=== PATIENT | female | born 1965 | race Two or more races ===

== ENCOUNTER 2020-05-12 13:53 | Outpatient (REF) | payer OTHER, SELFPAY ==
[2020-05-13 10:16] LABS: CT PCR NOT DETECTED (Not Detect.); NG PCR NOT DETECTED (Not Detect.)
[2020-05-13 13:13] LABS: BV Int Neg Control Negative (Negative); BV Int Pos Control Positive (Positive)
== END 2020-05-12 13:54 | disposition home or self-care (01) ==
LOC: HO.LAB 13:53
PROVIDERS: Visit Provider Obstetrics & Gynecology
DX: N88.8 Other specified noninflammatory disorders of cervix uteri (principal); B96.89 Other specified bacterial agents as the cause of diseases classified elsewhere; N76.0 Acute vaginitis; N92.0 Excessive and frequent menstruation with regular cycle; Z32.02 Encounter for pregnancy test, result negative; Z79.899 Other long term (current) drug therapy; Z79.52 Long term (current) use of systemic steroids
CPT/HCPCS: 81025; 87480; 87491; 87510; 87591; 87660; 88305; 99212

== ENCOUNTER → 2020-05-23 15:52 | Outpatient (BNVA) | payer OTHER, SELFPAY | PROVIDERS: Referring Provider Internal Medicine; Visit Provider Surgery | DX: K64.4 Residual hemorrhoidal skin tags (principal); K64.8 Other hemorrhoids | CPT/HCPCS: 46600; 99202 ==

== ENCOUNTER → 2020-07-18 14:21 | Outpatient (BNVA) | payer OTHER, SELFPAY | PROVIDERS: PCP Internal Medicine; Visit Provider Obstetrics & Gynecology | DX: Z76.89 Persons encountering health services in other specified circumstances (principal) ==

== ENCOUNTER 2020-07-22 10:35 | Outpatient (REF) | payer OTHER, SELFPAY ==
[2020-07-23 12:25] LABS: BV Int Neg Control Negative (Negative); BV Int Pos Control Positive (Positive)
[2020-07-23 15:37] LABS: C. trachomatis RNA TMA NOT DETECTED (NOT DETECTED); N. gonorrhoeae RNA TMA NOT DETECTED (NOT DETECTED)
== END 2020-07-22 10:36 | disposition home or self-care (01) ==
LOC: HO.LAB 10:35
PROVIDERS: PCP Internal Medicine; Visit Provider Obstetrics & Gynecology
DX: N89.8 Other specified noninflammatory disorders of vagina (principal); B96.89 Other specified bacterial agents as the cause of diseases classified elsewhere
CPT/HCPCS: 36415; 87480; 87491; 87510; 87591; 87660; 99212

== ENCOUNTER 2020-08-05 08:57 | Outpatient (REF) | payer OTHER, SELFPAY ==
[2020-08-05 09:47] LABS: MANUAL DIFF FLAG NO
[2020-08-05 09:57] LABS: Basophils Percent Auto 0.3 % (0-2); Eosinophils Absolute Auto 0.2 X10*3/uL (0.0-0.4); Hemoglobin 13.5 g/dl (12.0-16.0); Imm Gran Abs Auto 0.01 X10*3/uL (0.00-0.03); Imm Gran Pct Auto 0.2 % (0.0-0.4); Immature Retic Fraction 5.8 % (3.0-15.9); Lymphocytes Absolute Auto 1.5 X10*3/uL (1.2-4.9); Lymphocytes Percent Auto 24.7 % (20-40); Mean Corpuscular HGB Conc 32.9 g/dl (31.0-35.0); Mean Corpuscular Hemoglobin 29.5 pg (27.0-33.0); Mean Corpuscular Volume 89.5 fL (80-98); Mean Platelet Volume 9.8 fL (9.4-12.3); Monocytes Absolute Auto 0.5 X10*3/uL (0.1-1.2); Monocytes Percent Auto 7.5 % (2-11); Neutrophils Percent Auto 64.3 % (45-73); Platelet Count 351 X10*3/uL (160-400); Red Blood Count 4.58 X10*6/uL (4.20-5.50); Red Cell Distribution Width 12.6 % (11.0-16.0); Retic HGB Equivalent 33.8 pg (30.0-35.0); Reticulocyte Percent 1.5 % (0.5-1.8); Reticulocytes Absolute 0.066 X10*6/uL (0.026-0.095); White Blood Count 6.2 X10*3/uL (4.8-10.8)
[2020-08-05 10:20] LABS: Alanine Aminotransferase 43 U/L (0-31); Albumin Level 4.3 g/dL (3.5-5.0); Alkaline Phosphatase 74 U/L (39-117); Anion Gap 12 (12-20); Aspartate Amino Transferase 32 U/L (5-31); Bilirubin Total 0.5 mg/dL (0.0-1.0); Blood Urea Nitrogen 10 mg/dL (9-16); Calcium 8.7 mg/dL (8.4-10.2); Carbon Dioxide 27 mmol/L (22-29); Chloride 104 mmol/L (96-108); Estimated Glomerular Filt Rate > 60; Glucose Random 151 mg/dL (60-115); Iron 56 mcg/dL (30-160); Percent Iron Saturation 18 % (15-50); Potassium 4.2 mmol/l (3.3-5.1); Sodium 139 mmol/L (135-145); Total Iron Binding Capacity 318 mcg/dL (228-428); Unsaturated Iron Binding 262 ug/dL
[2020-08-05 10:43] LABS: Ferritin 59 ng/mL (10-250); TSH reflex Free T4 1.24 mIU/mL (0.32-4.0)
[2020-08-08 15:21] LABS: Folate 13.8 ng/mL (> or = 4.0); Vitamin B12 537 pg/mL (200-900)
== END 2020-08-05 08:58 | disposition home or self-care (01) ==
LOC: HO.LAB 08:57
PROVIDERS: PCP Internal Medicine; Visit Provider Internal Medicine
DX: E66.3 Overweight (principal); D64.9 Anemia, unspecified; K64.9 Unspecified hemorrhoids; R51.9 Headache, unspecified
CPT/HCPCS: 36415; 80053; 82607; 82728; 82746; 83540; 84443; 85025; 85045

== ENCOUNTER → 2020-08-17 13:54 | Outpatient (BNV) | payer OTHER, SELFPAY | PROVIDERS: PCP Internal Medicine; Visit Provider Internal Medicine | DX: Z86.2 Personal history of diseases of the blood and blood-forming organs and certain disorders involving the immune mechanism (principal) | CPT/HCPCS: 99212; 99213 ==

== ENCOUNTER 2020-08-23 11:58 | Outpatient (REF) | payer OTHER, SELFPAY ==
--- NOTE | ~2020-08-23 | XR_ITS ---
EXAMINATION: XR SHOULDER, RIGHT CLINICAL INFORMATION: Shoulder pain COMPARISON: Radiographs right shoulder 04/09/2016 TECHNIQUE: 5 views of the right shoulder. FINDINGS: There is no fracture or dislocation or destructive process. The glenohumeral and acromioclavicular joints are unremarkable. There are no visible rotator cuff calcifications. Bony mineralization appears normal. XR/XR shoulder RT min 2V IMPRESSION: Normal right shoulder.
[2020-08-23 13:37] LABS: Estimated Average Glucose 154 mg/dL
[2020-08-23 13:51] LABS: Alanine Aminotransferase 39 U/L (0-31); Albumin Level 4.3 g/dL (3.5-5.0); Alkaline Phosphatase 70 U/L (39-117); Anion Gap 14 (12-20); Aspartate Amino Transferase 29 U/L (5-31); Bilirubin Direct 0.2 mg/dL (0.0-0.5); Bilirubin Total 0.6 mg/dL (0.0-1.0); Blood Urea Nitrogen 9 mg/dL (9-16); Calcium 8.6 mg/dL (8.4-10.2); Carbon Dioxide 25 mmol/L (22-29); Chloride 104 mmol/L (96-108); Cholesterol 195 mg/dL; Estimated Glomerular Filt Rate > 60; Glucose Random 117 mg/dL (60-115); HDL Cholesterol 29 mg/dL; LDL Cholesterol Calculated 139 mg/dl; Potassium 4.4 mmol/L (3.3-5.1); Sodium 139 mmol/L (135-145); Total Protein 6.8 g/dL (6.5-8.0); Triglycerides 136 mg/dL
[2020-08-24 08:49] LABS: HBc Num1 0.07 S/CO (0.00-0.79); Hepatitis B Core Antibody Nonreactive (Nonreactive); ~HepC Num1 0.07 S/CO (0.00-0.79); ~Hepatitis B Surface Antibody NONREACTIVE (Nonreactive); ~Hepatitis C Antibody Nonreactive (Nonreactive)
[2020-08-24 09:51] LABS: HBsAGNum1 0.18 S/CO (0.00-0.99); Hepatitis B Surface Antigen Negative (Negative)
== END 2020-08-23 11:59 | disposition home or self-care (01) ==
LOC: HO.LAB 11:58
PROVIDERS: PCP Internal Medicine; Visit Provider Internal Medicine
DX: R73.02 Impaired glucose tolerance (oral) (principal); R79.89 Other specified abnormal findings of blood chemistry; E78.00 Pure hypercholesterolemia, unspecified; M25.511 Pain in right shoulder
CPT/HCPCS: 36415; 73030; 80053; 80061; 80076; 82248; 83036; 86704; 86706; 86803; 87340

== ENCOUNTER 2020-09-01 08:18 | Outpatient (REF) | payer OTHER, SELFPAY ==
--- NOTE | ~2020-09-01 | US_ITS ---
EXAMINATION: US ABDOMEN COMPLETE CLINICAL INFORMATION: Abnormal blood chemistry. COMPARISON: None TECHNIQUE: Real-time imaging of the abdominal viscera. FINDINGS: PANCREAS: Obscured by bowel gas. Partially visualized neck appears unremarkable. ABDOMINAL AORTA: The proximal, mid, and distal segments are normal in caliber. INFERIOR VENA CAVA: Visualized portions are normal. LIVER:The liver is normal in size. The liver contour is normal. Diffuse increased echogenicity. No focal hepatic lesion. There is no intrahepatic biliary duct dilatation seen. 1 x 0.5 x 0.7 cm calcification in the right lower lobe. GALLBLADDER: Normal. The gallbladder is physiologically distended without evidence of stones, sludge, polyps, wall thickening, or pericholecystic fluid. COMMON BILE DUCT: Normal in caliber measuring 0.4 cm in diameter. RIGHT KIDNEY: Normal. No hydronephrosis. No renal calculi or focal parenchymal lesions. The kidney measures 12.6 cm in maximum dimension. LEFT KIDNEY: Normal. Fullness of the renal pelvis in the lower pole. No hydronephrosis. No renal calculi or focal parenchymal lesions. The kidney measures 13.3 cm in maximum dimension. SPLEEN: Normal. The spleen measures 10.5 cm in maximum dimension. FREE FLUID: None. US/US abdomen complete IMPRESSION: 1. There is generalized increase in hepatic echotexture, consistent with fatty infiltration or hepatocellular disease. Please correlate clinically. No focal hepatic mass or intrahepatic biliary duct dilatation is seen. 2. Pancreas obscured by bowel gas. 3. Mild fullness of the left renal lower pole pelvis.
== END 2020-09-01 08:19 | disposition home or self-care (01) ==
LOC: HO.US 08:18
PROVIDERS: Visit Provider Internal Medicine
DX: R79.89 Other specified abnormal findings of blood chemistry (principal)
CPT/HCPCS: 76700

== ENCOUNTER → 2020-09-30 09:48 | Outpatient (BNVA) | payer OTHER, SELFPAY | PROVIDERS: PCP Internal Medicine; Visit Provider Physician Assistant | DX: M75.41 Impingement syndrome of right shoulder (principal) | CPT/HCPCS: 20610; 99202; J1020 ==

== ENCOUNTER → 2020-11-21 13:22 | Outpatient (BNVA) | payer OTHER, SELFPAY | PROVIDERS: PCP Internal Medicine; Visit Provider Dietitian, Registered | DX: E11.65 Type 2 diabetes mellitus with hyperglycemia (principal) | CPT/HCPCS: 97802 ==

== ENCOUNTER 2020-11-22 09:20 | Outpatient (REF) | payer OTHER, SELFPAY ==
[2020-11-22 10:51] LABS: Alanine Aminotransferase 20 U/L (0-31); Albumin Level 4.3 g/dL (3.5-5.0); Alkaline Phosphatase 69 U/L (39-117); Anion Gap 12 (12-20); Aspartate Amino Transferase 20 U/L (5-31); Bilirubin Total 0.8 mg/dL (0.0-1.0); Blood Urea Nitrogen 11 mg/dL (9-16); Calcium 8.8 mg/dL (8.4-10.2); Carbon Dioxide 25 mmol/L (22-29); Chloride 108 mmol/L (96-108); Cholesterol 148 mg/dL; Estimated Glomerular Filt Rate > 60; Glucose Random 103 mg/dL (60-115); HDL Cholesterol 33 mg/dL; LDL Cholesterol Calculated 103 mg/dl; Sodium 141 mmol/L (135-145); Total Protein 6.9 g/dL (6.5-8.0); Triglycerides 60 mg/dL
[2020-11-22 11:03] LABS: Creatinine Urine 294.75 mg/dL; Microalbum/Creatinine Ratio Ur 9.4 ug/mg cr
[2020-11-22 11:06] LABS: Estimated Average Glucose 108 mg/dL; Hemoglobin A1c % 5.4 %
== END 2020-11-22 09:21 | disposition home or self-care (01) ==
LOC: HO.LAB 09:20
PROVIDERS: PCP Internal Medicine; Visit Provider Internal Medicine
DX: E11.65 Type 2 diabetes mellitus with hyperglycemia (principal); E78.00 Pure hypercholesterolemia, unspecified; D50.9 Iron deficiency anemia, unspecified
CPT/HCPCS: 36415; 80053; 80061; 82043; 83036

== ENCOUNTER 2020-11-23 13:35 | Outpatient (REF) | payer OTHER, SELFPAY ==
--- NOTE | 2020-11-24 09:30 | MHC.AU.ATI ---
Adult Audiological Evaluation Date of Visit: 11/23/20 Reason for Appointment: Patient contracted COVID-19 in October 2019. During this time, she developed constant, high-pitched tinnitus. The tinnitus has persisted since last October. During the day, the tinnitus does not usually bother her, and can easily be masked by everyday background noise. At nighttime, or when the room is quiet, the tinnitus can sometimes be bothersome. She has been sleeping with the radio on to help cover the tinnitus. Patient also reports she experienced headaches long after the resolution of other COVID-19 symptoms, but the headaches have since resolved. Hearing Handicap Inventory: HHIE SCORE: 4 Based on HHIE score, patient has: No perceived hearing handicap Ear History: Ear Deformity: None Reported Recent Ear Drainage: None Reported Recent Ear Pain: None Reported Family History of Hearing Loss?: Yes Recent Ear Infections: None Reported Ear Infections in Childhood: None Reported History of Ear Wax Buildup: None Reported Previous Ear Surgery: None Reported Bothersome Tinnitus/Ringing/Noises in Ears: Both Ears Ear used on the phone: Right Ear Blocked/Full Sensation in Ear(s): None Reported History of occupational noise exposure?: Yes: [employer] for 17 years History: No Medical History: Medical History: Type 2 Diabetes Otoscopy: Right Ear: Unremarkable Left Ear: Unremarkable Tympanometry: Tympanometry performed due to: To assess integrity of the middle ear system Right Ear: Normal Middle Ear System (Type A) Left Ear: Normal Middle Ear System (Type A) Acoustic Reflexes: Screening Ipsilateral Reflex Probe Right Ear: Screening Ipsilateral Reflex Present at 1000 Hz Probe Left Ear: Screening Ipsilateral Reflex Present at 1000 Hz Otoacoustic Emissions Frequency Range Used: 1.6-8 kHz Right Ear Results: Present Emissions Analysis: Present emissions suggest normal cochlear function Rules out peripheral hearing loss greater than a mild degree Left Ear Results: Present Emissions Analysis: Present emissions suggest normal cochlear function Rules out peripheral hearing loss greater than a mild degree Hearing Evaluation: Transducer(s) Used: Insert Earphones Method: Conventional Audiometry Stimuli Used: Pure Tones Right Ear: Description of Hearing: Normal hearing Left Ear: Description of Hearing: Normal hearing Speech Recognition Threshold (SRT): Method Used: Recorded Lists Stimuli Used: Spondee Words Right Ear: 20 dBHL Left Ear: 10 dBHL Word Discrimination: Method: Recorded Lists Word Lists Used:: NU-6 Right Ear: 100% at 50 dBHL Left Ear: 100% at 50 dBHL Tinnitus Assessment: Tinnitus Match- Pitch/Frequency: 8000 Hz Tinnitus Match- Loudness: 20-25 dBHL Interpretation of Results: At this time, results suggest normal hearing, normal cochlear function, and normal middle ear function. Recommendations: Audiological re-evaluation if changes are noted in tinnitus or hearing. Tinnitus management strategies discussed, including use of masking noise (fans, radio, TV, etc). Diagnosis: Primary Diagnosis: H93.13 Tinnitus, Bilateral Services Performed: Comprehensive Audiological Evaluation (CPT 28042), Limited Otoacoustic Emissions (CPT 46408), Tympanometry (CPT 33590) Signature: Provider: Erin Louise, CCC-A
== END 2020-11-23 13:36 | disposition home or self-care (01) ==
LOC: HO.SH 13:35
PROVIDERS: Visit Provider Internal Medicine
DX: H93.13 Tinnitus, bilateral (principal)
CPT/HCPCS: 92557; 92567; 92587

== ENCOUNTER 2020-12-02 11:00 | Outpatient (RCR) | payer OTHER, SELFPAY ==
--- NOTE | 2020-10-18 12:01 | MHC.PT.EP ---
[facility] [place] Office [place] Office [place] Office [address] Aureliano Everett [address] [phone] F: [phone] F: [phone] F: [phone] F: [phone] Physical Therapy Plan of Care Date of Evaluation: 10/18/20 Date of Surgery: N/A Diagnosis: Impingement Syndrome of R Shoulder Assessment: Cecilia is a 54-year-old female presenting to physical therapy with a diagnosis of R shoulder impingement. She demonstrates impaired UE strength, impaired RUE ROM, impaired scapular muscle strength, and impaired posture. 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 Cecilia is motivated to participate in physical therapy in order to reduce her pain and return to her PLOF. Pt was recommended 2/week but due to copay she will be coming 1/week. Frequency and Duration: The patient will be seen 2 Visits per Week for 5 Weeks Short Term Goals: -Pt will report <2/10 pain at rest to allow her to sleep comfortably through the night within 3 weeks. -Pt will independently check and correct seated posture every 30 minutes while watching television within 3 weeks. Longterm Goals: -Pt will be independent with HEP for symptom management and maintenance following discharge within 5 weeks. -Pt will demonstrate 4+/5 global R shoulder strength to allow her to safely lift items overhead when cleaning around the house within 5 weeks. Treatment Plan: Modalities to reduce pain, spasms and effusion. Manual therapy to restore motion and function. Therapeutic exercise to improve strength and flexibility. Neuromuscular re-education for posture and balance. Therapeutic activities to return to functional activities of daily living. Electronically signed by: Kathy Zambrano PT, DPT Please sign and return to therapist. Thank you for your referral.
--- NOTE | 2020-12-23 11:39 | MHC.PT.DC ---
[facility] [place] Office [place] Office [place] Office [address] Aureliano Everett [address] [phone] F: [phone] F: [phone] F: [phone] F: [phone] Physical Therapy Discharge Report Diagnosis: Impingement Syndrome of R Shoulder Date of Surgery: N/A Date of Evaluation: 10/18/20 Date of Discharge: 12/23/20 Treatments to Date: 7 Cancellations to Date: 2 No Shows to Date: 1 Discharge Status: Improved Function Independent with HEP Discharge Summary: Zuleika completed 7 PT visits. She made significant progress in these visits. She only reported of having very minimal pain with end range ER. Pt was advised to continued PT for 4 more visits. She however did not attend any of her appointments. She has therefore been discharged from therapy. Electronically signed by: Kathy Zambrano, PT, DPT Please sign and return to therapist. Thank you for your referral.
== END 2020-12-23 11:40 | disposition other institution (70) ==
LOC: HO.PT 11:00
PROVIDERS: PCP Internal Medicine; Visit Provider Physician Assistant
DX: M75.41 Impingement syndrome of right shoulder (principal)
CPT/HCPCS: 97110; 97112; 97140; 97161

== ENCOUNTER → 2021-01-02 12:57 | Outpatient (BNVA) | payer OTHER, SELFPAY | PROVIDERS: PCP Internal Medicine; Visit Provider Dietitian, Registered | DX: E11.65 Type 2 diabetes mellitus with hyperglycemia (principal) | CPT/HCPCS: 97803 ==

== ENCOUNTER 2021-01-23 12:33 | Outpatient (REF) | payer OTHER, SELFPAY ==
--- NOTE | ~2021-01-23 | MM_ITS ---
EXAMINATION: MM SCREENING DIGITAL BREAST TOMOSYNTHESIS, BILATERAL CLINICAL INFORMATION: Screening. Asymptomatic. Benign left ultrasound guided biopsy 12/31/2018 (fibroadenoma). The lifetime risk of breast cancer based on the Tyrer-Cuzick Model is 11%. COMPARISON: Mammography: 12/18/2019, 25/12/2018, 11/12/2017, 11/07/2017 TECHNIQUE: Digital breast tomosynthesis is performed in both the craniocaudal and mediolateral oblique views along with computer-aided detection (CAD). Synthesized 2D images are generated from the tomosynthesis. FINDINGS: The breasts are heterogeneously dense, which may obscure small masses (ACR BI-RADS breast composition Category c). Breast tissue composition borders on average fibroglandular. Parenchymal pattern is similar to prior studies. There is a known fibroadenoma anterior upper outer left breast with overlying biopsy clip marker. Neither breast shows significant mass or architectural abnormality. There are scattered bilateral calcifications again seen, more numerous on right. No interval suspicious calcifications. The axilla and skin contours are unremarkable. No significant changes. MM/MM tomosynthesis screening BI IMPRESSION: No mammographic evidence of malignancy. ASSESSMENT: BI-RADS 2: Benign RECOMMENDATION: Routine annual mammography screening. This patient's information was entered into a reminder system with a target due date for their next mammogram.
== END 2021-01-23 12:34 | disposition home or self-care (01) ==
LOC: HO.MAMMO 12:33
PROVIDERS: Visit Provider Internal Medicine
DX: Z12.31 Encounter for screening mammogram for malignant neoplasm of breast (principal)
CPT/HCPCS: 77063; 77067

== ENCOUNTER 2021-02-23 12:57 | Outpatient (REF) | payer OTHER, SELFPAY ==
[2021-02-23 16:47] LABS: CT PCR NOT DETECTED (Not Detect.); NG PCR NOT DETECTED (Not Detect.)
[2021-02-24 09:27] LABS: BV Int Neg Control Negative (Negative); BV Int Pos Control Positive (Positive)
[2021-02-25 18:06] LABS: HPV mRNA E6/E7 rflx Not Detected (Not Detected)
== END 2021-02-23 12:58 | disposition home or self-care (01) ==
LOC: HO.LAB 12:57
PROVIDERS: PCP Internal Medicine; Visit Provider Advanced Practice Midwife
DX: Z01.411 Encounter for gynecological examination (general) (routine) with abnormal findings (principal); Z11.51 Encounter for screening for human papillomavirus (HPV); D25.9 Leiomyoma of uterus, unspecified; N93.9 Abnormal uterine and vaginal bleeding, unspecified; Z20.2 Contact with and (suspected) exposure to infections with a predominantly sexual mode of transmission
CPT/HCPCS: 87480; 87491; 87510; 87591; 87624; 87660; 88142

== ENCOUNTER 2021-03-15 13:57 | Outpatient (REF) | payer OTHER, SELFPAY ==
--- NOTE | ~2021-03-15 | US_ITS ---
EXAMINATION: US PELVIS CLINICAL INFORMATION: Abnormal bleeding. COMPARISON: Previous pelvic ultrasound most recent February 2020 TECHNIQUE: Ultrasound of the pelvis is performed using both transabdominal and transvaginal transducers along with Doppler. Transvaginal imaging is performed due to inadequate visualization transabdominally. FINDINGS: The uterus is anteverted and measures 13 x 8 x 7 cm. There is a right-sided uterine fibroid. This measures 6.4 x 6.9 x 5.2 cm and is increased from 4.2 x 3 x 5 cm on prior exam. The endometrium is difficult to visualize but appears thickened measuring 2.4 cm. There are nabothian cysts in the cervix. The ovaries are seen transabdominally only. The ovaries are normal-appearing. The right ovary measures 3.1 x 2.5 x 2.1 cm and the left ovary measures 1.6 x 1.2 x 1.3 cm. There is a small amount of fluid in the pelvis. US/US pelvic and transvaginal IMPRESSION: Interval increase in size in right uterine fibroid. Thickened endometrium measuring 2.4 cm. Multiple nabothian cysts. Normal-appearing ovaries.
== END 2021-03-15 13:58 | disposition home or self-care (01) ==
LOC: HO.US 13:57
PROVIDERS: Visit Provider Advanced Practice Midwife
DX: N93.9 Abnormal uterine and vaginal bleeding, unspecified (principal); D25.9 Leiomyoma of uterus, unspecified
CPT/HCPCS: 76830; 76856

== ENCOUNTER 2021-03-20 13:06 | Outpatient (REF) | payer OTHER, SELFPAY | END 2021-03-20 13:07 | disposition home or self-care (01) | LOC: HO.LAB 13:06 | PROVIDERS: PCP Internal Medicine; Visit Provider Obstetrics & Gynecology | DX: N92.0 Excessive and frequent menstruation with regular cycle (principal); D21.9 Benign neoplasm of connective and other soft tissue, unspecified | CPT/HCPCS: 58100; 81025; 88305; 99212 ==

== ENCOUNTER 2021-03-24 12:16 | Outpatient (REF) | payer OTHER, SELFPAY ==
[2021-03-24 13:39] LABS: Hematocrit 31.6 % (37-47); Hemoglobin 10.2 g/dl (12.0-16.0); Mean Corpuscular HGB Conc 32.3 g/dl (31.0-35.0); Mean Corpuscular Hemoglobin 28.7 pg (27.0-33.0); Mean Corpuscular Volume 88.8 fL (80-98); Mean Platelet Volume 10.2 fL (9.4-12.3); Platelet Count 312 X10*3/uL (160-400); Red Blood Count 3.56 X10*6/uL (4.20-5.50); Red Cell Distribution Width 18.3 % (11.0-16.0); White Blood Count 7.7 X10*3/uL (4.8-10.8)
[2021-03-24 13:59] LABS: Alanine Aminotransferase 21 U/L (0-31); Alkaline Phosphatase 56 U/L (39-117); Anion Gap 12 (12-20); Aspartate Amino Transferase 19 U/L (5-31); Bilirubin Total 0.5 mg/dL (0.0-1.0); Blood Urea Nitrogen 12 mg/dL (9-16); Calcium 8.7 mg/dL (8.4-10.2); Carbon Dioxide 26 mmol/L (22-29); Chloride 107 mmol/L (96-108); Cholesterol 169 mg/dL; Estimated Glomerular Filt Rate > 60; Glucose Random 102 mg/dL (60-115); HDL Cholesterol 39 mg/dL; LDL Cholesterol Calculated 119 mg/dl; Potassium 4.7 mmol/L (3.3-5.1); Sodium 140 mmol/L (135-145); Total Protein 6.2 g/dL (6.5-8.0); Triglycerides 59 mg/dL
[2021-03-24 14:12] LABS: TSH reflex Free T4 0.69 uIU/mL (0.32-4.0)
== END 2021-03-24 12:17 | disposition home or self-care (01) ==
LOC: HO.LAB 12:16
PROVIDERS: Absent Provider Obstetrics & Gynecology; PCP Internal Medicine; Visit Provider Internal Medicine
DX: E78.00 Pure hypercholesterolemia, unspecified (principal); N93.9 Abnormal uterine and vaginal bleeding, unspecified
CPT/HCPCS: 36415; 80053; 80061; 84443; 85027

== ENCOUNTER → 2021-03-27 14:47 | Outpatient (BNVA) | payer OTHER, SELFPAY | PROVIDERS: PCP Internal Medicine; Referring Provider Internal Medicine; Visit Provider Surgery | DX: K64.2 Third degree hemorrhoids (principal); E78.00 Pure hypercholesterolemia, unspecified; E55.9 Vitamin D deficiency, unspecified; Z87.891 Personal history of nicotine dependence | CPT/HCPCS: 46600; 99212 ==

== ENCOUNTER → 2021-04-05 11:39 | Outpatient (BNVA) | payer OTHER, SELFPAY | PROVIDERS: PCP Internal Medicine; Visit Provider Obstetrics & Gynecology ==

== ENCOUNTER → 2021-04-11 12:16 | Outpatient (BNVA) | payer OTHER, SELFPAY | PROVIDERS: PCP Internal Medicine; Visit Provider Obstetrics & Gynecology ==

== ENCOUNTER → 2021-04-25 13:25 | Outpatient (BNVA) | payer OTHER, SELFPAY | PROVIDERS: PCP Internal Medicine; Visit Provider Dietitian, Registered | DX: E11.65 Type 2 diabetes mellitus with hyperglycemia (principal) | CPT/HCPCS: 97803 ==

== ENCOUNTER 2021-05-09 14:17 | Outpatient (REF) | payer OTHER, SELFPAY ==
--- NOTE | ~2021-05-09 | MR_ITS ---
EXAMINATION: MR PELVIS WITHOUT AND WITH CONTRAST CLINICAL INFORMATION: Excessive and frequent menstruation with regular cycles. COMPARISON: Previous pelvic ultrasounds, most recent 03/15/2021. TECHNIQUE: Axial images through the pelvis with and without contrast. The patient received 6 mL intravenous Gadavist contrast. FINDINGS: The uterus is enlarged and measures 12.3 x 7.3 x 8 cm in dimension. The endometrium does not appear thickened, measuring 3 mm. The junctional zone does not appear thickened, measuring 3 mm. There is a large lesion in the right side of the body of the uterus. This is submucosal in location and displaces the endometrium anteriorly and to the left. This is similar in signal to the uterus on T1-weighted sequences, low signal on T2-weighted sequences and demonstrates heterogeneous enhancement. This probably represents a fibroid. This measures 4.4 x 4.3 x 5.1 cm in dimension. There is a second similar-appearing and signal 7 mm lesion in the left body of the uterus also probably representing a small fibroid. There are nabothian cysts in the cervix. The right ovary is slightly enlarged and measures 6 x 4.6 x 4 cm. There is a 4 x 3 x 4 cm right ovarian cyst. This is slightly high signal on T1-weighted sequences, high signal on T2-weighted sequences and does not demonstrate evidence of enhancement. This probably represents a, complex proteinaceous or hemorrhagic cyst. There is a second smaller simple right ovarian cyst measuring 1.2 x 1.4 x 1.3 cm. The left ovary is normal appearing and measures 2.3 x 1.5 x 1.5 cm. There is a 1 cm simple left ovarian cyst. There are prominent pelvic vessels questionable for pelvic congestion. Bladder is unremarkable. No ascites or adenopathy is seen. Visualized bowel is unremarkable. There is a small umbilical hernia containing fat. There are postsurgical changes to the low abdominal wall. There is degenerative disc disease of the lower lumbar spine. MR/MR pelvis wo/w con IMPRESSION: Right submucosal uterine body fibroid measuring 4.4 x 4.3 x 5.1 cm that displaces the endometrium anteriorly and to the left. The endometrium does not appear thickened. Enlarged right ovary and 2 right ovarian cysts.
[2021-05-09 14:48] LABS: Blood Urea Nitrogen 13 mg/dL (9-16); Estimated Glomerular Filt Rate > 60
== END 2021-05-09 14:18 | disposition home or self-care (01) ==
LOC: HO.MRI 14:17
PROVIDERS: PCP Internal Medicine; Visit Provider Obstetrics & Gynecology
DX: N92.0 Excessive and frequent menstruation with regular cycle (principal)
CPT/HCPCS: 36415; 72197; 82565; 84520; A9585

== ENCOUNTER → 2021-05-23 15:11 | Outpatient (BNVA) | payer OTHER, SELFPAY | PROVIDERS: PCP Internal Medicine; Visit Provider Obstetrics & Gynecology ==

== ENCOUNTER → 2021-05-25 13:17 | Outpatient (BNVA) | payer OTHER, SELFPAY | PROVIDERS: Visit Provider Obstetrics & Gynecology ==

== ENCOUNTER 2021-05-26 10:22 | Outpatient (REF) | payer OTHER, SELFPAY ==
[2021-05-29 19:47] LABS: CA-125 12 U/mL (<35)
== END 2021-05-26 10:23 | disposition home or self-care (01) ==
LOC: HO.LAB 10:22
PROVIDERS: PCP Internal Medicine; Visit Provider Obstetrics & Gynecology
DX: N83.299 Other ovarian cyst, unspecified side (principal)
CPT/HCPCS: 36415; 86304

== ENCOUNTER 2021-07-24 11:03 | Outpatient (REF) | payer OTHER, SELFPAY ==
--- NOTE | ~2021-07-24 | US_ITS ---
EXAMINATION: US PELVIC AND TRANSVAGINALs CLINICAL INFORMATION: Ovarian cyst. COMPARISON: MRI pelvis 05/27/2021 and ultrasound pelvis 03/15/2021 TECHNIQUE: Ultrasound of the pelvis is performed using both transabdominal and transvaginal transducers along with Doppler. Transvaginal imaging is performed due to inadequate visualization transabdominally. FINDINGS: Uterus: The uterus is anteverted, anteflexed and measures 13.0 cm in length, 6.5 cm in AP, and 7.9 cm in transverse dimension. The double wall endometrial thickness is not well visualized. The uterus is smooth in contour and has normal myometrial echogenicity. There is a solitary hypoechoic lesion in the right mid uterus measuring 5.0 x 4.1 x 4.1 cm consistent with fibroid. Previously it measured 6.4 x 6.9 x 5.2 cm. MRI visualized left fibroid is not seen on ultrasound. There are several nabothian cysts seen in the cervix. Adnexa: Both ovaries are visualized. There is normal color-flow to the adnexa. There is no ovarian torsion. There is no pelvic ascites or fluid collection. Right ovary measures 2.4 x 2.6 x 2.8 cm seen on transvaginal ultrasound only. There is an anechoic cyst measuring 2.5 x 1.9 x 1.8 cm. Left ovary measures 2.2 x 2.4 x 1.8 cm. There is an anechoic cyst measuring 1.2 x 1.0 x 1.2 cm. US/US pelvic and transvaginal IMPRESSION: Bilateral ovarian cysts. Solitary uterine fibroid minimally smaller compared to the MRI exam. A left fibroid seen on MRI is not seen on this ultrasound. The endometrial thickness is not well visualized due to a large fibroid.
== END 2021-07-24 11:04 | disposition home or self-care (01) ==
LOC: HO.US 11:03
PROVIDERS: PCP Internal Medicine; Visit Provider Obstetrics & Gynecology
DX: N83.299 Other ovarian cyst, unspecified side (principal)
CPT/HCPCS: 76830; 76856

== ENCOUNTER 2021-07-24 14:43 | Outpatient (REF) | payer OTHER, SELFPAY ==
--- NOTE | ~2021-07-24 | XR_ITS ---
EXAMINATION: XR CHEST CLINICAL INFORMATION: Acute bronchitis. COMPARISON: Chest 11/13/2019 TECHNIQUE: 2 views of the chest were obtained. FINDINGS: No significant abnormality is noted involving the heart, lungs, mediastinum, bony thorax or soft tissues. XR/XR chest 2V IMPRESSION: Unremarkable examination.
== END 2021-07-24 14:44 | disposition home or self-care (01) ==
LOC: HO.HMGCX 14:43
PROVIDERS: PCP Internal Medicine; Visit Provider Internal Medicine
DX: J20.9 Acute bronchitis, unspecified (principal)
CPT/HCPCS: 71046

== ENCOUNTER 2021-08-01 09:54 | Outpatient (REF) | payer OTHER, SELFPAY ==
[2021-08-01 11:55] LABS: HIV AB/AG Nonreactive (Nonreactive); HIV Num 1 0.08 S/CO (0.00-0.99); Hepatitis B Surface Antigen Negative (Negative); ~HepC Num1 0.12 S/CO (0.00-0.79); ~Hepatitis C Antibody Nonreactive (Nonreactive)
[2021-08-01 15:48] LABS: CT PCR NOT DETECTED (Not Detect.); NG PCR NOT DETECTED (Not Detect.)
[2021-08-02 08:58] LABS: BV Int Neg Control Negative (Negative); BV Int Pos Control Positive (Positive)
[2021-08-02 09:51] LABS: Syphilis Screen Nonreactive (Nonreactive)
== END 2021-08-01 09:55 | disposition home or self-care (01) ==
LOC: HO.LAB 09:54
PROVIDERS: PCP Internal Medicine; Visit Provider Obstetrics & Gynecology
DX: N89.8 Other specified noninflammatory disorders of vagina (principal); N83.299 Other ovarian cyst, unspecified side; N92.0 Excessive and frequent menstruation with regular cycle
CPT/HCPCS: 36415; 86780; 86803; 87340; 87389; 87480; 87491; 87510; 87591; 87660; 99212

== ENCOUNTER → 2021-08-07 15:37 | Outpatient (BNVA) | payer OTHER, SELFPAY | PROVIDERS: PCP Internal Medicine; Visit Provider Obstetrics & Gynecology ==

== ENCOUNTER → 2021-09-13 13:43 | Outpatient (BNVA) | payer OTHER, SELFPAY | PROVIDERS: PCP Internal Medicine; Visit Provider Surgery | DX: K64.2 Third degree hemorrhoids (principal) | CPT/HCPCS: 99212 ==

== ENCOUNTER 2021-09-22 09:04 | Outpatient (REF) | payer OTHER, SELFPAY ==
[2021-09-22 16:51] LABS: CT PCR NOT DETECTED (Not Detect.); NG PCR NOT DETECTED (Not Detect.)
== END 2021-09-22 09:05 | disposition home or self-care (01) ==
LOC: HO.LAB 09:04
PROVIDERS: Absent Provider Internal Medicine; PCP Internal Medicine; Visit Provider Obstetrics & Gynecology
DX: N92.0 Excessive and frequent menstruation with regular cycle (principal); N89.8 Other specified noninflammatory disorders of vagina; Z87.891 Personal history of nicotine dependence
CPT/HCPCS: 87491; 87591; 99212

== ENCOUNTER 2021-09-23 10:17 | Outpatient (REF) | payer SELFPAY ==
[2021-09-23 10:36] LABS: MANUAL DIFF FLAG NO
[2021-09-23 10:49] LABS: Basophils Percent Auto 0.3 % (0-2); Eosinophils Absolute Auto 0.1 X10*3/uL (0.0-0.4); Eosinophils Percent Auto 1.3 % (0-4); Hematocrit 39.9 % (37.0-47.0); Hemoglobin 13.1 g/dl (12.0-16.0); Imm Gran Abs Auto 0.02 X10*3/uL (0.00-0.03); Imm Gran Pct Auto 0.3 % (0.0-0.4); Immature Retic Fraction 8.2 % (3.0-15.9); Lymphocytes Absolute Auto 1.1 X10*3/uL (1.2-4.9); Lymphocytes Percent Auto 16.2 % (20-40); Mean Corpuscular HGB Conc 32.8 g/dl (31.0-35.0); Mean Corpuscular Hemoglobin 29.6 pg (27.0-33.0); Mean Corpuscular Volume 90.1 fL (80.0-98.0); Mean Platelet Volume 9.5 fL (9.4-12.3); Monocytes Absolute Auto 0.5 X10*3/uL (0.1-1.2); Monocytes Percent Auto 6.8 % (2-11); Neutrophils Absolute Auto 5.1 x10*3/uL (2.0-8.3); Neutrophils Percent Auto 75.1 % (45-73); Platelet Count 317 X10*3/uL (160-400); Red Blood Count 4.43 X10*6/uL (4.20-5.50); Red Cell Distribution Width 16.6 % (11.0-16.0); Retic HGB Equivalent 34.5 pg (30.0-35.0); Reticulocyte Percent 1.9 % (0.5-1.8); Reticulocytes Absolute 0.083 X10*6/uL (0.026-0.095); White Blood Count 6.8 X10*3/uL (4.8-10.8)
[2021-09-23 11:23] LABS: Alanine Aminotransferase 25 U/L (0-31); Albumin Level 4.4 g/dL (3.5-5.0); Alkaline Phosphatase 73 U/L (39-117); Anion Gap 13 (12-20); Aspartate Amino Transferase 21 U/L (5-31); Bilirubin Total 0.6 mg/dL (0.0-1.0); Blood Urea Nitrogen 16 mg/dL (9-16); Calcium 9.5 mg/dL (8.4-10.2); Carbon Dioxide 26 mmol/L (22-29); Chloride 105 mmol/L (96-108); Cholesterol 151 mg/dL; Estimated Glomerular Filt Rate > 60; Glucose Random 99 mg/dL (60-115); HDL Cholesterol 42 mg/dL; Iron 45 mcg/dL (30-160); LDL Cholesterol Calculated 98 mg/dl; Percent Iron Saturation 12 % (15-50); Potassium 4.2 mmol/L (3.3-5.1); Sodium 140 mmol/L (135-145); Total Iron Binding Capacity 381 mcg/dL (228-428); Total Protein 7.1 g/dL (6.5-8.0); Triglycerides 58 mg/dL; Unsaturated Iron Binding 336 ug/dL
[2021-09-23 12:56] LABS: Ferritin 36 ng/mL (10-250)
[2021-09-24 21:16] LABS: Follicle Stimulating Hormone 11.5 mIU/mL; Lutenizing Hormone 12.7 mIU/mL
[2021-09-25 08:13] LABS: Folate 11.3 ng/mL (> or = 4.0); Vitamin B12 509 pg/mL (200-900)
== END 2021-09-23 10:18 | disposition home or self-care (01) ==
LOC: HO.LAB 10:17
PROVIDERS: Absent Provider Internal Medicine; PCP Internal Medicine; Visit Provider Obstetrics & Gynecology
DX: E78.00 Pure hypercholesterolemia, unspecified (principal); D50.8 Other iron deficiency anemias; N93.9 Abnormal uterine and vaginal bleeding, unspecified
CPT/HCPCS: 36415; 80053; 80061; 82607; 82728; 82746; 83001; 83002; 83540; 85025; 85045

== ENCOUNTER 2021-09-28 14:58 | Outpatient (REF) | payer OTHER, SELFPAY ==
[2021-09-28 21:42] LABS: CT PCR NOT DETECTED (Not Detect.); NG PCR NOT DETECTED (Not Detect.)
[2021-09-29 09:02] LABS: BV Int Neg Control Negative (Negative); BV Int Pos Control Positive (Positive)
== END 2021-09-28 14:59 | disposition home or self-care (01) ==
LOC: HO.LAB 14:58
PROVIDERS: PCP Internal Medicine; Visit Provider Obstetrics & Gynecology
DX: N76.0 Acute vaginitis (principal); B96.89 Other specified bacterial agents as the cause of diseases classified elsewhere
CPT/HCPCS: 87480; 87491; 87510; 87591; 87660; 99212

== ENCOUNTER 2021-10-09 11:09 | Outpatient (REF) | payer SELFPAY ==
[2021-10-09 14:25] LABS: Syphilis Screen Nonreactive (Nonreactive)
[2021-10-10 08:26] LABS: HBsAGNum1 0.21 S/CO (0.00-0.99); HIV AB/AG Nonreactive (Nonreactive); HIV Num 1 0.06 S/CO (0.00-0.99); Hepatitis B Surface Antigen Negative (Negative)
[2021-10-10 09:03] LABS: ~HepC Num1 0.11 S/CO (0.00-0.79); ~Hepatitis C Antibody Nonreactive (Nonreactive)
== END 2021-10-09 11:10 | disposition home or self-care (01) ==
LOC: HO.LAB 11:09
PROVIDERS: PCP Internal Medicine; Visit Provider Obstetrics & Gynecology
DX: Z11.4 Encounter for screening for human immunodeficiency virus [HIV] (principal); R10.2 Pelvic and perineal pain; N76.0 Acute vaginitis; N93.9 Abnormal uterine and vaginal bleeding, unspecified; B96.89 Other specified bacterial agents as the cause of diseases classified elsewhere
CPT/HCPCS: 36415; 58100; 81025; 86780; 86803; 87071; 87205; 87340; 87389; 88305; 99212

== ENCOUNTER 2021-10-09 18:27 | Emergency (ER) | payer OTHER, SELFPAY ==
--- NOTE | ~2021-10-09 | US_ITS ---
EXAMINATION: US PELVIS CLINICAL INFORMATION: Pain, question pelvic abscess COMPARISON: 07/24/2021 TECHNIQUE: Ultrasound of the pelvis is performed using both transabdominal and transvaginal transducers along with Doppler. Transvaginal imaging is performed due to inadequate visualization transabdominally. FINDINGS: The uterus measures 13.0 cm in length and 5.1 x 8.0 cm in AP and transverse dimensions. Endometrial stripe measures 1.0 cm in thickness. There is a heterogeneous mass measuring 4.8 x 4.3 x 4.0 cm in the central portion of the uterus, consistent with a fibroid which previously measured 5.0 x 4.1 x 4.1 cm. Nabothian cysts are noted in the cervix. The right ovary is only seen on transabdominal imaging measuring 3.4 x 1.2 x 1.8 cm. Doppler evaluation demonstrates right ovarian flow. The left ovary measures 4.1 x 2.9 x 3.0 cm and contains a cyst measuring up to 2.9 cm. Small cystic focus measuring 1.2 cm appears to abut the ovary, only visible on transabdominal imaging. Doppler evaluation demonstrate left ovarian flow. Trace pelvic free fluid is present. US/US pelvic and transvaginal IMPRESSION: 1. Cystic focus measuring 1.2 cm abutting the left ovary on transabdominal imaging, which may reflect a peripheral ovarian cyst, though this is not appreciable on transvaginal imaging. 2. Trace pelvic free fluid. 3. Redemonstrated ovarian fibroid, similar to prior.
[2021-10-09 18:50] VITALS: BP 144/108; PULSE 91; RESP 16; TEMP 36.2; O2SAT 100; BMI 24.4
[2021-10-09 19:16] LABS: MANUAL DIFF FLAG NO
[2021-10-09 19:21] LABS: Basophils Percent Auto 0.2 % (0-2); Eosinophils Absolute Auto 0.1 X10*3/uL (0.0-0.4); Eosinophils Percent Auto 0.7 % (0-4); Hematocrit 39.8 % (37.0-47.0); Hemoglobin 13.3 g/dl (12.0-16.0); Imm Gran Abs Auto 0.02 X10*3/uL (0.00-0.03); Imm Gran Pct Auto 0.2 % (0.0-0.4); Lymphocytes Absolute Auto 1.5 X10*3/uL (1.2-4.9); Lymphocytes Percent Auto 14.8 % (20-40); Mean Corpuscular HGB Conc 33.4 g/dl (31.0-35.0); Mean Corpuscular Hemoglobin 29.7 pg (27.0-33.0); Mean Corpuscular Volume 88.8 fL (80.0-98.0); Mean Platelet Volume 9.5 fL (9.4-12.3); Monocytes Absolute Auto 0.6 X10*3/uL (0.1-1.2); Neutrophils Absolute Auto 7.7 x10*3/uL (2.0-8.3); Neutrophils Percent Auto 78.1 % (45-73); Platelet Count 364 X10*3/uL (160-400); Red Blood Count 4.48 X10*6/uL (4.20-5.50); Red Cell Distribution Width 15.4 % (11.0-16.0); White Blood Count 9.9 X10*3/uL (4.8-10.8)
[2021-10-09 19:35] LABS: Lactic Acid 0.7 mmol/L (0.5-2.0)
[2021-10-09 19:38] LABS: Appearance Urine HAZY; Color Urine YELLOW; Glucose Urine UA NEG (NEG); Leukocyte Esterase Urine NEG (NEG); Nitrite Urine NEG (NEG); UACC Culture Trigger NO; Urine Blood TRACE (NEG); Urine Ketones NEG (NEG); Urine Protein NEG (NEG-TRACE)
[2021-10-09 19:39] LABS: Alanine Aminotransferase 28 U/L (0-31); Albumin Level 4.4 g/dL (3.5-5.0); Alkaline Phosphatase 75 U/L (39-117); Anion Gap 12 (12-20); Aspartate Amino Transferase 21 U/L (5-31); Bilirubin Total 0.3 mg/dL (0.0-1.0); Blood Urea Nitrogen 13 mg/dL (9-16); Calcium 9.5 mg/dL (8.4-10.2); Carbon Dioxide 24 mmol/L (22-29); Chloride 105 mmol/L (96-108); Estimated Glomerular Filt Rate > 60; Glucose Random 86 mg/dL (60-115); Potassium 4.1 mmol/L (3.3-5.1); Sodium 137 mmol/L (135-145); Total Protein 7.1 g/dL (6.5-8.0)
[2021-10-09 19:48] LABS: Amorphous Sediment Urine 1+ /LPF; Squamous Epithelial Cell Urine TRACE /LPF
[2021-10-09 19:49] LABS: RBC Urine 0-2 /HPF (0); WBC Urine 0 /HPF (0-4)
[2021-10-10 01:03] VITALS: BP 129/60; PULSE 68; RESP 16; TEMP 36.4; O2SAT 99
[2021-10-10 03:27] VITALS: BP 139/78; PULSE 79; RESP 16; TEMP 36.7; O2SAT 98
[2021-10-10 06:00] VITALS: BP 121/61; PULSE 69; RESP 16; TEMP 37.1; O2SAT 98
[2021-10-10 07:04] VITALS: BP 118/64; PULSE 74; RESP 12; TEMP 36.6; O2SAT 97
--- NOTE | 2021-10-10 07:20 | ED_ITS ---
HPI - Female Genitourinary General Chief complaint: Urogenital-Female Stated complaint: ? infection female genitlia Time Seen by Provider: 10/10/21 00:38 Source: patient Mode of arrival: ambulatory Limitations: no limitations History of Present Illness HPI Narrative: 55 years old female came in from OBGYN office for further evaluation of pelvic abscess. Patient was scheduled for endometrial biopsy yesterday was sent to the emergency room for further evaluation for pusy discharge after the biopsy, in the emerg ency department patient had ultrasound of the pelvis which showed cystic lesion on the left ovary likely left ovarian cyst, patient had a normal WBCs, patient was re-evaluated by Dr. Plasencia who recommended to discharge the patient after reassurance we will wait for Gram stain and culture to determine if patient require antibiotic. Related Data Home Medications Medication Instructions Recorded Confirmed ferrous sulfate 325 mg (65 mg 325 mg PO BID 04/05/20 09/13/21 iron) tablet ascorbic acid (vitamin C) 500 mg 500 mg PO DAILY 02/20/21 09/13/21 tablet (Vitamin C) cholecalciferol (vitamin D3) 125 125 mcg PO DAILY 02/20/21 09/13/21 mcg (5,000 unit) tablet (Vitamin D3) naproxen 500 mg tablet,delayed 500 mg PO BID 05/30/21 09/13/21 release (EC-Naprosyn) Previous Rx's Medication Instructions Recorded flash glucose scanning reader #1 ea 09/02/20 (FreeStyle Tanner 14 Day [place]) flash glucose sensor (FreeStyle #6 kit 11/18/20 Tanner 14 Day Sensor) aspirin 81 mg tablet,delayed 81 mg PO DAILY #90 tab 05/22/21 release omeprazole 20 mg capsule,delayed 20 mg PO DAILY 90 Days #90 cap 05/30/21 release simvastatin 20 mg tablet 20 mg PO BEDTIME 90 Days #90 tab 05/30/21 norethindrone acetate 5 mg tablet 5 mg PO DAILY #90 tab 09/22/21 Allergies Allergy/AdvReac Type Severity Reaction Status Date / Time No Known Allergies Allergy Verified 10/09/21 18:55 Review of Systems Review of Systems: All other systems are reviewed and are negative Constitutional: Reports as per HPI and Reports no additional constitutional complaints Eyes: Reports as per HPI and Reports no additional eye complaints Reports system reviewed and no additional complaints, except as documented Cardiovascular: Reports as per HPI and Reports no additional cardiovascular complaints Respiratory: Reports as per HPI and Reports no additional respiratory complaints Gastrointestinal: Reports as per HPI and Reports no additional gastrointestinal complaints Genitourinary: Reports no additional female genitourinary complaints Musculoskeletal: Reports no additional musculoskeletal complaints Skin/Breast: Reports system reviewed and no additional complaints, except as docu Psychiatric: Reports no additional psychiatric complaints Endocrine: Reports no additional endocrine complaints Hematologic/Lymphatic: Reports no additional hematologic/lymphatic complaints Allergic/Immunologic: Reports no additional allergic/immunologic complaints Reports system reviewed and no additional complaints, except as documented and Reports Abnormal speech present [facility] Past Medical History Medical History Alcohol abuse Asthma Cervical cancer COVID-19 virus infection Fibroadenoma of left breast in female Finger dislocation GERD (gastroesophageal reflux disease) Hemorrhoids that prolapse with straining and require manual replacement back inside anal canal Hypercholesteremia Insomnia Internal and external hemorrhoids without complication Iron deficiency anemia Major depressive disorder Migraine Skin swelling Uterine fibroid Vitamin D deficiency Surgical History H/O tubal ligation History of Family History Family History Father Unknown family medical history Mother Stroke Aneurysm Maternal Grandmother Breast cancer Maternal Aunt Bone cancer Breast cancer Son No problems noted. Son No problems noted. Son No problems noted. Son No problems noted. Daughter No problems noted. Brother No problems noted. Brother No problems noted. Social History Social History Housing: Apartment Alcohol intake: current Alcohol intake frequency: holidays/special occasions only Alcohol type: wine Patient Tobacco Use Status: Former Tobacco user Cigarette Packs Per Day: 0.5 Years Smoked: 30 e-Cigarette/Vaping Use: Never Used Second Hand Smoke Exposure: No Use of substances other than those prescribed or required for medical reasons: Yes Substance Use Type: Marijuana Advance Directives: No Advance Directives Information Provided: Yes service: No Current occupational status: unemployed Current occupation: right hand dominant / Sexual orientation: Straight/Heterosexual Gender identity: Female Physical Exam Vital Signs: Vital Signs: Last Vital Signs Temp 97.9 F 10/10/21 07:04 Pulse 74 10/10/21 07:04 Resp 12 10/10/21 07:04 BP 118/64 10/10/21 07:04 Pulse Ox 97 10/10/21 07:04 BMI result Body Mass Index 24.4 Vital signs have been reviewed as appeared to be correct. Blood pressure normal. Heart rate normal. Respiration rate normal. Temperature normal. Oxygen saturation normal. Appearance: Alert. Oriented X3. No acute distress. Head: Normal external exam. Normocephalic. Atraumatic. No Burns signs noted. No raccoon eyes noted Eyes: PERRLA. EOMI. Conjunctiva and sclera normal. Eyelids normal. ENT: TM's Normal. Pharynx normal. Uvula midline. Moist mucous membranes. No trismus noted. No drooling noted. No muffled voice noted. Neck: Normal inspection. Neck supple. FROM. No adenopathy. Thyroid Normal. No meningeal signs. No neck mass noted. CVS: Normal heart rate and rhythm. Heart sound normal. No murmurs noted. Pulses normal throughout. Respiratory: No respiratory distress. Painless inspiration. Breath sounds normal. No wheezes/rales/rhonchi noted. Chest nontender. No accessory muscle usage noted or decreased air movement noted. Abdomen: Soft and nontender. Bowel sounds normal in all 4 quadrants. No distention noted. No organomegaly noted. No visible injury noted. Back: No CVA tenderness. Full range of motion noted. Skin: Skin warm and dry. Normal skin color. Normal skin turgor. No rashes/lesions/lacerations noted. Extremities: No lower extremity edema. Extremities exhibit normal range of motion. Extremities nontender. Neuro: Oriented X 3. Cranial nerve exam: II-XII are grossly intact No motor deficit. No sensory deficit. Reflexes normal. Course Course Course Narrative: Assessment and plan. 55-year-old female brought in from a Dr. Plasencia's office for further evaluation of chronic pelvic pain and possible PID, patient had unremarkable ultrasound except for left ovarian cystic lesion but unlikely to be an abscesses, normal WBCs, patient was re-evaluated by Dr. Plasencia in the emergency department who instructed to discharge the patient home with no antibiotic awaiting for the Gram stain and culture. [facility] - Female Genitourinary Medical Records Attestation: I reviewed the patient's medical records. Lab Data Attestation: I reviewed the patient's lab results. Result diagrams: 10/09/21 19:11 10/09/21 19:11 Labs: Lab Results 10/09/21 10/09/21 10/09/21 Range/Units 19:11 19:11 19:11 WBC 9.9 (4.8-10.8) X10*3/uL RBC 4.48 (4.20-5.50) X10*6/uL Hgb 13.3 (12.0-16.0) g/dl Hct 39.8 (37.0-47.0) % MCV 88.8 (80.0-98.0) fL MCH 29.7 (27.0-33.0) pg MCHC 33.4 (31.0-35.0) g/dl RDW 15.4 (11.0-16.0) % Plt Count 364 (160-400) X10*3/uL MPV 9.5 (9.4-12.3) fL Immature Gran % (Auto) 0.2 (0.0-0.4) % Neut % (Auto) 78.1 H (45-73) % Lymph % (Auto) 14.8 L (20-40) % [place] % (Auto) 6.0 (2-11) % Eos % (Auto) 0.7 (0-4) % Baso % (Auto) 0.2 (0-2) % Lymph # (Auto) 1.5 (1.2-4.9) X10*3/uL [place] # (Auto) 0.6 (0.1-1.2) X10*3/uL Eos # (Auto) 0.1 (0.0-0.4) X10*3/uL Baso # (Auto) 0.0 (0.0-0.2) X10*3/uL Abs Immat Gran (auto) 0.02 (0.00-0.03) X10*3/uL Absolute Neuts (auto) 7.7 (2.0-8.3) x10*3/uL Absolute Nucleated RBC 0.000 (0.0-0.012) X10*3/uL Nucleated RBC % (auto) 0.0 (0.0-0.2) /100WBC Sodium 137 (135-145) mmol/L Potassium 4.1 (3.3-5.1) mmol/L Chloride 105 (96-108) mmol/L Carbon Dioxide 24 (22-29) mmol/L Anion Gap 12 (12-20) BUN 13 (9-16) mg/dL Creatinine 0.59 (0.5-1.4) mg/dL Estim Creat Clear Calc 87.0 Estimated GFR > 60 Random Glucose 86 (60-115) mg/dL Lactic Acid 0.7 (0.5-2.0) mmol/L Calcium 9.5 (8.4-10.2) mg/dL Total Bilirubin 0.3 (0.0-1.0) mg/dL AST 21 (5-31) U/L ALT 28 (0-31) U/L Alkaline Phosphatase 75 (39-117) U/L Total Protein 7.1 (6.5-8.0) g/dL Albumin 4.4 (3.5-5.0) g/dL Urine Color Urine Appearance Urine pH (5.0-8.0) Ur Specific [place] (1.005-1.025) Urine Protein (NEG-TRACE) MG/DL Urine Glucose (UA) (NEG) MG/DL Urine Ketones (NEG) MG/DL Urine Blood (NEG) Urine Nitrite (NEG) Ur Leukocyte Esterase (NEG) Urine RBC (0) /HPF Urine WBC (0-4) /HPF Ur Squamous Epith Cells /LPF Amorphous Sediment /LPF Urine Bacteria /LPF 10/09/21 Range/Units 19:30 WBC (4.8-10.8) X10*3/uL RBC (4.20-5.50) X10*6/uL Hgb (12.0-16.0) g/dl Hct (37.0-47.0) % MCV (80.0-98.0) fL MCH (27.0-33.0) pg MCHC (31.0-35.0) g/dl RDW (11.0-16.0) % Plt Count (160-400) X10*3/uL MPV (9.4-12.3) fL Immature Gran % (Auto) (0.0-0.4) % Neut % (Auto) (45-73) % Lymph % (Auto) (20-40) % [place] % (Auto) (2-11) % Eos % (Auto) (0-4) % Baso % (Auto) (0-2) % Lymph # (Auto) (1.2-4.9) X10*3/uL [place] # (Auto) (0.1-1.2) X10*3/uL Eos # (Auto) (0.0-0.4) X10*3/uL Baso # (Auto) (0.0-0.2) X10*3/uL Abs Immat Gran (auto) (0.00-0.03) X10*3/uL Absolute Neuts (auto) (2.0-8.3) x10*3/uL Absolute Nucleated RBC (0.0-0.012) X10*3/uL Nucleated RBC % (auto) (0.0-0.2) /100WBC Sodium (135-145) mmol/L Potassium (3.3-5.1) mmol/L Chloride (96-108) mmol/L Carbon Dioxide (22-29) mmol/L Anion Gap (12-20) BUN (9-16) mg/dL Creatinine (0.5-1.4) mg/dL Estim Creat Clear Calc Estimated GFR Random Glucose (60-115) mg/dL Lactic Acid (0.5-2.0) mmol/L Calcium (8.4-10.2) mg/dL Total Bilirubin (0.0-1.0) mg/dL AST (5-31) U/L ALT (0-31) U/L Alkaline Phosphatase (39-117) U/L Total Protein (6.5-8.0) g/dL Albumin (3.5-5.0) g/dL Urine Color YELLOW Urine Appearance HAZY Urine pH 7.0 (5.0-8.0) Ur Specific [place] 1.020 (1.005-1.025) Urine Protein NEG (NEG-TRACE) MG/DL Urine Glucose (UA) NEG (NEG) MG/DL Urine Ketones NEG (NEG) MG/DL Urine Blood TRACE (NEG) Urine Nitrite NEG (NEG) Ur Leukocyte Esterase NEG (NEG) Urine RBC 0-2 (0) /HPF Urine WBC 0 (0-4) /HPF Ur Squamous Epith Cells TRACE /LPF Amorphous Sediment 1+ /LPF Urine Bacteria NONE /LPF Imaging Data Pelvic ultrasound: Attestation: I personally reviewed and interpreted this imaging study as follows: Radiologist's impression: 1.? Cystic focus measuring 1.2 cm abutting the left ovary on transabdominal imaging, which may reflect a peripheral ovarian cyst, though this is not appreciable on transvaginal imaging. 2.? Trace pelvic free fluid. 3.? Redemonstrated ovarian fibroid, similar to prior. Discharge Plan Discharge Clinical Impression: Pelvic pain Patient Disposition: Home, Self-Care Instructions: Pelvic Pain in Women (ED) Prescriptions: No Action aspirin 81 mg tablet,delayed release (DR/EC) 81 mg PO DAILY Qty: 90 3RF ascorbic acid (vitamin C) [Vitamin C] 500 mg Tablet 500 mg PO DAILY 0RF cholecalciferol (vitamin D3) [Vitamin D3] 125 mcg (5,000 unit) Tablet 125 mcg PO DAILY 0RF (DME) FreeStyle Tanner 14 Day Sensor Kit See Rx Instructions .ROUTE .MEDSUPPLY Qty: 6 3RF Rx Instructions: As directed naproxen [EC-Naprosyn] 500 mg tablet,delayed release (DR/EC) 500 mg PO BID 0RF simvastatin 20 mg tablet 20 mg PO BEDTIME 90 Days Qty: 90 3RF omeprazole 20 mg capsule,delayed release(DR/EC) 20 mg PO DAILY 90 Days Qty: 90 1RF (DME) FreeStyle Tanner 14 Day [place] Misc See Rx Instructions .ROUTE .MEDSUPPLY Qty: 1 0RF Rx Instructions: As directed check the BS ferrous sulfate 325 mg (65 mg iron) tablet 325 mg PO BID 0RF norethindrone acetate 5 mg tablet 5 mg PO DAILY Qty: 90 3RF Referrals: Po,Jace Yoon MD [Primary Care Provider] - 2 days Tiago Plasencia MD [Physician] - 2 days
--- NOTE | 2021-10-10 08:14 | PM.GYNCN ---
[employer] - CN: HPI Data of Consult Consult date: 10/10/21 Primary Care Provider: Jace Laughlin MD Consult Narrative Narrative: I was consulted on Cecilia Melendez who is a 55 year old female who presented to the emergency room after being seen in the office yesterday. The patient was scheduled for an endometrial biopsy, whitish fluid came up which was sent for culture and endometrial, the patient was instructed to go to emergency room to be evaluated for a pelvic abscess as a complication of uterine artery embolization. The patient does not have any fever or chills no vaginal discharge no nausea or vomiting patient is complaining of pelvic pain over the last few months since her uterine artery embolization, the pain is bilateral radiating to her legs mild in nature crampy no other associated GI or symptoms. GC and chlamydia done on 09/28 were negative. the emergency room the following workup was done CBC was within normal no evidence of leukocytosis , UA and chemistry were within normal, pelvic ultrasound was unremarkable except for possible left peripheral ovarian cyst otherwise no evidence of TOA or abscess. G stain and culture of the endometrial fluid that was sent from the office is still pending cc:: CC: [employer] - Review of Systems Review of Systems ROS Unobtainable: All systems reviewed & are unremarkable except as noted in HPI and below Cardiovascular: Denies Palpatations, Loss of consciousness or Chest pain Respiratory: Denies Cough, Wheezing or Shortness of breath Musculoskeletal: Denies Low back pain Gastrointestinal: Denies Heartburn, Constipation, Diarrhea, Nausea or Vomiting Genitourinary: Denies Pain with urination, Burning with urination or Urinary frequency Neurological: Denies Migranes Psychological: Denies Depression OB [facility] Past Medical History Medical History Alcohol abuse Asthma Cervical cancer COVID-19 virus infection Fibroadenoma of left breast in female Finger dislocation GERD (gastroesophageal reflux disease) Hemorrhoids that prolapse with straining and require manual replacement back inside anal canal Hypercholesteremia Insomnia Internal and external hemorrhoids without complication Iron deficiency anemia Major depressive disorder Migraine Skin swelling Uterine fibroid Vitamin D deficiency Family History Family History Father Unknown family medical history Mother Stroke Aneurysm Maternal Grandmother Breast cancer Maternal Aunt Bone cancer Breast cancer Son No problems noted. Son No problems noted. Son No problems noted. Son No problems noted. Daughter No problems noted. Brother No problems noted. Brother No problems noted. Surgical History Surgical History H/O tubal ligation History of Social History Social History Housing: Apartment Alcohol intake: current Alcohol intake frequency: holidays/special occasions only Alcohol type: wine Patient Tobacco Use Status: Former Tobacco user Cigarette Packs Per Day: 0.5 Years Smoked: 30 e-Cigarette/Vaping Use: Never Used Second Hand Smoke Exposure: No Use of substances other than those prescribed or required for medical reasons: Yes Substance Use Type: Marijuana Advance Directives: No Advance Directives Information Provided: Yes service: No Current occupational status: unemployed Current occupation: right hand dominant / Sexual orientation: Straight/Heterosexual Gender identity: Female Meds Allergies Allergy/AdvReac Type Severity Reaction Status Date / Time No Known Allergies Allergy Verified 10/09/21 18:55 Home Medications Medication Instructions Recorded Confirmed Last Taken Type ferrous sulfate 325 mg (65 mg 325 mg PO BID 04/05/20 09/13/21 Unknown History iron) tablet ascorbic acid (vitamin C) 500 mg 500 mg PO DAILY 02/20/21 09/13/21 Unknown History tablet (Vitamin C) cholecalciferol (vitamin D3) 125 125 mcg PO DAILY 02/20/21 09/13/21 Unknown History mcg (5,000 unit) tablet (Vitamin D3) naproxen 500 mg tablet,delayed 500 mg PO BID 05/30/21 09/13/21 Unknown History release (EC-Naprosyn) [employer] Physical Exam Vitals Vital signs: Temp Pulse Resp BP Pulse Ox 97.9 F 74 12 118/64 97 10/10/21 07:04 10/10/21 07:04 10/10/21 07:04 10/10/21 07:04 10/10/21 07:04 BMI result Body Mass Index 24.4 Constitutional General Appearance: Healthy appearing, Well-nourished and Well-developed Psychiatric Mood and Affect: active and alert, normal mood and normal affect Skin Appearance: No rashes and No lesions Lungs Respiratory Effort: No intercostal retractions Auscultation: Clear to auscultation Cardiovascular Auscultation: RRR Abdomen Auscultation/Inspection/Palpation: Normal bowel sounds, Soft, Non-distended and No tenderness Female Genitalia (Pelvic) Exam: Deferred Additional Comments: Pelvic exam was done yesterday in the office [employer]IC - Results Labs CBC & Chem 7: 10/09/21 19:11 10/09/21 19:11 Labs: Short CBC 10/09/21 Range/Units 19:11 WBC 9.9 (4.8-10.8) X10*3/uL Hgb 13.3 (12.0-16.0) g/dl Hct 39.8 (37.0-47.0) % Plt Count 364 (160-400) X10*3/uL BMP 10/09/21 19:11 Sodium 137 Potassium 4.1 Chloride 105 Carbon Dioxide 24 BUN 13 Creatinine 0.59 Calcium 9.5 Liver Function 10/09/21 Range/Units 19:11 Total Bilirubin 0.3 (0.0-1.0) mg/dL AST 21 (5-31) U/L ALT 28 (0-31) U/L Alkaline Phosphatase 75 (39-117) U/L Albumin 4.4 (3.5-5.0) g/dL Urine 10/09/21 Range/Units 19:30 Urine Color YELLOW Urine Appearance HAZY Urine pH 7.0 (5.0-8.0) Ur Specific [place] 1.020 (1.005-1.025) Urine Protein NEG (NEG-TRACE) MG/DL Urine Glucose (UA) NEG (NEG) MG/DL Imaging US - abdomen: Radiologist's impression: ITS Impressions Pelvic/Transvag US 10/10/21 05:15 IMPRESSION: 1. Cystic focus measuring 1.2 cm abutting the left ovary on transabdominal imaging, which may reflect a peripheral ovarian cyst, though this is not appreciable on transvaginal imaging. 2. Trace pelvic free fluid. 3. Redemonstrated ovarian fibroid, similar to prior. Assessment and Plan (1) Pelvic pain: Status: Acute Discussed with the patient the results including stable vital signs, CBC, chemistry, UA, ultrasound, benign exam, with no evidence of an infection pending endometrial fluid culture, therefore, made to the patient that will hold any treatment antibiotics. Instructions given the patient to follow-up in the office in a week meanwhile to call or go to emergency room in case of fever above 100.4, nausea or vomiting or worsening of the pain. All questions answered, the patient verbalized understanding I saw the patient and examined her in the emergency room., I spent a total of 25 minutes reviewing the chart, talking to the patient and documenting in the medical record
[2021-10-10 08:27] VITALS: BP 117/69; PULSE 74; RESP 14; TEMP 37; O2SAT 98
== END 2021-10-10 09:03 | disposition home or self-care (01) ==
PROVIDERS: Emergency Provider Emergency Medicine; PCP Internal Medicine
DX: R10.2 Pelvic and perineal pain (principal)
CPT/HCPCS: 36415; 76830; 76856; 80053; 81001; 83605; 85025; 87040; 99284

== ENCOUNTER 2021-10-17 10:56 | Outpatient (REF) | payer OTHER, SELFPAY ==
--- NOTE | ~2021-10-17 | XR_ITS ---
EXAMINATION: XR LUMBOSACRAL SPINE CLINICAL INFORMATION: Low back pain. COMPARISON: None TECHNIQUE: Three views of the lumbosacral spine. FINDINGS: There is normal lumbar lordosis. The vertebral heights, alignment and disc heights are normal. There is loss of L4-L5 and L5-S1 disc heights with mild ventral spondylosis. No visible acute fracture, dislocation or lytic process seen. The SI joints are symmetrical and normal. The paravertebral soft tissues are normal. XR/XR lumbar spine 2-3V IMPRESSION: Mild ventral spondylosis and mild disc degenerative changes at L4-L5 and L5-S1 disc levels.. No visible acute fracture or dislocation seen.
== END 2021-10-17 10:57 | disposition home or self-care (01) ==
LOC: HO.XRAY 10:56
PROVIDERS: Absent Provider Internal Medicine; PCP Internal Medicine; Visit Provider Obstetrics & Gynecology
DX: M54.50 Low back pain, unspecified (principal); R10.2 Pelvic and perineal pain
CPT/HCPCS: 72100; 99212

== ENCOUNTER 2021-10-19 22:00 | Emergency (ER) | payer OTHER, SELFPAY ==
[2021-10-19 22:10] VITALS: BP 127/107; PULSE 82; RESP 16; TEMP 36.4; O2SAT 98; BMI 23.4
--- NOTE | 2021-10-19 23:30 | ED_ITS ---
HPI - General Adult General Chief complaint: Extremity Injury, Lower Stated complaint: swollen feet, burning sensation in feet Time Seen by Provider: 10/19/21 23:29 Source: patient Mode of arrival: ambulatory History of Present Illness HPI narrative: 55-year-old female with history of hyperlipidemia and recently underwent endometrial procedure with subsequent infection and now presents with complaints of bilateral lower extremity vein sensitivity and burning sensation. She denies any association with fever, chills, recent travel, history of diabetes, and states she had a x-ray of her back 2 days ago. Related Data Home Medications Medication Instructions Recorded Confirmed ferrous sulfate 325 mg (65 mg 325 mg PO BID 04/05/20 09/13/21 iron) tablet ascorbic acid (vitamin C) 500 mg 500 mg PO DAILY 02/20/21 09/13/21 tablet (Vitamin C) cholecalciferol (vitamin D3) 125 125 mcg PO DAILY 02/20/21 09/13/21 mcg (5,000 unit) tablet (Vitamin D3) metronidazole 500 mg tablet 500 mg PO BID 10/16/21 Previous Rx's Medication Instructions Recorded flash glucose scanning reader #1 ea 09/02/20 (FreeStyle Tanner 14 Day [place]) flash glucose sensor (FreeStyle #6 kit 11/18/20 Tanner 14 Day Sensor) aspirin 81 mg tablet,delayed 81 mg PO DAILY #90 tab 05/22/21 release omeprazole 20 mg capsule,delayed 20 mg PO DAILY 90 Days #90 cap 05/30/21 release simvastatin 20 mg tablet 20 mg PO BEDTIME 90 Days #90 tab 05/30/21 norethindrone acetate 5 mg tablet 5 mg PO DAILY #90 tab 09/22/21 ketorolac 10 mg tablet 10 mg PO Q6H PRN 5 Days #20 tab 10/20/21 Allergies Allergy/AdvReac Type Severity Reaction Status Date / Time No Known Allergies Allergy Verified 10/16/21 13:44 Review of Systems Review of Systems: Pertinent positives and negatives as stated in HPI 10 point review systems is otherwise negative. PMFSH Past Medical History Source: nursing notes reviewed Medical History Alcohol abuse Asthma Cervical cancer COVID-19 virus infection Fibroadenoma of left breast in female Finger dislocation GERD (gastroesophageal reflux disease) Hemorrhoids that prolapse with straining and require manual replacement back inside anal canal Hypercholesteremia Insomnia Internal and external hemorrhoids without complication Iron deficiency anemia Major depressive disorder Migraine Skin swelling Uterine fibroid Vitamin D deficiency Surgical History H/O tubal ligation History of Family History Family History Father Unknown family medical history Mother Stroke Aneurysm Maternal Grandmother Breast cancer Maternal Aunt Bone cancer Breast cancer Son No problems noted. Son No problems noted. Son No problems noted. Son No problems noted. Daughter No problems noted. Brother No problems noted. Brother No problems noted. Social History Social History Housing: Apartment Alcohol intake: current Alcohol intake frequency: holidays/special occasions only Alcohol type: wine Patient Tobacco Use Status: Former Tobacco user Cigarette Packs Per Day: 0.5 Years Smoked: 30 e-Cigarette/Vaping Use: Never Used Second Hand Smoke Exposure: No Substance Use Type: Marijuana Advance Directives: No service: No Current occupational status: unemployed Current occupation: right hand dominant / Sexual orientation: Straight/Heterosexual Gender identity: Female Cognitive needs: No Hearing needs: No Vision needs: No Physical Exam ED Vital Signs: Vital Signs - 24 hr 10/19/21 22:10 Temperature 97.5 F Pulse Rate 82 Respiratory Rate 16 Blood Pressure 127/107 H Pulse Oximetry 98 BMI result Body Mass Index 23.4 VITAL SIGNS: Reviewed. GENERAL: Well developed, well nourished, in no acute distress. HEAD: Normocephalic/atraumatic EYES: PERRLA, EOMI OROPHARYNX: no oral lesions noted, posterior pharynx clear LUNGS: Normal breath sounds. No adventitious sounds or accessory muscle use. SpO2<98> CARDIOVASCULAR: Regular rate and rhythm without noted murmurs ABDOMEN: Soft, non-tender, non-distended with bowel sounds. MUSCULOSKELETAL: No tenderness, deformities, or effusions noted on gross inspection. EXTREMITIES: No cyanosis, clubbing or edema, bilateral lower extremities without erythema/edema/induration and mild venous varicosity noted to anterior aspect of legs. SKIN: Inspection of the skin reveals no rashes NEUROLOGIC: Alert and oriented x 4. Strength and sensation to light touch were grossly intact x 4. Course Course Course Narrative: 55-year-old female with history and clinical presentation consistent with venous varicosity in possible mild thrombophlebitis with suspected paresthesias. On review of lumbar spine x-ray results there are no acute findings to better explain patient's presentation and will proceed with providing combination analgesics as well as obtaining chemistries to evaluate for any electrolyte abnormalities. On re-evaluation patient is feeling much better and review of all investigations negative for acute findings. Patient was discharged home in stable condition. Medical Decision Making Lab Data Result diagrams: 10/20/21 00:08 Labs: Lab Results 10/20/21 Range/Units 00:08 Sodium 138 (135-145) mmol/L Potassium 4.3 (3.3-5.1) mmol/L Chloride 106 (96-108) mmol/L Carbon Dioxide 25 (22-29) mmol/L Anion Gap 11 L (12-20) BUN 18 H (9-16) mg/dL Creatinine 0.64 (0.5-1.4) mg/dL Estim Creat Clear Calc 73.0 Estimated GFR > 60 Random Glucose 109 (60-115) mg/dL Calcium 8.8 D (8.4-10.2) mg/dL Total Bilirubin 0.4 (0.0-1.0) mg/dL AST 29 (5-31) U/L ALT 30 (0-31) U/L Alkaline Phosphatase 77 (39-117) U/L Total Protein 6.6 (6.5-8.0) g/dL Albumin 4.1 (3.5-5.0) g/dL Discharge Plan Discharge Clinical Impression: Thrombophlebitis, Paresthesia, Varicose veins of both lower extremities Patient Disposition: Home, Self-Care Instructions: Superficial Thrombophlebitis (ED), Paresthesia (ED), Venous Insufficiency (DC) Additional Instructions: 1. Tylenol 1000 mg, orally, every 6 hours as needed for pain control. Do not exceed 4000 mg within 24 hours. 2. Recommend compression stockings, knee-high, to bilateral lower extremities. 3. Follow-up with your primary care provider in the next 2-3 days for re- evaluation. Return to the ER for worsening symptoms. Prescriptions: New ketorolac 10 mg tablet 10 mg PO Q6H PRN (Reason: pain) 5 Days Qty: 20 0RF Rx Instructions: 1. Patient received Toradol in the emergency room. 2. Patient should stop all ibuprofen, Motrin, Aleve, Naprosyn. No Action aspirin 81 mg tablet,delayed release (DR/EC) 81 mg PO DAILY Qty: 90 3RF ascorbic acid (vitamin C) [Vitamin C] 500 mg Tablet 500 mg PO DAILY 0RF cholecalciferol (vitamin D3) [Vitamin D3] 125 mcg (5,000 unit) Tablet 125 mcg PO DAILY 0RF (DME) FreeStyle Tanner 14 Day Sensor Kit See Rx Instructions .ROUTE .MEDSUPPLY Qty: 6 3RF Rx Instructions: As directed simvastatin 20 mg tablet 20 mg PO BEDTIME 90 Days Qty: 90 3RF omeprazole 20 mg capsule,delayed release(DR/EC) 20 mg PO DAILY 90 Days Qty: 90 1RF (DME) FreeStyle Tanner 14 Day [place] Misc See Rx Instructions .ROUTE .MEDSUPPLY Qty: 1 0RF Rx Instructions: As directed check the BS metronidazole 500 mg tablet 500 mg PO BID 0RF ferrous sulfate 325 mg (65 mg iron) tablet 325 mg PO BID 0RF norethindrone acetate 5 mg tablet 5 mg PO DAILY Qty: 90 3RF Referrals: Po,Jace Yoon MD [Physician] -
[2021-10-19] MEDS: Acetaminophen 325 MG TABLET 975 MG PO (23:48)
[2021-10-19] MEDS: Ketorolac Tromethamine 15 MG/ML VIAL IM (23:49)
[2021-10-20 00:36] LABS: Alanine Aminotransferase 30 U/L (0-31); Albumin Level 4.1 g/dL (3.5-5.0); Alkaline Phosphatase 77 U/L (39-117); Anion Gap 11 (12-20); Aspartate Amino Transferase 29 U/L (5-31); Bilirubin Total 0.4 mg/dL (0.0-1.0); Blood Urea Nitrogen 18 mg/dL (9-16); Calcium 8.8 mg/dL (8.4-10.2); Carbon Dioxide 25 mmol/L (22-29); Chloride 106 mmol/L (96-108); Estimated Glomerular Filt Rate > 60; Glucose Random 109 mg/dL (60-115); Potassium 4.3 mmol/L (3.3-5.1); Sodium 138 mmol/L (135-145); Total Protein 6.6 g/dL (6.5-8.0)
== END 2021-10-20 01:09 | disposition home or self-care (01) ==
PROVIDERS: Emergency Provider Student in an Organized Health Care Education/Training Program
DX: I80.9 Phlebitis and thrombophlebitis of unspecified site (principal); I83.93 Asymptomatic varicose veins of bilateral lower extremities; R20.2 Paresthesia of skin; R60.0 Localized edema; Z87.891 Personal history of nicotine dependence; Z79.899 Other long term (current) drug therapy
CPT/HCPCS: 36415; 80053; 96372; 99284; J1885

== ENCOUNTER 2021-10-24 09:09 | Outpatient (REF) | payer OTHER, SELFPAY ==
[2021-10-24 10:22] LABS: Appearance Urine CLEAR; Color Urine YELLOW; Glucose Urine UA NEG (NEG); Leukocyte Esterase Urine NEG (NEG); Nitrite Urine NEG (NEG); PH 5.5 (5.0-8.0); Urine Blood NEG (NEG); Urine Ketones NEG (NEG); Urine Protein NEG (NEG-TRACE)
== END 2021-10-24 09:10 | disposition home or self-care (01) ==
LOC: HO.LAB 09:09
PROVIDERS: PCP Internal Medicine; Visit Provider Internal Medicine
DX: M54.50 Low back pain, unspecified (principal)
CPT/HCPCS: 81003

== ENCOUNTER 2021-10-27 13:56 | Outpatient (REF) | payer OTHER, SELFPAY ==
--- NOTE | ~2021-10-27 | US_ITS ---
EXAMINATION: US VENOUS ULTRASOUND WITH DOPPLER LOWER EXTREMITY, BILATERAL CLINICAL INFORMATION: Paresthesias of skin COMPARISON: None TECHNIQUE: Ultrasound of the deep veins is performed from the hip to the calf with compression sonography and color and pulse Doppler assessment. Spectral analysis with color-flow imaging is performed. FINDINGS: RIGHT: There is normal venous compression and respiratory variation and augmented flow. The visualized common femoral vein, superficial femoral vein, profunda femoral vein, popliteal vein, and the trifurcation region shows no evidence of deep venous thrombosis. There is no significant popliteal fossa cyst. LEFT: There is normal venous compression and respiratory variation and augmented flow. The visualized common femoral vein, superficial femoral vein, profunda femoral vein, popliteal vein, and the trifurcation region shows no evidence of deep venous thrombosis. There is no significant popliteal fossa cyst. US/US venous duplex LE BI IMPRESSION: No DVT demonstrated in the bilateral lower extremity.
== END 2021-10-27 13:57 | disposition home or self-care (01) ==
LOC: HO.US 13:56
PROVIDERS: PCP Internal Medicine; Visit Provider Physician Assistant
DX: R60.0 Localized edema (principal); R20.2 Paresthesia of skin
CPT/HCPCS: 93970

== ENCOUNTER → 2021-10-31 12:59 | Outpatient (BNVA) | payer OTHER, SELFPAY | PROVIDERS: PCP Internal Medicine; Visit Provider Dietitian, Registered | DX: E11.65 Type 2 diabetes mellitus with hyperglycemia (principal) | CPT/HCPCS: 97803 ==

== ENCOUNTER → 2021-11-10 13:53 | Outpatient (BNVA) | payer OTHER, SELFPAY | PROVIDERS: PCP Internal Medicine; Visit Provider Obstetrics & Gynecology | DX: R20.2 Paresthesia of skin (principal) | CPT/HCPCS: 99212 ==

== ENCOUNTER 2021-11-14 10:36 | Emergency (ER) | payer OTHER, SELFPAY ==
--- NOTE | ~2021-11-14 | XR_ITS ---
EXAMINATION: XR CHEST CLINICAL INFORMATION: Chest pain COMPARISON: Previous chest x-ray July 2021 TECHNIQUE: Frontal view of the chest was obtained. FINDINGS: No significant abnormality is noted involving the heart, lungs, mediastinum, bony thorax or soft tissues. XR/XR chest 1V IMPRESSION: Unremarkable examination.
--- NOTE | 2021-11-14 10:41 | ECG_ITS ---
Test Reason : CP Blood Pressure : / mmHG Vent. Rate : 094 BPM Atrial Rate : 094 BPM P-R Int : 136 ms QRS Dur : 082 ms QT Int : 366 ms P-R-T Axes : 067 052 043 degrees QTc Int : 457 ms Normal sinus rhythm Normal ECG No previous ECGs available Referred By: Generic ED Physician Electronically Signed By:PINO CURRAN MD
[2021-11-14 10:58] VITALS: BP 141/68; PULSE 87; RESP 17; TEMP 37.3; O2SAT 98; BMI 23.1
--- NOTE | 2021-11-14 11:35 | ED.GENADULT ---
HPI - General Adult General Chief complaint: General Medical Stated complaint: Chest pain/Back pain Time Seen by Provider: 11/14/21 11:22 Source: patient Mode of arrival: ambulatory Limitations: no limitations History of Present Illness HPI narrative: 55 years old female came in for evaluation of generalized body pins and needles pain. 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 Plasencia, started with lower extremities pins and needles and tingling pain, patient was treated by her PCP with anti inflammatory medication which is not relieving the pain, the pins and needle sensation now is extending to his lower back and now is going to her chest. Described the pins and needle sensation as constant feeling at all the time, no relieving factor, no aggravating factor, no other association with fever or chills. Patient declined any lower extremity swelling, no recent travel, no history of DVT or PE, no SOB. Patient is borderline prediabetic. Patient feeling overwhelmed after the surgery been tearful during the exam, was flat affect, declined any SI or HI. Related Data Home Medications Medication Instructions Recorded Confirmed ferrous sulfate 325 mg (65 mg 325 mg PO BID 04/05/20 10/25/21 iron) tablet ascorbic acid (vitamin C) 500 mg 500 mg PO DAILY 02/20/21 10/25/21 tablet (Vitamin C) cholecalciferol (vitamin D3) 125 125 mcg PO DAILY 02/20/21 10/25/21 mcg (5,000 unit) tablet (Vitamin D3) Previous Rx's Medication Instructions Recorded flash glucose scanning reader #1 ea 09/02/20 (FreeStyle Tanner 14 Day [place]) flash glucose sensor (FreeStyle #6 kit 11/18/20 Tanner 14 Day Sensor) aspirin 81 mg tablet,delayed 81 mg PO DAILY #90 tab 05/22/21 release omeprazole 20 mg capsule,delayed 20 mg PO DAILY 90 Days #90 cap 05/30/21 release simvastatin 20 mg tablet 20 mg PO BEDTIME 90 Days #90 tab 05/30/21 norethindrone acetate 5 mg tablet 5 mg PO DAILY #90 tab 09/22/21 ketorolac 10 mg tablet 10 mg PO Q6H PRN 5 Days #20 tab 10/20/21 comp.stocking,knee,long,medium #2 ea 10/25/21 diclofenac sodium 75 mg 75 mg PO BID 7 Days #14 tab 10/25/21 tablet,delayed release ferrous sulfate 325 mg (65 mg 325 mg PO BID #60 tab 11/02/21 iron) tablet gabapentin 300 mg capsule 300 mg PO BID #14 cap 11/14/21 Allergies Allergy/AdvReac Type Severity Reaction Status Date / Time No Known Allergies Allergy Verified 10/25/21 14:15 PMFSH Past Medical History Medical History Alcohol abuse Asthma Cervical cancer COVID-19 virus infection Fibroadenoma of left breast in female Finger dislocation GERD (gastroesophageal reflux disease) Hemorrhoids that prolapse with straining and require manual replacement back inside anal canal Hypercholesteremia Insomnia Internal and external hemorrhoids without complication Iron deficiency anemia Major depressive disorder Migraine Skin swelling Uterine fibroid Vitamin D deficiency Surgical History H/O tubal ligation History of Family History Family History Father Unknown family medical history Mother Stroke Aneurysm Maternal Grandmother Breast cancer Maternal Aunt Bone cancer Breast cancer Son No problems noted. Son No problems noted. Son No problems noted. Son No problems noted. Daughter No problems noted. Brother No problems noted. Brother No problems noted. Social History Social History Housing: Apartment Alcohol intake: current Alcohol intake frequency: holidays/special occasions only Alcohol type: wine Patient Tobacco Use Status: Former Tobacco user Cigarette Packs Per Day: 0.5 Years Smoked: 30 e-Cigarette/Vaping Use: Never Used Second Hand Smoke Exposure: No Use of substances other than those prescribed or required for medical reasons: Yes Substance Use Type: Marijuana Advance Directives: No Advance Directives Information Provided: No Patient : No service: No Current occupational status: unemployed Current occupation: right hand dominant / Sexual orientation: Straight/Heterosexual Gender identity: Female Cognitive needs: No Hearing needs: No Vision needs: No Physical Exam ED Vital Signs: Vital Signs - 24 hr 11/14/21 10:58 11/14/21 11:53 Temperature 99.1 F 98.1 F Pulse Rate 87 79 Respiratory Rate 17 16 Blood Pressure 141/68 H 125/81 Pulse Oximetry 98 98 BMI result Body Mass Index 23.1 Vital signs have been reviewed as appeared to be correct. Blood pressure normal. Heart rate normal. Respiration rate normal. Temperature normal. Oxygen saturation normal. Appearance: Alert. Oriented X3. No acute distress. Head: Normal external exam. Normocephalic. Atraumatic. No Burns signs noted. No raccoon eyes noted Eyes: PERRLA. EOMI. Conjunctiva and sclera normal. Eyelids normal. ENT: TM's Normal. Pharynx normal. Uvula midline. Moist mucous membranes. No trismus noted. No drooling noted. No muffled voice noted. Neck: Normal inspection. Neck supple. FROM. No adenopathy. Thyroid Normal. No meningeal signs. No neck mass noted. CVS: Normal heart rate and rhythm. Heart sound normal. No murmurs noted. Pulses normal throughout. Respiratory: No respiratory distress. Painless inspiration. Breath sounds normal. No wheezes/rales/rhonchi noted. Chest nontender. No accessory muscle usage noted or decreased air movement noted. Abdomen: Soft and nontender. Bowel sounds normal in all 4 quadrants. No distention noted. No organomegaly noted. No visible injury noted. Back: No CVA tenderness. Full range of motion noted. Skin: Skin warm and dry. Normal skin color. Normal skin turgor. No rashes/lesions/lacerations noted. Extremities: No lower extremity edema. Extremities exhibit normal range of motion. Extremities nontender. Neuro: Oriented X 3. Cranial nerve exam: II-XII are grossly intact No motor deficit. No sensory deficit. Reflexes normal. Patient Orientation: Person, Place, Time and Situation Level of Consciousness: Awake, Appropriate and Alert Patient Behavior: Appropriate, Guarded, Cooperative and Anxious Mood Description: Constricted, Blunted and Apprehensive Affect Description: Constricted, Blunted and Apprehensive Patient Cognition Impaired: No Ability to Follow Directions: Excellent Speech Pattern: Clear, Appropriate and Spontaneous Speech Memory Description: Intact, Immediate Intact and Short Term Intact Hallucinations: None Delusions: Not Present Thought Process: Intact Thought Content: positive for Intact, positive for Logical, denies Suicidal Ideation and denies Homicidal Ideation. Depressive Symptoms: No Feelings of Guilt Judgement: Good Judgement and Insight: Intact Course Course Course Narrative: Assessment and plan. 55-year-old female with generalized pins and needle numbness symptoms, patient is not diabetic but borderline diabetes, patient found that she is very anxious and very overwhelmed with what she has to go through with OB surgery that was complicated with postsurgical infection, no SI or HI, symptoms and physical exam is more consistent with peripheral neuropathy, will start the patient on gabapentin and referred to a neurologist. Medical Decision Making Lab Data Lab results reviewed: Yes I reviewed the patient's lab results. Result diagrams: 11/14/21 11:49 11/14/21 11:49 Labs: Lab Results 11/14/21 11/14/21 11/14/21 Range/Units 11:49 11:49 11:49 WBC 5.4 (4.8-10.8) X10*3/uL RBC 4.29 (4.20-5.50) X10*6/uL Hgb 13.0 (12.0-16.0) g/dl Hct 38.4 (37.0-47.0) % MCV 89.5 (80.0-98.0) fL MCH 30.3 (27.0-33.0) pg MCHC 33.9 (31.0-35.0) g/dl RDW 13.5 (11.0-16.0) % Plt Count 326 (160-400) X10*3/uL MPV 9.8 (9.4-12.3) fL Immature Gran % (Auto) 0.2 (0.0-0.4) % Neut % (Auto) 73.0 (45-73) % Lymph % (Auto) 20.2 (20-40) % [place] % (Auto) 5.7 (2-11) % Eos % (Auto) 0.7 (0-4) % Baso % (Auto) 0.2 (0-2) % Lymph # (Auto) 1.1 L (1.2-4.9) X10*3/uL [place] # (Auto) 0.3 (0.1-1.2) X10*3/uL Eos # (Auto) 0.0 (0.0-0.4) X10*3/uL Baso # (Auto) 0.0 (0.0-0.2) X10*3/uL Abs Immat Gran (auto) 0.01 (0.00-0.03) X10*3/uL Absolute Neuts (auto) 3.9 (2.0-8.3) x10*3/uL Absolute Nucleated RBC 0.000 (0.0-0.012) X10*3/uL Nucleated RBC % (auto) 0.0 (0.0-0.2) /100WBC Sodium 140 (135-145) mmol/L Potassium 3.9 (3.3-5.1) mmol/L Chloride 106 (96-108) mmol/L Carbon Dioxide 26 (22-29) mmol/L Anion Gap 12 (12-20) BUN 8 L D (9-16) mg/dL Creatinine 0.59 (0.5-1.4) mg/dL Estim Creat Clear Calc 79.1 Estimated GFR > 60 Random Glucose 125 H (60-115) mg/dL Calcium 9.4 D (8.4-10.2) mg/dL Total Bilirubin 0.4 (0.0-1.0) mg/dL Direct Bilirubin 0.2 (0.0-0.5) mg/dL AST 20 (5-31) U/L ALT 19 (0-31) U/L Alkaline Phosphatase 70 (39-117) U/L Troponin I High Sens < 3.5 (<3.5-17.0) ng/L B-Natriuretic Peptide 35 (<100) pg/mL Total Protein 6.9 (6.5-8.0) g/dL Albumin 4.3 (3.5-5.0) g/dL Lipase 13 (8-78) U/L Urine Color Urine Appearance Urine pH (5.0-8.0) Ur Specific [place] (1.005-1.025) Urine Protein (NEG-TRACE) MG/DL Urine Glucose (UA) (NEG) MG/DL Urine Ketones (NEG) MG/DL Urine Blood (NEG) Urine Nitrite (NEG) Ur Leukocyte Esterase (NEG) 11/14/21 Range/Units 12:04 WBC (4.8-10.8) X10*3/uL RBC (4.20-5.50) X10*6/uL Hgb (12.0-16.0) g/dl Hct (37.0-47.0) % MCV (80.0-98.0) fL MCH (27.0-33.0) pg MCHC (31.0-35.0) g/dl RDW (11.0-16.0) % Plt Count (160-400) X10*3/uL MPV (9.4-12.3) fL Immature Gran % (Auto) (0.0-0.4) % Neut % (Auto) (45-73) % Lymph % (Auto) (20-40) % [place] % (Auto) (2-11) % Eos % (Auto) (0-4) % Baso % (Auto) (0-2) % Lymph # (Auto) (1.2-4.9) X10*3/uL [place] # (Auto) (0.1-1.2) X10*3/uL Eos # (Auto) (0.0-0.4) X10*3/uL Baso # (Auto) (0.0-0.2) X10*3/uL Abs Immat Gran (auto) (0.00-0.03) X10*3/uL Absolute Neuts (auto) (2.0-8.3) x10*3/uL Absolute Nucleated RBC (0.0-0.012) X10*3/uL Nucleated RBC % (auto) (0.0-0.2) /100WBC Sodium (135-145) mmol/L Potassium (3.3-5.1) mmol/L Chloride (96-108) mmol/L Carbon Dioxide (22-29) mmol/L Anion Gap (12-20) BUN (9-16) mg/dL Creatinine (0.5-1.4) mg/dL Estim Creat Clear Calc Estimated GFR Random Glucose (60-115) mg/dL Calcium (8.4-10.2) mg/dL Total Bilirubin (0.0-1.0) mg/dL Direct Bilirubin (0.0-0.5) mg/dL AST (5-31) U/L ALT (0-31) U/L Alkaline Phosphatase (39-117) U/L Troponin I High Sens (<3.5-17.0) ng/L B-Natriuretic Peptide (<100) pg/mL Total Protein (6.5-8.0) g/dL Albumin (3.5-5.0) g/dL Lipase (8-78) U/L Urine Color YELLOW Urine Appearance CLEAR Urine pH 7.5 (5.0-8.0) Ur Specific [place] 1.020 (1.005-1.025) Urine Protein NEG (NEG-TRACE) MG/DL Urine Glucose (UA) NEG (NEG) MG/DL Urine Ketones NEG (NEG) MG/DL Urine Blood NEG (NEG) Urine Nitrite NEG (NEG) Ur Leukocyte Esterase NEG (NEG) Imaging Data Chest x-ray: Attestation: I personally reviewed and interpreted this imaging study as follows: Radiologist's impression: Unremarkable examination ECG Data Attestation: I personally reviewed and interpreted this ECG as follows: Interpretation: Normal sinus rhythm at 94 beats per minutes, normal axis deviation, normal intervals, no ST-T changes. Discharge Plan Discharge Clinical Impression: Generalized anxiety disorder, Peripheral neuropathy Patient Disposition: Home, Self-Care Instructions: Peripheral Neuropathy (ED) Prescriptions: New gabapentin 300 mg capsule 300 mg PO BID Qty: 14 0RF No Action aspirin 81 mg tablet,delayed release (DR/EC) 81 mg PO DAILY Qty: 90 3RF ferrous sulfate 325 mg (65 mg iron) Tablet 325 mg PO BID Qty: 60 4RF ascorbic acid (vitamin C) [Vitamin C] 500 mg Tablet 500 mg PO DAILY 0RF cholecalciferol (vitamin D3) [Vitamin D3] 125 mcg (5,000 unit) Tablet 125 mcg PO DAILY 0RF ketorolac 10 mg tablet 10 mg PO Q6H PRN (Reason: pain) 5 Days Qty: 20 0RF Rx Instructions: 1. Patient received Toradol in the emergency room. 2. Patient should stop all ibuprofen, Motrin, Aleve, Naprosyn. (DME) FreeStyle Tanner 14 Day Sensor Kit See Rx Instructions .ROUTE .MEDSUPPLY Qty: 6 3RF Rx Instructions: As directed simvastatin 20 mg tablet 20 mg PO BEDTIME 90 Days Qty: 90 3RF omeprazole 20 mg capsule,delayed release(DR/EC) 20 mg PO DAILY 90 Days Qty: 90 1RF (DME) FreeStyle Tanner 14 Day [place] Misc See Rx Instructions .ROUTE .MEDSUPPLY Qty: 1 0RF Rx Instructions: As directed check the BS (DME) comp.stocking,knee,long,medium Misc See Rx Instructions .Route Qty: 2 0RF Rx Instructions: As directed diclofenac sodium 75 mg tablet,delayed release (DR/EC) 75 mg PO BID 7 Days Qty: 14 0RF ferrous sulfate 325 mg (65 mg iron) tablet 325 mg PO BID 0RF norethindrone acetate 5 mg tablet 5 mg PO DAILY Qty: 90 3RF Referrals: Adolph Morejon MD [Physician] - Po,Jace Yoon MD [Primary Care Provider] -
[2021-11-14 11:53] VITALS: BP 125/81; PULSE 79; RESP 16; TEMP 36.7; O2SAT 98
[2021-11-14 11:55] LABS: MANUAL DIFF FLAG NO
[2021-11-14 11:57] LABS: Basophils Percent Auto 0.2 % (0-2); Eosinophils Percent Auto 0.7 % (0-4); Hematocrit 38.4 % (37.0-47.0); Imm Gran Abs Auto 0.01 X10*3/uL (0.00-0.03); Imm Gran Pct Auto 0.2 % (0.0-0.4); Lymphocytes Absolute Auto 1.1 X10*3/uL (1.2-4.9); Lymphocytes Percent Auto 20.2 % (20-40); Mean Corpuscular HGB Conc 33.9 g/dl (31.0-35.0); Mean Corpuscular Hemoglobin 30.3 pg (27.0-33.0); Mean Corpuscular Volume 89.5 fL (80.0-98.0); Mean Platelet Volume 9.8 fL (9.4-12.3); Monocytes Absolute Auto 0.3 X10*3/uL (0.1-1.2); Monocytes Percent Auto 5.7 % (2-11); Neutrophils Absolute Auto 3.9 x10*3/uL (2.0-8.3); Platelet Count 326 X10*3/uL (160-400); Red Blood Count 4.29 X10*6/uL (4.20-5.50); Red Cell Distribution Width 13.5 % (11.0-16.0); White Blood Count 5.4 X10*3/uL (4.8-10.8)
[2021-11-14] MEDS: 0.9 % Sodium Chloride 1,000 ML 999 ML IV ×2 (12:02→13:35)
[2021-11-14 12:12] LABS: Appearance Urine CLEAR; Color Urine YELLOW; Glucose Urine UA NEG (NEG); Leukocyte Esterase Urine NEG (NEG); Nitrite Urine NEG (NEG); PH 7.5 (5.0-8.0); Urine Blood NEG (NEG); Urine Ketones NEG (NEG); Urine Protein NEG (NEG-TRACE)
[2021-11-14 12:19] LABS: B Type Natriuretic Peptide 35 pg/mL (<100); Troponin-I High Sensitivity < 3.5 ng/L (<3.5-17.0)
[2021-11-14 12:20] LABS: Alanine Aminotransferase 19 U/L (0-31); Albumin Level 4.3 g/dL (3.5-5.0); Alkaline Phosphatase 70 U/L (39-117); Anion Gap 12 (12-20); Aspartate Amino Transferase 20 U/L (5-31); Bilirubin Direct 0.2 mg/dL (0.0-0.5); Bilirubin Total 0.4 mg/dL (0.0-1.0); Blood Urea Nitrogen 8 mg/dL (9-16); Calcium 9.4 mg/dL (8.4-10.2); Carbon Dioxide 26 mmol/L (22-29); Chloride 106 mmol/L (96-108); Creatinine Clr Calc Pharmacy 79.1; Estimated Glomerular Filt Rate > 60; Glucose Random 125 mg/dL (60-115); Lipase 13 U/L (8-78); Potassium 3.9 mmol/L (3.3-5.1); Sodium 140 mmol/L (135-145); Total Protein 6.9 g/dL (6.5-8.0)
[2021-11-14] MEDS: Gabapentin 300 MG CAPSULE PO (13:35)
== END 2021-11-14 14:02 | disposition home or self-care (01) ==
PROVIDERS: Emergency Provider Emergency Medicine; PCP Internal Medicine
DX: G62.9 Polyneuropathy, unspecified (principal); R07.89 Other chest pain; F41.1 Generalized anxiety disorder; F43.0 Acute stress reaction; Z79.899 Other long term (current) drug therapy
CPT/HCPCS: 36415; 71045; 80048; 80076; 81003; 83690; 83880; 84484; 85025; 93005; 96360; 96361; 99284

== ENCOUNTER 2021-11-21 09:42 | Outpatient (REF) | payer OTHER, SELFPAY ==
[2021-11-21 10:15] LABS: MANUAL DIFF FLAG NO
[2021-11-21 10:47] LABS: COVID-19 Test Negative (Negative); IDNOW Serial# 08D9AD1C
[2021-11-21 11:57] LABS: Basophils Percent Auto 0.4 % (0-2); Eosinophils Absolute Auto 0.1 X10*3/uL (0.0-0.4); Eosinophils Percent Auto 1.4 % (0-4); Hematocrit 40.6 % (37.0-47.0); Hemoglobin 13.6 g/dl (12.0-16.0); Imm Gran Abs Auto 0.01 X10*3/uL (0.00-0.03); Imm Gran Pct Auto 0.2 % (0.0-0.4); Lymphocytes Absolute Auto 1.3 X10*3/uL (1.2-4.9); Lymphocytes Percent Auto 24.5 % (20-40); Mean Corpuscular HGB Conc 33.5 g/dl (31.0-35.0); Mean Corpuscular Hemoglobin 30.2 pg (27.0-33.0); Mean Platelet Volume 10.5 fL (9.4-12.3); Monocytes Absolute Auto 0.4 X10*3/uL (0.1-1.2); Monocytes Percent Auto 6.8 % (2-11); Neutrophils Absolute Auto 3.4 x10*3/uL (2.0-8.3); Neutrophils Percent Auto 66.7 % (45-73); Platelet Count 340 X10*3/uL (160-400); Red Blood Count 4.51 X10*6/uL (4.20-5.50); Red Cell Distribution Width 13.3 % (11.0-16.0); White Blood Count 5.1 X10*3/uL (4.8-10.8)
[2021-11-21 12:28] LABS: T4 Thyroxine 7.7 ug/dL (4.5-12.0); Thyroid Stimulating Hormone 1.13 uIU/mL (0.32-4.0)
[2021-11-21 12:50] LABS: Erythrocyte Sedimentation Rate 6 MM/HR (0-20)
== END 2021-11-21 09:43 | disposition home or self-care (01) ==
LOC: HO.LAB 09:42
PROVIDERS: PCP Internal Medicine; Visit Provider Psychiatry & Neurology Neurology
DX: Z20.822 Contact with and (suspected) exposure to COVID-19 (principal); G62.9 Polyneuropathy, unspecified
CPT/HCPCS: 36415; 84436; 84443; 85025; 85652; 87635; C9803

== ENCOUNTER 2021-11-27 10:41 | Outpatient (REF) | payer OTHER, SELFPAY ==
--- NOTE | ~2021-11-27 | XR_ITS ---
EXAMINATION: XR SACRUM AND COCCYX CLINICAL INFORMATION: Low back pain COMPARISON: None TECHNIQUE: 2 views of the sacrum and 2 views of the coccyx were obtained. FINDINGS: Bone alignment is normal. No fracture or dislocation is seen. The sacroiliac joints are normal. Soft tissues are normal. XR/XR sacrum coccyx min 2V IMPRESSION: Unremarkable examination.
== END 2021-11-27 10:42 | disposition home or self-care (01) ==
LOC: HO.XRAY 10:41
PROVIDERS: PCP Internal Medicine; Visit Provider Internal Medicine
DX: M54.50 Low back pain, unspecified (principal)
CPT/HCPCS: 72220

== ENCOUNTER 2021-12-05 15:54 | Outpatient (REF) | payer OTHER, SELFPAY ==
--- NOTE | ~2021-12-05 | XR_ITS ---
EXAMINATION: XR CHEST CLINICAL INFORMATION: R05.9 - Cough, unspecified COMPARISON: Chest radiographs 11/14/2021, 07/24/2021 TECHNIQUE: 2 views of the chest were obtained. FINDINGS: The lungs are clear. There is no airspace consolidation or groundglass opacity or effusion. The heart is normal in size. The vascularity is normal. The costophrenic sulci are clear. The hilar and mediastinal contours and visualized bony structures are unremarkable. XR/XR chest 2V IMPRESSION: Lungs clear.
== END 2021-12-05 15:55 | disposition home or self-care (01) ==
LOC: HO.HMGCX 15:54
PROVIDERS: Visit Provider Physician Assistant
DX: R05.9 Cough, unspecified (principal)
CPT/HCPCS: 71046

== ENCOUNTER → 2021-12-07 13:48 | Outpatient (BNVA) | payer OTHER, SELFPAY | PROVIDERS: PCP Internal Medicine; Visit Provider Surgery Vascular Surgery | DX: I83.11 Varicose veins of right lower extremity with inflammation (principal) | CPT/HCPCS: 99202 ==

== ENCOUNTER 2021-12-14 11:57 | Outpatient (REF) | payer OTHER, SELFPAY ==
[2021-12-14 12:42] LABS: Magnesium 2.2 mg/dL (1.6-2.6)
[2021-12-14 12:49] LABS: Rheumatoid Factor < 15.0 IU/mL (<15.0)
[2021-12-14 13:01] LABS: Vitamin D 25-OH Total 38.6 ng/mL (>30)
[2021-12-18 08:03] LABS: Anti Nuclear Antibody Screen NEGATIVE (NEGATIVE)
== END 2021-12-14 11:58 | disposition home or self-care (01) ==
LOC: HO.LAB 11:57
PROVIDERS: PCP Internal Medicine; Visit Provider Nurse Practitioner Family
DX: G62.9 Polyneuropathy, unspecified (principal); M54.50 Low back pain, unspecified; R10.2 Pelvic and perineal pain; E11.9 Type 2 diabetes mellitus without complications
CPT/HCPCS: 36415; 82306; 83735; 86038; 86039; 86431

== ENCOUNTER 2021-12-21 12:52 | Outpatient (REF) | payer OTHER, SELFPAY ==
--- NOTE | ~2021-12-21 | XR_ITS ---
EXAMINATION: XR RIBS, BILATERAL CLINICAL INFORMATION: R07.81 - Pleurodynia. Patient notes pain upper ribs. COMPARISON: Chest radiographs 12/05/2021, 11/14/2021, 11/13/2019 TECHNIQUE: Frontal view chest and bilateral oblique views of the ribs are obtained for 3 views. FINDINGS: There is no visible rib fracture or rib destructive process. The lungs are clear. There is no pneumothorax or pleural reaction, infiltrate, or effusion. The costophrenic sulci are clear. The heart is normal in size. The hilar and mediastinal contours are normal. XR/XR ribs BI 3V IMPRESSION: -No visible rib fracture. -Lungs clear. No pneumothorax, infiltrate, or effusion.
== END 2021-12-21 12:53 | disposition home or self-care (01) ==
LOC: HO.XRAY 12:52
PROVIDERS: PCP Internal Medicine; Visit Provider Nurse Practitioner Family
DX: R07.81 Pleurodynia (principal)
CPT/HCPCS: 71110

== ENCOUNTER → 2022-01-04 13:45 | Outpatient (BNVA) | payer OTHER, SELFPAY | PROVIDERS: PCP Internal Medicine; Visit Provider Nurse Practitioner Family | DX: R10.2 Pelvic and perineal pain (principal); G62.9 Polyneuropathy, unspecified; N89.8 Other specified noninflammatory disorders of vagina | CPT/HCPCS: 99202 ==

== ENCOUNTER 2022-01-05 11:32 | Outpatient (REF) | payer OTHER, SELFPAY ==
[2022-01-05 12:50] LABS: Vitamin B12 743 pg/mL (200-900)
[2022-01-05 13:54] LABS: Amphetamine Screen Urine Not Detected (Not Detect); Barbiturates, Urine Not Detected (Not Detect); Benzodiazepines Screen Urine Not Detected (Not Detect); Cannabinoid Screen Urine POSITIVE (Not Detect); Cocaine Screen Urine Not Detected (Not Detect); Fentanyl, urine Not Detected (Not Detect); Opiate Screen Urine Not Detected (Not Detect); Phencyclidine Screen Urine Not Detected (Not Detect)
== END 2022-01-05 11:33 | disposition home or self-care (01) ==
LOC: HO.LAB 11:32
PROVIDERS: PCP Internal Medicine; Visit Provider Nurse Practitioner Family
DX: G62.9 Polyneuropathy, unspecified (principal)
CPT/HCPCS: 80307; 82607; 82746

== ENCOUNTER 2022-01-24 12:45 | Outpatient (REF) | payer OTHER, SELFPAY ==
--- NOTE | ~2022-01-24 | MM_ITS ---
EXAMINATION: MM SCREENING DIGITAL BREAST TOMOSYNTHESIS, BILATERAL CLINICAL INFORMATION: Screening. Asymptomatic. The lifetime risk of breast cancer based on the Tyrer-Cuzick Model is 9.7%. COMPARISON: Mammography: January 23, 2021 and studies dating back to August 20, 2011 TECHNIQUE: Digital breast tomosynthesis is performed in both the craniocaudal and mediolateral oblique views along with computer-aided detection (CAD). Synthesized 2D images are generated from the tomosynthesis. FINDINGS: The breasts are heterogeneously dense, which may obscure small masses (ACR BI-RADS breast composition Category c). There is a stable parenchymal pattern of the right breast. Within the lateral aspect of the left breast approximately 5 cm from the nipple there is an irregularly marginated density with a few adjacent calcifications measuring 0.8 x 1.0 x 0.8 cm in size. Spot magnification views and possible ultrasound recommended. MM/MM tomosynthesis screening BI IMPRESSION: Left breast findings for further evaluation as described. ASSESSMENT: BI-RADS 0: Incomplete - Need Additional Imaging Evaluation RECOMMENDATION: 1. Additional views of the left breast 2. Targeted ultrasound if warranted after review of the additional views. 3. Radiology department staff will contact the patient for additional imaging. This patient's information was entered into a reminder system with a target due date for their next mammogram.
== END 2022-01-24 12:46 | disposition home or self-care (01) ==
LOC: HO.MAMMO 12:45
PROVIDERS: PCP Internal Medicine; Visit Provider Internal Medicine
DX: Z12.31 Encounter for screening mammogram for malignant neoplasm of breast (principal)
CPT/HCPCS: 77063; 77067

== ENCOUNTER 2022-01-29 08:48 | Outpatient (REF) | payer OTHER, SELFPAY ==
--- NOTE | ~2022-01-29 | MM_ITS ---
EXAMINATION: MM DIAGNOSTIC DIGITAL MAMMOGRAPHY, LEFT CLINICAL INFORMATION: Recall from screening for question of asymmetric density and calcifications lateral left breast. Family history breast cancer, paternal aunt. TC score 10%. COMPARISON: Mammography: 01/24/2022, 01/23/2021, 12/08/2019 TECHNIQUE: Digital mammography is performed in the following views: Magnification CC, magnification ML FINDINGS: The breasts are heterogeneously dense, which may obscure small masses (ACR BI-RADS breast composition Category c). Parenchymal pattern is similar to prior studies and there is no interval mass or developing density or architectural abnormality. Again, there is biopsy clip marker overlying parenchymal density upper outer quadrant (biopsy proven fibroadenoma), not area intended for recall. Again, there are scattered benign calcifications without focal grouping or ductal distribution or significant change from prior exam. Results are discussed with the patient at time of visit. MM/MM added views LT IMPRESSION: Additional views show no significant changes from prior studies. ASSESSMENT: BI-RADS 2: Benign RECOMMENDATION: Routine annual mammography screening. This patient's information was entered into a reminder system with a target due date for their next mammogram.
== END 2022-01-29 08:49 | disposition home or self-care (01) ==
LOC: HO.MAMMO 08:48
PROVIDERS: PCP Internal Medicine; Visit Provider Internal Medicine
DX: R92.2 Inconclusive mammogram (principal)
CPT/HCPCS: 77065

== ENCOUNTER 2022-02-06 07:50 | Outpatient (REF) | payer OTHER, SELFPAY ==
--- NOTE | ~2022-02-06 | US_ITS ---
EXAMINATION: US LOWER EXTREMITY VENOUS (REFLUX EXAM), BILATERAL CLINICAL INDICATION: 56-year-old female with venous insufficiency and varicose veins. Possible reflux. COMPARISON: None. TECHNIQUE: Color flow triplex imaging and compression Doppler was performed to evaluate both the deep and the superficial systems bilaterally. To evaluate the superficial system, the examination was performed in the upright position. Color-flow Doppler ultrasound and compression ultrasound were utilized. In addition, maneuvers were utilized to demonstrate reflux. FINDINGS: 1. DEEP VENOUS ULTRASOUND OF THE RIGHT LOWER EXTREMITY: Common Femoral Vein: Compressible, normal respiratory variation and augmented flow. Femoral vein: Compressible, normal color flow and augmentation. Popliteal Vein: Compressible, normal augmentation. Deep Reflux: There is no evidence of reflux in the deep system in either the common femoral vein or the popliteal vein. There is no evidence of a Mcwilliams's cyst. 2. SUPERFICIAL ULTRASOUND WITH DOPPLER OF RIGHT LOWER EXTREMITY: GREAT SAPHENOUS VEIN: Saphenofemoral Junction: 0.7 cm Mid Thigh: 0.4 cm Above Knee: 0.3 cm Below Knee: 0.2 cm Mid Calf: 0.2 cm Ankle: 0.3 cm GSV REFLUX: No evidence of reflux. DUPLICATED GREAT SAPHENOUS VEIN: There is a 0.2 cm duplicated lateral great saphenous vein without reflux. SMALL SAPHENOUS VEIN: Proximal: 0.2 cm Distal: 0.3 cm SSV REFLUX: No evidence of reflux. VEIN OF GIACOMINI: None Imaged. PERFORATORS: There is a 0.2 cm proximal calf circuit board inspector without reflux. VARICOSITIES: There is a 0.3 cm varicose vein at the knee without reflux. 3. DEEP VENOUS ULTRASOUND OF THE LEFT LOWER EXTREMITY: Common Femoral Vein: Compressible, normal respiratory variation and augmented flow. Femoral Vein: Compressible, normal color flow and augmentation. Popliteal Vein: Compressible, normal augmentation. Deep Reflux: There is no evidence of reflux in the deep system in either the common femoral vein or the popliteal vein. There is no evidence of a Mcwilliams's cyst. 4. SUPERFICIAL ULTRASOUND WITH DOPPLER OF LEFT LOWER EXTREMITY: GREAT SAPHENOUS VEIN: Saphenofemoral Junction: 0.5 cm Mid Thigh: 0.4 cm Above Knee: 0.4 cm Below Knee: 0.3 cm Mid Calf: 0.2 cm Ankle: 0.3 cm GSV REFLUX: No evidence of reflux. DUPLICATED GREAT SAPHENOUS VEIN: There is a 0.2 cm duplicated medial great saphenous vein without reflux. SMALL SAPHENOUS VEIN: Proximal: 0.2 cm Distal: 0.3 cm SSV REFLUX: No evidence of reflux. VEIN OF GIACOMINI: None Imaged. PERFORATORS: None Imaged VARICOSITIES: None Imaged US/US venous duplex LE BI IMPRESSION: 1 there are bilateral patent great saphenous veins and small saphenous veins without evidence of reflux.
== END 2022-02-06 07:51 | disposition home or self-care (01) ==
LOC: HO.US 07:50
PROVIDERS: Visit Provider Surgery Vascular Surgery
DX: I83.11 Varicose veins of right lower extremity with inflammation (principal)
CPT/HCPCS: 93970

== ENCOUNTER → 2022-02-20 11:06 | Outpatient (BNVA) | payer OTHER, SELFPAY | PROVIDERS: PCP Internal Medicine; Visit Provider Surgery Vascular Surgery | DX: I83.11 Varicose veins of right lower extremity with inflammation (principal) | CPT/HCPCS: 99212 ==

== ENCOUNTER → 2022-05-02 12:24 | Outpatient (BNVA) | payer OTHER, SELFPAY | PROVIDERS: PCP Internal Medicine; Visit Provider Dietitian, Registered | DX: E66.3 Overweight (principal); E11.9 Type 2 diabetes mellitus without complications; Z71.3 Dietary counseling and surveillance | CPT/HCPCS: 97803 ==

== ENCOUNTER 2022-06-18 11:12 | Outpatient (REF) | payer OTHER, SELFPAY ==
--- NOTE | ~2022-06-18 | MR_ITS ---
EXAMINATION: MR LUMBAR SPINE WITHOUT CONTRAST CLINICAL INFORMATION: Radiculopathy COMPARISON: None TECHNIQUE: MRI of the lumbar spine was obtained using routine sequences without contrast. FINDINGS: Normal anatomic alignment. No suspicious marrow signal or focal osseous lesion. The vertebral body heights are maintained. Mild degenerative disc desiccation and height loss at L4-L5 with annular fissure.. The conus medullaris terminates at the level of T12. The distal spinal cord is normal in appearance. The cauda equina nerve roots appear normal. No significant abnormalities of the paraspinal musculature.. Limited evaluation of the intra-abdominal structures without significant abnormalities. Right ovarian cysts. Globular appearance of the partially visualized uterus, likely related to known leiomyoma as demonstrated on prior pelvic ultrasound. The abdominal aorta is of normal contour and caliber. SPINAL LEVELS: L1-L2: No significant spinal canal or neuroforaminal narrowing. L2-L3: No significant spinal canal or neuroforaminal narrowing. L3-L4: No significant spinal canal or neuroforaminal narrowing. Shallow disc bulge and mild facet arthropathy. L4-L5: No significant spinal canal or neuroforaminal narrowing. Central disc protrusion with annular fissure narrows the subarticular zones with likely mass effect on the traversing L5 nerve roots. Mild facet arthropathy. Mild spinal canal stenosis L5-S1: No significant spinal canal or neuroforaminal narrowing. No significant spinal canal or neural foraminal narrowing MR/MR lumbar spine wo con IMPRESSION: At L4-L5, a central disc protrusion with annular fissure narrows the subarticular zones with likely compression of the traversing L5 nerve roots and mild spinal canal stenosis. Otherwise unremarkable MRI of the lumbar spine.
== END 2022-06-18 11:13 | disposition home or self-care (01) ==
LOC: HO.MRI 11:12
PROVIDERS: Visit Provider Internal Medicine
DX: M54.17 Radiculopathy, lumbosacral region (principal)
CPT/HCPCS: 72148

== ENCOUNTER 2022-07-16 13:24 | Outpatient (REF) | payer OTHER, SELFPAY ==
[2022-07-18 08:27] LABS: Lyme Abs Screen <0.90 index
[2022-07-21 12:47] LABS: Metanephrine, Free 55 pg/mL (<=57); Normetanephrines, Free 121 pg/mL (<=148); Total Metanephrine, Free 176 pg/mL (<=205)
== END 2022-07-16 13:25 | disposition home or self-care (01) ==
LOC: HO.LAB 13:24
PROVIDERS: PCP Internal Medicine; Visit Provider Internal Medicine
DX: G62.9 Polyneuropathy, unspecified (principal); M54.17 Radiculopathy, lumbosacral region; R35.0 Frequency of micturition
CPT/HCPCS: 36415; 83835; 86617; 86618

== ENCOUNTER 2022-07-31 08:38 | Outpatient (REF) | payer OTHER, SELFPAY | END 2022-07-31 08:39 | disposition home or self-care (01) | LOC: HO.LAB 08:38 | PROVIDERS: PCP Internal Medicine; Visit Provider Advanced Practice Midwife | DX: N92.0 Excessive and frequent menstruation with regular cycle (principal) | CPT/HCPCS: 99212 ==

== ENCOUNTER 2022-07-31 09:21 | Outpatient (REF) | payer OTHER, SELFPAY ==
[2022-07-31 15:00] LABS: CT PCR NOT DETECTED (Not Detect.); NG PCR NOT DETECTED (Not Detect.)
[2022-08-01 11:31] LABS: BV Int Neg Control Negative (Negative); BV Int Pos Control Positive (Positive)
[2022-08-03 02:24] LABS: HPV mRNA E6/E7 rflx Not Detected (Not Detected)
== END 2022-07-31 09:22 | disposition home or self-care (01) ==
LOC: HO.LNP 09:21
PROVIDERS: Visit Provider Advanced Practice Midwife
DX: Z12.4 Encounter for screening for malignant neoplasm of cervix (principal); Z11.51 Encounter for screening for human papillomavirus (HPV); Z11.3 Encounter for screening for infections with a predominantly sexual mode of transmission; N95.0 Postmenopausal bleeding
CPT/HCPCS: 0353U; 87480; 87510; 87624; 87660; 88142

== ENCOUNTER 2022-08-01 12:32 | Outpatient (REF) | payer OTHER, SELFPAY ==
--- NOTE | 2022-08-01 08:45 | EMG_ITS ---
Please see scanned EMG / Nerve Conduction Report. MTDD
== END 2022-08-01 12:33 | disposition home or self-care (01) ==
LOC: HO.NEURO 12:32
PROVIDERS: PCP Internal Medicine; Visit Provider Internal Medicine
DX: G62.9 Polyneuropathy, unspecified (principal)
CPT/HCPCS: 95885; 95911

== ENCOUNTER 2022-08-06 10:02 | Outpatient (REF) | payer OTHER, SELFPAY ==
[2022-08-06 10:28] LABS: Hematocrit 40.8 % (37.0-47.0); Hemoglobin 13.6 g/dl (12.0-16.0); Mean Corpuscular HGB Conc 33.3 g/dl (31.0-35.0); Mean Corpuscular Volume 89.9 fL (80.0-98.0); Mean Platelet Volume 9.7 fL (9.4-12.3); Platelet Count 278 X10*3/uL (160-400); Red Blood Count 4.54 X10*6/uL (4.20-5.50); Red Cell Distribution Width 12.8 % (11.0-16.0); White Blood Count 4.8 X10*3/uL (4.8-10.8)
[2022-08-06 10:56] LABS: Estimated Average Glucose 120 mg/dL; Hemoglobin A1c % 5.8 %
[2022-08-06 11:10] LABS: Creatinine Urine 159.73 mg/dL
[2022-08-06 11:38] LABS: Ferritin 44 ng/mL (10-250); Free T4 (Free Thyroxine) 0.99 ng/dL (0.71-1.85); Thyroid Stimulating Hormone 1.15 uIU/mL (0.32-4.0); Vitamin D 25-OH Total 36.3 ng/mL (>30)
[2022-08-06 20:03] LABS: Alanine Aminotransferase 27 U/L (0-31); Albumin Level 4.3 g/dL (3.5-5.0); Alkaline Phosphatase 68 U/L (39-117); Anion Gap 13 (12-20); Aspartate Amino Transferase 22 U/L (5-31); Bilirubin Total 0.7 mg/dL (0.0-1.0); Blood Urea Nitrogen 15 mg/dL (9-16); Calcium 9.3 mg/dL (8.4-10.2); Carbon Dioxide 26 mmol/L (22-29); Chloride 107 mmol/L (96-108); Cholesterol 181 mg/dL; Estimated Glomerular Filt Rate > 60; Glucose Random 105 mg/dL (60-115); HDL Cholesterol 46 mg/dL; Iron 112 mcg/dL (30-160); LDL Cholesterol Calculated 122 mg/dl; Percent Iron Saturation 34 % (15-50); Potassium 4.3 mmol/L (3.3-5.1); Sodium 142 mmol/L (135-145); Total Iron Binding Capacity 326 mcg/dL (228-428); Total Protein 6.8 g/dL (6.5-8.0); Triglycerides 69 mg/dL; Unsaturated Iron Binding 214 ug/dL
[2022-08-06 20:34] LABS: Folate 17.2 ng/mL (> or = 4.0); Vitamin B12 572 pg/mL (200-900)
[2022-08-07 06:18] LABS: MANUAL DIFF FLAG NO
[2022-08-07 06:28] LABS: Basophils Percent Auto 0.4 % (0-2); Eosinophils Absolute Auto 0.2 X10*3/uL (0.0-0.4); Eosinophils Percent Auto 3.5 % (0-4); Imm Gran Abs Auto 0.01 X10*3/uL (0.00-0.03); Imm Gran Pct Auto 0.2 % (0.0-0.4); Immature Retic Fraction 6.6 % (3.0-15.9); Lymphocytes Absolute Auto 1.3 X10*3/uL (1.2-4.9); Lymphocytes Percent Auto 24.4 % (20-40); Monocytes Absolute Auto 0.4 X10*3/uL (0.1-1.2); Monocytes Percent Auto 7.5 % (2-11); Neutrophils Absolute Auto 3.3 x10*3/uL (2.0-8.3); Reticulocyte Percent 1.4 % (0.5-1.8); Reticulocytes Absolute 0.064 X10*6/uL (0.026-0.095)
[2022-08-08 01:04] LABS: Follicle Stimulating Hormone 41.7 mIU/mL
== END 2022-08-06 10:03 | disposition home or self-care (01) ==
LOC: HO.LAB 10:02
PROVIDERS: Absent Provider Internal Medicine; PCP Internal Medicine; Visit Provider Advanced Practice Midwife
DX: N95.0 Postmenopausal bleeding (principal); E11.65 Type 2 diabetes mellitus with hyperglycemia; E78.00 Pure hypercholesterolemia, unspecified
CPT/HCPCS: 36415; 80053; 80061; 82043; 82306; 82607; 82728; 82746; 83001; 83036; 83540; 84439; 84443; 85025; 85027; 85045

== ENCOUNTER 2022-08-20 11:17 | Outpatient (REF) | payer OTHER, SELFPAY ==
--- NOTE | ~2022-08-20 | US_ITS ---
EXAMINATION: US PELVIS CLINICAL INFORMATION: Postmenopausal bleeding COMPARISON: 10/09/2021 TECHNIQUE: Ultrasound of the pelvis is performed using both transabdominal and transvaginal transducers along with Doppler. Transvaginal imaging is performed due to inadequate visualization transabdominally. FINDINGS: Uterus: The uterus is anteverted and measures 10.0 x 5.5 x 6.4 cm. 1. The double wall endometrial thickness is 9 mm. The uterus is smooth in contour and has normal myometrial echogenicity. Calcified uterine intramural fibroid measures 1.7 x 1.3 cm Adnexa: Both ovaries are visualized. There is normal color flow to the adnexa. There is no ovarian torsion. There is no pelvic ascites or fluid collection. Right ovary measures 2.8 x 1.3 x 1.7 cm. Left ovary measures 2.0 x 1.0 x 1.5 cm redemonstration of a unilocular left adnexal cyst measuring 10 x 10 x 8 mm.. US/US pelvic and transvaginal IMPRESSION: 1. Thickened endometrium measuring 9 mm in a postmenopausal patient. Recommend gynecologic consult and tissue sampling. 2. Redemonstration of left adnexal cyst measuring 10 mm. Recommend one-year follow-up ultrasound. 3. Calcified uterine intramural fibroid measures 1.7 cm.
== END 2022-08-20 11:18 | disposition home or self-care (01) ==
LOC: HO.US 11:17
PROVIDERS: Visit Provider Advanced Practice Midwife
DX: N95.0 Postmenopausal bleeding (principal)
CPT/HCPCS: 76830; 76856

== ENCOUNTER 2022-08-31 14:04 | Outpatient (REF) | payer OTHER, SELFPAY ==
--- NOTE | ~2022-08-31 | CT_ITS ---
EXAMINATION: CT CHEST SCREENING CLINICAL INFORMATION: Personal history of nicotine dependence. COMPARISON: None. TECHNIQUE: Multidetector volumetric CT imaging of the chest is performed without contrast using low dose technique. Additional 2D coronal and sagittal reformatted images and axial 3D maximum intensity projection (MIP) images are generated on the CT workstation. This CT examination was performed using dose optimization techniques as appropriate, variously including the following: *Automated exposure control *Adjustment of mA and/or kV according to patient size (this includes techniques or standardized protocols for targeted exams where dose is matched to indication/reason for exam; i.e. extremities or head) *Use of iterative reconstruction technique DLP: 44 mGy-cm FINDINGS: LUNGS: The lungs are well expanded and clear of acute pneumonic process. There are no pulmonary nodules, mass or consolidation. There is a calcified 3 mm pulmonary nodule right middle lobe. No additional calcified pulmonary nodules are seen. MEDIASTINUM: The thyroid lobes are symmetric and normal. The central trachea and the bronchi are widely patent. Heart size and the great vessels are normal caliber. No abnormal size mediastinal or hilar lymph nodes seen. There are small calcified lymph nodes in the right hilar region. No pericardial effusion seen. CORONARY ARTERY CALCIFICATION: None visualized on this study. PLEURA: There is no pleural effusion. No pleural mass or thickening. AXILLA: Small shotty bilateral axillary lymph nodes seen. The chest wall is unremarkable. UPPER ABDOMEN: Visualized liver, spleen, pancreas, and bilateral adrenal glands are unremarkable. OSSEOUS STRUCTURES: No aggressive lytic or sclerotic process seen. CT/CT lung screening IMPRESSION: Calcified granuloma and a few calcified small lymph nodes in the right hilum likely related to old granulomatous disease. ASSESSMENT: Lung-RADS category 2: Benign RECOMMENDATION: Low-dose annual CT chest. Fleischner guidelines were followed.
== END 2022-08-31 14:05 | disposition home or self-care (01) ==
LOC: HO.CT 14:04
PROVIDERS: PCP Internal Medicine; Visit Provider Physician Assistant Medical
DX: Z87.891 Personal history of nicotine dependence (principal)
CPT/HCPCS: 71271; G0296

== ENCOUNTER 2022-09-11 11:26 | Outpatient (REF) | payer OTHER, SELFPAY | END 2022-09-11 11:27 | disposition home or self-care (01) | LOC: HO.LAB 11:26 | PROVIDERS: Visit Provider Advanced Practice Midwife | DX: N93.9 Abnormal uterine and vaginal bleeding, unspecified (principal); N95.0 Postmenopausal bleeding | CPT/HCPCS: 58100; 88305 ==

== ENCOUNTER → 2022-09-25 07:57 | Outpatient (BNVA) | payer OTHER, SELFPAY | PROVIDERS: Visit Provider Advanced Practice Midwife | DX: Z71.2 Person consulting for explanation of examination or test findings (principal); R23.2 Flushing | CPT/HCPCS: 99212 ==

== ENCOUNTER 2022-10-11 10:08 | Outpatient (REF) | payer OTHER, SELFPAY ==
[2022-10-11 10:34] LABS: MANUAL DIFF FLAG NO
[2022-10-11 11:05] LABS: Basophils Percent Auto 0.3 % (0-2); Eosinophils Absolute Auto 0.2 X10*3/uL (0.0-0.4); Eosinophils Percent Auto 2.1 % (0-4); Hemoglobin 13.2 g/dl (12.0-16.0); Imm Gran Abs Auto 0.02 X10*3/uL (0.00-0.03); Imm Gran Pct Auto 0.3 % (0.0-0.4); Immature Retic Fraction 17.2 % (3.0-15.9); Lymphocytes Absolute Auto 1.1 X10*3/uL (1.2-4.9); Lymphocytes Percent Auto 15.5 % (20-40); Mean Corpuscular Hemoglobin 29.8 pg (27.0-33.0); Mean Corpuscular Volume 90.3 fL (80.0-98.0); Mean Platelet Volume 9.9 fL (9.4-12.3); Monocytes Absolute Auto 0.6 X10*3/uL (0.1-1.2); Neutrophils Absolute Auto 5.3 x10*3/uL (2.0-8.3); Neutrophils Percent Auto 73.8 % (45-73); Platelet Count 256 X10*3/uL (160-400); Red Blood Count 4.43 X10*6/uL (4.20-5.50); Red Cell Distribution Width 13.6 % (11.0-16.0); Retic HGB Equivalent 35.5 pg (30.0-35.0); Reticulocyte Percent 2.3 % (0.5-1.8); Reticulocytes Absolute 0.101 X10*6/uL (0.026-0.095); White Blood Count 7.2 X10*3/uL (4.8-10.8)
[2022-10-11 11:13] LABS: Estimated Average Glucose 128 mg/dL; Hemoglobin A1c % 6.1 %
[2022-10-11 11:38] LABS: Creatinine Urine 207.41 mg/dL
[2022-10-11 11:43] LABS: Alanine Aminotransferase 21 U/L (0-31); Albumin Level 4.1 g/dL (3.5-5.0); Alkaline Phosphatase 70 U/L (39-117); Anion Gap 11 (12-20); Aspartate Amino Transferase 19 U/L (5-31); Bilirubin Total 0.6 mg/dL (0.0-1.0); Blood Urea Nitrogen 17 mg/dL (9-16); Calcium 9.3 mg/dL (8.4-10.2); Carbon Dioxide 28 mmol/L (22-29); Chloride 106 mmol/L (96-108); Cholesterol 203 mg/dL; Estimated Glomerular Filt Rate > 60; Glucose Random 104 mg/dL (60-115); HDL Cholesterol 42 mg/dL; LDL Cholesterol Calculated 150 mg/dl; Potassium 4.8 mmol/L (3.3-5.1); Sodium 140 mmol/L (135-145); Total Protein 6.4 g/dL (6.5-8.0); Triglycerides 58 mg/dL
[2022-10-11 12:02] LABS: Thyroid Stimulating Hormone 0.75 uIU/mL (0.32-4.0)
[2022-10-18 14:53] LABS: Creatinine Random Urine 186 mg/dL (20-275); Metanephrine, Free Rand Ur 121 mcg/g cr (21-153); Normetanephrine, Free Rand Ur 241 mcg/g cr (108-524); Total Metanephrine, Free RU 362 mcg/g cr (149-603)
== END 2022-10-11 10:09 | disposition home or self-care (01) ==
LOC: HO.LAB 10:08
PROVIDERS: Advanced Practice Midwife; PCP Internal Medicine; Visit Provider Internal Medicine
DX: E78.00 Pure hypercholesterolemia, unspecified (principal); N95.0 Postmenopausal bleeding; G62.9 Polyneuropathy, unspecified; E11.65 Type 2 diabetes mellitus with hyperglycemia
CPT/HCPCS: 36415; 80053; 80061; 83036; 83835; 84443; 85025; 85045

== ENCOUNTER → 2022-11-19 12:03 | Outpatient (BNVA) | payer OTHER, SELFPAY | PROVIDERS: PCP Internal Medicine; Visit Provider Obstetrics & Gynecology | DX: N95.0 Postmenopausal bleeding (principal); D21.9 Benign neoplasm of connective and other soft tissue, unspecified | CPT/HCPCS: 99212 ==

== ENCOUNTER 2022-11-23 11:00 | Outpatient (RCR) | payer OTHER, SELFPAY | END 2023-01-01 11:22 | disposition home or self-care (01) | LOC: HO.PT 11:00 | PROVIDERS: PCP Internal Medicine; Visit Provider Physician Assistant | DX: M54.50 Low back pain, unspecified (principal) | CPT/HCPCS: 97012; 97110; 97140; 97162; 97530 ==

== ENCOUNTER → 2022-11-28 11:20 | Outpatient (BNVA) | payer OTHER, SELFPAY | PROVIDERS: PCP Internal Medicine; Visit Provider Neurological Surgery | DX: M54.16 Radiculopathy, lumbar region (principal) | CPT/HCPCS: 99202 ==

== ENCOUNTER → 2022-12-10 11:18 | Outpatient (BNVA) | payer OTHER, SELFPAY | PROVIDERS: PCP Internal Medicine; Visit Provider Nurse Practitioner Family | DX: M54.16 Radiculopathy, lumbar region (principal); M47.816 Spondylosis without myelopathy or radiculopathy, lumbar region; M51.36 Other intervertebral disc degeneration, lumbar region | CPT/HCPCS: 99212 ==

== ENCOUNTER 2022-12-17 11:32 | Outpatient (REF) | payer OTHER, SELFPAY | END 2022-12-17 11:33 | disposition home or self-care (01) | LOC: HO.LNP 11:32 | PROVIDERS: PCP Internal Medicine; Visit Provider Obstetrics & Gynecology | DX: N95.0 Postmenopausal bleeding (principal) | CPT/HCPCS: 58100; 88305 ==

== ENCOUNTER → 2023-01-03 11:21 | Outpatient (BNVA) | payer OTHER, SELFPAY | PROVIDERS: PCP Internal Medicine; Visit Provider Dietitian, Registered | DX: E66.3 Overweight (principal); Z68.28 Body mass index [BMI] 28.0-28.9, adult | CPT/HCPCS: 97803 ==

== ENCOUNTER 2023-01-10 10:25 | Outpatient (REF) | payer OTHER, SELFPAY ==
[2023-01-10 12:37] LABS: Alanine Aminotransferase 25 U/L (0-31); Albumin Level 4.3 g/dL (3.5-5.0); Alkaline Phosphatase 76 U/L (39-117); Anion Gap 13 (12-20); Aspartate Amino Transferase 18 U/L (5-31); Bilirubin Total 1.3 mg/dL (0.0-1.0); Blood Urea Nitrogen 12 mg/dL (9-16); Calcium 9.4 mg/dL (8.4-10.2); Carbon Dioxide 23 mmol/L (22-29); Chloride 107 mmol/L (96-108); Cholesterol 116 mg/dL; Estimated Glomerular Filt Rate > 60; Glucose Random 124 mg/dL (60-115); HDL Cholesterol 34 mg/dL; LDL Cholesterol Calculated 67 mg/dl; Potassium 3.6 mmol/L (3.3-5.1); Sodium 139 mmol/L (135-145); Total Protein 7.3 g/dL (6.5-8.0); Triglycerides 77 mg/dL
== END 2023-01-10 10:26 | disposition home or self-care (01) ==
LOC: HO.LAB 10:25
PROVIDERS: PCP Internal Medicine; Visit Provider Internal Medicine
DX: E11.65 Type 2 diabetes mellitus with hyperglycemia (principal); E78.00 Pure hypercholesterolemia, unspecified
CPT/HCPCS: 36415; 80053; 80061; 83036

== ENCOUNTER 2023-01-16 10:52 | Outpatient (AMB) | payer OTHER, SELFPAY ==
[2023-01-16 10:55] VITALS: BP 120/68; PULSE 69; O2SAT 98; BMI 27.7
--- NOTE | 2023-01-16 10:55 | A.OFFPC_ITS ---
Vital Signs 01/16/23 10:55 Height 4 ft 11 in Weight 137 lb BMI 27.7 BP 120/68 Blood Pressure Location Lt brachial Position Sitting Pulse 69 Pulse Source Pulse Oximeter Pulse Oximetry (%) 98 Oxygen Delivery Method Room Air Intake Visit Reasons: DM, Cholesterol Allergies No Known Allergies Allergy (Verified 01/16/23 10:55) Medication List - Last Reconciled 01/16/23 by Jace Laughlin MD ascorbic acid (vitamin C) (Vitamin C) 500 mg PO DAILY atorvastatin 40 mg PO DAILY B-complex with vitamin C 1 tab PO DAILY cholecalciferol (vitamin D3) (Vitamin D3) 125 mcg PO DAILY comp.stocking,knee,long,medium As directed cyclobenzaprine 10 mg PO BEDTIME PRN ibuprofen 800 mg PO Q8H PRN ketoconazole 2% 1 appl topical 2XW medroxyprogesterone (Provera) 10 mg PO DAILY PRN 3 months omega 2-qpd-kcg-fish oil 60-90-500 mg (Fish Oil) 1 cap PO DAILY omeprazole 20 mg PO DAILY 90 days Tobacco use date assessed: 07/16/22 Dental Screening Dental Screen Date: 01/16/23 Did you have a dental visit in the last 12 months?: Yes Did you have a dental problem in the last 6 months where you did not have access to dental care?: No Was dental information given to patient?: Patient has dentist HPI DM, Cholesterol HPI Details 57-year-old overweight female with controlled diabetes mellitus hypercholesterolemia and generalized anxiety disorder coming in for follow-up. Last seen in October 2022. Patient's colonoscopy is up-to-date mammogram due for this month. Patient follows up with pain management for the lumbar radiculopathy and has a scheduled L4-L5 NANNETTE injection under fluoroscopy and possible L4-5 decompression. PAtient follow up with Dr. suarez and placed on medroxyprogesterone. PAtient will be having nannette injection. Patient complains about having the hemorrhoids occasionally bleeding and discussed about constipation and straining. Three rules for constipation 1. Diet need to have a high fiber diet less of meat 2. Increase oral fluids 3. Exercise patient was given a cream as for hair complains of having/losing hair and wants dermatology to see. Discussed that stress will bring this about. 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 Finger dislocation Generalized anxiety disorder GERD (gastroesophageal reflux disease) Hematuria History of cervical cancer Hot flashes due to menopause Hypercholesteremia Insomnia Internal and external hemorrhoids without complication Iron deficiency anemia Major depressive disorder Menorrhagia Migraine Paresthesia of bilateral legs Pelvic pain Personal history of nicotine dependence Pleurisy PMB (postmenopausal bleeding) Right hand paresthesia Tinnitus Uterine fibroid Vitamin D deficiency Surgical History History of History of colonoscopy History of colposcopy History of endoscopy History of loop electrical excision procedure (LEEP) History of tubal ligation Status post embolization of uterine artery Family History Father Unknown family medical history Mother Stroke Aneurysm Maternal Grandmother Breast cancer Maternal Aunt Bone cancer Breast cancer Son No problems noted. Son No problems noted. Son No problems noted. Son No problems noted. Daughter No problems noted. Brother No problems noted. Brother No problems noted. Social History Housing: Apartment Alcohol intake: current Alcohol intake frequency: holidays/special occasions only Alcohol type: wine Patient Tobacco Use Status: Former Tobacco user Tobacco use type: Cigarette Years Smoked: former smoker - onset 17yo, 1ppd x 37yrs, 35pyh - quit 2020 e-Cigarette/Vaping Use: Never Used Second Hand Smoke Exposure: No Substance Use Type: Marijuana service: No Current occupational status: unemployed Sexual orientation: Straight/Heterosexual Gender identity: Female Cognitive needs: No Hearing needs: No Vision needs: Yes Female Reproductive History Menstrual Age of Menarche: 14 Questionnaire PHQ-9 Over the last 2 weeks, how often have you been bothered by any of the following problems? 1. Little interest or pleasure in doing things: several days 2. Feeling down, depressed, or hopeless: more than half the days 3. Trouble falling or staying asleep, or sleeping too much: more than half the days 4. Feeling tired or having little energy: not at all 5. Poor appetite or overeating: not at all 6. Feeling bad about yourself - or that you are a failure or have let yourself or your family down: not at all 7. Trouble concentrating on things, such as reading the newspaper or watching television: not at all 8. Moving or speaking so slowly that other people could have noticed. Or the opposite - being so fidgety or restless that you have been moving around a lot more than usual: not at all 9. Thoughts that you would be better off or of hurting yourself in some way: not at all Total score: 5 Depression Screening Interpretation: Positive Source: Developed by Drs. Mark Norman, Dean Yeh and colleagues, with an educational kael from [employer]. Thrive Questionnaire Date Thrive assessed: 07/16/22 AUDIT C Alcohol Use Questionnaire (AUDIT-C) 1. How often do you have a drink containing alcohol?: Monthly or less 2. How many drinks containing alcohol do you have on a typical day when you are drinking?: 1 or 2 3. How often do you have six or more drinks on one occasion?: Never Total Score: 1 Score Reviewed/Action Taken: No DANNY-7 AMB Questionnaire DANNY-7 Date DANNY - 7 assessed: 07/16/22 Source: Developed by Drs. Mark Norman, Kelsey Amin, Dean Ziegler and colleagues, with an educational kael from [employer]. Physical exam (Primary Care) Vital Signs: Oxygen Delivery Method Room Air 01/16/23 10:55 Tobacco/Smoking Status: Tobacco use Status Tobacco use date assessed 07/16/22 11/13/22 10:46 Patient Tobacco Use Status Former Tobacco user 11/13/22 10:46 e-Cigarette/Vaping Use Never Used 11/13/22 10:46 Depression Screening Interpretation: Positive Thrive Assessment: Date of Thrive Assessment Date Thrive assessed 07/16/22 11/13/22 10:46 Const General: alert; No acute distress Eyes Conjunctivae: conjunctivae normal Resp Auscultation: clear to auscultation bilaterally Cardio Rate: regular rate Rhythm: regular rhythm GI Other: Multiple hemorrhoids noted Rectal Exam - Female: External hemorrhoid(s) present Extrem General: Yes normal to inspection and No edema Assessment and Plan Assessment & Plan (1) Type 2 diabetes mellitus with hyperglycemia: Comment: Pt with A1c at 5.3% on 4/11/22 , 5.5 on 02/2022 via diet/exercise only- Code(s): E11.65 - Type 2 diabetes mellitus with hyperglycemia Qualifiers: Diabetes mellitus terminal makeup operator insulin use: without snf use Qualified Code(s): E11.65 - Type 2 diabetes mellitus with hyperglycemia Plan: Decrease the amount of carbohydrate intake, pasta, bread, rice and potatoes are all sugar and that is aside from all the sweet stuff, remember that fruits are good but they are Sweet also. Hemoglobin A1c goal of less than 6.5 patient is diet controlled (2) Overweight (BMI 25.0-29.9): Comment: Pt was previously referred for T2DM, Pt's A1c has maintained below 5.7% via diet modifications and exercise only with most recent A1c in 02/2022 at 5.5% . Pt in overweight category with BMI at 26.3 on 05/02/22 Code(s): E66.3 - Overweight Plan: Continue with diet and exercise (3) GERD (gastroesophageal reflux disease): Code(s): K21.9 - Gastro-esophageal reflux disease without esophagitis Qualifiers: Esophagitis presence: without esophagitis Qualified Code(s): K21.9 - Gastro-esophageal reflux disease without esophagitis Plan: Avoid the foods that causes that usually spicy foods, tomato products, juices, coffee, soda and foods that your sensitive to. After eating do not lie down, allow 3-4 hours before in lie down. And keep the head of bed above 30 degrees to avoid the acid from going up. (4) Hypercholesteremia: Code(s): E78.00 - Pure hypercholesterolemia, unspecified Plan: Avoid fried foods, chicken skin, eggs, butter margarine, pastries and meat. Be it pork or beef they have a lot of cholesterol patient is taking atorvastatin LDL goal of less than 100 (5) Asthma: Code(s): J45.909 - Unspecified asthma, uncomplicated Qualifiers: Asthma complication type: uncomplicated Asthma persistence: intermittent Asthma severity: mild Qualified Code(s): J45.20 - Mild intermittent asthma, uncomplicated Plan: Continue with inhaler as needed (6) PMB (postmenopausal bleeding): Comment: EMB 09/2022-proliferative endometrium Code(s): N95.0 - Postmenopausal bleeding Plan: Patient is being followed up by gynecology patient has been placed on medroxyprogesterone. (7) Lumbar spondylosis: Code(s): M47.816 - Spondylosis without myelopathy or radiculopathy, lumbar region Plan: Planned NANNETTE injection under fluoroscopy under pain management. Patient asks for ibuprofen and a muscle relaxant (8) Hair loss: Code(s): L65.9 - Nonscarring hair loss, unspecified Plan: Dermatology referral done (9) Hemorrhoid: Code(s): K64.9 - Unspecified hemorrhoids Plan: Avoid getting constipated. Three rules for constipation 1. Diet need to have a high fiber diet less of meat 2. Increase oral fluids 3. Exercise , hot Sitz bath Orders: Referrals Dermatology Referral L65.9 - Nonscarring hair loss, unspecified Medications: New ibuprofen 800 mg PO Q8H PRN 30 tabs 0RF pain M47.816 - Spondylosis without myelopathy or radiculopathy, lumbar region cyclobenzaprine 10 mg PO BEDTIME PRN 30 tabs 2RF muscle spasm M47.816 - Spondylosis without myelopathy or radiculopathy, lumbar region hydrocortisone 2.5% (Proctosol HC) [address] BID-QID PRN 30 grams 2RF itching K64.4 - Residual hemorrhoidal skin tags, K64.8 - Other hemorrhoids Coding Level of Care Code Est Pt Level 4 (98118) Diagnoses Type 2 diabetes mellitus with hyperglycemia E11.65 Diabetes mellitus terminal makeup operator insulin use: without snf use Overweight (BMI 25.0-29.9) E66.3 GERD (gastroesophageal reflux disease) K21.9 Esophagitis presence: without esophagitis Hypercholesteremia E78.00 Asthma J45.20 Asthma complication type: uncomplicated Asthma persistence: intermittent Asthma severity: mild PMB (postmenopausal bleeding) N95.0 Lumbar spondylosis M47.816 Hair loss L65.9 Hemorrhoid K64.9 Additional Codes PHQ-9 - 70909 - PHQ-9 Billing: Y ([id number])
== END 2023-01-16 11:42 | disposition home or self-care (01) ==
PROVIDERS: Visit Provider Internal Medicine
DX: E11.65 Type 2 diabetes mellitus with hyperglycemia (principal); K21.9 Gastro-esophageal reflux disease without esophagitis; J45.20 Mild intermittent asthma, uncomplicated; E78.00 Pure hypercholesterolemia, unspecified; N95.0 Postmenopausal bleeding; E66.3 Overweight; Z68.27 Body mass index [BMI] 27.0-27.9, adult; M47.816 Spondylosis without myelopathy or radiculopathy, lumbar region; L65.9 Nonscarring hair loss, unspecified; K64.9 Unspecified hemorrhoids
CPT/HCPCS: 99214

== ENCOUNTER 2023-01-17 11:16 | Outpatient (AMB) | payer OTHER, SELFPAY ==
[2023-01-17 11:19] VITALS: BP 118/70; BMI 27.6
--- NOTE | 2023-01-17 11:19 | A.OFFVIS_ITS ---
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 The pathology showed the following: Endometrium, biopsy:? Benign disordered proliferative endometrium with metaplastic changes and focal breakdown; no atypia or carcinoma, and benign endocervical glandular and squamous epithelium REPLACED BY [facility] Medical History (Updated 01/17/23 @ 11:22 by Tiago Plasencia MD) Alcohol abuse Asthma Bilateral lower extremity edema COVID-19 virus infection Fibroadenoma of left breast in female Finger dislocation Generalized anxiety disorder GERD (gastroesophageal reflux disease) Hematuria History of cervical cancer Hot flashes due to menopause Hypercholesteremia Insomnia Internal and external hemorrhoids without complication Iron deficiency anemia Major depressive disorder Menorrhagia Migraine Paresthesia of bilateral legs Pelvic pain Personal history of nicotine dependence Pleurisy PMB (postmenopausal bleeding) Right hand paresthesia Tinnitus Uterine fibroid Vitamin D deficiency Surgical History History of History of colonoscopy History of colposcopy History of endoscopy History of loop electrical excision procedure (LEEP) History of tubal ligation Status post embolization of uterine artery Family History Father Unknown family medical history Mother Stroke Aneurysm Maternal Grandmother Breast cancer Maternal Aunt Bone cancer Breast cancer Son No problems noted. Son No problems noted. Son No problems noted. Son No problems noted. Daughter No problems noted. Brother No problems noted. Brother No problems noted. Social History Housing: Apartment Alcohol intake: current Alcohol intake frequency: holidays/special occasions only Alcohol type: wine Patient Tobacco Use Status: Former Tobacco user Tobacco use type: Cigarette Years Smoked: former smoker - onset 17yo, 1ppd x 37yrs, 35pyh - quit 2020 e-Cigarette/Vaping Use: Never Used Second Hand Smoke Exposure: No Substance Use Type: Marijuana service: No Current occupational status: unemployed Sexual orientation: Straight/Heterosexual Gender identity: Female Cognitive needs: No Hearing needs: No Vision needs: Yes Female Reproductive History Menstrual Age of Menarche: 14 Physical Exam Vital Signs: Last Vital Signs BP 118/70 01/17/23 11:19 BMI result Body Mass Index 27.6 Assessment & Plan Assessment & Plan (1) PMB (postmenopausal bleeding): Comment: EMB 09/2022 and 12/28-proliferative endometrium Code(s): N95.0 - Postmenopausal bleeding Plan: Discussed with the patient the results of the pathology of the endometrial scrapings showing proliferative endometrium. Discussed with the patient the sensitivity, specificity, positive and negative predictive value, of endometrial biopsy in detecting endometrial pathology including but not limited to endometrial hyperplasia, cancer and other pathology; in addition discussed the patient the pathology of the endometrium in post menopause is associated with an increase in the risk of endometrial hyperplasia and malignancy in patient with preferred of endometrial pathology in menopause. Recommended to the patient progesterone treatment , levo norgestrel IUD for p.o. progestins in addition to repeat endometrial biopsy every 3 months for a year. All pros and cons, risks and benefits of each were discussed with the patient. The patient decided to proceed with Mirena IUD. so a more detailed discussion about it was conducted including mechanism of action, risks (uterine perforation, infection, injury to bladder, bowel, displacement, increase in the risk of breast cancer and others) benefits (decrease the risk of future endometrial hyperplasia and carcinoma of the endometrium ...). GC/CT will be taken next visit and the patient was instructed to to schedule Mirena IUD insertion debbie and to schedule her next screening mammogram debbie; in addition , recommended repeat endometrial biopsy every 3 months for 1 year. Instructed the patient to call in case is vaginal bleeding bleeding recurs, schedule endometri al biopsy in 3 months and IUD insertion within week All questions answered and the patient verbalized understanding and agreed with the plan. Coding Level of Care Code Est Pt Level 3 (92218) Diagnoses PMB (postmenopausal bleeding) N95.0
== END 2023-01-17 11:31 | disposition home or self-care (01) ==
LOC: HO.HWS 11:16
PROVIDERS: PCP Internal Medicine; Visit Provider Obstetrics & Gynecology
DX: N95.0 Postmenopausal bleeding (principal)
CPT/HCPCS: 99213

== ENCOUNTER → 2023-01-17 11:16 | Outpatient (BNVA) | payer OTHER, SELFPAY | PROVIDERS: PCP Internal Medicine; Visit Provider Obstetrics & Gynecology | DX: N95.0 Postmenopausal bleeding (principal); Z98.890 Other specified postprocedural states | CPT/HCPCS: 99212 ==

== ENCOUNTER 2023-02-04 14:56 | Outpatient (REF) | payer OTHER, SELFPAY ==
--- NOTE | ~2023-02-04 | MM_ITS ---
EXAMINATION: MM SCREENING DIGITAL BREAST TOMOSYNTHESIS, BILATERAL CLINICAL INFORMATION: Screening. Asymptomatic. The lifetime risk of breast cancer based on the Tyrer-Cuzick Model is 11.3%. COMPARISON: Mammography: This study is compared with prior exams dating back to 2019. TECHNIQUE: Digital breast tomosynthesis is performed in both the craniocaudal and mediolateral oblique views along with computer-aided detection (CAD). Synthesized 2D images are generated from the tomosynthesis. FINDINGS: There are scattered areas of fibroglandular density (ACR BI-RADS breast composition Category b). There are no significant masses, abnormal calcifications, or other abnormalities. There are scattered, benign calcifications in each breast. There is a tissue marker present in the left breast from prior benign percutaneous biopsy. MM/MM tomosynthesis screening BI IMPRESSION: No mammographic evidence of malignancy. ASSESSMENT: BI-RADS BI-RADS 2 - Benign Findings RECOMMENDATION: Routine annual mammography screening. 1 year F/U This examination should not preclude the clinical evaluation of a suspicious palpable abnormality. This patient's information was entered into a reminder system with a target due date for their next mammogram.
== END 2023-02-04 14:57 | disposition home or self-care (01) ==
LOC: HO.MAMMO 14:56
PROVIDERS: PCP Internal Medicine; Visit Provider Internal Medicine
DX: Z12.31 Encounter for screening mammogram for malignant neoplasm of breast (principal)
CPT/HCPCS: 77063; 77067

== ENCOUNTER → 2023-02-04 15:15 | Outpatient (BNV) | payer OTHER, SELFPAY | PROVIDERS: PCP Internal Medicine; Visit Provider Radiology Diagnostic Radiology | DX: Z12.31 Encounter for screening mammogram for malignant neoplasm of breast (principal) | CPT/HCPCS: 77063; 77067 ==

== ENCOUNTER → 2023-02-20 11:04 | Outpatient (BNVA) | payer OTHER, SELFPAY | PROVIDERS: PCP Internal Medicine; Visit Provider Anesthesiology ==

== ENCOUNTER 2023-02-20 11:14 | Outpatient (AMB) | payer OTHER, SELFPAY ==
--- NOTE | 2023-02-20 11:05 | A.OFFVIS_ITS ---
Intake Intake Visit Reasons: PROCEDURE DISCUSSION Allergies No Known Allergies Allergy (Verified 02/20/23 11:05) HPI HPI Comments History of Present Illness Details Cecilia is on the phone with me today to discuss tomorrow procedure. She denies pain in the lower back. She reports that physical therapy improved pain in the lower back in great extent. She reports that she feels pain only in the lower leg below the level of the knees where she has varicose veins. She endorse that her varicose veins enlarged greatly since her last visit to Dr. Estevez's office. She was prescribed compression stockings and exercise however apparently it was not helping her much. Maybe now she needs a surgery on her veins. In any case the epidural steroid injection which was planned for her to be performed tomorrow is contraindicated for her and can lead to aggravation of the pain in the varicose veins due to systemic action of the triamcinolone. Prior: She was last seen a year ago and since then has undergone lumbar spine MRI in 06/26/2022 and neurosurgical evaluation by Dr. Godoy who evaluated MRI findings for moderate L4-5 degenerative disc disease with moderate stenosis from degeneration and a central disc bulge that produces bilateral lateral recess stenosis with crowding of the bilateral L5 nerve roots. Patient reports occasional radiation of pain to both legs but more persistent right-sided radiculopathy in L4/L5 distribution. She is being referred to us by Dr. Gdooy for an L4-5 epidural steroid injection for diagnostic purposes for a potential L4-5 decompression. Denies any fever, abdominal or groin pain, bowel or bladder incontinence, or saddle anesthesia. Patient reports feeling better since starting pregabalin and notices decrease in burning and tingling sensations. Her labs are within normal limits for vitamin B12 and folate. UDS came back concordant. She uses daily marijuana. Patient reports she continues to have lower abdominal pain with cramping and had no menses for one month. Patient reports she is having hot flashes and was told she was in menopause and is following with Gynecology provider next month for Pap smear testing. Denies any fever, malaise, weight changes, vaginal bleeding, bowel/bladder dysfunction or saddle anesthesia. PRIOR: Patient is a 56 years old female who presents today with generalized body burning, stabbing, aching, stabbing pain, pins and needles most pronounced in her back, chest, abdomen and bilateral lower extremities. She reports burning pain constantly throughout the day and night for the past 3 months without relieving or aggravating factors. Patient reports her burning pain started a few months after she had uterine fibroid embolization done at [facility] which was complicated by a apprentice painter neckties infection that was treated by Dr. Plasencia with Flagyl and Levaquin. Patient continues to report lower abdomen and pelvic discomfort with monthly 10-day vaginal spotting with mild foul odor. She also reports dyspareunia and bloody spotting after intercourse. Patient had multiple PCP, Health And Safety Trainer and ER visits for her whole body burning sensations. Her lumbar spine x ray showed mild ventral spondylosis and mild disc degenerative changes at L4-L5 and L5-S1 disc levels. US venous duplex showed no DVT demonstrated in the bilateral lower extremity. Patient is concerned regarding persistent weight loss since apprentice painter neckties surgery with cellulitis appearance in her abdomen. She states the pain is interfering with her sleep, activities, mood, quality of life, daily living and she cannot function normally. Patient is anxious and has been tearful during today?s encounter and exam as she is significantly overwhelmed after uterine fibroid embolization surgery. She was also evaluated by a neurologist and was told that her EMG and nerve conduction studies of right upper and lower extremities were normal. Patient reports Naproxen, Gabapentin, Venlafaxin and Amitriptyline have not been helpful. Patient reports daily marijuana use with partial symptoms relief. Patient denies any fever, chills, malaise, headaches, chest pain, palpitations, dyspnea, swelling, weakness, groin pain, bowel/bladder dysfunction or saddle anesthesia. [facility] Medical History (Updated 01/17/23 @ 11:22 by Tiago Plasencia MD) Alcohol abuse Asthma Bilateral lower extremity edema COVID-19 virus infection Fibroadenoma of left breast in female Finger dislocation Generalized anxiety disorder GERD (gastroesophageal reflux disease) Hematuria History of cervical cancer Hot flashes due to menopause Hypercholesteremia Insomnia Internal and external hemorrhoids without complication Iron deficiency anemia Major depressive disorder Menorrhagia Migraine Paresthesia of bilateral legs Pelvic pain Personal history of nicotine dependence Pleurisy PMB (postmenopausal bleeding) Right hand paresthesia Tinnitus Uterine fibroid Vitamin D deficiency Surgical History History of History of colonoscopy History of colposcopy History of endoscopy History of loop electrical excision procedure (LEEP) History of tubal ligation Status post embolization of uterine artery Family History Father Unknown family medical history Mother Stroke Aneurysm Maternal Grandmother Breast cancer Maternal Aunt Bone cancer Breast cancer Son No problems noted. Son No problems noted. Son No problems noted. Son No problems noted. Daughter No problems noted. Brother No problems noted. Brother No problems noted. Social History Housing: Apartment Alcohol intake: current Alcohol intake frequency: holidays/special occasions only Alcohol type: wine Patient Tobacco Use Status: Former Tobacco user Tobacco use type: Cigarette Years Smoked: former smoker - onset 17yo, 1ppd x 37yrs, 35pyh - quit 2020 e-Cigarette/Vaping Use: Never Used Second Hand Smoke Exposure: No Substance Use Type: Marijuana service: No Current occupational status: unemployed Sexual orientation: Straight/Heterosexual Gender identity: Female Cognitive needs: No Hearing needs: No Vision needs: Yes Female Reproductive History Menstrual Age of Menarche: 14 Review of Systems Const All systems reviewed & are unremarkable except as noted in HPI and below Assessment & Plan Assessment & Plan (1) Bilateral lumbar radiculopathy: Code(s): M54.16 - Radiculopathy, lumbar region (2) Lumbar spondylosis: Code(s): M47.816 - Spondylosis without myelopathy or radiculopathy, lumbar region (3) Lumbar degenerative disc disease: Code(s): M51.36 - Other intervertebral disc degeneration, lumbar region Plan This patient endorses great results of physical therapy and reports that she no longer feels pain in the lower back with radiation to the legs. Most pain she reports in bilateral lower legs below the level of the knees were she has greatly enlarged varicose veins. She reports that those varicose veins are tender on palpation. We planned L4-L5 SHARIF injection however now it seem to me that the major problem is varicose veins disease and the lumbar spine problems are far on the background. Besides she reports very good results from physical therapy which helped her lower back pain. Therefore I personally think that patient needs to see Dr. Estevez for vascular surgery appointment. Next appointment with us is needed if her lower back pain will come back. My 1st intention if her pain will be back will be to send her back to physical therapy. Patient Instructions: I here by testify that I spent 30 minutes in conversation with this patient as well as planning her care and organizing her note. Telehealth Telehealth Location of provider rendering services: practice address Location of patient: address on file Patient Identification confirmed using: Name, : Yes Telehealth method: voice only Patient verbally consented to treatment: Yes Patient verbally consented to billing insurance company: Yes Patient informed of any privacy concerns related to visit: Yes Coding Level of Care Code Tele Est Pt Level 4 (26161) Diagnoses Bilateral lumbar radiculopathy M54.16 Lumbar spondylosis M47.816 Lumbar degenerative disc disease M51.36
== END 2023-02-20 11:19 | disposition home or self-care (01) ==
PROVIDERS: PCP Internal Medicine; Visit Provider Anesthesiology
DX: M54.16 Radiculopathy, lumbar region (principal); M47.816 Spondylosis without myelopathy or radiculopathy, lumbar region; M51.36 Other intervertebral disc degeneration, lumbar region
CPT/HCPCS: 99214

== ENCOUNTER 2023-02-20 12:28 | Emergency (ER) | payer OTHER, SELFPAY ==
--- NOTE | ~2023-02-20 | XR_ITS ---
EXAMINATION: XR CHEST CLINICAL INFORMATION: Cough. COMPARISON: 12/21/2021 chest and rib radiographs. TECHNIQUE: 2 views of the chest were obtained. FINDINGS: No significant abnormality is noted involving the heart, lungs, mediastinum, bony thorax or soft tissues. XR/XR chest 2V IMPRESSION: No acute cardiopulmonary process.
--- NOTE | 2023-02-20 12:36 | ED_ITS ---
HPI - General Adult General Chief complaint: Upper Respiratory Symptoms Stated complaint: R Side Facial Neck Pain Time Seen by Provider: 02/20/23 13:18 Source: patient Mode of arrival: ambulatory Limitations: no limitations History of Present Illness HPI narrative: Patient is a 57 year old assigned female at with a history of asthma and diabetes presenting to the emergency department today with a cough and right ear pain. Patient states that for the last week she has been coughing and has had right ear pain. Patient denies any dizziness, lightheadedness, abdominal pain, nausea, vomiting, fever, chills, blurry vision, double vision, loss of vision, chest pain, difficulty breathing, shortness of breath, back pain, night sweats, pain with urination, increased urinary frequency, increased urinary urgency, blood in her urine or stool, syncope or a near syncopal episode, recent trauma or falls, bowel incontinence, bladder incontinence, bowel retention, bladder retention, or any other complaints at this time. Onset (ago): week(s) (1) Severity: mild Severity scale (1-10): 2 Quality: aching and dull Pain Consistency: constant Relieving factors: none Exacerbating factors: none Associated symptoms: cough Treatments prior to arrival: none Related Data Home Medications Medication Instructions Recorded Confirmed ascorbic acid (vitamin C) 500 mg 500 mg PO DAILY 02/20/21 01/16/23 tablet (Vitamin C) cholecalciferol (vitamin D3) 125 125 mcg PO DAILY 02/20/21 01/16/23 mcg (5,000 unit) tablet (Vitamin D3) B-complex with vitamin C 1 tab PO DAILY 11/27/21 01/16/23 omega 2-rap-pcx-fish oil 60 mg-90 1 cap PO DAILY 07/16/22 01/16/23 mg-500 mg capsule (Fish Oil) Previous Rx's Medication Instructions Recorded comp.stocking,knee,long,medium #2 ea 10/25/21 omeprazole 20 mg capsule,delayed 20 mg PO DAILY 90 days #90 caps 02/22/22 release ketoconazole 2 % shampoo 1 appl topical 2XW #120 mL 08/23/22 medroxyprogesterone 10 mg tablet 10 mg PO DAILY PRN bleeding 3 09/25/22 (Provera) months #30 tabs atorvastatin 40 mg tablet 40 mg PO DAILY #90 tabs 01/11/23 cyclobenzaprine 10 mg tablet 10 mg PO BEDTIME PRN muscle spasm 01/16/23 #30 tabs hydrocortisone 2.5 % topical cream 1 appl ND BID-QID PRN itching #30 01/16/23 with perineal applicator grams (Proctosol HC) ibuprofen 800 mg tablet 800 mg PO Q8H PRN pain #30 tabs 01/16/23 benzonatate 100 mg capsule 100 mg PO BID PRN cough 7 days #14 02/20/23 caps doxycycline hyclate 100 mg tablet 100 mg PO BID 7 days #14 tabs 02/20/23 prednisone 20 mg tablet 20 mg PO DAILY 7 days #7 tabs 02/20/23 Allergies Allergy/AdvReac Type Severity Reaction Status Date / Time No Known Allergies Allergy Verified 02/20/23 11:05 Review of Systems Constitutional: Constitutional: Reports no additional constitutional complaints, Denies chills, Denies fever(s) and Denies night sweats Eyes: Eyes: Reports no additional eye complaints, Denies blurry vision, Denies change in vision, Denies diplopia, Denies eye discharge, Denies loss of vision and Denies eye pain ENT: Denies dizziness Comments: right ear pain Cardiovascular: Cardiovascular: Reports no additional cardiovascular co mplaints, Denies chest pain, Denies lightheadedness, Denies Loss of Consciousness and Denies dyspnea Respiratory: Respiratory: Reports no additional respiratory complaints, Reports cough and Denies dyspnea Gastrointestinal: Gastrointestinal: Reports no additional gastrointestinal complaints, Denies abdominal pain, Denies melena, Denies hematochezia, Denies change in bowel habits and Denies change in stool character Genitourinary: Genitourinary: Denies hematuria, Denies urinary frequency, Denies dysuria, Denies urinary incontinence, Denies urinary hesitancy and Denies urinary urgency Musculoskeletal: Musculoskeletal: Reports no additional musculoskeletal complaints, Denies numbness and Denies tingling Neurologic: Denies dizziness, Denies loss of vision, Denies numbness and Denies tingling Psychiatric: Psychiatric: Reports no additional psychiatric complaints Endocrine: Endocrine: Reports no additional endocrine complaints Hematologic/Lymphatic: Hematologic/Lymphatic: Reports no additional hematologic/lymphatic complaints Allergic/Immunologic: Allergic/Immunologic: Reports no additional allergic/immunologic complaints PMFSH Past Medical History Attestation statement: The following information was validated with the patient. Source: old records reviewed and nursing notes reviewed Medical History Alcohol abuse Asthma Bilateral lower extremity edema COVID-19 virus infection Fibroadenoma of left breast in female Finger dislocation Frequency of micturition Generalized anxiety disorder GERD (gastroesophageal reflux disease) Hematuria History of cervical cancer Hot flashes due to menopause Hypercholesteremia Impacted cerumen of right ear Insomnia Internal and external hemorrhoids without complication Iron deficiency anemia LFT elevation Major depressive disorder Menorrhagia Migraine Overweight (BMI 25.0-29.9) Paresthesia of bilateral legs Pelvic pain Personal history of nicotine dependence Pleurisy PMB (postmenopausal bleeding) Rib pain Right hand paresthesia Tinnitus Uterine fibroid Vitamin D deficiency Surgical History History of History of colonoscopy History of colposcopy History of endoscopy History of loop electrical excision procedure (LEEP) History of tubal ligation Status post embolization of uterine artery Family History Family History Father Unknown family medical history Mother Stroke Aneurysm Maternal Grandmother Breast cancer Maternal Aunt Bone cancer Breast cancer Son No problems noted. Son No problems noted. Son No problems noted. Son No problems noted. Daughter No problems noted. Brother No problems noted. Brother No problems noted. Social History Social History Housing: Apartment Alcohol intake: current Alcohol intake frequency: holidays/special occasions only Alcohol type: wine Patient Tobacco Use Status: Former Tobacco user Tobacco use type: Cigarette Years Smoked: former smoker - onset 17yo, 1ppd x 37yrs, 35pyh - quit 2020 e-Cigarette/Vaping Use: Never Used Second Hand Smoke Exposure: No Substance Use Type: Marijuana Advance Directives: No Advance Directives Information Provided: No service: No Current occupational status: unemployed Sexual orientation: Straight/Heterosexual Gender identity: Female Cognitive needs: No Hearing needs: No Vision needs: Yes Physical Exam ED Vital Signs: Vital Signs - 24 hr 02/20/23 12:37 Temperature 98.3 F Pulse Rate 77 Respiratory Rate 18 Blood Pressure 163/90 H Pulse Oximetry 98 Oxygen Delivery Method Room Air BMI result Body Mass Index 26.9 Const General: cooperative, no acute distress, alert and awake Nutritional Appearance: well nourished Orientation/consciousness: patient oriented x3 Limitations: no limitations HENMT Head: Yes normal to inspection and Yes atraumatic Ears: hearing grossly normal bilaterally, external ears normal and TM's normal bilaterally General nose exam: Normal external nose present, no nasal discharge noted and no epistaxis Face and sinus: Yes normal facial exam, No abrasion and No laceration Mouth: Normal oral and palatal mucosa present, no drooling and no muffled voice Eyes General: appearance normal, both eyes and all related structures Periorbital: periorbital findings normal Eyelids: Yes eyelids normal Conjunctivae: conjunctivae normal Pupils: Equal, round and reactive pupils present EOM: EOMs intact bilaterally Neck Neck: Yes normal visual inspection, Yes full ROM and Yes no lymphadenopathy Chest Chest palpation & inspection: normal inspection of the chest Resp Effort & Inspection: normal respiratory effort and able to speak in complete sentences Auscultation: clear to auscultation bilaterally Cardio Rate: regular rate Rhythm: regular rhythm GI Inspection: Yes normal to inspection Neuro General: patient oriented x3 and moves all extremities Cranial nerves: Yes Equal, round and reactive pupils present Cognition (Neuro): normal cognition Motor exam (neuro): 5/5 motor strength present throughout Sensory Exam: Normal double simultaneous stimulation for sensation Coordination: [id number] test normal Extrem General: Yes normal to inspection, Yes full ROM and Yes capillary refill normal Psych Appearance: grossly normal Mental Status: mental status grossly normal Affect: normal affect Attitude: cooperative Thought process: Normal thought process present Thought content: Normal thought content present Insight: Good insight present (Psych) Course Course Course Narrative: RME: 57yo F w/PMHx ETOH abuse, GERD, migraines, complaining of cough x1 week, now w/right sided neck/ear pain radiating down RUE believed secondary to cough EKG, CXR, viral testing ordered Full HPI, ROS and PE to be performed by primary ED provider. Medical Decision Making Medical Decision Making [facility] Narrative: Patient is a 57 year old assigned female at with a history of asthma and diabetes presenting to the emergency department today with a cough and right ear pain. Patient's physical exam was unremarkable. Patient's COVID-19 and influenza swabs were negative. Patient's chest x-ray showed no acute process. I explained my physical exam findings as well as all test results to the patient. I answered all questions asked by the patient. I stressed the importance of the patient taking her medication as prescribed. I stressed the importance of the patient following up with her primary care provider. I stressed the importance of the patient returning to the emergency department immediately if her symptoms were to worsen or if she were to develop any dizziness, shortness of breath, difficulty breathing, chest pain, blurry vision, loss of vision, nausea, vomiting, abdominal pain, fever, chills, back pain, or any other complaints. Patient verbalized agreement and understanding with this treatment plan and discharge. Differential Diagnosis Differential Diagnoses: The differential diagnosis associated with the presentation includes COVID-19 Influenza Bronchitis URI Lab Data MDM Lab Attestation statement: I reviewed the patient's lab results. My interpretation of these studies and their corresponding values is that they are grossly normal. Labs: Lab Results 02/20/23 02/20/23 Range/Units 13:18 13:18 COVID-19 ([facility]) Negative (Negative) COVID-19 Clin Com See Note Influenza Type A ([facility]) Negative (Negative) Influenza Type B ([facility]) Negative (Negative) Influenza A & B Note See Note Independent Interpretation I performed an independent interpretation of an: Plain X-Ray Interpretation: My interpretation is in agreement with the radiologist's impression of this imaging study. EXAMINATION: XR CHEST CLINICAL INFORMATION: Cough. COMPARISON: 12/21/2021 chest and rib radiographs. TECHNIQUE: 2 views of the chest were obtained. FINDINGS: No significant abnormality is noted involving the heart, lungs, mediastinum, bony thorax or soft tissues. XR/XR chest 2V IMPRESSION: No acute cardiopulmonary process. Dictated By: Gavin Salguero MD Signed By: Electronically signed by Gavin Salguero MD 02/20/23 1321 Radiology Impression Discussion of test interpretation with radiology: I have reviewed the radiologist's reading. Prescription Management I considered prescription management with: Antibiotic (patient prescribed an antibiotic and oral prednisone) Chronic Conditions Patient?s care impacted by: Diabetes and Other (asthma) Discharge Plan Discharge Clinical Impression: URI (upper respiratory infection) Patient Disposition: Home, Self-Care Instructions: Upper Respiratory Infection (DC) Additional Instructions: Follow up with your primary care provider. Return to the emergency department immediately if your symptoms worsen or if you develop any dizziness, shortness of breath, difficulty breathing, chest pain, blurry vision, loss of vision, nausea, vomiting, abdominal pain, fever, chills, back pain, or any other c omplaints. Prescriptions: New benzonatate 100 mg capsule 100 mg PO BID PRN (Reason: cough) 7 Days Qty: 14 0RF prednisone 20 mg tablet 20 mg PO DAILY 7 Days Qty: 7 0RF doxycycline hyclate 100 mg tablet 100 mg PO BID 7 Days Qty: 14 0RF No Action omeprazole 20 mg capsule,delayed release(DR/EC) 20 mg PO DAILY 90 Days Qty: 90 2RF atorvastatin 40 mg tablet 40 mg PO DAILY Qty: 90 1RF ascorbic acid (vitamin C) [Vitamin C] 500 mg Tablet 500 mg PO DAILY cholecalciferol (vitamin D3) [Vitamin D3] 125 mcg (5,000 unit) Tablet 125 mcg PO DAILY omega 2-kct-pzw-fish oil [Fish Oil] 60-90-500 mg capsule 1 cap PO DAILY B-complex with vitamin C Tablet 1 tab PO DAILY ketoconazole 2 % shampoo 1 appl topical 2XW Qty: 120 0RF (DME) comp.stocking,knee,long,medium Misc See Rx Instructions .Route Qty: 2 0RF Rx Instructions: As directed ibuprofen 800 mg tablet 800 mg PO Q8H PRN (Reason: pain) Qty: 30 0RF cyclobenzaprine 10 mg tablet 10 mg PO BEDTIME PRN (Reason: muscle spasm) Qty: 30 2RF hydrocortisone [Proctosol HC] 2.5 % cream with perineal applicator 1 appl ND BID-QID PRN (Reason: itching) Qty: 30 2RF medroxyprogesterone [Provera] 10 mg tablet 10 mg PO DAILY PRN (Reason: bleeding) 90 Days Qty: 30 0RF Rx Instructions: take one tablet day 15 through day 24 each month, repeat monthly. Referrals: Jace Laughlin MD [Primary Care Provider] - Interventions: ED Discharge Assessment Last Done: 02/20/23 13:57 Discharge Date/Time: 02/20/23 13:58 Print Language: Martiniquais
[2023-02-20 12:37] VITALS: BP 163/90; PULSE 77; RESP 18; TEMP 36.8; O2SAT 98; BMI 26.9
--- NOTE | 2023-02-20 12:40 | ECG_ITS ---
Test Reason : RUE pain Blood Pressure : / mmHG Vent. Rate : 066 BPM Atrial Rate : 066 BPM P-R Int : 154 ms QRS Dur : 088 ms QT Int : 422 ms P-R-T Axes : 044 000 012 degrees QTc Int : 442 ms Normal sinus rhythm Normal ECG When compared with ECG of 14-NOV-2021 10:37, Inverted T waves have replaced nonspecific T wave abnormality in Inferior leads QRS axis Shifted left Referred By: Liset Macias Electronically Signed By:ANAID ARTHUR
[2023-02-20 13:43] LABS: COVID-19 Test Negative (Negative); IDNOW Serial# 16C4AD1C; Influenza A Negative (Negative); Influenza B2 Negative (Negative)
== END 2023-02-20 13:58 | disposition home or self-care (01) ==
PROVIDERS: Physician Assistant; Emergency Provider Emergency Medicine; PCP Internal Medicine
DX: J06.9 Acute upper respiratory infection, unspecified (principal); M54.2 Cervicalgia; R05.9 Cough, unspecified; Z20.822 Contact with and (suspected) exposure to COVID-19; Z20.828 Contact with and (suspected) exposure to other viral communicable diseases; Z87.891 Personal history of nicotine dependence; Z79.899 Other long term (current) drug therapy
CPT/HCPCS: 71046; 87502; 87635; 93005; 99284

== ENCOUNTER 2023-02-25 14:43 | Outpatient (AMB) | payer OTHER, SELFPAY ==
[2023-02-25 14:54] VITALS: BP 124/72; BMI 27.6
--- NOTE | 2023-02-25 14:54 | MHC.OFFVIS ---
Intake Vital Signs 02/25/23 14:54 Height 4 ft 11 in Weight 136 lb 10.986 oz BMI 27.6 BP 124/72 Intake Visit Reasons: Mirena Insertion Checker Loader Required: No Information Interpreted: non-clinical & clinical Senior Quality Analyst: Senior Quality Analyst Present (Zoey Mcelroy OLIVIA) Accompanied by: Self / Same As Patient Allergies No Known Allergies Allergy (Verified 02/25/23 14:55) Post menopausal: Yes PFSH Medical History Alcohol abuse Asthma Bilateral lower extremity edema COVID-19 virus infection Fibroadenoma of left breast in female Finger dislocation Frequency of micturition Generalized anxiety disorder GERD (gastroesophageal reflux disease) Hematuria History of cervical cancer Hot flashes due to menopause Hypercholesteremia Impacted cerumen of right ear Insomnia Internal and external hemorrhoids without complication Iron deficiency anemia LFT elevation Major depressive disorder Menorrhagia Migraine Overweight (BMI 25.0-29.9) Paresthesia of bilateral legs Pelvic pain Personal history of nicotine dependence Pleurisy PMB (postmenopausal bleeding) Rib pain Right hand paresthesia Tinnitus Uterine fibroid Vitamin D deficiency Surgical History History of History of colonoscopy History of colposcopy History of endoscopy History of loop electrical excision procedure (LEEP) History of tubal ligation Status post embolization of uterine artery Family History Father Unknown family medical history Mother Stroke Aneurysm Maternal Grandmother Breast cancer Maternal Aunt Bone cancer Breast cancer Son No problems noted. Son No problems noted. Son No problems noted. Son No problems noted. Daughter No problems noted. Brother No problems noted. Brother No problems noted. Social History Housing: Apartment Alcohol intake: current Alcohol intake frequency: holidays/special occasions only Alcohol type: wine Patient Tobacco Use Status: Former Tobacco user Tobacco use type: Cigarette Years Smoked: former smoker - onset 17yo, 1ppd x 37yrs, 35pyh - quit 2020 e-Cigarette/Vaping Use: Never Used Second Hand Smoke Exposure: No Substance Use Type: Marijuana service: No Current occupational status: unemployed Sexual orientation: Straight/Heterosexual Gender identity: Female Cognitive needs: No Hearing needs: No Vision needs: Yes Female Reproductive History Menstrual Age of Menarche: 14 Physical Exam Vital Signs: Last Vital Signs BP 124/72 02/25/23 14:54 BMI result Body Mass Index 27.6 Office Procedures IUD Insert/Removal Details Details: The patient is presenting for Mirena IUD insertion The following possible complications were discussed with the patient: Intrauterine , Ectopic , Sepsis, Pelvic Infection, Irregular Bleeding and Amenorrhea, Perforation, Expulsion, Ovarian Cysts, Breast Cancer, The following adverse effects were discussed with the patient: alteration of menstrual bleeding pattern, including: unscheduled uterine bleeding decreased uterine bleeding increased scheduled uterine bleeding female genital tract bleeding ,amenorrhea , genital discharge , vulvovaginitis , breast pain , benign ovarian cyst and associated complications , dysmenorrhea , Gastrointestinal disorders abdominal/pelvic pain, headache/migraine , back pain , acne , depression Alternative options were discussed with the patient including but not limited: control pills, patch, NuvaRing, Depo-medroxyprogesterone acetate, Nexplanon, copper IUD, sterilization, vasectomy, others The procedure was explained in detail to patient , at the end patient signed the informed consent obtained. A no touch technique was used throughout the procedure. A speculum was placed into vagina and cervix was cleaned with betadine). A tenaculum was placed. A plastic sound was advanced through the external and internal os until it reached the fundus of the uterus, the depth was 8 cm. The sound was then withdrawn. The IUD was loaded in a sterile manner and advanced into position. The string was visualized and cut to 3 cm. Tenaculum site hemostatic. All instruments removed from vagina. Patient tolerated the procedure well. NO complications were noted. Patient was instructed to call for fever over 100.4, significant pain unrelieved by Motrin, IUD expulsion, heavy bleeding, or abnormal discharge. In addition, the following clinical considerations were discussed with the patient to call for removal: A stroke or heart attack ,Very severe or migraine headaches ,Unexplained fever ,Yellowing of the skin or whites of the eyes, as these may be signs of serious liver problems , or suspected , Pelvic pain or pain during sex ,HIV positive seroconversion in herself or her partner , Possible exposure to sexually transmitted infections Unusual vaginal discharge or genital sores , severe vaginal bleeding or bleeding that lasts a long time, or if she misses a menstrual period, Inability to feel Mirena's threads Instructed the patient to schedule a Follow up appointment in 4 to 6 weeks following insertion. This note was generated with a voice recognition program. Some errors may have been overlooked during the review of this note. Sometimes these errors may affect the content or meaning of a given sentence. 21036-JJH Insertion Procedure code (CPT) selection complete Office Meds Mirena Performing Provider: Tiago Plasencia MD Documented (not given) by: Tiago Plasencia MD on 02/25/23 15:04 Dose Route Admin Location Lot Number Expiration Date NDC Hand [employer] 1 device intrauterine Assessment & Plan Assessment & Plan Orders: Orders AMB IUD Insertion/Removal - Practice Supplied Today N95.0 - Postmenopausal bleeding Medications: New Mirena (levonorgestrel) 1 device intrauterine ONCE 1 ea 0RF Proliferative endometrium NS N95.0 - Postmenopausal bleeding Coding Level of Care Code Procedure Only Diagnoses CPT Codes Details - CPT: 28187-OMY Insertion ([id number])
== END 2023-02-25 15:18 | disposition home or self-care (01) ==
LOC: HO.HWS 14:43
PROVIDERS: PCP Internal Medicine; Visit Provider Obstetrics & Gynecology
DX: Z30.430 Encounter for insertion of intrauterine contraceptive device (principal)
CPT/HCPCS: 58300

== ENCOUNTER → 2023-02-25 14:43 | Outpatient (BNVA) | payer OTHER, SELFPAY | PROVIDERS: PCP Internal Medicine; Visit Provider Obstetrics & Gynecology | DX: N95.0 Postmenopausal bleeding (principal) | CPT/HCPCS: 58300; J7298 ==

== ENCOUNTER 2023-03-07 10:33 | Outpatient (AMB) | payer OTHER, SELFPAY ==
[2023-03-07 10:37] VITALS: BMI 27.5
--- NOTE | 2023-03-07 10:37 | MHC.OFFVIS ---
Intake Vital Signs 03/07/23 10:37 Height 4 ft 11 in Weight 136 lb BMI 27.5 Intake Visit Reasons: Bilateral leg pain Intake Note: re-referral bilateral LE pain w/ Hx of bilateral LE US 02/06/2022. Pt was PRN but VV are worse w/ swelling, pain w/ burning and pounding sensation and numbness Right LE has pretibial VV cluster and Left LE started to develope some VV but not as bad as Right LE. Accompanied by: Self / Same As Patient Allergies No Known Allergies Allergy (Verified 03/07/23 10:43) HPI Bilateral leg pain HPI Details Complex 57-year-old female presents for follow-up regarding lower extremity pain and discomfort. She had actually seen us about a year ago and at that time her venous insufficiency testing workup has been negative. She has this pretibial pain and discomfort that goes on down to the feet. Has been and continued source of discomfort for her. She now presents for follow-up. 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 Finger dislocation Frequency of micturition Generalized anxiety disorder GERD (gastroesophageal reflux disease) Hematuria History of cervical cancer Hot flashes due to menopause Hypercholesteremia Impacted cerumen of right ear Insomnia Internal and external hemorrhoids without complication Iron deficiency anemia LFT elevation Major depressive disorder Menorrhagia Migraine Overweight (BMI 25.0-29.9) Paresthesia of bilateral legs Pelvic pain Personal history of nicotine dependence Pleurisy PMB (postmenopausal bleeding) Rib pain Right hand paresthesia Tinnitus Uterine fibroid Vitamin D deficiency Surgical History History of History of colonoscopy History of colposcopy History of endoscopy History of loop electrical excision procedure (LEEP) History of tubal ligation Status post embolization of uterine artery Family History Father Unknown family medical history Mother Stroke Aneurysm Maternal Grandmother Breast cancer Maternal Aunt Bone cancer Breast cancer Son No problems noted. Son No problems noted. Son No problems noted. Son No problems noted. Daughter No problems noted. Brother No problems noted. Brother No problems noted. Social History Housing: Apartment Alcohol intake: current Alcohol intake frequency: holidays/special occasions only Alcohol type: wine Patient Tobacco Use Status: Former Tobacco user Tobacco use type: Cigarette Years Smoked: former smoker - onset 17yo, 1ppd x 37yrs, 35pyh - quit 2020 e-Cigarette/Vaping Use: Never Used Second Hand Smoke Exposure: No Substance Use Type: Marijuana service: No Current occupational status: unemployed Sexual orientation: Straight/Heterosexual Gender identity: Female Cognitive needs: No Hearing needs: No Vision needs: Yes Female Reproductive History Menstrual Age of Menarche: 14 Review of Systems Const All systems reviewed & are unremarkable except as noted in HPI and below Reports no additional complaints ENT Reports Normal hearing present Card Denies chest pain, Denies chest pain at rest, Denies chest pain with activity and Denies pedal edema Resp Denies cough GI Denies abdominal pain Musc Denies abnormal gait, Denies muscle cramps and Denies radiating pain into limb Skin/Breast Denies skin ulcer and Denies wounds Neuro Reports Normal hearing present and Denies abnormal gait Psych Reports no additional complaints Physical Exam Vital Signs: BMI result Body Mass Index 27.5 Const General: cooperative, healthy appearing and comfortable Orientation/consciousness: oriented to person, oriented to place and oriented to time HEENT Head: Yes normal to inspection Neck Neck: Yes normal visual inspection Carotids: no bruits Chest Chest palpation & inspection: normal inspection of the chest Resp Effort & Inspection: normal respiratory effort and able to speak in complete sentences Auscultation: clear to auscultation bilaterally, no crackles, no rales, no rhonchi and no wheezes Cardio Rate: regular rate Rhythm: regular rhythm Heart sounds: S1 normal heart sound present and S2 normal heart sound present Bruits: no carotid bruits Peripheral pulses: Peripheral pulses 2+ throughout GI Inspection: Yes normal to inspection Skin Wounds: no wounds Hair: normal Neuro General: oriented to person, oriented to place and oriented to time Cranial nerves: Yes CN's II-XII intact bilaterally and Yes Normal hearing present Cognition (Neuro): normal cognition Motor exam (neuro): 5/5 motor strength present throughout Extrem Other: venous exam: Plus one edema, pretibial spider telangiectasias. General: No clubbing, No cyanosis and Yes edema Psych Appearance: grossly normal Mental Status: mental status grossly normal Speech and movement: Normal speech and movement present Assessment & Plan Assessment & Plan (1) Varicose veins of right lower extremity with inflammation: Code(s): I83.11 - Varicose veins of right lower extremity with inflammation Plan: Unclear etiology of lower extremity pain. This may be related to her prior history of alcohol abuse in addition she does have some spinal issues as well. Her prior venous insufficiency testing has shown to be negative. I did take the liberty of repeating the testing since the prior test was nearly a year old. My suspicion of venous disease is quite low but would like to rule that out. She will follow up with us after testing. In addition she does have pain management follow-up as well. Thank you for allowing us to assist in her care. If there are any questions or concerns please do not hesitate to contact us. Orders: Orders US venous duplex LE BI 1 Week I83.11 - Varicose veins of right lower extremity with inflammation Coding Level of Care Code Est Pt Level 4 (51041) Diagnoses Varicose veins of right lower extremity with inflammation I83.11
== END 2023-03-07 10:58 | disposition home or self-care (01) ==
PROVIDERS: PCP Internal Medicine; Visit Provider Surgery Vascular Surgery
DX: I83.11 Varicose veins of right lower extremity with inflammation (principal)
CPT/HCPCS: 99214

== ENCOUNTER → 2023-03-07 10:33 | Outpatient (BNVA) | payer OTHER, SELFPAY | PROVIDERS: PCP Internal Medicine; Visit Provider Surgery Vascular Surgery | DX: I83.11 Varicose veins of right lower extremity with inflammation (principal) | CPT/HCPCS: 99212 ==

== ENCOUNTER 2023-03-12 11:24 | Outpatient (REF) | payer OTHER, SELFPAY ==
[2023-03-12 11:45] LABS: MANUAL DIFF FLAG NO
[2023-03-12 11:47] LABS: Basophils Percent Auto 0.2 % (0-2); Eosinophils Absolute Auto 0.1 X10*3/uL (0.0-0.4); Eosinophils Percent Auto 2.2 % (0-4); Hemoglobin 13.8 g/dl (12.0-16.0); Imm Gran Abs Auto 0.01 X10*3/uL (0.00-0.03); Imm Gran Pct Auto 0.2 % (0.0-0.4); Lymphocytes Absolute Auto 1.3 X10*3/uL (1.2-4.9); Lymphocytes Percent Auto 20.5 % (20-40); Mean Corpuscular HGB Conc 33.7 g/dl (31.0-35.0); Mean Corpuscular Hemoglobin 30.1 pg (27.0-33.0); Mean Corpuscular Volume 89.5 fL (80.0-98.0); Mean Platelet Volume 9.6 fL (9.4-12.3); Monocytes Absolute Auto 0.4 X10*3/uL (0.1-1.2); Monocytes Percent Auto 5.5 % (2-11); Neutrophils Absolute Auto 4.5 x10*3/uL (2.0-8.3); Neutrophils Percent Auto 71.4 % (45-73); Platelet Count 275 X10*3/uL (160-400); Red Blood Count 4.58 X10*6/uL (4.20-5.50); Red Cell Distribution Width 13.2 % (11.0-16.0); White Blood Count 6.3 X10*3/uL (4.8-10.8)
== END 2023-03-12 11:25 | disposition home or self-care (01) ==
LOC: HO.LAB 11:24
PROVIDERS: PCP Internal Medicine; Visit Provider Obstetrics & Gynecology
DX: N95.0 Postmenopausal bleeding (principal)
CPT/HCPCS: 36415; 85025

== ENCOUNTER 2023-03-13 11:55 | Outpatient (AMB) | payer OTHER, SELFPAY ==
[2023-03-13 12:14] VITALS: BP 118/74; BMI 27.2
--- NOTE | 2023-03-13 12:14 | MHC.OFFVIS ---
Intake Vital Signs 03/13/23 12:14 Height 4 ft 11 in Weight 134 lb 7.712 oz BMI 27.2 BP 118/74 Intake Visit Reasons: Bleeding with IUD Allergies No Known Allergies Allergy (Verified 03/07/23 10:43) HPI HPI Comments History of Present Illness Details Presenting complaining of continuous spotting since Mirena IUD insertion. The patient is postmenopausal endometrial biopsy showed proliferative endometrium, Mirena IUD was inserted 3 months ago. Week ultrasound done in 08/30 showed the following: IMPRESSION: 1.? Thickened endometrium measuring 9 mm in a postmenopausal patient. Recommend gynecologic consult and tissue sampling. 2.? Redemonstration of left adnexal cyst measuring 10 mm. Recommend one-year follow-up ultrasound. 3.? Calcified uterine intramural fibroid measures 1.7 cm. 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 Finger dislocation Frequency of micturition Generalized anxiety disorder GERD (gastroesophageal reflux disease) Hematuria History of cervical cancer Hot flashes due to menopause Hypercholesteremia Impacted cerumen of right ear Insomnia Internal and external hemorrhoids without complication Iron deficiency anemia LFT elevation Major depressive disorder Menorrhagia Migraine Overweight (BMI 25.0-29.9) Paresthesia of bilateral legs Pelvic pain Personal history of nicotine dependence Pleurisy PMB (postmenopausal bleeding) Rib pain Right hand paresthesia Tinnitus Uterine fibroid Vitamin D deficiency Surgical History History of History of colonoscopy History of colposcopy History of endoscopy History of loop electrical excision procedure (LEEP) History of tubal ligation Status post embolization of uterine artery Family History Father Unknown family medical history Mother Stroke Aneurysm Maternal Grandmother Breast cancer Maternal Aunt Bone cancer Breast cancer Son No problems noted. Son No problems noted. Son No problems noted. Son No problems noted. Daughter No problems noted. Brother No problems noted. Brother No problems noted. Social History Housing: Apartment Alcohol intake: current Alcohol intake frequency: holidays/special occasions only Alcohol type: wine Patient Tobacco Use Status: Former Tobacco user Tobacco use type: Cigarette Years Smoked: former smoker - onset 17yo, 1ppd x 37yrs, 35pyh - quit 2020 e-Cigarette/Vaping Use: Never Used Second Hand Smoke Exposure: No Substance Use Type: Marijuana service: No Current occupational status: unemployed Sexual orientation: Straight/Heterosexual Gender identity: Female Cognitive needs: No Hearing needs: No Vision needs: Yes Female Reproductive History Menstrual Age of Menarche: 14 Review of Systems Const All systems reviewed & are unremarkable except as noted in HPI and below Physical Exam Vital Signs: Last Vital Signs BP 118/74 03/13/23 12:14 BMI result Body Mass Index 27.2 General: Yes no CVA tenderness External Female Exam: normal external appearance and normal appearance of the urethra Speculum Exam - Vagina: normal appearance of the vagina, normal palpation, no lesions and no masses Speculum Exam - Cervix: normal appearance of the cervix, normal palpation, no lesions, no masses, nontender and Other cervical findings present (IUD thread in place) Bimanual exam- vagina & uterus: normal bimanual exam, normal palpation, uterine size normal, normal palpation, uterine shape normal, No Cervical tenderness present and non-tender Bimanual Exam- Adnexa, other: normal adnexae Back/Spine/Pelvis Back: no CVA tenderness Office Procedures Endometrial Biopsy Details: The patient was counseled regarding the indication and benefits of endometrial sampling to rule out endometrial pathology including not limited to endometrial hyperplasia or endometrial cancer and others; The alternatives (Either do nothing vs. hysteroscopy D&C) & the risks were discussed with the patient including but not limited: pain, uterine perforation, bleeding, infection, possible injury to bladder, bowel, ureter, possible need for blood transfusion with all its possible risks. The patient verbalized understanding all questions answered and signed consent. The patient was placed into the dorsal lithotomy position; a speculum was inserted in the vagina. Using aseptic technique for the procedure, the cervix was cleansed with Betadine. The anterior lip of the cervix was grasped with a single tooth tenaculum. The uterus was sounded to 7 cm with a 4 mm Pipelle was used. Tissues samples were obtained and placed in formalin, in a patient labeled container and sent to the pathology department. At the end of the procedure, there was minimal bleeding noted The patient tolerated the procedure well and was discharged in good condition with the following instructions: Nothing in the vagina until the bleeding stops. No sex until the bleeding stops, to call if any of the following occurs: fever (>100.4), flu-like symptoms, abdominal pain, heavy bleeding, four smelling vaginal discharge. The patient was instructed to schedule a Follow up appointment in 2 weeks to discuss pathology results of the biopsy and treatment options. This note was generated with a voice recognition program. Some errors may have been overlooked during the review of this note. Sometimes these errors may affect the content or meaning of a given sentence. 20750-Ovmgkyijxyb Biopsy Assessment & Plan Assessment & Plan (1) PMB (postmenopausal bleeding): Comment: EMB 09/2022 and 12/28-proliferative endometrium Uterine myomas Code(s): N95.0 - Postmenopausal bleeding Plan: GC and chlamydia taken, repeat EMB done, see procedure note, will order pelvic ultrasound to compare the myoma size relative to previous ultrasound. Instructions given the patient to schedule a 2 week post EMB/ultrasound follow-up appointment. All questions answered, the patient verbalized understanding. Orders: Orders US pelvic and transvaginal Today N95.0 - Postmenopausal bleeding AMB Endometrial Biopsy Today N95.0 - Postmenopausal bleeding Coding Level of Care Code Est Pt Level 3 (02428) Procedure Only Diagnoses PMB (postmenopausal bleeding) N95.0 CPT Codes Endometrial Biopsy - CPT: 88240-Cutljiubumn Biopsy ([id number])
== END 2023-03-13 13:30 | disposition home or self-care (01) ==
PROVIDERS: PCP Internal Medicine; Visit Provider Obstetrics & Gynecology
DX: N95.0 Postmenopausal bleeding (principal)
CPT/HCPCS: 58100

== ENCOUNTER 2023-03-13 11:55 | Outpatient (REF) | payer OTHER, SELFPAY ==
[2023-03-13 17:57] LABS: CT PCR NOT DETECTED (Not Detect.); NG PCR NOT DETECTED (Not Detect.)
== END 2023-03-13 11:56 | disposition home or self-care (01) ==
LOC: HO.LNP 11:55
PROVIDERS: PCP Internal Medicine; Visit Provider Obstetrics & Gynecology
DX: N95.0 Postmenopausal bleeding (principal)
CPT/HCPCS: 0353U; 58100; 88305

== ENCOUNTER 2023-03-19 08:18 | Outpatient (REF) | payer OTHER, SELFPAY ==
--- NOTE | ~2023-03-19 | US_ITS ---
EXAMINATION: US LOWER EXTREMITY VENOUS (REFLUX EXAM), BILATERAL CLINICAL INDICATION: Chronic venous insufficiency with lower extremity varicose veins with inflammation COMPARISON: 02/06/2022 TECHNIQUE: Color flow triplex imaging and compression Doppler was performed to evaluate both the deep and the superficial systems bilaterally. To evaluate the superficial system, the examination was performed in the upright position. Color-flow Doppler ultrasound and compression ultrasound were utilized. In addition, maneuvers were utilized to demonstrate reflux. FINDINGS: 1. DEEP VENOUS ULTRASOUND OF THE RIGHT LOWER EXTREMITY: Common Femoral Vein: Compressible, normal respiratory variation and augmented flow. Femoral Vein: Compressible, normal color flow and augmentation. Popliteal Vein: Compressible, normal augmentation. Deep Reflux: There is no evidence of reflux in the deep system in either the common femoral vein or the popliteal vein. There is no evidence of a Mcwilliams's cyst. 2. SUPERFICIAL ULTRASOUND WITH DOPPLER OF RIGHT LOWER EXTREMITY: GREAT SAPHENOUS VEIN: Saphenofemoral Junction: 0.6 cm; Reflux: 0 ms Proximal Thigh: 0.5 cm; Reflux: 0 ms Mid Thigh: 0.3 cm; Reflux: 0 ms Above Knee: 0.3 cm; Reflux: 0 ms At Knee: 0.3 cm; Reflux: 0 ms Below Knee: 0.2 cm; Reflux: 0 ms Mid Calf: 0.2 cm; Reflux: 0 ms Ankle: 0.1 cm; Reflux: 0 ms DUPLICATED MEDIAL GREAT SAPHENOUS VEIN: Diameter: None imaged Reflux: NA DUPLICATED LATERAL GREAT SAPHENOUS VEIN: Diameter: 0.3 cm Reflux: None SMALL SAPHENOUS VEIN: Proximal: 0.3 cm; Reflux: 0 ms Distal: 0.2 cm; Reflux: 0 ms VEIN OF GIACOMINI: Size: NA Reflux: NA PERFORATORS: Location: None significant Size: NA Reflux: NA VARICOSITIES: Location: Knee Size: 0.4 cm Reflux: None 3. DEEP VENOUS ULTRASOUND OF THE LEFT LOWER EXTREMITY: Common Femoral Vein: Compressible, normal respiratory variation and augmented flow. Femoral Vein: Compressible, normal color flow and augmentation. Popliteal Vein: Compressible, normal augmentation. Deep Reflux: There is no evidence of reflux in the deep system in either the common femoral vein or the popliteal vein. There is no evidence of a Mcwilliams's cyst. 4. SUPERFICIAL ULTRASOUND WITH DOPPLER OF LEFT LOWER EXTREMITY: GREAT SAPHENOUS VEIN: Saphenofemoral Junction: 0.8 cm; Reflux: 0 ms Proximal Thigh: 0.4 cm; Reflux: 0 ms Mid Thigh: 0.4 cm; Reflux: 0 ms Above Knee: 0.4 cm; Reflux: 0 ms At Knee: 0.3 cm; Reflux: 0 ms Below Knee: 0.2 cm; Reflux: 0 ms Mid Calf: 0.1 cm; Reflux: 0 ms Ankle: 0.2 cm; Reflux: 0 ms DUPLICATED MEDIAL GREAT SAPHENOUS VEIN: Diameter: None imaged Reflux: NA DUPLICATED LATERAL GREAT SAPHENOUS VEIN: Diameter: 0.2 cm Reflux: None SMALL SAPHENOUS VEIN: Proximal: 0.2 cm; Reflux: 0 ms Distal: 0.1 cm; Reflux: 0 ms VEIN OF GIACOMINI: Size: NA Reflux: NA PERFORATORS: Location: None significant Size: NA Reflux: NA VARICOSITIES: Location: Proximal thigh Size: 0.3 cm Reflux: None US/US venous duplex LE BI IMPRESSION: Right: No significant venous insufficiency or reflux in the great saphenous vein or small saphenous vein. Varicose vein at the knee without significant reflux. No significant change compared to the prior exam Left: No significant venous insufficiency or reflux in the great saphenous vein or small saphenous vein. Varicose vein at the proximal thigh without significant reflux
== END 2023-03-19 08:19 | disposition home or self-care (01) ==
LOC: HO.US 08:18
PROVIDERS: PCP Internal Medicine; Visit Provider Surgery Vascular Surgery
DX: I83.11 Varicose veins of right lower extremity with inflammation (principal)
CPT/HCPCS: 93970

== ENCOUNTER 2023-04-04 08:47 | Outpatient (REF) | payer OTHER, SELFPAY ==
--- NOTE | ~2023-04-04 | US_ITS ---
EXAMINATION: US PELVIS CLINICAL INFORMATION: Postmenopausal bleeding. COMPARISON: 08/20/2022 TECHNIQUE: Ultrasound of the pelvis is performed using both transabdominal and transvaginal transducers along with Doppler. Transvaginal imaging is performed due to inadequate visualization transabdominally. FINDINGS: Uterus: The uterus is anteverted. Uterine echotexture is heterogeneous. The uterus measures 9.9 x 4.1 x 4.8 cm. The endometrial stripe is not well visualized. The intrauterine device is incompletely evaluated. A calcified posterior fibroid with possible submucosal component measures 0.9 x 0.7 x 0.6 cm. Cervical nabothian cysts are present. Adnexa: The right ovary is not visualized. The left ovary measures 2.2 x 1.0 x 1.7 cm for a volume of 2 mL. A simple appearing left ovarian cyst measures 1.3 x 0.7 x 0.9 cm. US/US pelvic and transvaginal IMPRESSION: Limited study due to suboptimal visualization of the endometrium and intrauterine device.
== END 2023-04-04 08:48 | disposition home or self-care (01) ==
LOC: HO.US 08:47
PROVIDERS: PCP Internal Medicine; Visit Provider Obstetrics & Gynecology
DX: N95.0 Postmenopausal bleeding (principal); M79.604 Pain in right leg; M79.605 Pain in left leg; R10.2 Pelvic and perineal pain; D21.9 Benign neoplasm of connective and other soft tissue, unspecified; N83.209 Unspecified ovarian cyst, unspecified side
CPT/HCPCS: 76830; 76856; 99212

== ENCOUNTER 2023-04-04 09:33 | Outpatient (AMB) | payer OTHER, SELFPAY ==
--- NOTE | 2023-04-04 10:21 | MHC.OFFVIS ---
Intake Vital Signs 04/04/23 10:22 Height 4 ft 11 in Weight 136 lb BMI 27.5 BP 130/82 Intake Visit Reasons: follow up/STAT U/S/Per Dr. 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 The patient was seen by Dr. Estevez few weeks ago and is in the process of being evaluated for venous insufficiency. Has a follow-up appointment today. No lower extremity redness or swelling, no sharp or acute pain. Pelvic ultrasound done today showed the following: Uterus: The uterus is anteverted. Uterine echotexture is heterogeneous. The uterus measures 9.9 x 4.1 x 4.8 cm. The endometrial stripe is not well visualized. The intrauterine device is incompletely evaluated. A calcified posterior fibroid with possible submucosal component measures 0.9 x 0.7 x 0.6 cm. Cervical nabothian cysts are present. Adnexa: The right ovary is not visualized. The left ovary measures 2.2 x 1.0 x 1.7 cm for a volume of 2 mL. A simple appearing left ovarian cyst measures 1.3 x 0.7 x 0.9 cm. [facility] Medical History PMB (postmenopausal bleeding) Personal history of nicotine dependence History of cervical cancer Impacted cerumen of right ear Frequency of micturition Overweight (BMI 25.0-29.9) Rib pain Hot flashes due to menopause Pleurisy Bilateral lower extremity edema Right hand paresthesia Paresthesia of bilateral legs Hematuria Pelvic pain Generalized anxiety disorder Uterine fibroid Tinnitus LFT elevation Internal and external hemorrhoids without complication COVID-19 virus infection Finger dislocation Migraine Iron deficiency anemia Insomnia Major depressive disorder GERD (gastroesophageal reflux disease) Alcohol abuse Asthma Menorrhagia Vitamin D deficiency Hypercholesteremia 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 Son No problems noted. Son No problems noted. Son No problems noted. Daughter No problems noted. Brother No problems noted. Brother No problems noted. Social History Housing: Apartment Alcohol intake: current Alcohol intake frequency: holidays/special occasions only Alcohol type: wine Patient Tobacco Use Status: Former Tobacco user Tobacco use type: Cigarette Years Smoked: former smoker - onset 17yo, 1ppd x 37yrs, 35pyh - quit 2020 e-Cigarette/Vaping Use: Never Used Second Hand Smoke Exposure: No Substance Use Type: Marijuana service: No Current occupational status: unemployed Sexual orientation: Straight/Heterosexual Gender identity: Female Cognitive needs: No Hearing needs: No Vision needs: Yes Female Reproductive History Menstrual Age of Menarche: 14 control method: permanent sterilization Date of last pap smear: 07/31/22 (negative) Review of Systems Const All systems reviewed & are unremarkable except as noted in HPI and below Physical Exam Vital Signs: Last Vital Signs BP 130/82 04/04/23 10:22 BMI result Body Mass Index 27.5 General: Yes no CVA tenderness External Female Exam: normal external appearance and normal appearance of the urethra Speculum Exam - Vagina: normal appearance of the vagina, normal palpation, no lesions and no masses Speculum Exam - Cervix: normal appearance of the cervix, normal palpation, no lesions, no masses, nontender and Other cervical findings present (IUD thread in place) Bimanual exam- vagina & uterus: normal bimanual exam, normal palpation, uterine size normal, normal palpation, uterine shape normal, No Cervical tenderness present and non-tender Bimanual Exam- Adnexa, other: normal adnexae Back/Spine/Pelvis Back: no CVA tenderness Assessment & Plan Assessment & Plan (1) Myoma: Code(s): D21.9 - Benign neoplasm of connective and other soft tissue, unspecified Plan: Discussed with the patient the findings on pelvic ultrasound & the risk of myosarcoma; discussed with the patient the options of treatment including expectant management versus hysterectomy; the pros and cons, risks benefits of each approach were discussed with the patient including the fact that in cases of myosarcoma, surgical treatment can lead to early diagnosis and positively affects the prognosis; after further discussion, the patient decided to proceed with expectant management. Will repeat pelvic ultrasound periodically. Instructions given to patient to call in case any of the following occurs: pressure symptoms, abnormal uterine bleeding, pelvic pain; and to schedule a future office follow-up appointment for reassessment and to order a repeat ultrasound . All questions answered, the patient verbalized understanding and agreed with the plan . 13:12 Received a call from radiology department, repeat ultrasound of the pelvis shows IUD in place (2) Ovarian cyst: Code(s): N83.209 - Unspecified ovarian cyst, unspecified side Plan: Discussed with the patient the ovarian cyst by ultrasound. Discussed with the patient the Ultrasound findings, the main limitation of transvaginal ultrasonography alone as a diagnostic tool to distinguish benign from malignant masses relates to its lack of specificity and low positive predictive value for cancer. The differential diagnosis discussed with the patient includes the following but not limited to: benign and malignant gynecological and non-gynecological causes. Discussed with the patient options of treatment including laparoscopy ovarian salpingo-oophorectomy vs. expectant management with repeat US in repeating pelvic US in 6 months from previous US. If the ovarian cyst is persistent larger and / or changes in Ultrasound appearance & became complex looking, will refer to gynecologic Oncology. All pros, cons, risks and benefits of each approach were discussed with the patient including but not limited to a delay in the diagnosis and treatment of ovarian cancer affecting the prognosis; The patient decided to go ahead with expectant management. Instructions given the patient to schedule a follow-up appointment 6 months. All questions were answered & the patient verbalized understanding and agreed with the plan (3) Pelvic cramping: Code(s): R10.2 - Pelvic and perineal pain Plan: GC/chlamydia taken, requested from the director of technology /radiology department to repeat pelvic ultrasound images today in effort to better visualize the IUD if it is in an appropriate position or not. If the IUD is not in a proper position will proceed with IUD removal. If it is in appropriate position, instructions given the patient to follow-up in few months and to call in case of worsening of pelvic cramping and or bleeding. Repeat EMB scheduled in 05/01. Orders: Orders CT NG by PCR Today N95.0 - Postmenopausal bleeding Coding Level of Care Code Est Pt Level 3 (57358) Diagnoses Myoma D21.9 Ovarian cyst N83.209 Pelvic cramping R10.2
[2023-04-04 10:22] VITALS: BP 130/82; BMI 27.5
== END 2023-04-04 12:08 | disposition home or self-care (01) ==
PROVIDERS: PCP Internal Medicine; Visit Provider Obstetrics & Gynecology
DX: D21.9 Benign neoplasm of connective and other soft tissue, unspecified (principal); N83.209 Unspecified ovarian cyst, unspecified side; R10.2 Pelvic and perineal pain
CPT/HCPCS: 99213

== ENCOUNTER 2023-04-04 10:29 | Outpatient (REF) | payer OTHER, SELFPAY ==
[2023-04-04 14:18] LABS: CT PCR NOT DETECTED (Not Detect.); NG PCR NOT DETECTED (Not Detect.)
== END 2023-04-04 10:30 | disposition home or self-care (01) ==
LOC: HO.LNP 10:29
PROVIDERS: Visit Provider Obstetrics & Gynecology
DX: N95.0 Postmenopausal bleeding (principal)
CPT/HCPCS: 0353U

== ENCOUNTER 2023-04-30 13:44 | Outpatient (REF) | payer OTHER, SELFPAY | END 2023-04-30 13:45 | disposition home or self-care (01) | LOC: HO.LAB 13:44 | PROVIDERS: Visit Provider Internal Medicine | DX: Z13.89 Encounter for screening for other disorder (principal) ==

== ENCOUNTER 2023-04-30 14:20 | Outpatient (AMB) | payer OTHER, SELFPAY ==
--- NOTE | 2023-04-30 14:23 | MHC.PC.OV ---
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 Last seen in January 2023.: : Testing is up-to-date mammogram up-to-date. Patient has seen the vascular surgeon for venous insufficiency of the lower extremity testing was negative. Patient also follows up with Hematology Oncology for the iron deficiency anemia which has resolved. PAtient has burning sensation on both LE but work up Nerve test negative, vascular work up negative. Patient is upset as the burning sensation on lower extremity still persist discussed option of referring to another neurologist for 2nd opinion otherwise did discussed about the diabetes getting a little bit worse. Hemoglobin A1c is 6.5 now, [facility] Medical History PMB (postmenopausal bleeding) Personal history of nicotine dependence History of cervical cancer Impacted cerumen of right ear Frequency of micturition Overweight (BMI 25.0-29.9) Rib pain Hot flashes due to menopause Pleurisy Bilateral lower extremity edema Right hand paresthesia Paresthesia of bilateral legs Hematuria Pelvic pain Generalized anxiety disorder Uterine fibroid Tinnitus LFT elevation Internal and external hemorrhoids without complication COVID-19 virus infection Finger dislocation Migraine Iron deficiency anemia Insomnia Major depressive disorder GERD (gastroesophageal reflux disease) Alcohol abuse Asthma Menorrhagia Vitamin D deficiency Hypercholesteremia 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 Son No problems noted. Son No problems noted. Son No problems noted. Daughter No problems noted. Brother No problems noted. Brother No problems noted. Social History Housing: Apartment Alcohol intake: current Alcohol intake frequency: holidays/special occasions only Alcohol type: wine Patient Tobacco Use Status: Former Tobacco user Tobacco use type: Cigarette Years Smoked: former smoker - onset 17yo, 1ppd x 37yrs, 35pyh - quit 2020 e-Cigarette/Vaping Use: Never Used Second Hand Smoke Exposure: No Substance Use Type: Marijuana service: No Current occupational status: unemployed Sexual orientation: Straight/Heterosexual Gender identity: Female Cognitive needs: No Hearing needs: No Vision needs: Yes Female Reproductive History Menstrual Age of Menarche: 14 Questionnaire Thrive Questionnaire Date Thrive assessed: 07/16/22 AUDIT C Alcohol Use Questionnaire (AUDIT-C) 1. How often do you have a drink containing alcohol?: Monthly or less 2. How many drinks containing alcohol do you have on a typical day when you are drinking?: 1 or 2 3. How often do you have six or more drinks on one occasion?: Never Total Score: 1 Score Reviewed/Action Taken: No DANNY-7 AMB Questionnaire DANNY-7 Date DANNY - 7 assessed: 07/16/22 Source: Developed by Drs. Mark Norman, Kelsey Amin, Dean Ziegler and colleagues, with an educational kael from [employer]. Physical exam (Primary Care) Vital Signs: Last Vital Signs Pulse 72 04/30/23 14:24 BP 118/76 04/30/23 14:24 Pulse Ox 100 04/30/23 14:24 Oxygen Delivery Method Room Air 04/30/23 14:24 BMI result Body Mass Index 27.3 Tobacco/Smoking Status: Tobacco use Status Tobacco use date assessed 04/30/23 04/30/23 14:25 Patient Tobacco Use Status Former Tobacco user 04/30/23 14:25 Tobacco use type Cigarette 04/30/23 14:25 e-Cigarette/Vaping Use Never Used 04/30/23 14:25 Thrive Assessment: Date of Thrive Assessment Date Thrive assessed 07/16/22 04/30/23 14:25 Const General: alert; No acute distress Eyes Conjunctivae: conjunctivae normal Resp Auscultation: clear to auscultation bilaterally Cardio Rate: regular rate Rhythm: regular rhythm GI Inspection: Yes normal to inspection Extrem General: Yes normal to inspection and No edema Results AMB Hemoglobin A1c AMB Hemoglobin A1c 6.5 % Last Edit by OLIVIA Lofton on 04/30/23 14:39 Results Reviewed Results Reviewed: Laboratory Last Values Hgb A1c (Clinic) 6.5 % (4.0-6.0) H 04/30/23 14:38 Assessment and Plan Assessment & Plan (1) Type 2 diabetes mellitus with hyperglycemia: Comment: Pt with A1c at 5.3% on 10/16/21 , 5.5 on 02/2022 via diet/exercise only- Code(s): E11.65 - Type 2 diabetes mellitus with hyperglycemia Qualifiers: 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 Hemoglobin A1c goal of less than 6.5 patient on diet control (2) Iron deficiency anemia: Code(s): D50.9 - Iron deficiency anemia, unspecified Qualifiers: Iron deficiency anemia type: inadequate dietary iron intake Qualified Code(s): D50.8 - Other iron deficiency anemias Plan: Resolved patient did follow-up with hematology oncology (3) GERD (gastroesophageal reflux disease): Code(s): K21.9 - Gastro-esophageal reflux disease without esophagitis Qualifiers: Esophagitis presence: without esophagitis Qualified Code(s): K21.9 - Gastro-esophageal reflux disease without esophagitis Plan: Avoid the foods that causes that usually spicy foods, tomato products, juices, coffee, soda and foods that your sensitive to. After eating do not lie down, allow 3-4 hours before in lie down. And keep the head of bed above 30 degrees to avoid the acid from going up. (4) Hypercholesteremia: Code(s): E78.00 - Pure hypercholesterolemia, unspecified Plan: Avoid fried foods, chicken skin, eggs, butter margarine, pastries and meat. Be it pork or beef they have a lot of cholesterol LDL goal of less than 100 and triglyceride of less than 150 patient on atorvastatin 40 mg once a day (5) Asthma: Code(s): J45.909 - Unspecified asthma, uncomplicated Qualifiers: Asthma complication type: uncomplicated Asthma persistence: intermittent Asthma severity: mild Qualified Code(s): J45.20 - Mild intermittent asthma, uncomplicated Plan: Controlled as the patient is not on any inhaler (6) Generalized anxiety disorder: Code(s): F41.1 - Generalized anxiety disorder Plan: Stable (7) Lumbar degenerative disc disease: Code(s): M51.36 - Other intervertebral disc degeneration, lumbar region Plan: Patient follows up with pain management had injections done Orders: Orders AMB Hemoglobin A1c Today E11.65 - Type 2 diabetes mellitus with hyperglycemia Referrals Neurology Referral G62.9 - Polyneuropathy, unspecified Coding Level of Care Code Est Pt Level 4 (28674) Diagnoses Type 2 diabetes mellitus with hyperglycemia, without long-term current use of insulin E11.65 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
[2023-04-30 14:24] VITALS: BP 118/76; PULSE 72; O2SAT 100; BMI 27.3
== END 2023-04-30 14:57 | disposition home or self-care (01) ==
PROVIDERS: PCP Internal Medicine; Visit Provider Internal Medicine
DX: E11.65 Type 2 diabetes mellitus with hyperglycemia (principal); D50.8 Other iron deficiency anemias; K21.9 Gastro-esophageal reflux disease without esophagitis; E78.00 Pure hypercholesterolemia, unspecified; J45.20 Mild intermittent asthma, uncomplicated; F41.1 Generalized anxiety disorder; M51.36 Other intervertebral disc degeneration, lumbar region
CPT/HCPCS: 83036; 99214

== ENCOUNTER 2023-05-21 11:19 | Outpatient (AMB) | payer OTHER, SELFPAY ==
[2023-05-21 12:38] VITALS: BP 122/78; PULSE 81; TEMP 36.6; O2SAT 98; BMI 27.3
--- NOTE | 2023-05-21 12:38 | AM.OFFWIN_ITS ---
Intake Vital Signs 05/21/23 12:38 Height 4 ft 11 in Weight 135 lb BMI 27.3 BP 122/78 Blood Pressure Location Lt brachial Position Sitting Pulse 81 Pulse Source Pulse Oximeter Temp 97.8 F Temp Source Temporal Artery Scan Pulse Oximetry (%) 98 Oxygen Delivery Method Room Air Intake Visit Reasons: EST/lt hand pain/ rt shoulder pain [phone] Intake Note: Pt is here c/o left hand pain and right shoulder pain. Pt states no falls or injuries. Patient Tobacco Use Status: Former Tobacco user Allergies No Known Allergies Allergy (Verified 05/21/23 12:55) Do you need a note to return to daycare/school/sports/work: No HPI EST/lt hand pain/ rt shoulder pain [phone] HPI Details 57-year-old female presents to the [facility] for a sick visit. Patient is complaining of severe pain in the wrist since this morning. Not recall any fall or injury. Pain is throbbing in nature PFSH Medical History PMB (postmenopausal bleeding) Personal history of nicotine dependence History of cervical cancer Impacted cerumen of right ear Frequency of micturition Overweight (BMI 25.0-29.9) Rib pain Hot flashes due to menopause Pleurisy Bilateral lower extremity edema Right hand paresthesia Paresthesia of bilateral legs Hematuria Pelvic pain Generalized anxiety disorder Uterine fibroid Tinnitus LFT elevation Internal and external hemorrhoids without complication COVID-19 virus infection Finger dislocation Migraine Iron deficiency anemia Insomnia Major depressive disorder GERD (gastroesophageal reflux disease) Alcohol abuse Asthma Menorrhagia Vitamin D deficiency Hypercholesteremia 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 Son No problems noted. Son No problems noted. Son No problems noted. Daughter No problems noted. Brother No problems noted. Brother No problems noted. Social History Housing: Apartment Alcohol intake: current Alcohol intake frequency: holidays/special occasions only Alcohol type: wine Patient Tobacco Use Status: Former Tobacco user Tobacco use type: Cigarette Years Smoked: former smoker - onset 17yo, 1ppd x 37yrs, 35pyh - quit 2020 e-Cigarette/Vaping Use: Never Used Second Hand Smoke Exposure: No Substance Use Type: Marijuana service: No Current occupational status: unemployed Sexual orientation: Straight/Heterosexual Gender identity: Female Cognitive needs: No Hearing needs: No Vision needs: Yes Female Reproductive History Menstrual Age of Menarche: 14 Physical Exam Vital Signs: Last Vital Signs Temp 97.8 F 05/21/23 12:38 Pulse 81 05/21/23 12:38 BP 122/78 05/21/23 12:38 Pulse Ox 98 05/21/23 12:38 Oxygen Delivery Method Room Air 05/21/23 12:38 BMI result Body Mass Index 27.3 Extrem Other: Left wrist: Mild swelling, unable to flex or extend the wrist due to pain. Assessment & Plan Assessment & Plan (1) Sprain of left wrist: Code(s): S63.502A - Unspecified sprain of left wrist, initial encounter Plan X-ray images were personally reviewed by me. Anti-inflammatories and Abiel wrap.. If symptoms do not improve to follow-up here. Orders: Orders XR wrist LT min 3V Today S63.502A - Unspecified sprain of left wrist, initial encounter Coding Level of Care Code Est Pt Level 4 (81422) Diagnoses Sprain of left wrist S63.502A
== END 2023-05-21 13:45 | disposition home or self-care (01) ==
PROVIDERS: PCP Internal Medicine; Visit Provider Internal Medicine
DX: S63.502A Unspecified sprain of left wrist, initial encounter (principal)
CPT/HCPCS: 99214

== ENCOUNTER 2023-05-21 12:54 | Outpatient (REF) | payer OTHER, SELFPAY ==
--- NOTE | ~2023-05-21 | XR_ITS ---
EXAMINATION: XR WRIST, LEFT CLINICAL INFORMATION: Unspecified sprain of left wrist, initial encounter COMPARISON: None available. TECHNIQUE: PA, lateral, and oblique views of the left wrist. FINDINGS: The bones are intact. No fracture. Alignment is anatomic with normal joint spaces. No erosions or abnormal soft tissue calcifications. XR/XR wrist LT min 3V IMPRESSION: No bony abnormality.
== END 2023-05-21 12:55 | disposition home or self-care (01) ==
LOC: HO.HMGCX 12:54
PROVIDERS: PCP Internal Medicine; Visit Provider Internal Medicine
DX: S63.502A Unspecified sprain of left wrist, initial encounter (principal)
CPT/HCPCS: 73110

== ENCOUNTER 2023-05-28 08:54 | Outpatient (AMB) | payer OTHER, SELFPAY ==
--- NOTE | 2023-05-28 09:04 | MHC.OFFVIS ---
Intake Vital Signs 05/28/23 09:07 Height 4 ft 11 in Weight 134 lb 7.712 oz BMI 27.2 BP 120/76 Intake Visit Reasons: Repeat EMB Allergies No Known Allergies Allergy (Verified 05/21/23 12:55) HPI HPI Comments History of Present Illness Details Presenting for repeat EMB for proliferative endometrium and postmenopausal bleeding. Last endometrial biopsies in 09/27 and 12/28 in 03/30 showed for lipids endometrium with no evidence of endometrial hyperplasia or malignancy, 03/30 EMB showed benign endometrium with secretory changes. The patient is on Mirena IUD and is having postcoital bleeding on and off. Last co testing was in 07/30 was neg PFS Medical History PMB (postmenopausal bleeding) Personal history of nicotine dependence History of cervical cancer Impacted cerumen of right ear Frequency of micturition Overweight (BMI 25.0-29.9) Rib pain Hot flashes due to menopause Pleurisy Bilateral lower extremity edema Right hand paresthesia Paresthesia of bilateral legs Hematuria Pelvic pain Generalized anxiety disorder Uterine fibroid Tinnitus LFT elevation Internal and external hemorrhoids without complication COVID-19 virus infection Finger dislocation Migraine Iron deficiency anemia Insomnia Major depressive disorder GERD (gastroesophageal reflux disease) Alcohol abuse Asthma Menorrhagia Vitamin D deficiency Hypercholesteremia 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 Son No problems noted. Son No problems noted. Son No problems noted. Daughter No problems noted. Brother No problems noted. Brother No problems noted. Social History Housing: Apartment Alcohol intake: current Alcohol intake frequency: holidays/special occasions only Alcohol type: wine Patient Tobacco Use Status: Former Tobacco user Tobacco use type: Cigarette Years Smoked: former smoker - onset 17yo, 1ppd x 37yrs, 35pyh - quit 2019 e-Cigarette/Vaping Use: Never Used Second Hand Smoke Exposure: No Substance Use Type: Marijuana service: No Current occupational status: unemployed Sexual orientation: Straight/Heterosexual Gender identity: Female Cognitive needs: No Hearing needs: No Vision needs: Yes Female Reproductive History Menstrual Age of Menarche: 14 Review of Systems Const All systems reviewed & are unremarkable except as noted in HPI and below Physical Exam General: Yes no CVA tenderness External Female Exam: normal external appearance and normal appearance of the urethra Speculum Exam - Vagina: normal appearance of the vagina, normal palpation, no lesions and no masses Speculum Exam - Cervix: normal appearance of the cervix, normal palpation, no lesions, no masses, nontender and Other cervical findings present (IUD string in place) Bimanual exam- vagina & uterus: normal bimanual exam, normal palpation, uterine size normal, normal palpation, uterine shape normal, No Cervical tenderness present and non-tender Bimanual Exam- Adnexa, other: normal adnexae Back/Spine/Pelvis Back: no CVA tenderness Office Procedures Endometrial Biopsy Details: The patient was counseled regarding the indication and benefits of endometrial sampling to rule out endometrial pathology including not limited to endometrial hyperplasia or endometrial cancer and others; The alternatives (Either do nothing vs. hysteroscopy D&C) & the risks were discussed with the patient including but not limited: pain, uterine perforation, bleeding, infection, possible injury to bladder, bowel, ureter, possible need for blood transfusion with all its possible risks. The patient verbalized understanding all questions answered and signed consent. The patient was placed into the dorsal lithotomy position; a speculum was inserted in the vagina. Using aseptic technique for the procedure, the cervix was cleansed with Betadine. The anterior lip of the cervix was grasped with a single tooth tenaculum. The uterus was sounded to 7 cm with a 4 mm Pipelle was used. Tissues samples were obtained and placed in formalin, in a patient labeled container and sent to the pathology department. At the end of the procedure, there was minimal bleeding noted The patient tolerated the procedure well and was discharged in good condition with the following instructions: Nothing in the vagina until the bleeding stops. No sex until the bleeding stops, to call if any of the following occurs: fever (>100.4), flu-like symptoms, abdominal pain, heavy bleeding, four smelling vaginal discharge. The patient was instructed to schedule a Follow up appointment in 2 weeks to discuss pathology results of the biopsy and treatment options. This note was generated with a voice recognition program. Some errors may have been overlooked during the review of this note. Sometimes these errors may affect the content or meaning of a given sentence. [id number] Biopsy Assessment & Plan Assessment & Plan (1) PMB (postmenopausal bleeding): Comment: EMB 09/2022 and 12/28-proliferative endometrium. 03/30 benign endometrium with focal secretory Uterine myomas Code(s): N95.0 - Postmenopausal bleeding Plan: EMB repeated, see procedure note Orders: Orders Surgical Today N95.0 - Postmenopausal bleeding AMB Endometrial Biopsy Today N95.0 - Postmenopausal bleeding Coding Level of Care Code Procedure Only Diagnoses PMB (postmenopausal bleeding) N95.0 CPT Codes Endometrial Biopsy - CPT: 36157-[id number] Biopsy ([id number])
[2023-05-28 09:07] VITALS: BP 120/76; BMI 27.2
== END 2023-05-28 09:16 | disposition home or self-care (01) ==
LOC: HO.HWS 08:54
PROVIDERS: PCP Internal Medicine; Visit Provider Obstetrics & Gynecology
DX: N95.0 Postmenopausal bleeding (principal)
CPT/HCPCS: 58100

== ENCOUNTER 2023-05-28 08:54 | Outpatient (REF) | payer OTHER, SELFPAY | END 2023-05-28 08:55 | disposition home or self-care (01) | LOC: HO.LNP 08:54 | PROVIDERS: PCP Internal Medicine; Visit Provider Obstetrics & Gynecology | DX: N95.0 Postmenopausal bleeding (principal) | CPT/HCPCS: 58100; 88305 ==

== ENCOUNTER 2023-06-10 12:59 | Outpatient (AMB) | payer OTHER, SELFPAY ==
--- NOTE | 2023-06-10 13:01 | MHC.OFFVIS ---
Intake Vital Signs 06/10/23 13:09 BP 144/74 H Intake Visit Reasons: EMB results Allergies No Known Allergies Allergy (Verified 06/10/23 13:09) HPI HPI Comments History of Present Illness Details Presenting for EMB follow-up. The patient is doing well with no complaints. The pathology showed the following: Chronic endometritis with breakdown, foci of acute inflammation, and atrophic glands and decidual stromal change consistent with progestin effect; no atypia or carcinoma (see comment). Comment: Neutrophils can be seen with breakdown, but acute endometritis cannot be excluded and clinical correlation is necessary [facility] Medical History PMB (postmenopausal bleeding) Personal history of nicotine dependence History of cervical cancer Impacted cerumen of right ear Frequency of micturition Overweight (BMI 25.0-29.9) Rib pain Hot flashes due to menopause Pleurisy Bilateral lower extremity edema Right hand paresthesia Paresthesia of bilateral legs Hematuria Pelvic pain Generalized anxiety disorder Uterine fibroid Tinnitus LFT elevation Internal and external hemorrhoids without complication COVID-19 virus infection Finger dislocation Migraine Iron deficiency anemia Insomnia Major depressive disorder GERD (gastroesophageal reflux disease) Alcohol abuse Asthma Menorrhagia Vitamin D deficiency Hypercholesteremia 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 Son No problems noted. Son No problems noted. Son No problems noted. Daughter No problems noted. Brother No problems noted. Brother No problems noted. Social History Housing: Apartment Alcohol intake: current Alcohol intake frequency: holidays/special occasions only Alcohol type: wine Patient Tobacco Use Status: Former Tobacco user Tobacco use type: Cigarette Years Smoked: former smoker - onset 17yo, 1ppd x 37yrs, 35pyh - quit 2020 e-Cigarette/Vaping Use: Never Used Second Hand Smoke Exposure: No Substance Use Type: Marijuana service: No Current occupational status: unemployed Sexual orientation: Straight/Heterosexual Gender identity: Female Cognitive needs: No Hearing needs: No Vision needs: Yes Female Reproductive History Menstrual Age of Menarche: 14 Review of Systems Const All systems reviewed & are unremarkable except as noted in HPI and below Reports as per HPI and Reports no additional complaints GI Reports no additional complaints Reports no additional complaints Assessment & Plan Assessment & Plan (1) PMB (postmenopausal bleeding): Comment: EMB 09/2022 and 12/28-proliferative endometrium. 03/30 benign endometrium with focal secretory, 05/30 progesterone effect Uterine myomas Code(s): N95.0 - Postmenopausal bleeding Plan: Discussed with the patient the results the pathology, the patient was reassured. Instructions given to patient to call if vaginal bleeding occurs otherwise schedule a repeat EMB in 4 months. All questions answered, the patient verbalized understanding. Coding Level of Care Code Est Pt Level 3 (49567) Diagnoses PMB (postmenopausal bleeding) N95.0
[2023-06-10 13:09] VITALS: BP 144/74
== END 2023-06-10 14:55 | disposition home or self-care (01) ==
LOC: HO.HWS 12:59
PROVIDERS: PCP Internal Medicine; Visit Provider Obstetrics & Gynecology
DX: N95.0 Postmenopausal bleeding (principal)
CPT/HCPCS: 99213

== ENCOUNTER → 2023-06-10 12:59 | Outpatient (BNVA) | payer OTHER, SELFPAY | PROVIDERS: PCP Internal Medicine; Visit Provider Obstetrics & Gynecology | DX: N95.0 Postmenopausal bleeding (principal) | CPT/HCPCS: 99212 ==

== ENCOUNTER 2023-06-26 14:53 | Outpatient (AMB) | payer OTHER, SELFPAY ==
--- NOTE | 2023-06-26 15:03 | MHC.OFFVIS ---
Intake Vital Signs 06/26/23 15:05 Height 4 ft 11 in Weight 131 lb 6 oz BMI 26.5 BP 122/68 Blood Pressure Location Rt brachial Position Sitting Respiration 16 Pulse 78 Pulse Source Pulse Oximeter Pulse Oximetry (%) 97 Oxygen Delivery Method Room Air Intake Visit Reasons: Leg pain Intake Note: Pt presents to the office for new pt evaluation for polyneuropathy. [employer] Required: No Allergies No Known Allergies Allergy (Verified 06/26/23 15:04) Medication List - Last Reconciled 06/26/23 by Xiomara Ahumada MD ascorbic acid (vitamin C) (Vitamin C) 500 mg PO DAILY atorvastatin 40 mg PO DAILY B-complex with vitamin C 1 tab PO DAILY cholecalciferol (vitamin D3) (Vitamin D3) 125 mcg PO DAILY comp.stocking,knee,long,medium As directed cyclobenzaprine 10 mg PO BEDTIME PRN ibuprofen 800 mg PO Q8H PRN ketoconazole 2% 1 appl topical 2XW levonorgestrel (Mirena) intrauterine meloxicam 15 mg PO DAILY omega 6-duw-nnc-fish oil 60-90-500 mg (Fish Oil) 1 cap PO DAILY omeprazole 20 mg PO DAILY 90 days HPI HPI Comments History of Present Illness Details 57y/o female comes for evaluation of leg pain and occasional numbness. she had embolization of he ruterine artery for excessive bleeding in Feb. Her leg pain started after that and has worsened since then . The whole lower extremity hurts. she describes the pain as burning, throbbing sensation and occasional numbness, parasthesias.she also has creepy crawly sensation The pain is worse at rest and moving around helps Stretching and massaging makes it better she has frequent arousals, she changes position to help. she also has intermittent back pain and her MRI showed L4-5 disc protrusion causing douglas L5 nerve root compression . Mild canal stenosis. she denies any leg weakness. [facility] Medical History PMB (postmenopausal bleeding) Personal history of nicotine dependence History of cervical cancer Impacted cerumen of right ear Frequency of micturition Overweight (BMI 25.0-29.9) Rib pain Hot flashes due to menopause Pleurisy Bilateral lower extremity edema Right hand paresthesia Paresthesia of bilateral legs Hematuria Pelvic pain Generalized anxiety disorder Uterine fibroid Tinnitus LFT elevation Internal and external hemorrhoids without complication COVID-19 virus infection Finger dislocation Migraine Iron deficiency anemia Insomnia Major depressive disorder GERD (gastroesophageal reflux disease) Alcohol abuse Asthma Menorrhagia Vitamin D deficiency Hypercholesteremia 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 Son No problems noted. Son No problems noted. Son No problems noted. Daughter No problems noted. Brother No problems noted. Brother No problems noted. Social History Housing: Apartment Alcohol intake: current Alcohol intake frequency: holidays/special occasions only Alcohol type: wine Patient Tobacco Use Status: Former Tobacco user Tobacco use type: Cigarette Years Smoked: former smoker - onset 17yo, 1ppd x 37yrs, 35pyh - quit 2020 e-Cigarette/Vaping Use: Never Used Second Hand Smoke Exposure: No Substance Use Type: Marijuana service: No Current occupational status: unemployed Sexual orientation: Straight/Heterosexual Gender identity: Female Cognitive needs: No Hearing needs: No Vision needs: Yes Female Reproductive History Menstrual Age of Menarche: 14 Physical Exam Vital Signs: Last Vital Signs Pulse 78 06/26/23 15:05 Resp 16 06/26/23 15:05 BP 122/68 06/26/23 15:05 Pulse Ox 97 06/26/23 15:05 Oxygen Delivery Method Room Air 06/26/23 15:05 BMI result Body Mass Index 26.5 Const General: cooperative, healthy appearing, comfortable and no acute distress Nutritional Appearance: average body habitus Orientation/consciousness: patient oriented x3 Limitations: no limitations Eyes Pupils: Equal, round and reactive pupils present Neuro General: patient oriented x3, gait normal, tone normal, moves all extremities and no focal motor deficits Cranial nerves: Yes Facial sensation intact/muscles of mastication intact, Yes Equal, round and reactive pupils present, Yes Normal accommodation reflex present, Yes Bilaterally intact EOM present, Yes Nystagmus not present, Yes Normal facial strength present, Yes Midline tongue present and Yes Symmetric palate elevation present Cognition (Neuro): normal cognition Gait exam (Neuro): Normal gait present Motor exam (neuro): 5/5 motor strength present throughout and Normal motor muscle tone present throughout Deep tendon reflexes (DTR's): Right triceps reflex intensity grade: 2+, Left triceps reflex intensity grade: 2+, Rt Biceps (C5, C6): 2+, Left biceps reflex intensity grade: 2+, Right brachioradialis reflex intensity grade: 2+, Left brachioradialis reflex intensity grade: 2+, Right patellar reflex intensity grade: 2+ and Left patellar reflex intensity grade: 2+ Coordination: [id number] test normal Results Reviewed Results Reviewed: MRI L spine 06/2022 L4-L5, a central disc protrusion with annular fissure narrows the subarticular zones with likely compression of the traversing L5 nerve roots and mild spinal canal stenosis. Assessment & Plan Assessment & Plan (1) Leg pain, bilateral: Comment: likely restless legs - related to low ferritin Code(s): M79.604 - Pain in right leg; M79.605 - Pain in left leg Plan Ferritin was 44 in Jul 2022 I suggested she restart iron supplementation - with Vit C I will trial her on ropinirole XR 2mg qhs reviewed MRI and labs Medications: New ropinirole ER 2 mg PO BEDTIME 30 tabs 3RF ferrous sulfate 300 mg (5 mL) PO DAILY 500 mL 0RF Coding Level of Care Code New Pt Level 4 (43028) Diagnoses Leg pain, bilateral M79.604; M79.605
[2023-06-26 15:05] VITALS: BP 122/68; PULSE 78; RESP 16; O2SAT 97; BMI 26.5
== END 2023-06-26 15:43 | disposition home or self-care (01) ==
PROVIDERS: PCP Internal Medicine; Visit Provider Psychiatry & Neurology Neurology
DX: M79.604 Pain in right leg (principal); M79.605 Pain in left leg
CPT/HCPCS: 99204

== ENCOUNTER → 2023-06-26 14:53 | Outpatient (BNVA) | payer OTHER, SELFPAY | PROVIDERS: PCP Internal Medicine; Visit Provider Psychiatry & Neurology Neurology | DX: M79.604 Pain in right leg (principal); M79.605 Pain in left leg | CPT/HCPCS: 99202 ==

== ENCOUNTER 2023-06-27 12:24 | Outpatient (AMB) | payer OTHER, SELFPAY ==
--- NOTE | 2023-06-27 12:26 | A.OFFVIS_ITS ---
Intake VS Expanded 06/27/23 12:29 Height 4 ft 11 in Weight 132 lb 11.492 oz BMI 26.8 Intake Visit Reasons: Pre DM-CONFIRMED Allergies No Known Allergies Allergy (Verified 06/26/23 15:04) HPI Nutrition Presentation Details Pt presents for MNT follow up Pt reports working on resuming meal planning food frequency: fruits/ 2-3 a day fish : 3 x/wk dairy/milk/yogurt: 3 servings/daily pastries: 3x/wk vex/wk fluids: water, juices, milk : 48 oz/d physical activity: 30 min 2 x/wk smoking/etoh: pamela Most Recent Diabetes Results: No Data to Display PFS Medical History PMB (postmenopausal bleeding) Personal history of nicotine dependence History of cervical cancer Impacted cerumen of right ear Frequency of micturition Overweight (BMI 25.0-29.9) Rib pain Hot flashes due to menopause Pleurisy Bilateral lower extremity edema Right hand paresthesia Paresthesia of bilateral legs Hematuria Pelvic pain Generalized anxiety disorder Uterine fibroid Tinnitus LFT elevation Internal and external hemorrhoids without complication COVID-19 virus infection Finger dislocation Migraine Iron deficiency anemia Insomnia Major depressive disorder GERD (gastroesophageal reflux disease) Alcohol abuse Asthma Menorrhagia Vitamin D deficiency Hypercholesteremia 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 Son No problems noted. Son No problems noted. Son No problems noted. Daughter No problems noted. Brother No problems noted. Brother No problems noted. Social History Housing: Apartment Alcohol intake: current Alcohol intake frequency: holidays/special occasions only Alcohol type: wine Patient Tobacco Use Status: Former Tobacco user Tobacco use type: Cigarette Years Smoked: former smoker - onset 17yo, 1ppd x 37yrs, 35pyh - quit 2020 e-Cigarette/Vaping Use: Never Used Second Hand Smoke Exposure: No Substance Use Type: Marijuana service: No Current occupational status: unemployed Sexual orientation: Straight/Heterosexual Gender identity: Female Cognitive needs: No Hearing needs: No Vision needs: Yes Female Reproductive History Menstrual Age of Menarche: 14 Assessment & Plan Assessment & Plan (1) Overweight (BMI 25.0-29.9): Comment: Pt was previously referred for T2DM, Pt's A1c has maintained below 5.7% via diet modifications and exercise only with most recent A1c in 02/2022 at 5.5% . Pt in overweight category with BMI at 26.3 on 05/02/22 Code(s): E66.3 - Overweight Plan: Continue [id number] willie meal plan? and work on reducing weight by 5 lbs ? EST Kcal NEEDS as per [facility]:? 1152 ? USED? ADJUSTED BODY WT : 52 kg est protein needs as per 0.8-1.0 g/kg bw:? 42-52 g/d est fluid needs as per 25 ml/kg bw:? 1300 ml/d (2) Type 2 diabetes mellitus with hyperglycemia: Comment: Pt with A1c at 5.3% on 10/16/21 , 5.5 on 02/2022 via diet and exercise only. Most recent A1c at 6.5% (04/2023) Code(s): E11.65 - Type 2 diabetes mellitus with hyperglycemia Qualifiers: Diabetes mellitus jail insulin use: without emt intermediate use Qualified Code(s): E11.65 - Type 2 diabetes mellitus with hyperglycemia Plan: Wt: 66.5 Kg ( 06/2023 ) Est kcal needs as per 25 kcal/kg bw: 1838-1297 (40% carb, 30% protein/fat) Est fluid needs as per 30 ml/d: 2000 Est prot per day as per 1 g/kg bw: 66 Recommend fiber intake : 8-10 g per day and gradually increase to 25-28 g per day for women and 35-38 g for men or as tolerated Recommend sodium intake per day : less than 2000 mg Educated patient on: ( R = reviewed V = verbalizes understanding N/R = needs review N/A = not applicable * Food sources of carbohydrate, adequate serving sizes and its role in various health conditions: R , V * Differences between complex carbohydrates a simple carbohydrates, role of fiber in diet: R * Lean protein sources of foods: R V * Differences between types of fats and role in diet (mono on saturated fat fatty acids, saturated fatty acids, trans fats): R * Food sources of sodium in salt and healthy modifications for heart health in kidney health: R V * Vitamins and minerals: V * Healthy plate method concept: R V * Physical activity: Benefits a precaution: R V * Hypoglycemia protocol (rule of 15): N/R * Dietary prevention of Hyperglycemia: R Patient Instructions: Resume working on reducing total carbohydrates to less than 60 g at meals Include iron rich foods combined with vitamin c sources of foods Choose water, low sugar beverages Coding Level of Care Code Nutr Indiv Subseq (11777) Diagnoses Overweight (BMI 25.0-29.9) E66.3 Type 2 diabetes mellitus with hyperglycemia, without long-term current use of insulin E11.65 Diabetes mellitus emt intermediate insulin use: without emt intermediate use Time Spent (min) 30
[2023-06-27 12:29] VITALS: BMI 26.8
== END 2023-06-27 12:48 | disposition home or self-care (01) ==
PROVIDERS: PCP Internal Medicine; Visit Provider Dietitian, Registered
DX: E66.3 Overweight (principal); E11.65 Type 2 diabetes mellitus with hyperglycemia

== ENCOUNTER → 2023-06-27 12:24 | Outpatient (BNVA) | payer OTHER, SELFPAY | PROVIDERS: PCP Internal Medicine; Visit Provider Dietitian, Registered | DX: E11.65 Type 2 diabetes mellitus with hyperglycemia (principal); E66.3 Overweight; Z68.26 Body mass index [BMI] 26.0-26.9, adult | CPT/HCPCS: 97803 ==

== ENCOUNTER 2023-07-17 11:26 | Outpatient (AMB) | payer OTHER, SELFPAY ==
[2023-07-17 11:32] VITALS: BP 124/68; PULSE 80; O2SAT 98; BMI 26.7
--- NOTE | 2023-07-17 11:32 | A.OFFPC_ITS ---
Vital Signs 3 07/17/23 11:32 Height 4 ft 11 in Weight 132 lb BMI 26.7 BP 124/68 Blood Pressure Location Lt brachial Position Sitting Pulse 80 Pulse Source Pulse Oximeter Pulse Oximetry (%) 98 Oxygen Delivery Method Room Air Intake Visit Reasons: Annual Exam Allergies No Known Allergies Allergy (Verified 07/17/23 11:32) Medication List - Last Reconciled 07/17/23 by Jace Laughlin MD ascorbic acid (vitamin C) (Vitamin C) 500 mg PO DAILY atorvastatin 40 mg PO DAILY B-complex with vitamin C 1 tab PO DAILY cholecalciferol (vitamin D3) (Vitamin D3) 125 mcg PO DAILY comp.stocking,knee,long,medium As directed cyclobenzaprine 10 mg PO BEDTIME PRN ferrous sulfate 325 mg PO DAILY ketoconazole 2% 1 appl topical 2XW levonorgestrel (Mirena) intrauterine meloxicam 15 mg PO DAILY omega 6-dur-pne-fish oil 60-90-500 mg (Fish Oil) 1 cap PO DAILY omeprazole 20 mg PO DAILY 90 days ropinirole ER 2 mg PO BEDTIME Tobacco use date assessed: 07/17/23 Dental Screening Dental Screen Date: 07/17/23 Did you have a dental visit in the last 12 months?: Yes Did you have a dental problem in the last 6 months where you did not have access to dental care?: No Was dental information given to patient?: Patient has dentist HPI Annual Exam 2 HPI0 Details 57 year old overweight female with DM, a nemia, gerd, hypercholesterolemia, asthma , danny and ddd Lumbar last seen 04/2023. Review of the notes had leg pain and was referred to Neurology advised ropinirole and iron. once a week know to change diet [facility] Medical History PMB (postmenopausal bleeding) Personal history of nicotine dependence History of cervical cancer Impacted cerumen of right ear Frequency of micturition Overweight (BMI 25.0-29.9) Rib pain Hot flashes due to menopause Pleurisy Bilateral lower extremity edema Right hand paresthesia Paresthesia of bilateral legs Hematuria Pelvic pain Generalized anxiety disorder Uterine fibroid Tinnitus LFT elevation Internal and external hemorrhoids without complication COVID-19 virus infection Finger dislocation Migraine Iron deficiency anemia Insomnia Major depressive disorder GERD (gastroesophageal reflux disease) Alcohol abuse Asthma Menorrhagia Vitamin D deficiency Hypercholesteremia 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 Son No problems noted. Son No problems noted. Son No problems noted. Daughter No problems noted. Brother No problems noted. Brother No problems noted. Social History (Updated 07/17/23 @ 12:07 by Jace Laughlin MD) Housing: Apartment Alcohol intake: current Alcohol intake frequency: holidays/special occasions only Alcohol type: wine Comment: once a week wine 3 glasses Patient Tobacco Use Status: Former Tobacco user Tobacco use type: Cigarette Years Smoked: former smoker - onset 17yo, 1ppd x 37yrs, 35pyh - quit 2020 e-Cigarette/Vaping Use: Never Used Second Hand Smoke Exposure: No Substance Use Type: Marijuana service: No Current occupational status: unemployed Sexual orientation: Straight/Heterosexual Gender identity: Female Cognitive needs: No Hearing needs: No Vision needs: Yes Female Reproductive History Menstrual Age of Menarche: 14 Questionnaire PHQ-9 Over the last 2 weeks, how often have you been bothered by any of the following problems? 1. Little interest or pleasure in doing things: several days 2. Feeling down, depressed, or hopeless: more than half the days 3. Trouble falling or staying asleep, or sleeping too much: more than half the days 4. Feeling tired or having little energy: not at all 5. Poor appetite or overeating: not at all 6. Feeling bad about yourself - or that you are a failure or have let yourself or your family down: not at all 7. Trouble concentrating on things, such as reading the newspaper or watching television: not at all 8. Moving or speaking so slowly that other people could have noticed. Or the opposite - being so fidgety or restless that you have been moving around a lot more than usual: not at all 9. Thoughts that you would be better off or of hurting yourself in some way: not at all Total score: 5 Depression Screening Interpretation: Positive Depression Screening Done: Yes Source: Developed by Drs. Mark Norman, Kelsey Amin, Dean Ziegler and colleagues, with an educational kael from [employer]. Thrive Questionnaire Date Thrive assessed: 07/17/23 I am a: Patient What is your living situation today?: I have a steady place to live Within the past 12 months, did the food you bought not last and you didn't have the money to get more?: Never true Within the past 12 months, did you worry whether your food would run out before you got money to buy more?: Never true Do you have trouble paying for medicines?: No Do you have trouble getting transportation to medical appointments?: No Do you have trouble paying your heating and electricity bill?: No Do you have trouble taking care of your child, family member or friend?: No Do you have trouble with day-to-day activities such as bathing, preparing meals, shopping, managing finances, etc.?: No Are you currently unemployed and looking for a job?: No Are you interested in more education?: No Currently or been in a relationship where the following occur: no concerns reported AUDIT C Alcohol Use Questionnaire (AUDIT-C) 1. How often do you have a drink containing alcohol?: Monthly or less 2. How many drinks containing alcohol do you have on a typical day when you are drinking?: 1 or 2 3. How often do you have six or more drinks on one occasion?: Never Total Score: 1 Score Reviewed/Action Taken: No DANNY-7 AMB Questionnaire DANNY-7 Date DANNY - 7 assessed: 07/17/23 Feeling nervous, anxious, or on edge: 0 = Not at all Not being able to stop or control worryin = Not at all Worrying too much about different things: 0 = Not at all Trouble relaxin = Not at all Being so restless that it is hard to sit still: 0 = Not at all Becoming easily annoyed or irritable: 0 = Not at all Feeling afraid as if something awful might happen: 0 = Not at all Total DANNY-7 score (0-4 normal; 5-9 mild; 10-14 moderate; 15-21 severe): 0 Source: Developed by Drs. Mark Norman, Kelsey Amin, Dean Ziegler and colleagues, with an educational kael from [employer]. Review of Systems Const Denies poor appetite and Denies weakness Eyes Denies no additional complaints ENT Reports Normal hearing present, Denies dizziness, Denies nasal congestion, Denies tinnitus and Denies sore throat Card Denies chest pain, Denies syncope, Denies rapid heart rate and Denies dyspnea Resp Denies cough and Denies dyspnea GI Denies change in stool character, Reports constipation, Denies diarrhea, Denies nausea and Denies vomiting Denies urinary frequency, Denies difficulty voiding and Denies dysuria Neuro Reports Normal hearing present, Denies confusion, Denies dizziness, Denies syncope and Denies weakness Psych Denies confusion Physical exam (Primary Care) Vital Signs: Last Vital Signs Pulse 80 07/17/23 11:32 BP 124/68 07/17/23 11:32 Pulse Ox 98 07/17/23 11:32 Oxygen Delivery Method Room Air 07/17/23 11:32 BMI result Body Mass Index 26.7 Tobacco/Smoking Status: Tobacco use Status Tobacco use date assessed 07/17/23 07/17/23 11:34 Patient Tobacco Use Status Former Tobacco user 07/17/23 11:34 Tobacco use type Cigarette 07/17/23 11:34 e-Cigarette/Vaping Use Never Used 07/17/23 11:34 PHQ-9: PHQ-9 Score PHQ-9: Total score 5 07/17/23 11:48 Depression Screening Interpretation: Positive Thrive Assessment: Date of Thrive Assessment Date Thrive assessed 07/17/23 07/17/23 11:34 Currently or been in a relationship where the following occur: no concerns reported Const General: No confusion Orientation/consciousness: No confusion HENMT Head: Yes normocephalic Ears: external ears normal and TM's normal bilaterally Face and sinus: Yes normal facial exam Mouth: moist mucous membranes Throat: Yes tonsils normal Eyes Conjunctivae: conjunctivae normal Pupils: Equal, round and reactive pupils present and Pupil accommodation reflex normal Direct Ophthalmoscopy: normal light reflex Neck Neck: No lymphadenopathy Thyroid: Thyroid normal Chest Chest palpation & inspection: normal inspection of the chest Chest/axillae images: 2 1. Bilateral 06:00 o'clock breast tenderness question of a mass in the area left side 2. Resp Effort & Inspection: normal respiratory effort and no audible wheezes Auscultation: clear to auscultation bilaterally, no crackles, no wheezes and lung sounds not diminished Cardio Rate: regular rate Rhythm: regular rhythm Peripheral pulses: radial pulses present and dorsalis pedis present GI Other: Rectal exam negative guaiac Palpation (GI): no masses Auscultation: normal bowel sounds and normoactive bowel sounds Skin General skin exam: no rashes or lesions noted Rashes: no rashes Neuro General: No confusion Cranial nerves: Yes Equal, round and reactive pupils present and Yes Normal hearing present Cognition (Neuro): normal cognition Gait exam (Neuro): Normal gait present Motor exam (neuro): 5/5 motor strength present throughout Deep tendon reflexes (DTR's): Right brachioradialis reflex intensity grade: 2+, Left brachioradialis reflex intensity grade: 2+, Right patellar reflex intensity grade: 2+ and Left patellar reflex intensity grade: 2+ Extrem General: No edema Results AMB Hemoglobin A1c 2 AMB Hemoglobin A1c 6.5 % Last Edit by Ruby Jenkins CMA on 07/17/23 11 :48 Results Reviewed Results Reviewed: Laboratory Last Values Hgb A1c (Clinic) 6.5 % (4.0-6.0) H 07/17/23 11:34 Assessment and Plan Assessment & Plan (1) Annual physical exam: Code(s): Z00.00 - Encounter for general adult medical examination without abnormal findings (2) Type 2 diabetes mellitus with hyperglycemia: Comment: Pt with A1c at 5.3% on 10/16/21 , 5.5 on 02/2022 via diet and exercise only. Most recent A1c at 6.5% (04/2023) Code(s): E11.65 - Type 2 diabetes mellitus with hyperglycemia Qualifiers: Diabetes mellitus fci insulin use: without termite control servicer use Qualified Code(s): E11.65 - Type 2 diabetes mellitus with hyperglycemia Plan: Decrease the amount of carbohydrate intake, pasta, bread, rice and potatoes are all sugar and that is aside from all the sweet stuff, remember that fruits are good but they are Sweet also. Hemoglobin A1c goal of less than 6.5 patient on diet control (3) Hypercholesteremia: Code(s): E78.00 - Pure hypercholesterolemia, unspecified Plan: Avoid fried foods, chicken skin, eggs, butter margarine, pastries and meat. Be it pork or beef they have a lot of cholesterol LDL goal of less than 100 and triglyceride of less than 150 patient is on atorvastatin 40 mg once a day last blood work (4) Generalized anxiety disorder: Code(s): F41.1 - Generalized anxiety disorder Plan: Continue with present medication (5) Asthma: Code(s): J45.909 - Unspecified asthma, uncomplicated Qualifiers: Asthma severity: mild Asthma persistence: intermittent Asthma complication type: uncomplicated Qualified Code(s): J45.20 - Mild intermittent asthma, uncomplicated Plan: controlled no inhaler (6) Peripheral neuropathy: Code(s): G62.9 - Polyneuropathy, unspecified Plan: Patient has seen neuropathy placed on ropinirole (7) Pain of both breasts: Comment: 06:00 o'clock right and left breast Code(s): N64.4 - Mastodynia Orders: Orders 2 AMB Hemoglobin A1c Today Z13.9 - Encounter for screening, unspecified MM tomosynthesis diagnostic BI Today N64.4 - Mastodynia US breast LT limited Today N64.4 - Mastodynia US breast RT limited Today N64.4 - Mastodynia Medications: New 2 metformin 500 mg PO BIDWMEAL 60 tabs 4RF E11.65 - Type 2 diabetes mellitus with hyperglycemia Coding Level of Care Code Est Pt Prev Care 40-64y(85922) Diagnoses Annual physical exam Z00.00 Type 2 diabetes mellitus with hyperglycemia, without long-term current use of insulin E11.65 Diabetes mellitus termite control servicer insulin use: without termite control servicer use Hypercholesteremia E78.00 Generalized anxiety disorder F41.1 Mild intermittent asthma without complication J45.20 Asthma severity: mild Asthma persistence: intermittent Asthma complication type: uncomplicated Peripheral neuropathy G62.9 Pain of both breasts N64.4 Additional Codes PHQ-9 - 89452 - PHQ-9 Billing: ([id number])
== END 2023-07-17 12:31 | disposition home or self-care (01) ==
PROVIDERS: Visit Provider Internal Medicine
DX: Z00.00 Encounter for general adult medical examination without abnormal findings (principal); E11.65 Type 2 diabetes mellitus with hyperglycemia; E78.00 Pure hypercholesterolemia, unspecified; F41.1 Generalized anxiety disorder; J45.20 Mild intermittent asthma, uncomplicated; G62.9 Polyneuropathy, unspecified; N64.4 Mastodynia
CPT/HCPCS: 83036; 99396

== ENCOUNTER 2023-08-02 13:43 | Outpatient (REF) | payer OTHER, SELFPAY ==
--- NOTE | ~2023-08-02 | MM_ITS ---
EXAMINATION: MM DIAGNOSTIC DIGITAL BREAST TOMOSYNTHESIS, BILATERAL US BREAST LIMITED, BILATERAL MAMMOGRAPHY: CLINICAL INFORMATION: 57 year female complaining of bilateral inferior breast pain. 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 History of bilateral breast cysts and fibrocystic changes. Patient due for bilateral screening. COMPARISON: Mammography: 08/07/2022, 07/27/2021, 01/23/2021, and studies dating back to 2011. TECHNIQUE: Digital breast tomosynthesis is performed in both the craniocaudal and mediolateral oblique views along with computer-aided detection (CAD). Synthesized 2D images are generated from the tomosynthesis. FINDINGS: The breasts are heterogeneously dense, which may obscure small masses (ACR BI-RADS breast composition Category c). There is a stable 1.6 cm oval mass in the upper outer left breast with associated biopsy clip, consistent with known twice biopsied fibroadenoma. There are additional bilateral oval and round small masses consistent with waxing and waning cysts. There are bilateral scattered global rounded calcifications, some which layer on the MLO view, stable and benign. No suspicious masses, suspicious grouped microcalcifications, or areas of architectural distortion in either breast. No mammographic abnormality identified responsible for inferior breast pain. ULTRASOUND: CLINICAL INFORMATION: As above. COMPARISON: Bilateral breast ultrasound 07/19/2019, and 12/25/2018. TECHNIQUE: Targeted sonographic evaluation was performed using a high frequency linear transducer. Attention was given to the 4-8 o'clock axes of both breasts, to cover the regions of bilateral breast pain as directed by the patient. Selected archived documentation. FINDINGS: RIGHT BREAST: There is heterogeneously dense fibrocystic tissue. There are small cysts. No suspicious mass is seen. There is no pathologic acoustic shadowing. No edema within the soft tissue planes. No ultrasonographic correlate for breast pain is evident. LEFT BREAST: There is heterogeneously dense fibrocystic tissue. There are small cyst. No suspicious mass is seen. There is no pathologic acoustic shadowing. No edema within the soft tissue planes. No ultrasonographic correlate for breast pain is evident. MM/MM tomosynthesis diagnostic BI IMPRESSION: There are no findings in either breast suspicious for malignancy. There are stable bilateral heterogeneously dense fibrocystic changes, waxing and waning oval and round masses consistent with cysts, and a stable 1.6 cm twice biopsied benign fibroadenoma in the left upper outer breast with associated biopsy clip. There are stable bilateral global benign parenchymal calcifications, some which layer. No ultrasonographic or mammographic correlate to explain inferior bilateral breast pain. Recommend clinical management. OVERALL ASSESSMENT: Mammography: BI-RADS 2 - Benign Findings Ultrasound: BI-RADS 2 - Benign Findings RECOMMENDATION: 1. Patient should be managed based on the clinical impression. 2. Otherwise, routine annual screening mammography. Results were provided to the patient at time of visit by the technologist. This patient's information was entered into a reminder system with a target due date for their next mammogram.
== END 2023-08-02 13:44 | disposition home or self-care (01) ==
LOC: HO.MAMMO 13:43
PROVIDERS: PCP Internal Medicine; Visit Provider Internal Medicine
DX: N64.4 Mastodynia (principal)
CPT/HCPCS: 76642; 77062; 77066

== ENCOUNTER → 2023-08-02 14:00 | Outpatient (BNV) | payer OTHER, SELFPAY | PROVIDERS: PCP Internal Medicine; Visit Provider Radiology Diagnostic Radiology | DX: N64.4 Mastodynia (principal) | CPT/HCPCS: 76642; 77062; 77066 ==

== ENCOUNTER 2023-08-06 12:20 | Outpatient (AMB) | payer OTHER, SELFPAY ==
--- NOTE | 2023-08-06 12:30 | MHC.OFFWIV ---
Intake Vital Signs 08/06/23 12:33 Height 4 ft 11 in Weight 60.101 kg BMI 26.8 BP 120/60 Blood Pressure Location Rt brachial Position Sitting Pulse 82 Pulse Source Pulse Oximeter Temp 98.9 F Temp Source Oral Pulse Oximetry (%) 100 Oxygen Delivery Method Room Air Intake Visit Reasons: EP LT hand/Swelling/pain Intake Note: Pt is here c/o left hand swelling. Pt states it has been swollen for one week. Pt states no falls or injuries. Patient Tobacco Use Status: Former Tobacco user Allergies No Known Allergies Allergy (Verified 08/06/23 12:34) HPI HPI Comments History of Present Illness Details 57-year-old female presents with left elbow pain for the past few days worsening, atraumatic in nature. Patient reports she had this same problem with her left wrist a few weeks ago. Reports it is painful with movement better at rest. Denies fevers, chills, numbness, tingling, blunt trauma, chest pain, shortness of breath. No previous issues with This elbow in the past. Physical exam significant for 2+ radial pulses equal bilateral no wrist drop distally. Tenderness to palpation to left olecranon process without erythema, edema, ecchymosis, effusion. Full range of motion however slightly uncomfortable to the left elbow. Normal right elbow. History and physical exam concerning for epicondylitis versus gout versus bursitis. Unlikely septic joint, neurovascular compromise, threat to [place], arterial or venous occlusion. Plan Toradol, prednisone. Educated patient on diagnosis and treatment plan, answered all question, patient verbalizes understanding. At this time patient will be discharged home, advised to return with new or worsening symptoms. Educated on worrisome signs and symptoms and when to return. At this time I feel comfortable discharge home. [facility] Medical History PMB (postmenopausal bleeding) Personal history of nicotine dependence History of cervical cancer Impacted cerumen of right ear Frequency of micturition Overweight (BMI 25.0-29.9) Rib pain Hot flashes due to menopause Pleurisy Bilateral lower extremity edema Right hand paresthesia Paresthesia of bilateral legs Hematuria Pelvic pain Generalized anxiety disorder Uterine fibroid Tinnitus LFT elevation Internal and external hemorrhoids without complication COVID-19 virus infection Finger dislocation Migraine Iron deficiency anemia Insomnia Major depressive disorder GERD (gastroesophageal reflux disease) Alcohol abuse Asthma Menorrhagia Vitamin D deficiency Hypercholesteremia 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 Son No problems noted. Son No problems noted. Son No problems noted. Daughter No problems noted. Brother No problems noted. Brother No problems noted. Social History (Updated 07/17/23 @ 12:07 by Jace Laughlin MD) Housing: Apartment Alcohol intake: current Alcohol intake frequency: holidays/special occasions only Alcohol type: wine Comment: once a week wine 3 glasses Patient Tobacco Use Status: Former Tobacco user Tobacco use type: Cigarette Years Smoked: former smoker - onset 17yo, 1ppd x 37yrs, 35pyh - quit 2020 e-Cigarette/Vaping Use: Never Used Second Hand Smoke Exposure: No Substance Use Type: Marijuana service: No Current occupational status: unemployed Sexual orientation: Straight/Heterosexual Gender identity: Female Cognitive needs: No Hearing needs: No Vision needs: Yes Female Reproductive History Menstrual Age of Menarche: 14 Review of Systems Const All systems reviewed & are unremarkable except as noted in HPI and below Physical Exam Vital Signs: Last Vital Signs Temp 98.9 F 08/06/23 12:33 Pulse 82 08/06/23 12:33 BP 120/60 08/06/23 12:33 Pulse Ox 100 08/06/23 12:33 Oxygen Delivery Method Room Air 08/06/23 12:33 BMI result Body Mass Index 26.8 vss Appearance: Alert.? Oriented X3.? No acute distress.? Head: Normocephalic, atraumatic, no step-offs or deformities Eyes: Pupils equal, round and reactive to light.? ENT: Pharynx normal.? Neck: Normal inspection.? Neck supple.? CVS: Normal heart rate and rhythm.? Pulses normal.? Respiratory: No respiratory distress.? Breath sounds normal.? Abdomen: Soft and nontender.? Skin: Skin warm and dry.? Normal skin color.? Normal skin turgor.? Extremities: No lower extremity edema.? No calf ttp. 5/5 strength to bilateral upper and lower extremities 2+ radial pulses equal bilateral no wrist drop distally. Tenderness to palpation to left olecranon process without erythema, edema, ecchymosis, effusion. Full range of motion however slightly uncomfortable to the left elbow. Normal right elbow. Negative Tinel sign Neuro: Oriented X 3.? No motor deficit.? No sensory deficit. CN 2-12 intact Assessment & Plan Assessment & Plan (1) Left elbow pain: Code(s): M25.522 - Pain in left elbow Plan Take your medications as prescribed. If you were prescribed antibiotics today, it is important that you take your medication to their entirety, do not skip any doses, do not finish them early. Follow-up with your primary care provider this week. Return to the emergency department with new or worsening symptoms. Such as fevers, chills, chest pain, shortness of breath, nausea, vomiting, dizziness, headache, vision changes, lethargy In case of emergency call 911 Toradol has been sent to your pharmacy, you tolerated this well in the department. Please take this as prescribed do not take this with ibuprofen, or other NSAIDs, do not mix this with alcohol. Side effects of this medication including increased risk for bleeding and possible kidney injury. Orders: Orders AMB Ketorolac Injection Today M25.522 - Pain in left elbow Referrals Orthopedics Referral M25.522 - Pain in left elbow Medications: New prednisone 40 mg (2 x 20 mg) PO DAILY 10 tabs 0RF 5 days ketorolac 30 mg IM ONCE 1 mL 0RF M25.522 - Pain in left elbow Coding Level of Care Code Est Pt Level 3 (70521) Diagnoses Left elbow pain M25.522
[2023-08-06 12:33] VITALS: BP 120/60; PULSE 82; TEMP 37.2; O2SAT 100; BMI 26.8
== END 2023-08-06 14:27 | disposition home or self-care (01) ==
PROVIDERS: PCP Internal Medicine; Visit Provider Physician Assistant
DX: M25.522 Pain in left elbow (principal)
CPT/HCPCS: 96372; 99213; J1885

== ENCOUNTER 2023-08-17 13:41 | Emergency (ER) | payer OTHER, SELFPAY ==
--- NOTE | ~2023-08-17 | XR_ITS ---
EXAMINATION: Lumbar spine series dorsal spine series CLINICAL INFORMATION: Mid back pain COMPARISON: X-ray of the dorsal spine May 2016 TECHNIQUE: 3 views of the dorsal spine and 3 views of lumbar spine. FINDINGS: Dorsal spine: There is multilevel mild spondylosis of the dorsal spine manifested by multilevel endplate osteophytes. No fracture or bone lesion. Surrounding soft tissues normal. Lumbar spine: Vertebral bodies normally aligned with normal height. Multilevel mild spondylosis manifested by endplate osteophytes from L2-L3 through L4 for 5 without disc space narrowing. Facets unremarkable. Partially visualized pelvis without significant abnormality. Radiopaque intrauterine device noted. XR/XR lumbar spine 2-3V IMPRESSION: 1. No acute abnormality. Spondylosis of the lumbar spine and dorsal spine.
--- NOTE | ~2023-08-17 | XR_ITS ---
EXAMINATION: Lumbar spine series dorsal spine series CLINICAL INFORMATION: Mid back pain COMPARISON: X-ray of the dorsal spine May 2016 TECHNIQUE: 3 views of the dorsal spine and 3 views of lumbar spine. FINDINGS: Dorsal spine: There is multilevel mild spondylosis of the dorsal spine manifested by multilevel endplate osteophytes. No fracture or bone lesion. Surrounding soft tissues normal. Lumbar spine: Vertebral bodies normally aligned with normal height. Multilevel mild spondylosis manifested by endplate osteophytes from L2-L3 through L4 for 5 without disc space narrowing. Facets unremarkable. Partially visualized pelvis without significant abnormality. Radiopaque intrauterine device noted. XR/XR thoracic spine 3V IMPRESSION: 1. No acute abnormality. Spondylosis of the lumbar spine and dorsal spine.
[2023-08-17 13:48] VITALS: BP 167/81; PULSE 77; RESP 20; TEMP 37; O2SAT 97; BMI 22.5
--- NOTE | 2023-08-17 13:49 | ED_ITS ---
HPI - Back Pain/Injury General Chief Complaint: Back Pain/Injury Stated Complaint: Back pain Time Seen by Provider: 08/17/23 15:16 Source: patient Mode of arrival: ambulatory Limitations: no limitations History of Present Illness HPI Narrative: Patient is a 57 year old assigned female at with a history of chronic back pain presenting to the emergency department today with acute on chronic low back pain. Patient states that over the last day she has had worsening back pain after bending over. Patient denies any dizziness, lightheadedness, abdominal pain, nausea, vomiting, fever, chills, blurry vision, double vision, loss of vision, chest pain, difficulty breathing, shortness of breath, night sweats, pain with urination, increased urinary frequency, increased urinary urgency, blood in her urine or stool, syncope or a near syncopal episode, recent trauma or falls, bowel incontinence, bladder incontinence, bowel retention, bladder retention, or any other complaints at this time. MD elicited complaint: back pain Related Data Home Medications Medication Instructions Recorded Confirmed ascorbic acid (vitamin C) 500 mg 500 mg PO DAILY 02/20/21 07/17/23 tablet (Vitamin C) cholecalciferol (vitamin D3) 125 125 mcg PO DAILY 02/20/21 07/17/23 mcg (5,000 unit) tablet (Vitamin D3) B-complex with vitamin C 1 tab PO DAILY 11/27/21 07/17/23 omega 3-bcj-kli-fish oil 60 mg-90 1 cap PO DAILY 07/16/22 07/17/23 mg-500 mg capsule (Fish Oil) levonorgestrel 21 mcg/24 hours (8 intrauterine 04/04/23 07/17/23 yrs) 52 mg intrauterine device (Mirena) ferrous sulfate 325 mg (65 mg 325 mg PO DAILY 07/17/23 07/17/23 iron) tablet Previous Rx's Medication Instructions Recorded comp.stocking,knee,long,medium #2 ea 10/25/21 ketoconazole 2 % shampoo 1 appl topical 2XW #120 mL 08/23/22 cyclobenzaprine 10 mg tablet 10 mg PO BEDTIME PRN muscle spasm 01/16/23 #30 tabs omeprazole 20 mg capsule,delayed 20 mg PO DAILY 90 days #90 caps 03/21/23 release meloxicam 15 mg tablet 15 mg PO DAILY #14 tabs 05/21/23 metformin 500 mg tablet 500 mg PO BIDWMEAL #60 tabs 07/17/23 atorvastatin 40 mg tablet 40 mg PO DAILY #90 tabs 07/22/23 prednisone 20 mg tablet 40 mg (2 x 20 mg) PO DAILY 5 days 08/06/23 #10 tabs ropinirole 4 mg tablet,extended 4 mg PO BEDTIME #30 tabs 08/13/23 release 24 hr cyclobenzaprine 5 mg tablet 5 mg PO TID PRN muscle spasm 7 08/17/23 days #21 tabs prednisone 20 mg tablet 20 mg PO DAILY 7 days #7 tabs 08/17/23 Allergies Allergy/AdvReac Type Severity Reaction Status Date / Time No Known Allergies Allergy Verified 08/17/23 13:51 Review of Systems Constitutional: Constitutional: Reports no additional constitutional complaints, Denies chills, Denies fever(s) and Denies night sweats Eyes: Eyes: Reports no additional eye complaints, Denies blurry vision, Denies change in vision, Denies diplopia, Denies eye discharge, Denies loss of vision and Denies eye pain ENT: Denies dizziness Cardiovascular: Cardiovascular: Reports no additional cardiovascular complaints, Denies chest pain, Denies lightheadedness, Denies Loss of Consciousness and Denies dyspnea Respiratory: Respiratory: Reports no additional respiratory complaints and Denies dyspnea Gastrointestinal: Gastrointestinal: Reports no additional gastrointestinal com plaints, Denies abdominal pain, Denies melena, Denies hematochezia, Denies change in bowel habits and Denies change in stool character Genitourinary: Genitourinary: Denies hematuria, Denies urinary frequency, Denies dysuria, Denies urinary incontinence, Denies urinary hesitancy and Denies urinary urgency Musculoskeletal: Musculoskeletal: Reports no additional musculoskeletal complaints, Reports back pain, Denies numbness and Denies tingling Neurologic: Denies dizziness, Denies loss of vision, Denies numbness and Denies tingling Psychiatric: Psychiatric: Reports no additional psychiatric complaints Endocrine: Endocrine: Reports no additional endocrine complaints Hematologic/Lymphatic: Hematologic/Lymphatic: Reports no additional hematologic/lymphatic complaints Allergic/Immunologic: Allergic/Immunologic: Reports no additional allergic/ immunologic complaints PMFSH Past Medical History Attestation statement: The following information was validated with the patient. Source: old records reviewed and nursing notes reviewed Medical History Pain of both breasts Leg pain, bilateral Pelvic cramping Hair loss Radicular pain of lumbosacral region PMB (postmenopausal bleeding) Personal history of nicotine dependence History of cervical cancer Impacted cerumen of right ear Frequency of micturition Overweight (BMI 25.0-29.9) Rib pain Hot flashes due to menopause Pleurisy Bilateral lower extremity edema Right hand paresthesia Paresthesia of bilateral legs Hematuria Pelvic pain Generalized anxiety disorder Uterine fibroid Tinnitus LFT elevation Internal and external hemorrhoids without complication COVID-19 virus infection Finger dislocation Migraine Iron deficiency anemia Insomnia Major depressive disorder GERD (gastroesophageal reflux disease) Alcohol abuse Asthma Menorrhagia Vitamin D deficiency Hypercholesteremia Fibroadenoma of left breast in female Surgical History History of colposcopy History of endoscopy History of colonoscopy History of loop electrical excision procedure (LEEP) History of tubal ligation Status post embolization of uterine artery History of Family History Family History Father Unknown family medical history Mother Stroke Aneurysm Maternal Grandmother Breast cancer Maternal Aunt Bone cancer Breast cancer Son No problems noted. Son No problems noted. Son No problems noted. Son No problems noted. Daughter No problems noted. Brother No problems noted. Brother No problems noted. Social History Social History Housing: Apartment Alcohol intake: current Alcohol intake frequency: holidays/special occasions only Alcohol type: wine Comment: once a week wine 3 glasses Patient Tobacco Use Status: Former Tobacco user Tobacco use type: Cigarette Years Smoked: former smoker - onset 17yo, 1ppd x 37yrs, 35pyh - quit 2020 e-Cigarette/Vaping Use: Never Used Second Hand Smoke Exposure: No Substance Use Type: Marijuana Advance Directives: No Advance Directives Information Provided: No service: No Current occupational status: unemployed Sexual orientation: Straight/Heterosexual Gender identity: Female Cognitive needs: No Hearing needs: No Vision needs: Yes Physical Exam Vital Signs: Vital Signs: Last Vital Signs Temp 98.6 F 08/17/23 13:48 Pulse 77 08/17/23 13:48 Resp 20 08/17/23 13:48 BP 167/81 H 08/17/23 13:48 Pulse Ox 97 08/17/23 13:48 O2 Del Method Room Air 08/17/23 13:48 BMI result Body Mass Index 22.5 Const: General: cooperative, no acute distress, alert and awake Nutritional Appearance: well nourished Orientation/consciousness: patient oriented x3 Limitations: no limitations HEENT: Head: Yes normal to inspection and Yes atraumatic Ears: hearing grossly normal bilaterally and external ears normal General nose exam: Normal external nose present, no nasal discharge noted and no epistaxis Face and sinus: Yes normal facial exam, No abrasion and No laceration Mouth: Normal oral and palatal mucosa present, no drooling and no muffled voice Eyes: General: appearance normal, both eyes and all related structures Periorbital: periorbital findings normal Eyelids: Yes eyelids normal Conjunctivae: conjunctivae normal Pupils: Equal, round and reactive pupils present EOM: EOMs intact bilaterally Neck: Neck: Yes normal visual inspection, Yes full ROM and Yes no lymphadenopathy Chest: Chest palpation & inspection: normal inspection of the chest Resp: Effort & Inspection: normal respiratory effort and able to speak in complete sentences GI: Inspection: Yes normal to inspection : General: Yes no CVA tenderness Back/Spine/Pelvis: Back: no CVA tenderness Cervical Spine: normal cervical lordosis and cervical ROM normal Thoracic/Lumbar Spine: thoracic and lumbar spine normal to inspection Pelvis: no pain with anterior-posterior compression Neuro: General: patient oriented x3 and moves all extremities Cranial nerves: Yes Equal, round and reactive pupils present Cognition (Neuro): normal cognition Motor exam (neuro): 5/5 motor strength present throughout Sensory Exam: Normal double simultaneous stimulation for sensation Coordination: [id number] test normal Extrem: General: Yes normal to inspection, Yes full ROM and Yes capillary refill normal Psych: Appearance: grossly normal Mental Status: mental status grossly normal Affect: normal affect Attitude: cooperative Thought process: Normal thought process present Thought content: Normal thought content present Insight: Good insight present (Psych) Course Course Course Narrative: This is an RME: Additional HPI, ROS, PE not included below will be deferred to primary provider. Patient is a 57-year-old female who presents emergency department for evaluation of back pain. 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 has been experiencing pain from the thoracic region all the way down to the lumbar region and radiating to both besides and bilateral legs. Reports a history of chronic back pain for which she is seen chest. She she has not recently had any issues with pain however, she did attempt to take ibuprofen 800 mg without any improvement. Medications Administered Discontinued Medications Generic Name Dose Route Start Last Admin Trade Name Shukri PRN Reason Stop Dose Admin Cyclobenzaprine HCl 5 mg 08/17/23 15:21 08/17/23 15:51 Cyclobenzaprine Hcl 5 Mg Tablet PO 08/17/23 15:22 5 mg ONCE ONE Administration Methylprednisolone Sodium Succinate 60 mg 08/17/23 15:21 08/17/23 15:51 Methylprednisolone Sod Succ 125 Mg/2 Ml Vial IM 08/17/23 15:22 60 mg ONCE ONE Administration Medical Decision Making Medical Decision Making [facility] Narrative: Patient is a 57 year old assigned female at with a history of chronic back pain presenting to the emergency department today with acute on chronic back pain. Patient's physical exam was unremarkable. Patient's lumbar and thoracic x- rays showed no acute process. I explained my physical exam findings as well as all test results to the patient. I answered all questions asked by the patient. Patient received pain medication while in the department which she stated helped her symptoms significantly. I stressed the importance of the patient taking her medication as prescribed. I stressed the importance of the patient following up with her primary care provider. I stressed the importance of the patient returning to the emergency department immediately if her symptoms were to worsen or if she were to develop any dizziness, shortness of breath, difficulty breathing, chest pain, blurry vision, loss of vision, nausea, vomiting, abdominal pain, fever, chills, back pain, or any other complaints. Patient verbalized agreement and understanding with this treatment plan and discharge. Differential Diagnosis Differential Diagnoses: The differential diagnosis associated with the presentation includes Back pain Chronic back pain Acute on chronic back pain Admission/Observation Consideration of admission/observation: Escalation of care including admission/observation considered Patient would have been admitted to the hospital had her work up had any findings where hospital admission was appropriate and her clinical presentation warranted hospital admission. Independent Interpretation I performed an independent interpretation of an: Plain X-Ray Interpretation: My interpretation is in agreement with the radiologist's impression of these imaging studies. EXAMINATION: Lumbar spine series dorsal spine series CLINICAL INFORMATION: Mid back pain COMPARISON: X-ray of the dorsal spine May 2016 TECHNIQUE: 3 views of the dorsal spine and 3 views of lumbar spine. FINDINGS: Dorsal spine: There is multilevel mild spondylosis of the dorsal spine manifested by multilevel endplate osteophytes. No fracture or bone lesion. Surrounding soft tissues normal. Lumbar spine: Vertebral bodies normally aligned with normal height. Multilevel mild spondylosis manifested by endplate osteophytes from L2-L3 through L4 for 5 without disc space narrowing. Facets unremarkable. Partially visualized pelvis without significant abnormality. Radiopaque intrauterine device noted. XR/XR thoracic spine 3V IMPRESSION: 1. No acute abnormality. Spondylosis of the lumbar spine and dorsal spine. Dictated By: Blanco Cerda MD Signed By: Electronically signed by Blanco Cerda MD 08/17/23 1429 Radiology Impression Discussion of test interpretation with radiology: I have reviewed the radiologist's reading. Discharge Plan Discharge Clinical Impression: Back pain Patient Disposition: Home, Self-Care Instructions: Back Pain (ED) Additional Instructions: Follow up with your primary care provider. Return to the emergency department immediately if your symptoms worsen or if you develop any dizziness, shortness of breath, difficulty breathing, chest pain, blurry vision, loss of vision, nausea, vomiting, abdominal pain, fever, chills, back pain, or any other complaints. Prescriptions: New prednisone 20 mg tablet 20 mg PO DAILY 7 Days Qty: 7 0RF cyclobenzaprine 5 mg tablet 5 mg PO TID PRN (Reason: muscle spasm) 7 Days Qty: 21 0RF No Action omeprazole 20 mg capsule,delayed release(DR/EC) 20 mg PO DAILY 90 Days Qty: 90 2RF atorvastatin 40 mg tablet 40 mg PO DAILY Qty: 90 1RF ropinirole 4 mg tablet extended release 24 hr 4 mg PO BEDTIME Qty: 30 3RF ascorbic acid (vitamin C) [Vitamin C] 500 mg Tablet 500 mg PO DAILY cholecalciferol (vitamin D3) [Vitamin D3] 125 mcg (5,000 unit) Tablet 125 mcg PO DAILY omega 7-fpx-wjb-fish oil [Fish Oil] 60-90-500 mg capsule 1 cap PO DAILY B-complex with vitamin C Tablet 1 tab PO DAILY ketoconazole 2 % shampoo 1 appl topical 2XW Qty: 120 0RF ferrous sulfate 325 mg (65 mg iron) tablet 325 mg PO DAILY metformin 500 mg tablet 500 mg PO BIDWMEAL Qty: 60 4RF meloxicam 15 mg tablet 15 mg PO DAILY Qty: 14 0RF prednisone 20 mg tablet 40 mg PO DAILY 5 Days Qty: 10 0RF (DME) comp.stocking,knee,long,medium Misc See Rx Instructions .Route Qty: 2 0RF Rx Instructions: As directed cyclobenzaprine 10 mg tablet 10 mg PO BEDTIME PRN (Reason: muscle spasm) Qty: 30 2RF Mirena 21 mcg/24 hours (8 yrs) 52 mg intrauterine device intrauterine Referrals: Po,Jace Yoon MD [Primary Care Provider] - Stand Alone Forms: Work/School Release Interventions: ED Discharge Assessment Last Done: 08/17/23 15:58 Discharge Date/Time: 08/17/23 15:59 Print Language: Estonian
[2023-08-17] MEDS: Cyclobenzaprine HCl 5 MG TABLET PO (15:51)
[2023-08-17] MEDS: methylPREDNISolone Sod Succ 125 MG/2 ML VIAL 60 MG IM (15:51)
== END 2023-08-17 15:59 | disposition home or self-care (01) ==
PROVIDERS: Emergency Provider Emergency Medicine; PCP Internal Medicine
DX: M54.50 Low back pain, unspecified (principal)
CPT/HCPCS: 72072; 72100; 96372; 99283; 99284; J2930

== ENCOUNTER 2023-08-21 13:56 | Outpatient (AMB) | payer OTHER, SELFPAY ==
--- NOTE | 2023-08-21 14:11 | A.OFFPC_ITS ---
Vital Signs 08/21/23 14:13 Height 5 ft 4 in Weight 131 lb BMI 22.5 BP 130/74 Blood Pressure Location Lt brachial Position Sitting Pulse 88 Pulse Source Pulse Oximeter Pulse Oximetry (%) 99 Oxygen Delivery Method Room Air Intake Visit Reasons[place] [facility] [place]/ back pain Intake Note: Patient is here to follow-up after a visit the emergency department [place] 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: No Allergies No Known Allergies Allergy (Verified 08/21/23 14:11) Medication List - Last Reconciled 08/21/23 by Jace Laughlin MD ascorbic acid (vitamin C) (Vitamin C) 500 mg PO DAILY atorvastatin 40 mg PO DAILY B-complex with vitamin C 1 tab PO DAILY cholecalciferol (vitamin D3) (Vitamin D3) 125 mcg PO DAILY comp.stocking,knee,long,medium As directed cyclobenzaprine 5 mg PO TID PRN 7 days ferrous sulfate 325 mg PO DAILY ketoconazole 2% 1 appl topical 2XW levonorgestrel (Mirena) intrauterine lidocaine 5% 1 patch topical DAILY meloxicam 15 mg PO DAILY metformin 500 mg PO BIDWMEAL omega 0-dcb-pbz-fish oil 60-90-500 mg (Fish Oil) 1 cap PO DAILY omeprazole 20 mg PO DAILY 90 days ropinirole ER 4 mg PO BEDTIME Tobacco use date assessed: 08/21/[address] [facility] [place] up/ back pain HPI Details 57-year-old female with controlled diabe phill mellitus hypercholesterolemia asthma generalized anxiety disorder last seen in July 2023. Patient's colonoscopy is up-to-date March 2018, mammogram is up-to-date February 2023. Review of the notes in 04/26/2024 for back pain this started after bending over. Patient has a history of this x-ray done no acute abnormality does have multilevel mild spondylosis with endplate osteophytes L to 3 L 4 L5 thoracic also has mild spondylosis had an ER visit also noted urgent care visit for left hand pain patient had an injection of ketorolac diagnosis of left elbow pain [facility] Medical History Pain of both breasts Leg pain, bilateral Pelvic cramping Hair loss Radicular pain of lumbosacral region PMB (postmenopausal bleeding) Personal history of nicotine dependence History of cervical cancer Impacted cerumen of right ear Frequency of micturition Overweight (BMI 25.0-29.9) Rib pain Hot flashes due to menopause Pleurisy Bilateral lower extremity edema Right hand paresthesia Paresthesia of bilateral legs Hematuria Pelvic pain Generalized anxiety disorder Uterine fibroid Tinnitus LFT elevation Internal and external hemorrhoids without complication COVID-19 virus infection Finger dislocation Migraine Iron deficiency anemia Insomnia Major depressive disorder GERD (gastroesophageal reflux disease) Alcohol abuse Asthma Menorrhagia Vitamin D deficiency Hypercholesteremia 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 Son No problems noted. Son No problems noted. Son No problems noted. Daughter No problems noted. Brother No problems noted. Brother No problems noted. Social History Housing: Apartment Alcohol intake: current Alcohol intake frequency: holidays/special occasions only Alcohol type: wine Comment: once a week wine 3 glasses Patient Tobacco Use Status: Former Tobacco user Tobacco use type: Cigarette Years Smoked: former smoker - onset 17yo, 1ppd x 37yrs, 35pyh - quit 2020 e-Cigarette/Vaping Use: Never Used Second Hand Smoke Exposure: No Substance Use Type: Marijuana service: No Current occupational status: unemployed Sexual orientation: Straight/Heterosexual Gender identity: Female Cognitive needs: No Hearing needs: No Vision needs: Yes Female Reproductive History Menstrual Age of Menarche: 14 Questionnaire Thrive Questionnaire Date Thrive assessed: 07/17/23 AUDIT C Alcohol Use Questionnaire (AUDIT-C) 1. How often do you have a drink containing alcohol?: Monthly or less 2. How many drinks containing alcohol do you have on a typical day when you are drinking?: 1 or 2 3. How often do you have six or more drinks on one occasion?: Never Total Score: 1 Score Reviewed/Action Taken: No DANNY-7 AMB Questionnaire DANNY-7 Date DANNY - 7 assessed: 07/17/23 Source: Developed by Drs. Mark Norman, Kelsey Amin, Dean Ziegler and colleagues, with an educational kael from [employer]. Physical exam (Primary Care) Vital Signs: Last Vital Signs Pulse 88 08/21/23 14:13 BP 130/74 08/21/23 14:13 Pulse Ox 99 08/21/23 14:13 Oxygen Delivery Method Room Air 08/21/23 14:13 BMI result Body Mass Index 22.5 Tobacco/Smoking Status: Tobacco use Status Tobacco use date assessed 08/21/23 08/21/23 14:12 Patient Tobacco Use Status Former Tobacco user 08/21/23 14:12 Tobacco use type Cigarette 08/21/23 14:12 e-Cigarette/Vaping Use Never Used 08/21/23 14:12 Thrive Assessment: Date of Thrive Assessment Date Thrive assessed 07/17/23 08/21/23 14:12 Const General: alert; No acute distress Eyes Conjunctivae: conjunctivae normal Resp Auscultation: clear to auscultation bilaterally Cardio Rate: regular rate Rhythm: regular rhythm GI Inspection: Yes normal to inspection Extrem General: Yes normal to inspection and No edema Assessment and Plan Assessment & Plan (1) Lumbar degenerative disc disease: Comment: 06/28 MRI At L4-L5, a central disc protrusion with annular fissure narrows the subarticular zones with likely compression of the traversing L5 nerve roots and mild spinal canal stenosis. Code(s): M51.36 - Other intervertebral disc degeneration, lumbar region Plan: will repeat MRI and refer to neurosurgeon (2) Left elbow pain: Code(s): M25.522 - Pain in left elbow Plan: L lateral epicondylitis- resolving Orders: Orders PT Evaluation and Treatment Today M47.816 - Spondylosis without myelopathy or radiculopathy, lumbar region MR lumbar spine wo con Today M47.816 - Spondylosis without myelopathy or radiculopathy, lumbar region Referrals Neurosurgery Referral M47.816 - Spondylosis without myelopathy or radiculopathy, lumbar region Medications: New lidocaine 5% leave on most painful area for up to 12 hrs 1 patch topical DAILY 30 ea 1RF M47.816 - Spondylosis without myelopathy or radiculopathy, lumbar region Refilled meloxicam 15 mg PO DAILY 14 tabs 0RF M47.816 - Spondylosis without myelopathy or radiculopathy, lumbar region Discontinued prednisone Discontinued Reason: Patient Completed Course 20 mg PO DAILY 7 tabs 0RF 7 days cyclobenzaprine Discontinued Reason: Duplicate 10 mg PO BEDTIME PRN 30 tabs 2RF muscle spasm M47.816 - Spondylosis without myelopathy or radiculopathy, lumbar region prednisone Discontinued Reason: Patient Completed Course 40 mg (2 x 20 mg) PO DAILY 10 tabs 0RF 5 days Coding Level of Care Code Est Pt Level 3 (96135) Diagnoses Lumbar degenerative disc disease M51.36 Left elbow pain M25.522
[2023-08-21 14:13] VITALS: BP 130/74; PULSE 88; O2SAT 99; BMI 22.5
== END 2023-08-21 15:09 | disposition home or self-care (01) ==
PROVIDERS: PCP Internal Medicine; Visit Provider Internal Medicine
DX: M51.36 Other intervertebral disc degeneration, lumbar region (principal); M25.522 Pain in left elbow
CPT/HCPCS: 99213

== ENCOUNTER 2023-09-03 11:18 | Outpatient (AMB) | payer OTHER, SELFPAY ==
--- NOTE | 2023-09-03 11:31 | A.OFFVIS_ITS ---
Intake Vital Signs 09/03/23 11:35 Height 5 ft Weight 132 lb 4 oz BMI 25.8 BP 115/72 Blood Pressure Location Lt brachial Position Sitting Pulse 80 Pulse Source Pulse Oximeter Pulse Oximetry (%) 99 Oxygen Delivery Method Room Air Intake Visit Reasons: 2 mo f/u - Polyneuropathy- CONF Intake Note: Patient presents 2 month f/u. Allergies No Known Allergies Allergy (Verified 09/03/23 11:34) HPI HPI Comments History of Present Illness Details 57 y/o female comes for follow up of leg pain and occasional numbness. Pt reports the legs' burning pain and the creepy crawly sensation has improved, but still feels some, and never goes away. She takes ropinirole 4 mg qHS. She also takes ferrous sulfate 325 mg with vitamin C 500 mg daily. Has hx of embolization of her uterine artery for excessive bleeding in Feb, 2021. The pain is worse at rest and moving around helps, stretching and massaging makes it better, too. She also has intermittent back pain and her MRI showed L4-5 disc protrusion causing douglas L5 nerve root compression. Mild canal stenosis. Pt denies any leg weakness. [facility] Medical History Pain of both breasts Leg pain, bilateral Pelvic cramping Hair loss Radicular pain of lumbosacral region PMB (postmenopausal bleeding) Personal history of nicotine dependence History of cervical cancer Impacted cerumen of right ear Frequency of micturition Overweight (BMI 25.0-29.9) Rib pain Hot flashes due to menopause Pleurisy Bilateral lower extremity edema Right hand paresthesia Paresthesia of bilateral legs Hematuria Pelvic pain Generalized anxiety disorder Uterine fibroid Tinnitus LFT elevation Internal and external hemorrhoids without complication COVID-19 virus infection Finger dislocation Migraine Iron deficiency anemia Insomnia Major depressive disorder GERD (gastroesophageal reflux disease) Alcohol abuse Asthma Menorrhagia Vitamin D deficiency Hypercholesteremia 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 Son No problems noted. Son No problems noted. Son No problems noted. Daughter No problems noted. Brother No problems noted. Brother No problems noted. Social History Housing: Apartment Alcohol intake: current Alcohol intake frequency: holidays/special occasions only Alcohol type: wine Comment: once a week wine 3 glasses Patient Tobacco Use Status: Former Tobacco user Tobacco use type: Cigarette Years Smoked: former smoker - onset 17yo, 1ppd x 37yrs, 35pyh - quit 2020 e-Cigarette/Vaping Use: Never Used Second Hand Smoke Exposure: No Substance Use Type: Marijuana service: No Current occupational status: unemployed Sexual orientation: Straight/Heterosexual Gender identity: Female Cognitive needs: No Hearing needs: No Vision needs: Yes Female Reproductive History Menstrual Age of Menarche: 14 Physical Exam Vital Signs: Last Vital Signs Pulse 80 09/03/23 11:35 BP 115/72 09/03/23 11:35 Pulse Ox 99 09/03/23 11:35 Oxygen Delivery Method Room Air 09/03/23 11:35 BMI result Body Mass Index 25.8 Const General: cooperative, healthy appearing, comfortable and no acute distress Nutritional Appearance: average body habitus Orientation/consciousness: patient oriented x3 Limitations: no limitations Eyes Pupils: Equal, round and reactive pupils present Neuro General: patient oriented x3, gait normal, tone normal, moves all extremities and no focal motor deficits Cranial nerves: Yes Facial sensation intact/muscles of mastication intact, Yes Equal, round and reactive pupils present, Yes Normal accommodation reflex present, Yes Bilaterally intact EOM present, Yes Nystagmus not present, Yes Normal facial strength present, Yes Midline tongue present and Yes Symmetric palate elevation present Cognition (Neuro): normal cognition Gait exam (Neuro): Normal gait present Motor exam (neuro): 5/5 motor strength present throughout and Normal motor muscle tone present throughout Deep tendon reflexes (DTR's): Right triceps reflex intensity grade: 2+, Left triceps reflex intensity grade: 2+, Rt Biceps (C5, C6): 2+, Left biceps reflex intensity grade: 2+, Right brachioradialis reflex intensity grade: 2+, Left brachioradialis reflex intensity grade: 2+, Right patellar reflex intensity grade: 2+ and Left patellar reflex intensity grade: 2+ Coordination: [id number] test normal Assessment & Plan Assessment & Plan (1) Leg pain, bilateral: Comment: likely restless legs - related to low ferritin Code(s): M79.604 - Pain in right leg; M79.605 - Pain in left leg Plan Ferritin was 44 in Jul 2022 Continue to take iron supplement with Vit C daily. May continue to take ropinirole XR 4 mg qHS as patient's the creepy crawling sensation has improved. Will recheck the ferritin. Coding Level of Care Code Est Pt Level 3 (86420) Diagnoses Leg pain, bilateral M79.604; M79.605
[2023-09-03 11:35] VITALS: BP 115/72; PULSE 80; O2SAT 99; BMI 25.8
== END 2023-09-03 11:54 | disposition home or self-care (01) ==
PROVIDERS: PCP Internal Medicine; Visit Provider Nurse Practitioner Family
DX: M79.604 Pain in right leg (principal); M79.605 Pain in left leg
CPT/HCPCS: 99213

== ENCOUNTER → 2023-09-03 11:18 | Outpatient (BNVA) | payer OTHER, SELFPAY | PROVIDERS: PCP Internal Medicine; Visit Provider Nurse Practitioner Family | DX: M79.604 Pain in right leg (principal); M79.605 Pain in left leg | CPT/HCPCS: 99212 ==

== ENCOUNTER 2023-10-15 10:05 | Outpatient (REF) | payer OTHER, SELFPAY | END 2023-10-15 10:06 | disposition home or self-care (01) | LOC: HO.LAB 10:05 | PROVIDERS: PCP Internal Medicine; Visit Provider Obstetrics & Gynecology | DX: N95.0 Postmenopausal bleeding (principal) | CPT/HCPCS: 58100; 88305 ==

== ENCOUNTER 2023-10-15 10:05 | Outpatient (AMB) | payer OTHER, SELFPAY ==
[2023-10-15 10:31] VITALS: BP 132/70; BMI 25.8
--- NOTE | 2023-10-15 10:31 | A.OFFVIS_ITS ---
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 EMB 09/2022 and 12/28-proliferative endometrium. 03/30 benign endometrium with focal secretory, 05/30 progesterone effect PFSH Medical History Pain of both breasts Leg pain, bilateral Pelvic cramping Hair loss Radicular pain of lumbosacral region PMB (postmenopausal bleeding) Personal history of nicotine dependence History of cervical cancer Impacted cerumen of right ear Frequency of micturition Overweight (BMI 25.0-29.9) Rib pain Hot flashes due to menopause Pleurisy Bilateral lower extremity edema Right hand paresthesia Paresthesia of bilateral legs Hematuria Pelvic pain Generalized anxiety disorder Uterine fibroid Tinnitus LFT elevation Internal and external hemorrhoids without complication COVID-19 virus infection Finger dislocation Migraine Iron deficiency anemia Insomnia Major depressive disorder GERD (gastroesophageal reflux disease) Alcohol abuse Asthma Menorrhagia Vitamin D deficiency Hypercholesteremia 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 Son No problems noted. Son No problems noted. Son No problems noted. Daughter No problems noted. Brother No problems noted. Brother No problems noted. Social History Housing: Apartment Alcohol intake: current Alcohol intake frequency: holidays/special occasions only Alcohol type: wine Comment: once a week wine 3 glasses Patient Tobacco Use Status: Former Tobacco user Tobacco use type: Cigarette Years Smoked: former smoker - onset 17yo, 1ppd x 37yrs, 35pyh - quit 2020 e-Cigarette/Vaping Use: Never Used Second Hand Smoke Exposure: No Substance Use Type: Marijuana service: No Current occupational status: unemployed Sexual orientation: Straight/Heterosexual Gender identity: Female Cognitive needs: No Hearing needs: No Vision needs: Yes Female Reproductive History Menstrual Age of Menarche: 14 control method: progestin IUCD Total pregnancies: 4 Full term: 5 Date of last pap smear: 07/09/22 (negative) History of abnormal pap smear: No Review of Systems Const All systems reviewed & are unremarkable except as noted in HPI and below Reports as per HPI and Reports no additional complaints GI Reports no additional complaints Reports no additional complaints Physical Exam Vital Signs: Last Vital Signs BP 132/70 10/15/23 10:31 BMI result Body Mass Index 25.8 Office Procedures Endometrial Biopsy Details: The patient was counseled regarding the indication and benefits of endometrial sampling to rule out endometrial pathology including not limited to endometrial hyperplasia or endometrial cancer and others; The alternatives (Either do nothing vs. hysteroscopy D&C) & the risks were discussed with the patient including but not limited: pain, uterine perforation, bleeding, infection, possible injury to bladder, bowel, ureter, possible need for blood transfusion with all its possible risks. The patient verbalized understanding all questions answered and signed consent. The patient was placed into the dorsal lithotomy position; a speculum was inserted in the vagina. Using aseptic technique for the procedure, the cervix was cleansed with Betadine. The anterior lip of the cervix was grasped with a single tooth tenaculum. The uterus was sounded to 7 cm with a 4 mm Pipelle was used. Tissues samples were obtained and placed in formalin, in a patient labeled container and sent to the pathology department. At the end of the procedure, there was minimal bleeding noted The patient tolerated the procedure well and was discharged in good condition with the following instructions: Nothing in the vagina until the bleeding stops. No sex until the bleeding stops, to call if any of the following occurs: fever (>100.4), flu-like symptoms, abdominal pain, heavy bleeding, four smelling vaginal discharge. The patient was instructed to schedule a Follow up appointment in 2 weeks to discuss pathology results of the biopsy and treatment options. This note was generated with a voice recognition program. Some errors may have been overlooked during the review of this note. Sometimes these errors may affect the content or meaning of a given sentence. [id number] Biopsy Assessment & Plan Assessment & Plan (1) PMB (postmenopausal bleeding): Comment: EMB 09/2022 and 12/28-proliferative endometrium. 03/30 benign endometrium with focal secretory, 05/30 progesterone effect Uterine myomas Code(s): N95.0 - Postmenopausal bleeding Plan: EMB done, see procedure note Orders: Orders AMB Endometrial Biopsy Today N95.0 - Postmenopausal bleeding AMB HCG Urine Test Today Z32.02 - Encounter for test, result negative Coding Level of Care Code Procedure Only Diagnoses PMB (postmenopausal bleeding) N95.0 CPT Codes Endometrial Biopsy - CPT: 89876-[id number] Biopsy ([id number])
== END 2023-10-15 10:43 | disposition home or self-care (01) ==
PROVIDERS: PCP Internal Medicine; Visit Provider Obstetrics & Gynecology
DX: N95.0 Postmenopausal bleeding (principal)
CPT/HCPCS: 58100

== ENCOUNTER 2023-10-29 09:55 | Outpatient (AMB) | payer OTHER, SELFPAY ==
[2023-10-29 09:57] VITALS: BP 130/70; PULSE 74; O2SAT 98; BMI 25.2
--- NOTE | 2023-10-29 09:57 | A.OFFPC_ITS ---
Vital Signs 10/29/23 09:57 Height 5 ft Weight 129 lb BMI 25.2 BP 130/70 Blood Pressure Location Lt brachial Position Sitting Pulse 74 Pulse Source Pulse Oximeter Pulse Oximetry (%) 98 Oxygen Delivery Method Room Air Intake Visit Reasons: DM Allergies No Known Allergies Allergy (Verified 10/29/23 09:58) Medication List - Last Reconciled 10/29/23 by Jace Laughlin MD ascorbic acid (vitamin C) (Vitamin C) 500 mg PO DAILY atorvastatin 40 mg PO DAILY B-complex with vitamin C 1 tab PO DAILY cholecalciferol (vitamin D3) (Vitamin D3) 125 mcg PO DAILY comp.stocking,knee,long,medium As directed cyclobenzaprine 5 mg PO TID PRN 7 days ferrous sulfate 325 mg PO DAILY ibuprofen 800 mg PO Q8H PRN ketoconazole 2% 1 appl topical 2XW levonorgestrel (Mirena) intrauterine lidocaine 5% 1 patch topical DAILY meloxicam 15 mg PO DAILY metformin 500 mg PO BID omega 0-zcr-yhe-fish oil 60-90-500 mg (Fish Oil) 1 cap PO DAILY omeprazole 20 mg PO DAILY 90 days ropinirole ER 4 mg PO BEDTIME Tobacco use date assessed: 08/21/23 Dental Screening Dental Screen Date: 10/29/23 Did you have a dental visit in the last 12 months?: Yes Did you have a dental problem in the last 6 months where you did not have access to dental care?: No Was dental information given to patient?: Patient has dentist HPI DM HPI Details 57-year-old female with GERD diabetes me llitus hypercholesterolemia asthma generalized anxiety disorder lumbar degenerative disc disease last seen in August 2023 having low back pain.. Patient has colon test is up-to-date March 2018 mammogram February 2023 review of the notes follows up with Gynecology had endometrial sampling which was insufficient. Patient had neurology evaluation in September 2023 due to polyneuropathy takes ropinirole 4 mg at bedtime and on iron. Patient also had the MRI showing L4-5 disc protrusion causing bilateral L5 nerve root compression. Diagnosis leg pain likely restless leg related to low ferritin and to continue with iron. chest pain , not related to exertion, complain of sleeping , leg pain still PFSH Medical History (Updated 10/29/23 @ 10:26 by Jace Laughlin MD) Pain of both breasts Leg pain, bilateral Pelvic cramping Hair loss Radicular pain of lumbosacral region PMB (postmenopausal bleeding) Personal history of nicotine dependence History of cervical cancer Impacted cerumen of right ear Frequency of micturition Overweight (BMI 25.0-29.9) Rib pain Hot flashes due to menopause Pleurisy Bilateral lower extremity edema Right hand paresthesia Paresthesia of bilateral legs Hematuria Pelvic pain Generalized anxiety disorder Uterine fibroid Tinnitus LFT elevation Internal and external hemorrhoids without complication COVID-19 virus infection Finger dislocation Migraine Iron deficiency anemia Insomnia Major depressive disorder GERD (gastroesophageal reflux disease) Alcohol abuse Asthma Menorrhagia Vitamin D deficiency Hypercholesteremia 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 Son No problems noted. Son No problems noted. Son No problems noted. Daughter No problems noted. Brother No problems noted. Brother No problems noted. Social History Housing: Apartment Alcohol intake: current Alcohol intake frequency: holidays/special occasions only Alcohol type: wine Comment: once a week wine 3 glasses Patient Tobacco Use Status: Former Tobacco user Tobacco use type: Cigarette Years Smoked: former smoker - onset 17yo, 1ppd x 37yrs, 35pyh - quit 2020 e-Cigarette/Vaping Use: Never Used Second Hand Smoke Exposure: No Substance Use Type: Marijuana service: No Current occupational status: unemployed Sexual orientation: Straight/Heterosexual Gender identity: Female Cognitive needs: No Hearing needs: No Vision needs: Yes Female Reproductive History Menstrual Age of Menarche: 14 Questionnaire PHQ-9 Over the last 2 weeks, how often have you been bothered by any of the following problems? 1. Little interest or pleasure in doing things: several days 2. Feeling down, depressed, or hopeless: more than half the days 3. Trouble falling or staying asleep, or sleeping too much: more than half the days 4. Feeling tired or having little energy: not at all 5. Poor appetite or overeating: not at all 6. Feeling bad about yourself - or that you are a failure or have let yourself or your family down: not at all 7. Trouble concentrating on things, such as reading the newspaper or watching television: not at all 8. Moving or speaking so slowly that other people could have noticed. Or the opposite - being so fidgety or restless that you have been moving around a lot more than usual: not at all 9. Thoughts that you would be better off or of hurting yourself in some way: not at all Total score: 5 Depression Screening Interpretation: Negative Depression Screening Done: Yes Source: Developed by Drs. Mark Norman, Kelsey Amin, Dean Ziegler and colleagues, with an educational kael from [employer]. Thrive Questionnaire Date Thrive assessed: 10/29/23 I am a: Patient What is your living situation today?: I have a steady place to live Within the past 12 months, did the food you bought not last and you didn't have the money to get more?: Never true Within the past 12 months, did you worry whether your food would run out before you got money to buy more?: Never true Do you have trouble paying for medicines?: No Do you have trouble getting transportation to medical appointments?: No Do you have trouble paying your heating and electricity bill?: No Do you have trouble taking care of your child, family member or friend?: No Do you have trouble with day-to-day activities such as bathing, preparing meals, shopping, managing finances, etc.?: No Are you currently unemployed and looking for a job?: No Are you interested in more education?: No Currently or been in a relationship where the following occur: no concerns rep orted THRIVE Score: 0 AUDIT C Alcohol Use Questionnaire (AUDIT-C) 1. How often do you have a drink containing alcohol?: Monthly or less 2. How many drinks containing alcohol do you have on a typical day when you are drinking?: 1 or 2 3. How often do you have six or more drinks on one occasion?: Never Total Score: 1 Score Reviewed/Action Taken: No DANNY-7 AMB Questionnaire DANNY-7 Date DANNY - 7 assessed: 10/29/23 Feeling nervous, anxious, or on edge: 0 = Not at all Not being able to stop or control worryin = Not at all Worrying too much about different things: 0 = Not at all Trouble relaxin = Not at all Being so restless that it is hard to sit still: 0 = Not at all Becoming easily annoyed or irritable: 0 = Not at all Feeling afraid as if something awful might happen: 0 = Not at all Total DANNY-7 score (0-4 normal; 5-9 mild; 10-14 moderate; 15-21 severe): 0 Source: Developed by Drs. Mark Norman, Kelsey Amin, Dean Ziegler and colleagues, with an educational kael from [employer]. Physical exam (Primary Care) Vital Signs: Last Vital Signs Pulse 74 10/29/23 09:57 BP 130/70 10/29/23 09:57 Pulse Ox 98 10/29/23 09:57 Oxygen Delivery Method Room Air 10/29/23 09:57 BMI result Body Mass Index 25.2 Tobacco/Smoking Status: Tobacco use Status Tobacco use date assessed 08/21/23 10/29/23 09:59 Patient Tobacco Use Status Former Tobacco user 10/29/23 09:59 Tobacco use type Cigarette 10/29/23 09:59 e-Cigarette/Vaping Use Never Used 10/29/23 09:59 PHQ-9: PHQ-9 Score PHQ-9: Total score 5 10/29/23 10:11 Depression Screening Interpretation: Negative Thrive Assessment: Date of Thrive Assessment Date Thrive assessed 10/29/23 10/29/23 09:59 Currently or been in a relationship where the following occur: no concerns reported Const General: alert; No acute distress Eyes Conjunctivae: conjunctivae normal Resp Auscultation: clear to auscultation bilaterally Cardio Rate: regular rate Rhythm: regular rhythm GI Inspection: Yes normal to inspection Extrem General: Yes normal to inspection and No edema Results AMB Hemoglobin A1c AMB Hemoglobin A1c 5.7 % Last Edit by Ruby Jenkins CMA on 10/29/23 10 :20 Assessment and Plan Assessment & Plan (1) Type 2 diabetes mellitus with hyperglycemia: Comment: Pt with A1c at 5.3% on 10/16/21 , 5.5 on 02/2022 via diet and exercise only. Most recent A1c at 6.5% (04/2023) Code(s): E11.65 - Type 2 diabetes mellitus with hyperglycemia Qualifiers: Diabetes mellitus retirement insulin use: without intermediate manager use Qualified Code(s): E11.65 - Type 2 diabetes mellitus with hyperglycemia Plan: Decrease the amount of carbohydrate intake, pasta, bread, rice and potatoes are all sugar and that is aside from all the sweet stuff, remember that fruits are good but they are Sweet also. Hemoglobin A1c goal of less than 6.5. Presently on metformin 500 mg twice a day (2) GERD (gastroesophageal reflux disease): Code(s): K21.9 - Gastro-esophageal reflux disease without esophagitis Qualifiers: Esophagitis presence: without esophagitis Qualified Code(s): K21.9 - Gastro-esophageal reflux disease without esophagitis Plan: Avoid the foods that causes that usually spicy foods, tomato products, juices, coffee, soda and foods that your sensitive to. After eating do not lie down, allow 3-4 hours before in lie down. And keep the head of bed above 30 degrees to avoid the acid from going up. (3) Hypercholesteremia: Code(s): E78.00 - Pure hypercholesterolemia, unspecified Plan: Avoid fried foods, chicken skin, eggs, butter margarine, pastries and meat. Be it pork or beef they have a lot of cholesterol LDL goal of less than 100 and triglyceride of less than 150 patient is on atorvastatin 40 mg once a day January 2023 last blood work (4) Asthma: Code(s): J45.909 - Unspecified asthma, uncomplicated Qualifiers: Asthma severity: mild Asthma persistence: intermittent Asthma complication type: uncomplicated Qualified Code(s): J45.20 - Mild intermittent asthma, uncomplicated Plan: Stable (5) Generalized anxiety disorder: Code(s): F41.1 - Generalized anxiety disorder Plan: Stable n (6) Lumbar degenerative disc disease: Comment: 06/28 MRI At L4-L5, a central disc protrusion with annular fissure narrows the subarticular zones with likely compression of the traversing L5 nerve roots and mild spinal canal stenosis. Code(s): M51.36 - Other intervertebral disc degeneration, lumbar region Plan: Keep active and continue to monitor (7) Restless leg syndrome: Code(s): G25.81 - Restless legs syndrome Plan: Patient has seen Neurology advised to continue with iron and will need to do blood work. (8) Insomnia: Code(s): G47.00 - Insomnia, unspecified Plan: trazodone sent in (9) Costochondritis: Code(s): M94.0 - Chondrocostal junction syndrome [Tietze] Plan: reassurance Orders: Orders Comprehensive Met. Panel 2 Months D50.8 - Other iron deficiency anemias IRON PROFILE 2 Months D50.8 - Other iron deficiency anemias Microalbumin, Random (w Creat) 2 Months E11.65 - Type 2 diabetes mellitus with hyperglycemia Hemoglobin A1c 2 Months E11.65 - Type 2 diabetes mellitus with hyperglycemia Lipid Panel 2 Months E11.65 - Type 2 diabetes mellitus with hyperglycemia, E78.00 - Pure hypercholesterolemia, unspecified Vitamin D 25-OH Total 2 Months E11.65 - Type 2 diabetes mellitus with hyperglycemia AMB Hemoglobin A1c Today Z13.9 - Encounter for screening, unspecified Complete Blood Count Auto Diff 2 Months D50.8 - Other iron deficiency anemias Ferritin 2 Months D50.8 - Other iron deficiency anemias Reticulocyte Count 2 Months D50.8 - Other iron deficiency anemias Vitamin B12 and Folate 2 Months D50.8 - Other iron deficiency anemias Creatinine Urine 2 Months E11.65 - Type 2 diabetes mellitus with hyperglycemia Free T4 (Free Thyroxine) 2 Months E11.65 - Type 2 diabetes mellitus with hyperglycemia Thyroid Stimulating Hormone 2 Months E11.65 - Type 2 diabetes mellitus with hyperglycemia Magnesium 2 Months G25.81 - Restless legs syndrome Phosphorus 2 Months G25.81 - Restless legs syndrome Medications: New trazodone 50 mg PO BEDTIME PRN 30 tabs 2RF sleep G47.00 - Insomnia, unspecified Refilled ibuprofen 800 mg PO Q8H PRN 30 tabs 0RF pain M47.816 - Spondylosis without myelopathy or radiculopathy, lumbar region ropinirole ER 4 mg PO BEDTIME 30 tabs 3RF E11.65 - Type 2 diabetes mellitus with hyperglycemia Coding Level of Care Code Est Pt Level 4 (13346) Diagnoses Type 2 diabetes mellitus with hyperglycemia, without long-term current use of insulin E11.65 Diabetes mellitus intermediate manager insulin use: without intermediate manager use Gastroesophageal reflux disease without esophagitis K21.9 Esophagitis presence: without esophagitis Hypercholesteremia E78.00 Mild intermittent asthma without complication J45.20 Asthma severity: mild Asthma persistence: intermittent Asthma complication type: uncomplicated Generalized anxiety disorder F41.1 Lumbar degenerative disc disease M51.36 Restless leg syndrome G25.81 Insomnia G47.00 Costochondritis M94.0 Additional Codes PHQ-9 - 54602 - PHQ-9 Billing: ([id number])
== END 2023-10-29 10:34 | disposition home or self-care (01) ==
PROVIDERS: PCP Internal Medicine; Visit Provider Internal Medicine
DX: E11.65 Type 2 diabetes mellitus with hyperglycemia (principal); K21.9 Gastro-esophageal reflux disease without esophagitis; E78.00 Pure hypercholesterolemia, unspecified; J45.20 Mild intermittent asthma, uncomplicated; F41.1 Generalized anxiety disorder; M51.36 Other intervertebral disc degeneration, lumbar region; G25.81 Restless legs syndrome; G47.00 Insomnia, unspecified; M94.0 Chondrocostal junction syndrome [Tietze]
CPT/HCPCS: 83036; 99214

== ENCOUNTER 2023-11-06 15:23 | Outpatient (AMB) | payer OTHER, SELFPAY ==
[2023-11-06 15:32] VITALS: BMI 25.0
--- NOTE | 2023-11-06 15:32 | MHC.OFFVIS ---
Vital Signs 11/06/23 15:32 Height 5 ft Weight 127 lb 13.89 oz BMI 25.0 Intake Visit Reasons: repeat EMB Allergies No Known Allergies Allergy (Verified 10/29/23 09:58) HPI Comments Details: Presenting for follow-up EMB , the pathology showed the following: Endocervical glandular mucosa with metaplasia and inflammation, abundant mucus, and rare endometrial cells, insufficient for endometrial evaluation PFSH Medical History Pain of both breasts Leg pain, bilateral Pelvic cramping Hair loss Radicular pain of lumbosacral region PMB (postmenopausal bleeding) Personal history of nicotine dependence History of cervical cancer Impacted cerumen of right ear Frequency of micturition Overweight (BMI 25.0-29.9) Rib pain Hot flashes due to menopause Pleurisy Bilateral lower extremity edema Right hand paresthesia Paresthesia of bilateral legs Hematuria Pelvic pain Generalized anxiety disorder Uterine fibroid Tinnitus LFT elevation Internal and external hemorrhoids without complication COVID-19 virus infection Finger dislocation Migraine Iron deficiency anemia Insomnia Major depressive disorder GERD (gastroesophageal reflux disease) Alcohol abuse Asthma Menorrhagia Vitamin D deficiency Hypercholesteremia 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 Son No problems noted. Son No problems noted. Son No problems noted. Daughter No problems noted. Brother No problems noted. Brother No problems noted. Social History Housing: Apartment Alcohol intake: current Alcohol intake frequency: holidays/special occasions only Alcohol type: wine Comment: once a week wine 3 glasses Patient Tobacco Use Status: Former Tobacco user Tobacco use type: Cigarette Years Smoked: former smoker - onset 17yo, 1ppd x 37yrs, 35pyh - quit 2020 e-Cigarette/Vaping Use: Never Used Second Hand Smoke Exposure: No Substance Use Type: Marijuana service: No Current occupational status: unemployed Sexual orientation: Straight/Heterosexual Gender identity: Female Cognitive needs: No Hearing needs: No Vision needs: Yes Female Reproductive History Menstrual Age of Menarche: 14 Review of Systems Const All systems reviewed & are unremarkable except as noted in HPI and below Reports as per HPI and Reports no additional complaints GI Reports no additional complaints Reports no additional complaints Physical Exam Vital Signs: BMI result Body Mass Index 25.0 Office Procedures Endometrial Biopsy Details: The patient was counseled regarding the indication and benefits of endometrial sampling to rule out endometrial pathology including not limited to endometrial hyperplasia or endometrial cancer and others; The alternatives (Either do nothing vs. hysteroscopy D&C) & the risks were discussed with the patient including but not limited: pain, uterine perforation, bleeding, infection, possible injury to bladder, bowel, ureter, possible need for blood transfusion with all its possible risks. The patient verbalized understanding all questions answered and signed consent. The patient was placed into the dorsal lithotomy position; a speculum was inserted in the vagina. Using aseptic technique for the procedure, the cervix was cleansed with Betadine. The anterior lip of the cervix was grasped with a single tooth tenaculum. The uterus was sounded to 7 cm with a 4 mm Pipelle was used. Tissues samples were obtained and placed in formalin, in a patient labeled container and sent to the pathology department. At the end of the procedure, there was minimal bleeding noted The patient tolerated the procedure well and was discharged in good condition with the following instructions: Nothing in the vagina until the bleeding stops. No sex until the bleeding stops, to call if any of the following occurs: fever (>100.4), flu-like symptoms, abdominal pain, heavy bleeding, four smelling vaginal discharge. The patient was instructed to schedule a Follow up appointment in 2 weeks to discuss pathology results of the biopsy and treatment options. This note was generated with a voice recognition program. Some errors may have been overlooked during the review of this note. Sometimes these errors may affect the content or meaning of a given sentence. [id number] Biopsy Assessment & Plan Assessment & Plan (1) PMB (postmenopausal bleeding): Comment: On Mirena IUD EMB 09/2022 and 12/28-proliferative endometrium. 03/30 benign endometrium with focal secretory, 05/30 progesterone effect Uterine myomas Code(s): N95.0 - Postmenopausal bleeding Category: Medical Plan: EMB repeated, see procedure note Instructions given the patient to schedule another EMB in 02/28 as part of this veins for weakly proliferative endometrium in menopause on Mirena IUD Orders: Orders Surgical Today N95.0 - Postmenopausal bleeding AMB Endometrial Biopsy Today N95.0 - Postmenopausal bleeding Coding Level of Care Code Procedure Only Diagnoses PMB (postmenopausal bleeding) N95.0 CPT Codes Endometrial Biopsy - CPT: 87713-Lisdcjeposg Biopsy ([id number])
== END 2023-11-06 16:24 | disposition home or self-care (01) ==
LOC: HO.HWS 15:23
PROVIDERS: PCP Internal Medicine; Visit Provider Obstetrics & Gynecology
DX: N95.0 Postmenopausal bleeding (principal)
CPT/HCPCS: 58100

== ENCOUNTER 2023-11-06 15:23 | Outpatient (REF) | payer OTHER, SELFPAY | END 2023-11-06 15:24 | disposition home or self-care (01) | LOC: HO.LNP 15:23 | PROVIDERS: PCP Internal Medicine; Visit Provider Obstetrics & Gynecology | DX: N95.0 Postmenopausal bleeding (principal) | CPT/HCPCS: 58100; 88305 ==

== ENCOUNTER 2023-12-09 14:28 | Outpatient (AMB) | payer OTHER, SELFPAY ==
--- NOTE | 2023-12-09 14:29 | A.OFFVIS_ITS ---
Intake Visit Reasons: EMB follow up Allergies No Known Allergies Allergy (Verified 10/29/23 09:58) HPI Comments Details: The patient is presenting after endometrial biopsy. The patient has no complaints, no vaginal bleeding, no feverishness chills or abdominal pain. The endometrial biopsy pathology report showed the following: Endometrium, biopsy: - Fragments of inactive endometrium with breakdown and patchy pseudodecidual change consistent with exogenous progestin; no atypia or hyperplasia identified. - Strips of endocervical epithelium within normal limits; mucoinflammatory material The patient was diagnosed with proliferative endometrium in postmenopausal , Mirena IUD inserted. EMB 09/2022 and 12/28-proliferative endometrium. 03/30 benign endometrium with focal secretory, 05/30 progesterone effect [facility] Medical History Pain of both breasts Leg pain, bilateral Pelvic cramping Hair loss Radicular pain of lumbosacral region PMB (postmenopausal bleeding) Personal history of nicotine dependence History of cervical cancer Impacted cerumen of right ear Frequency of micturition Overweight (BMI 25.0-29.9) Rib pain Hot flashes due to menopause Pleurisy Bilateral lower extremity edema Right hand paresthesia Paresthesia of bilateral legs Hematuria Pelvic pain Generalized anxiety disorder Uterine fibroid Tinnitus LFT elevation Internal and external hemorrhoids without complication COVID-19 virus infection Finger dislocation Migraine Iron deficiency anemia Insomnia Major depressive disorder GERD (gastroesophageal reflux disease) Alcohol abuse Asthma Menorrhagia Vitamin D deficiency Hypercholesteremia 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 Son No problems noted. Son No problems noted. Son No problems noted. Daughter No problems noted. Brother No problems noted. Brother No problems noted. Social History Housing: Apartment Alcohol intake: current Alcohol intake frequency: holidays/special occasions only Alcohol type: wine Comment: once a week wine 3 glasses Patient Tobacco Use Status: Former Tobacco user Tobacco use type: Cigarette Years Smoked: former smoker - onset 17yo, 1ppd x 37yrs, 35pyh - quit 2020 e-Cigarette/Vaping Use: Never Used Second Hand Smoke Exposure: No Substance Use Type: Marijuana service: No Current occupational status: unemployed Sexual orientation: Straight/Heterosexual Gender identity: Female Cognitive needs: No Hearing needs: No Vision needs: Yes Female Reproductive History Menstrual Age of Menarche: 14 Telehealth Telehealth Telehealth Platform: Telephone Location of provider rendering services: practice address Location of patient: address on file Patient Identification confirmed using: Name, : Yes Telehealth method: voice only Patient verbally consented to treatment: Yes Patient verbally consented to billing insurance company: Yes Patient informed of any privacy concerns related to visit: Yes Assessment & Plan Assessment & Plan (1) PMB (postmenopausal bleeding): Comment: On Mirena IUD EMB 09/2022 and 12/28-proliferative endometrium. 03/30 benign endometrium with focal secretory, 05/30 progesterone effect, 09/28 Code(s): N95.0 - Postmenopausal bleeding Category: Medical Plan: Discussed with the patient the results of the endometrial biopsy showing inactive endometrium. Discussed with the patient the sensitivity, specificity, positive and negative predictive value, of endometrial biopsy in detecting endometrial pathology including but not limited to endometrial hyperplasia, cancer and other pathology; instructed the patient to schedule EMB in 3 months and to call in case vaginal bleeding bleeding recurs, the next step will be to proceed with further endometrial sampling evaluation to rule out endometrial pathology. All questions answered and the patient verbalized understanding and agreed with the plan. I spent a total of 20 minutes reviewing the chart, talking to the patient via video and documenting in the medical record. Coding Level of Care Code Tele Est Pt Level 1 (85588) Diagnoses PMB (postmenopausal bleeding) N95.0
== END 2023-12-09 14:52 | disposition home or self-care (01) ==
LOC: HO.HWS 14:28
PROVIDERS: PCP Internal Medicine; Visit Provider Obstetrics & Gynecology
DX: N95.0 Postmenopausal bleeding (principal)
CPT/HCPCS: 99211

== ENCOUNTER → 2023-12-09 14:28 | Outpatient (BNVA) | payer OTHER, SELFPAY | PROVIDERS: PCP Internal Medicine; Visit Provider Obstetrics & Gynecology ==

== ENCOUNTER 2023-12-30 11:18 | Outpatient (AMB) | payer OTHER, SELFPAY ==
--- NOTE | 2023-12-30 11:22 | A.OFFVIS_ITS ---
Vital Signs 12/30/23 11:28 Height 5 ft Weight 131 lb BMI 25.6 BP 122/78 Blood Pressure Location Rt brachial Position Left Lateral Pulse 70 Pulse Source Pulse Oximeter Pulse Oximetry (%) 97 Oxygen Delivery Method Room Air Intake Visit Reasons: follow up Polyneuropathy-CONF Intake Note: Patient presents for follow up polyneuropathy. Patient still feels the same hasn't been taking pills due to them giving patient side effects. Allergies No Known Allergies Allergy (Verified 12/30/23 11:29) Medication List - Last Reconciled 12/30/23 by KELSIE Walsh ascorbic acid (vitamin C) (Vitamin C) 500 mg PO DAILY atorvastatin 40 mg PO DAILY B-complex with vitamin C 1 tab PO DAILY cholecalciferol (vitamin D3) (Vitamin D3) 125 mcg PO DAILY comp.stocking,knee,long,medium As directed cyclobenzaprine 5 mg PO TID PRN 7 days ferrous sulfate 325 mg PO DAILY ibuprofen 800 mg PO Q8H PRN ketoconazole 2% 1 appl topical 2XW levonorgestrel (Mirena) intrauterine lidocaine 5% 1 patch topical DAILY meloxicam 15 mg PO DAILY metformin 500 mg PO BID omega 5-dbj-tdj-fish oil 60-90-500 mg (Fish Oil) 1 cap PO DAILY omeprazole 20 mg PO DAILY 90 days ropinirole ER 4 mg PO BEDTIME trazodone 50 mg PO BEDTIME PRN HPI Comments Details: 58-yr-old female presents for f/u visit. Pt reports she started to have RLE pain following embolization of he uterine artery for excessive bleeding in Feb Pt reports she continues to have daily right lower leg pounding pain as well as a creepy crawling sensation. The pain is mostly in anterior lateral harris or medial posterior upper region region. This pain is present in any position or activity, but more with standing up. Elevating and massaging her leg helps some Can have occasional BLE tingling when sitting. She has noticed her ankle socks leaving cabezas on her ankles. Uses her compression stocking, but cannot tolerate them more than 2 hours. Denies usual leg cramps. Denies RLE weakness. Uses Tylenol prn, helps a little. She stopped iron supplement, which was ordered for ? of RLS s/s in setting of hypoferremia. She states the RLE pounding pain was worse while taking iron. She stopped Ropinirole as she did not feel it was helpful. She states she previously tried Gabapentin and pregabalin which did not help. She is hesitant to keep trying different meds. She saw [facility] [place] vascular in Sep, who advised her to f/u w/ pain management and was told to f/u prn. 08/01/22, BLE EMG/NCS- normal. 06/18/2022, MRI lumbar spine wo con IMPRESSION: At L4-L5, a central disc protrusion with annular fissure narrows the subarticular zones with likely compression of the traversing L5 nerve roots and mild spinal canal stenosis. 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 FORMERLY [facility] Medical History Pain of both breasts Leg pain, bilateral Pelvic cramping Hair loss Radicular pain of lumbosacral region PMB (postmenopausal bleeding) Personal history of nicotine dependence History of cervical cancer Impacted cerumen of right ear Frequency of micturition Overweight (BMI 25.0-29.9) Rib pain Hot flashes due to menopause Pleurisy Bilateral lower extremity edema Right hand paresthesia Paresthesia of bilateral legs Hematuria Pelvic pain Generalized anxiety disorder Uterine fibroid Tinnitus LFT elevation Internal and external hemorrhoids without complication COVID-19 virus infection Finger dislocation Migraine Iron deficiency anemia Insomnia Major depressive disorder GERD (gastroesophageal reflux disease) Alcohol abuse Asthma Menorrhagia Vitamin D deficiency Hypercholesteremia 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 Son No problems noted. Son No problems noted. Son No problems noted. Daughter No problems noted. Brother No problems noted. Brother No problems noted. Social History Housing: Apartment Alcohol intake: current Alcohol intake frequency: holidays/special occasions only Alcohol type: wine Comment: once a week wine 3 glasses Patient Tobacco Use Status: Former Tobacco user Tobacco use type: Cigarette Years Smoked: former smoker - onset 17yo, 1ppd x 37yrs, 35pyh - quit 2020 e-Cigarette/Vaping Use: Never Used Second Hand Smoke Exposure: No Substance Use Type: Marijuana service: No Current occupational status: unemployed Sexual orientation: Straight/Heterosexual Gender identity: Female Cognitive needs: No Hearing needs: No Vision needs: Yes Female Reproductive History Menstrual Age of Menarche: 14 Review of Systems Const All systems reviewed & are unremarkable except as noted in HPI and below Physical Exam Vital Signs: Last Vital Signs Pulse 70 12/30/23 11:28 BP 122/78 12/30/23 11:28 Pulse Ox 97 12/30/23 11:28 Oxygen Delivery Method Room Air 12/30/23 11:28 BMI result Body Mass Index 25.6 Const General: cooperative and no acute distress Orientation/consciousness: patient oriented x3 HEENT Head: Yes normocephalic Resp Effort & Inspection: normal respiratory effort and able to speak in complete sentences Neuro General: patient oriented x3, gait normal and CN's II-XI intact bilaterally Cognition (Neuro): normal cognition Motor exam (neuro): 5/5 motor strength present throughout Deep tendon reflexes (DTR's): Right patellar reflex intensity grade: 2+ and Left patellar reflex intensity grade: 2+ Extrem Right lower extremity: lower leg Details: tenderness (over anterior mid-harris and posterior upper calf visible varicosities) Psych Appearance: grossly normal Mental Status: mental status grossly normal Speech and movement: Normal speech and movement present Affect: normal affect Attitude: cooperative Thought process: Normal thought process present Thought content: Normal thought content present Insight: Good insight present (Psych) Judgement: Good judgement present (Psych) Assessment & Plan Assessment & Plan (1) Symptomatic varicose veins of right lower extremity: Code(s): I83.891 - Varicose veins of right lower extremity with other complications Category: Medical (2) Restless leg syndrome: Code(s): G25.81 - Restless legs syndrome Category: Medical (3) Lumbar degenerative disc disease: Comment: 06/28 MRI At L4-L5, a central disc protrusion with annular fissure narrows the subarticular zones with likely compression of the traversing L5 nerve roots and mild spinal canal stenosis. Code(s): M51.36 - Other intervertebral disc degeneration, lumbar region Category: Medical Plan Pt has stopped Ropinirole ER 4mg qhs was ineffective. Pt stopped ferrous sulfate- felt it worsened RE pounding pain. Other previous trials- Gabapentin, ptegabalin- ineffective Compressive stocking as tolerated. May try medium compression knee socks, such as hiking compression socks, to see if these are better tolerated. If ineffective, trial Alpha-lipoic acid 600mg po qd. Will also refer pt back to vascular surgery, as pt has palpable tenderness over RLE visible varicosities- pt would like to try a new office. Will hold on resuming RLS tx at this time, as pt is not having increased bothersome symptoms at rest. f/u in 6 months or sooner prn. Orders: Referrals Vascular Surgery Referral I83.891 - Varicose veins of right lower extremity with other complications Medications: New alpha lipoic acid 600 mg PO DAILY 30 days 30 caps 3RF Coding Level of Care Code Est Pt Level 4 (47224) Diagnoses Symptomatic varicose veins of right lower extremity I83.891 Restless leg syndrome G25.81 Lumbar degenerative disc disease M51.36
[2023-12-30 11:28] VITALS: BP 122/78; PULSE 70; O2SAT 97; BMI 25.6
== END 2023-12-30 12:23 | disposition home or self-care (01) ==
PROVIDERS: PCP Internal Medicine; Visit Provider Nurse Practitioner Family
DX: I83.891 Varicose veins of right lower extremity with other complications (principal); G25.81 Restless legs syndrome; M51.36 Other intervertebral disc degeneration, lumbar region
CPT/HCPCS: 99214

== ENCOUNTER → 2023-12-30 11:18 | Outpatient (BNVA) | payer OTHER, SELFPAY | PROVIDERS: PCP Internal Medicine; Visit Provider Nurse Practitioner Family | DX: I83.891 Varicose veins of right lower extremity with other complications (principal); G25.81 Restless legs syndrome; M51.36 Other intervertebral disc degeneration, lumbar region | CPT/HCPCS: 99212 ==

== ENCOUNTER 2024-01-06 09:40 | Outpatient (REF) | payer OTHER, SELFPAY ==
[2024-01-06 09:59] LABS: MANUAL DIFF FLAG NO
[2024-01-06 10:32] LABS: Basophils Percent Auto 0.3 % (0-2); Eosinophils Absolute Auto 0.1 X10*3/uL (0.0-0.4); Eosinophils Percent Auto 1.8 % (0-4); Hematocrit 44.4 % (37.0-47.0); Hemoglobin 14.8 g/dl (12.0-16.0); Imm Gran Abs Auto 0.02 X10*3/uL (0.00-0.03); Imm Gran Pct Auto 0.3 % (0.0-0.4); Immature Retic Fraction 9.3 % (3.0-15.9); Lymphocytes Absolute Auto 1.2 X10*3/uL (1.2-4.9); Mean Corpuscular HGB Conc 33.3 g/dl (31.0-35.0); Mean Corpuscular Hemoglobin 30.5 pg (27.0-33.0); Mean Corpuscular Volume 91.4 fL (80.0-98.0); Mean Platelet Volume 10.5 fL (9.4-12.3); Monocytes Absolute Auto 0.4 X10*3/uL (0.1-1.2); Neutrophils Absolute Auto 5.4 x10*3/uL (2.0-8.3); Neutrophils Percent Auto 75.6 % (45-73); Platelet Count 273 X10*3/uL (160-400); Red Blood Count 4.86 X10*6/uL (4.20-5.50); Red Cell Distribution Width 13.2 % (11.0-16.0); Retic HGB Equivalent 34.4 pg (30.0-35.0); Reticulocyte Percent 1.5 % (0.5-1.8); Reticulocytes Absolute 0.072 X10*6/uL (0.026-0.095); White Blood Count 7.2 X10*3/uL (4.8-10.8)
[2024-01-06 10:51] LABS: Creatinine Urine 204.47 mg/dL; Microalbum/Creatinine Ratio Ur 10.7 ug/mg cr (<30)
[2024-01-06 11:04] LABS: Alanine Aminotransferase 28 U/L (0-31); Albumin Level 4.8 g/dL (3.5-5.0); Alkaline Phosphatase 96 U/L (39-117); Anion Gap 14 (12-20); Aspartate Amino Transferase 25 U/L (5-31); Bilirubin Total 0.7 mg/dL (0.0-1.0); Blood Urea Nitrogen 11 mg/dL (9-16); Calcium 10.2 mg/dL (8.4-10.2); Carbon Dioxide 24 mmol/L (22-29); Chloride 108 mmol/L (96-108); Cholesterol 131 mg/dL (<200); Estimated Glomerular Filt Rate > 60; Glucose Random 108 mg/dL (60-115); HDL Cholesterol 41 mg/dL (>40); Iron 107 mcg/dL (30-160); LDL Cholesterol Calculated 78 mg/dL (<100); Magnesium 2.2 mg/dL (1.6-2.6); Percent Iron Saturation 33 % (15-50); Phosphorus 3.9 mg/dL (2.7-4.5); Potassium 3.7 mmol/L (3.3-5.1); Sodium 142 mmol/L (135-145); Total Iron Binding Capacity 327 mcg/dL (228-428); Total Protein 8.2 g/dL (6.5-8.0); Triglycerides 63 mg/dL (<150); Unsaturated Iron Binding 220 ug/dL
[2024-01-06 11:20] LABS: Ferritin 78 ng/mL (10-250); Free T4 (Free Thyroxine) 1.02 ng/dL (0.71-1.85); Thyroid Stimulating Hormone 0.94 uIU/mL (0.32-4.0); Vitamin D 25-OH Total 53.3 ng/mL (>30)
[2024-01-06 11:22] LABS: Estimated Average Glucose 120 mg/dL; Hemoglobin A1c % 5.8 % (<6.0)
[2024-01-06 12:00] LABS: Folate 13.5 ng/mL (> or = 4.0); Vitamin B12 500 pg/mL (200-900)
== END 2024-01-06 09:41 | disposition home or self-care (01) ==
LOC: HO.LAB 09:40
PROVIDERS: PCP Internal Medicine; Visit Provider Internal Medicine
DX: E11.65 Type 2 diabetes mellitus with hyperglycemia (principal); D50.8 Other iron deficiency anemias; E78.00 Pure hypercholesterolemia, unspecified; G25.81 Restless legs syndrome
CPT/HCPCS: 36415; 80053; 80061; 82043; 82306; 82570; 82607; 82728; 82746; 83036; 83540; 83735; 84100; 84439; 84443; 85025; 85045

== ENCOUNTER 2024-01-13 12:49 | Outpatient (AMB) | payer OTHER, SELFPAY ==
[2024-01-13 13:02] VITALS: BMI 25.4
--- NOTE | 2024-01-13 13:02 | A.OFFVIS_ITS ---
VS Expanded 01/13/24 13:02 Height 5 ft Weight 130 lb 1.164 oz BMI 25.4 Intake Visit Reasons: T2DM/CONFIRMED Allergies No Known Allergies Allergy (Verified 12/30/23 11:29) Nutrition Presentation Details: Pt presents for MNT for T2DM Pt reports doing well, feeling great. Pt reports having 3 meals/day following healthy plate method food frequency dairy 1 serving/d fruits: 0-1/d vex/wk fish: 2x/wk fried foods 1-2 x/wk BS Monitoring Most Recent Diabetes Results: Microalb/Creat Ratio 10.7 ug/mg cr (<30) 01/06/24 Cholesterol 131 mg/dL (<200) 01/06/24 HDL Cholesterol 41 mg/dL (>40) 01/06/24 Triglycerides 63 mg/dL (<150) 01/06/24 Creatinine 0.65 mg/dL (0.5-1.4) 01/06/24 Blood Urea Nitrogen 11 mg/dL (9-16) 01/06/24 Sodium 142 mmol/L (135-145) 01/06/24 Potassium 3.7 mmol/L (3.3-5.1) 01/06/24 Chloride 108 mmol/L (96-108) 01/06/24 Carbon Dioxide 24 mmol/L (22-29) 01/06/24 Calcium 10.2 mg/dL (8.4-10.2) 01/06/24 AST 25 U/L (5-31) 01/06/24 ALT 28 U/L (0-31) 01/06/24 Total Protein 8.2 g/dL (6.5-8.0) H 01/06/24 Albumin 4.8 g/dL (3.5-5.0) 01/06/24 [facility] Medical History Pain of both breasts Leg pain, bilateral Pelvic cramping Hair loss Radicular pain of lumbosacral region PMB (postmenopausal bleeding) Personal history of nicotine dependence History of cervical cancer Impacted cerumen of right ear Frequency of micturition Overweight (BMI 25.0-29.9) Rib pain Hot flashes due to menopause Pleurisy Bilateral lower extremity edema Right hand paresthesia Paresthesia of bilateral legs Hematuria Pelvic pain Generalized anxiety disorder Uterine fibroid Tinnitus LFT elevation Internal and external hemorrhoids without complication COVID-19 virus infection Finger dislocation Migraine Iron deficiency anemia Insomnia Major depressive disorder GERD (gastroesophageal reflux disease) Alcohol abuse Asthma Menorrhagia Vitamin D deficiency Hypercholesteremia 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 Son No problems noted. Son No problems noted. Son No problems noted. Daughter No problems noted. Brother No problems noted. Brother No problems noted. Social History Housing: Apartment Alcohol intake: current Alcohol intake frequency: holidays/special occasions only Alcohol type: wine Comment: once a week wine 3 glasses Patient Tobacco Use Status: Former Tobacco user Tobacco use type: Cigarette Years Smoked: former smoker - onset 17yo, 1ppd x 37yrs, 35pyh - quit 2020 e-Cigarette/Vaping Use: Never Used Second Hand Smoke Exposure: No Substance Use Type: Marijuana service: No Current occupational status: unemployed Sexual orientation: Straight/Heterosexual Gender identity: Female Cognitive needs: No Hearing needs: No Vision needs: Yes Female Reproductive History Menstrual Age of Menarche: 14 Assessment & Plan Assessment & Plan (1) Overweight (BMI 25.0-29.9): Code(s): E66.3 - Overweight Category: Medical Plan: Pt's BMI at 25. 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 Qualified Code(s): E11.65 - Type 2 diabetes mellitus with hyperglycemia Plan: Wt: 59 Kg (01/2024) Est kcal needs as per 25 kcal/kg bw: 1664-3239 (40% carb, 30% protein/fat) Est fluid needs as per 30 ml/d: 2000 Est prot per day as per 1 g/kg bw: 60 Recommend fiber intake : 8-10 g per day and gradually increase to 25-28 g per day for women and 35-38 g for men or as tolerated Recommend sodium intake per day : less than 2000 mg Educated patient on: ( R = reviewed V = verbalizes understanding N/R = needs review N/A = not applicable * Food sources of carbohydrate, adequate serving sizes and its role in various health conditions: R , V * Differences between complex carbohydrates a simple carbohydrates, role of fiber in diet: R * Lean protein sources of foods: R V * Differences between types of fats and role in diet (mono on saturated fat fatty acids, saturated fatty acids, trans fats): R * Food sources of sodium in salt and healthy modifications for heart health in kidney health: R V * Vitamins and minerals: V * Healthy plate method concept: R V * Physical activity: Benefits a precaution: R V * Hypoglycemia protocol (rule of 15): N/R * Dietary prevention of Hyperglycemia: R, V Patient Instructions: Keep physically active , goal 30 minutes daily Include food sources of calcium -see list of choices goal 1200 mg of calcium per day Coding Level of Care Code Nutr Indiv Subseq (03011) Diagnoses Overweight (BMI 25.0-29.9) E66.3 Type 2 diabetes mellitus with hyperglycemia, without long-term current use of insulin E11.65 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
== END 2024-01-13 13:17 | disposition home or self-care (01) ==
PROVIDERS: PCP Internal Medicine; Visit Provider Dietitian, Registered
DX: E66.3 Overweight (principal); E11.65 Type 2 diabetes mellitus with hyperglycemia

== ENCOUNTER → 2024-01-13 12:49 | Outpatient (BNVA) | payer OTHER, SELFPAY | PROVIDERS: PCP Internal Medicine; Visit Provider Dietitian, Registered | DX: E11.65 Type 2 diabetes mellitus with hyperglycemia (principal); E66.3 Overweight; Z68.25 Body mass index [BMI] 25.0-25.9, adult; Z71.3 Dietary counseling and surveillance | CPT/HCPCS: 97803 ==

== ENCOUNTER 2024-02-12 11:03 | Outpatient (REF) | payer OTHER, SELFPAY | END 2024-02-12 11:04 | disposition home or self-care (01) | LOC: HO.MAMMO 11:03 | PROVIDERS: PCP Internal Medicine; Visit Provider Internal Medicine | DX: Z13.89 Encounter for screening for other disorder (principal) ==

== ENCOUNTER 2024-03-12 10:47 | Outpatient (AMB) | payer OTHER, SELFPAY ==
[2024-03-12 11:16] VITALS: BP 134/72; PULSE 89; O2SAT 98; BMI 24.4
--- NOTE | 2024-03-12 11:16 | MHC.PC.OV ---
Vital Signs 03/12/24 11:16 Height 5 ft Weight 125 lb BMI 24.4 BP 134/72 Blood Pressure Location Lt brachial Position Sitting Pulse 89 Pulse Source Pulse Oximeter Pulse Oximetry (%) 98 Oxygen Delivery Method Room Air Intake Visit Reasons: DM, RLS Chop Saw Operator Required: No Accompanied by: Self / Same As Patient Allergies No Known Allergies Allergy (Verified 03/12/24 11:17) Tobacco use date assessed: 08/21/23 Dental Screening Dental Screen Date: 10/29/23 HPI DM, RLS HPI Details 58-year-old female with controlled diabetes mellitus GERD hypercholesterolemia asthma generalized anxiety disorder with lumbar degenerative disc disease last seen in 10/26/2023. Colonoscopy is up-to-date 2018, mammogram due. Review of the notes has been seen by Neurology for the polyneuropathy diagnosis of restless leg syndrome stop the ropinirole stop the iron advise peripheral vascular disease treatment, alpha lipoic acid. alpha lipoic acid is working. asking about meds [facility] Medical History Pain of both breasts Leg pain, bilateral Pelvic cramping Hair loss Radicular pain of lumbosacral region PMB (postmenopausal bleeding) Personal history of nicotine dependence History of cervical cancer Impacted cerumen of right ear Frequency of micturition Overweight (BMI 25.0-29.9) Rib pain Hot flashes due to menopause Pleurisy Bilateral lower extremity edema Right hand paresthesia Paresthesia of bilateral legs Hematuria Pelvic pain Generalized anxiety disorder Uterine fibroid Tinnitus LFT elevation Internal and external hemorrhoids without complication COVID-19 virus infection Finger dislocation Migraine Iron deficiency anemia Insomnia Major depressive disorder GERD (gastroesophageal reflux disease) Alcohol abuse Asthma Menorrhagia Vitamin D deficiency Hypercholesteremia 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 Son No problems noted. Son No problems noted. Son No problems noted. Daughter No problems noted. Brother No problems noted. Brother No problems noted. Social History Housing: Apartment Alcohol intake: current Alcohol intake frequency: holidays/special occasions only Alcohol type: wine Comment: once a week wine 3 glasses Patient Tobacco Use Status: Former Tobacco user Tobacco use type: Cigarette Years Smoked: former smoker - onset 17yo, 1ppd x 37yrs, 35pyh - quit 2020 e-Cigarette/Vaping Use: Never Used Second Hand Smoke Exposure: No Substance Use Type: Marijuana service: No Current occupational status: unemployed Sexual orientation: Straight/Heterosexual Gender identity: Female Cognitive needs: No Hearing needs: No Vision needs: Yes Female Reproductive History Menstrual Age of Menarche: 14 Questionnaire PHQ-9 Over the last 2 weeks, how often have you been bothered by any of the following problems? 1. Little interest or pleasure in doing things: several days 2. Feeling down, depressed, or hopeless: more than half the days 3. Trouble falling or staying asleep, or sleeping too much: more than half the days 4. Feeling tired or having little energy: not at all 5. Poor appetite or overeating: not at all 6. Feeling bad about yourself - or that you are a failure or have let yourself or your family down: not at all 7. Trouble concentrating on things, such as reading the newspaper or watching television: not at all 8. Moving or speaking so slowly that other people could have noticed. Or the opposite - being so fidgety or restless that you have been moving around a lot more than usual: not at all 9. Thoughts that you would be better off or of hurting yourself in some way: not at all Total score: 5 Depression Screening Interpretation: Negative Depression Screening Done: Yes Source: Developed by Drs. Mark Norman, Kelsey Amin, Dean Ziegler and colleagues, with an educational kael from [employer]. Thrive Questionnaire Date Thrive assessed: 10/29/23 AUDIT C Alcohol Use Questionnaire (AUDIT-C) 1. How often do you have a drink containing alcohol?: Monthly or less 2. How many drinks containing alcohol do you have on a typical day when you are drinking?: 1 or 2 3. How often do you have six or more drinks on one occasion?: Never Total Score: 1 Score Reviewed/Action Taken: No DANNY-7 AMB Questionnaire DANNY-7 Date DANNY - 7 assessed: 10/29/23 Source: Developed by Drs. Mark Norman, Kelsey Amin, Dean Ziegler and colleagues, with an educational kael from [employer]. Physical exam (Primary Care) Vital Signs: Last Vital Signs Pulse 89 03/12/24 11:16 BP 134/72 03/12/24 11:16 Pulse Ox 98 03/12/24 11:16 Oxygen Delivery Method Room Air 03/12/24 11:16 BMI result Body Mass Index 24.4 Tobacco/Smoking Status: Tobacco use Status Tobacco use date assessed 08/21/23 03/12/24 11:20 Patient Tobacco Use Status Former Tobacco user 03/12/24 11:20 Tobacco use type Cigarette 03/12/24 11:20 e-Cigarette/Vaping Use Never Used 03/12/24 11:20 PHQ-9: PHQ-9 Score PHQ-9: Total score 5 03/12/24 11:20 Depression Screening Interpretation: Negative Thrive Assessment: Date of Thrive Assessment Date Thrive assessed 10/29/23 03/12/24 11:20 Const General: alert; No acute distress Eyes Conjunctivae: conjunctivae normal Resp Auscultation: clear to auscultation bilaterally Cardio Rate: regular rate Rhythm: regular rhythm GI Inspection: Yes normal to inspection Extrem General: Yes normal to inspection and No edema Assessment and Plan Assessment & Plan (1) Type 2 diabetes mellitus with hyperglycemia: Comment: A1c at 5.8% on 01/2024 Code(s): E11.65 - Type 2 diabetes mellitus with hyperglycemia Qualifiers: Diabetes mellitus mobile security architect insulin use: without nursing home use Qualified Code(s): E11.65 - Type 2 diabetes mellitus with hyperglycemia Plan: Decrease the amount of carbohydrate intake, pasta, bread, rice and potatoes are all sugar and that is aside from all the sweet stuff, remember that fruits are good but they are Sweet also. Hemoglobin A1c goal of less than 6.5. On metformin 500 mg twice a day (2) Peripheral neuropathy: Code(s): G62.9 - Polyneuropathy, unspecified Plan: Patient has been seen by Neurology and presently controlled (3) GERD (gastroesophageal reflux disease): Code(s): K21.9 - Gastro-esophageal reflux disease without esophagitis Qualifiers: Esophagitis presence: without esophagitis Qualified Code(s): K21.9 - Gastro-esophageal reflux disease without esophagitis Plan: Avoid the foods that causes that usually spicy foods, tomato products, juices, coffee, soda and foods that your sensitive to. After eating do not lie down, allow 3-4 hours before in lie down. And keep the head of bed above 30 degrees to avoid the acid from going up. (4) Generalized anxiety disorder: Code(s): F41.1 - Generalized anxiety disorder Plan: Stable (5) Peripheral vascular disease: Code(s): I73.9 - Peripheral vascular disease, unspecified Plan: When sitting down elevate the legs, exercise, and support stockings (6) Shoulder pain, right: Code(s): M25.511 - Pain in right shoulder (7) URI (upper respiratory infection): Code(s): J06.9 - Acute upper respiratory infection, unspecified (8) Foul smelling urine: Code(s): R82.90 - Unspecified abnormal findings in urine Orders: Orders UA CC w/rflx Micro + Cult Today R30.0 - Dysuria, R82.90 - Unspecified abnormal findings in urine SARS-CoV2/FLU/RSV Today J45.20 - Mild intermittent asthma, uncomplicated Medications: New diclofenac sodium 1% (Voltaren Arthritis Pain) apply to single knee, ankle, foot; for foot includes sole/toes/top of foot 4 grams topical QID 200 grams 4RF M25.511 - Pain in right shoulder Changed From cyclobenzaprine 5 mg PO TID 7 days PRN 21 tabs 0RF muscle spasm To cyclobenzaprine 5 mg PO TID 30 days PRN 60 tabs 0RF muscle spasm Refilled ibuprofen 800 mg PO Q8H PRN 30 tabs 0RF pain M47.816 - Spondylosis without myelopathy or radiculopathy, lumbar region Coding Level of Care Code Est Pt Level 4 (51286) Diagnoses Type 2 diabetes mellitus with hyperglycemia, without long-term current use of insulin E11.65 Diabetes mellitus mobile security architect insulin use: without mobile security architect use Peripheral neuropathy G62.9 Gastroesophageal reflux disease without esophagitis K21.9 Esophagitis presence: without esophagitis Generalized anxiety disorder F41.1 Peripheral vascular disease I73.9 Shoulder pain, right M25.511 URI (upper respiratory infection) J06.9 Foul smelling urine R82.90 Additional Codes PHQ-9 - 06236 - PHQ-9 Billing: ([id number])
== END 2024-03-12 12:01 | disposition home or self-care (01) ==
PROVIDERS: PCP Internal Medicine; Visit Provider Internal Medicine
DX: E11.65 Type 2 diabetes mellitus with hyperglycemia (principal); G62.9 Polyneuropathy, unspecified; K21.9 Gastro-esophageal reflux disease without esophagitis; F41.1 Generalized anxiety disorder; I73.9 Peripheral vascular disease, unspecified; M25.511 Pain in right shoulder; J06.9 Acute upper respiratory infection, unspecified; R82.90 Unspecified abnormal findings in urine
CPT/HCPCS: 96127; 99214

== ENCOUNTER 2024-03-12 12:10 | Outpatient (REF) | payer OTHER, SELFPAY ==
[2024-03-12 13:12] LABS: Appearance Urine Clear; Color Urine Yellow; Glucose Urine UA Negative (Negative); Leukocyte Esterase Urine Negative (Negative); Nitrite Urine Negative (Negative); PH 5.5 (5.0-9.0); Specific Gravity - Urine 1.025 (1.005-1.025); Urine Blood Negative (Negative); Urine Ketones Negative (Negative); Urine Protein Negative (Neg-Trace)
[2024-03-12 13:38] LABS: Influenza A PCR NEGATIVE (Negative); Influenza B PCR NEGATIVE (Negative); Resp Syncy Virus RNA Qual PCR NEGATIVE (Negative); SARS COV2 PCR INHOUSE NEGATIVE (Negative)
[2024-03-12 13:56] LABS: Creatinine Urine 127.61 mg/dL
[2024-03-12 14:12] LABS: Ferritin 158 ng/mL (10-250)
== END 2024-03-12 12:11 | disposition home or self-care (01) ==
LOC: HO.LAB 12:10
PROVIDERS: Nurse Practitioner Family; PCP Internal Medicine; Visit Provider Internal Medicine
DX: E11.65 Type 2 diabetes mellitus with hyperglycemia (principal); R30.0 Dysuria; R82.90 Unspecified abnormal findings in urine; J45.20 Mild intermittent asthma, uncomplicated; D50.9 Iron deficiency anemia, unspecified
CPT/HCPCS: 0241U; 36415; 81003; 82570; 82728

== ENCOUNTER 2024-03-26 15:48 | Outpatient (REF) | payer OTHER, SELFPAY ==
--- NOTE | ~2024-03-26 | XR_ITS ---
EXAMINATION: XR CHEST CLINICAL INFORMATION: R05.9 - Cough, unspecified COMPARISON: 02/20/2023. TECHNIQUE: 2 views of the chest were obtained. FINDINGS: The cardiac, hilar, and mediastinal contours are normal. The lungs are clear bilaterally. There is no pneumothorax or pleural effusion. There is no focal osseous or soft tissue abnormality. XR/XR chest 2V IMPRESSION: Normal chest. Electronically signed by: Hector Aguillon MD 06/06/2024 09:08 PM ROBIN
== END 2024-03-26 15:49 | disposition home or self-care (01) ==
LOC: HO.XRAY 15:48
PROVIDERS: PCP Internal Medicine; Visit Provider Internal Medicine
DX: R05.9 Cough, unspecified (principal); J06.9 Acute upper respiratory infection, unspecified
CPT/HCPCS: 71046; 99212

== ENCOUNTER → 2024-03-26 15:48 | Outpatient (AMB) | payer OTHER, SELFPAY ==
--- NOTE | 2024-03-26 15:52 | MHC.PC.OV ---
Vital Signs 03/26/24 15:54 Height 5 ft Weight 127 lb 4 oz BMI 24.8 BP 120/66 Blood Pressure Location Lt brachial Position Sitting Pulse 76 Pulse Source Pulse Oximeter Pulse Oximetry (%) 98 Oxygen Delivery Method Room Air Intake Visit Reasons: Cough w/bleeding Intake Note: Patient is here to follow up on productive coughing with some bleeding, difficulty swallowing, on going for a month. OTC is not helping Facial Operator Required: No Manager Systems: Not Required per policy Accompanied by: Self / Same As Patient Allergies No Known Allergies Allergy (Verified 03/26/24 15:54) Tobacco use date assessed: 03/26/24 Dental Screening Dental Screen Date: 10/29/23 HPI HPI Comments History of Present Illness Details Patient presents for a sick visit. Reporting symptoms of sinus congestion, sore throat and difficulty swallowing. Low-grade fever. No family member is sick. No recent travel. Patient reports symptoms of malaise and fatigue. [facility] Medical History Pain of both breasts Leg pain, bilateral Pelvic cramping Hair loss Radicular pain of lumbosacral region PMB (postmenopausal bleeding) Personal history of nicotine dependence History of cervical cancer Impacted cerumen of right ear Frequency of micturition Overweight (BMI 25.0-29.9) Rib pain Hot flashes due to menopause Pleurisy Bilateral lower extremity edema Right hand paresthesia Paresthesia of bilateral legs Hematuria Pelvic pain Generalized anxiety disorder Uterine fibroid Tinnitus LFT elevation Internal and external hemorrhoids without complication COVID-19 virus infection Finger dislocation Migraine Iron deficiency anemia Insomnia Major depressive disorder GERD (gastroesophageal reflux disease) Alcohol abuse Asthma Menorrhagia Vitamin D deficiency Hypercholesteremia 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 Son No problems noted. Son No problems noted. Son No problems noted. Daughter No problems noted. Brother No problems noted. Brother No problems noted. Social History Housing: Apartment Alcohol intake: current Alcohol intake frequency: holidays/special occasions only Alcohol type: wine Comment: once a week wine 3 glasses Patient Tobacco Use Status: Former Tobacco user Tobacco use type: Cigarette Years Smoked: former smoker - onset 17yo, 1ppd x 37yrs, 35pyh - quit 2020 e-Cigarette/Vaping Use: Never Used Second Hand Smoke Exposure: No Substance Use Type: Marijuana service: No Current occupational status: unemployed Sexual orientation: Straight/Heterosexual Gender identity: Female Cognitive needs: No Hearing needs: No Vision needs: Yes Female Reproductive History Menstrual Age of Menarche: 14 Questionnaire Thrive Questionnaire Date Thrive assessed: 10/29/23 Are you currently unemployed and looking for a job?: Yes DANNY-7 AMB Questionnaire DANNY-7 Date DANNY - 7 assessed: 10/29/23 Source: Developed by Drs. Mark Nroman, Kelsey Amin, Dean Ziegler and colleagues, with an educational kael from [facility]. Physical exam (Primary Care) Vital Signs: Last Vital Signs Pulse 76 03/26/24 15:54 BP 120/66 03/26/24 15:54 Pulse Ox 98 03/26/24 15:54 Oxygen Delivery Method Room Air 03/26/24 15:54 BMI result Body Mass Index 24.8 Tobacco/Smoking Status: Tobacco use Status Tobacco use date assessed 03/26/24 03/26/24 16:07 Patient Tobacco Use Status Former Tobacco user 03/26/24 16:07 Tobacco use type Cigarette 03/26/24 16:07 e-Cigarette/Vaping Use Never Used 03/26/24 16:07 Thrive Assessment: Date of Thrive Assessment Date Thrive assessed 10/29/23 03/26/24 16:07 Const General: cooperative and healthy appearing Nutritional Appearance: well nourished Orientation/consciousness: patient oriented x3 Limitations: no limitations HENMT Head: Yes normal to inspection Eyes General: appearance normal, both eyes and all related structures Neck Neck: Yes normal visual inspection Chest Chest palpation & inspection: normal palpation of entire chest wall Resp Effort & Inspection: normal respiratory effort Neuro General: patient oriented x3 Assessment and Plan Assessment & Plan (1) Upper respiratory tract infection: Code(s): J06.9 - Acute upper respiratory infection, unspecified Plan: Antibiotics ordered. Increase fluid intake. Tylenol for aches and pains. If symptoms worsen, follow-up here for a recheck. Chest x-ray ordered as patient reported symptoms of hemoptysis. Orders: Orders XR chest 2V 03/26/24 R05.9 - Cough, unspecified Medications: New azithromycin take 500 mg today (day 1), then 250 mg for 4 days (days 2-5) PO 6 tabs 0RF Coding Level of Care Code Est Pt Level 3 (17219) Complex EM visit Add On G2211 Diagnoses Upper respiratory tract infection J06.9
[2024-03-26 15:54] VITALS: BP 120/66; PULSE 76; O2SAT 98; BMI 24.8
== END ==
PROVIDERS: PCP Internal Medicine; Visit Provider Internal Medicine
DX: J06.9 Acute upper respiratory infection, unspecified (principal)

== ENCOUNTER → 2024-03-26 16:51 | Outpatient (BNV) | payer OTHER, SELFPAY | PROVIDERS: PCP Internal Medicine; Visit Provider Radiology Diagnostic Radiology | DX: R05.9 Cough, unspecified (principal) | CPT/HCPCS: 71046 ==

== ENCOUNTER 2024-04-07 13:50 | Outpatient (REF) | payer OTHER, SELFPAY | END 2024-04-07 13:51 | disposition home or self-care (01) | LOC: HO.LNP 13:50 | PROVIDERS: PCP Internal Medicine; Visit Provider Obstetrics & Gynecology | DX: N95.0 Postmenopausal bleeding (principal); Z97.5 Presence of (intrauterine) contraceptive device | CPT/HCPCS: 58100; 88305; 88341; 88342 ==

== ENCOUNTER 2024-04-07 13:50 | Outpatient (AMB) | payer OTHER, SELFPAY ==
[2024-04-07 13:55] VITALS: BMI 24.5
--- NOTE | 2024-04-07 13:55 | A.OFFVIS_ITS ---
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: No Information Interpreted: non-clinical & clinical [employer]visor [employer]: Super[employer] Present (Zoey Navi BAKER) Accompanied by: Self / Same As Patient Allergies No Known Allergies Allergy (Verified 04/07/24 13:56) HPI Comments Details: Presenting for EMB [facility] Medical History (Updated 04/07/24 @ 14:00 by Tiago Plasencia MD) Pain of both breasts Leg pain, bilateral Pelvic cramping Hair loss Radicular pain of lumbosacral region PMB (postmenopausal bleeding) Personal history of nicotine dependence History of cervical cancer Frequency of micturition Overweight (BMI 25.0-29.9) Rib pain Hot flashes due to menopause Pleurisy Bilateral lower extremity edema Right hand paresthesia Paresthesia of bilateral legs Hematuria Pelvic pain Generalized anxiety disorder Uterine fibroid Tinnitus LFT elevation Internal and external hemorrhoids without complication COVID-19 virus infection Finger dislocation Migraine Iron deficiency anemia Insomnia Major depressive disorder GERD (gastroesophageal reflux disease) Alcohol abuse Asthma Menorrhagia Vitamin D deficiency Hypercholesteremia 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 Son No problems noted. Son No problems noted. Son No problems noted. Daughter No problems noted. Brother No problems noted. Brother No problems noted. Social History Housing: Apartment Alcohol intake: current Alcohol intake frequency: holidays/special occasions only Alcohol type: wine Comment: once a week wine 3 glasses Patient Tobacco Use Status: Former Tobacco user Tobacco use type: Cigarette Years Smoked: former smoker - onset 17yo, 1ppd x 37yrs, 35pyh - quit 2020 e-Cigarette/Vaping Use: Never Used Second Hand Smoke Exposure: No Substance Use Type: Marijuana service: No Current occupational status: unemployed Sexual orientation: Straight/Heterosexual Gender identity: Female Cognitive needs: No Hearing needs: No Vision needs: Yes Female Reproductive History Menstrual Age of Menarche: 14 Physical Exam Vital Signs: BMI result Body Mass Index 24.5 Office Procedures Endometrial Biopsy Details: The patient was counseled regarding the indication and benefits of endometrial sampling to rule out endometrial pathology including not limited to endometrial hyperplasia or endometrial cancer and others; The alternatives (Either do nothing vs. hysteroscopy D&C) & the risks were discussed with the patient including but not limited: pain, uterine perforation, bleeding, infection, possible injury to bladder, bowel, ureter, possible need for blood transfusion with all its possible risks. The patient verbalized understanding all questions answered and signed consent. The patient was placed into the dorsal lithotomy position; a speculum was inserted in the vagina. Using aseptic technique for the procedure, the cervix was cleansed with Betadine. The anterior lip of the cervix was grasped with a single tooth tenaculum. The uterus was sounded to 7 cm with a 4 mm Pipelle was used. Tissues samples were obtained and placed in formalin, in a patient labeled container and sent to the pathology department. At the end of the procedure, there was minimal bleeding noted The patient tolerated the procedure well and was discharged in good condition with the following instructions: Nothing in the vagina until the bleeding stops. No sex until the bleeding stops, to call if any of the following occurs: fever (>100.4), flu-like symptoms, abdominal pain, heavy bleeding, four smelling vaginal discharge. The patient was instructed to schedule a Follow up appointment in 2 weeks to discuss pathology results of the biopsy and treatment options. This note was generated with a voice recognition program. Some errors may have been overlooked during the review of this note. Sometimes these errors may affect the content or meaning of a given sentence. [id number] Biopsy Assessment & Plan Assessment & Plan (1) PMB (postmenopausal bleeding): Comment: On Mirena IUD EMB 09/2022 and 12/28-proliferative endometrium. 03/30 benign endometrium with focal secretory, 05/30 progesterone effect, 11/28 inactive benign endometrial Code(s): N95.0 - Postmenopausal bleeding Category: Medical Plan: EMB done, see procedure note Orders: Orders AMB Endometrial Biopsy Today N95.0 - Postmenopausal bleeding Coding Level of Care Code Procedure Only Diagnoses PMB (postmenopausal bleeding) N95.0 CPT Codes Endometrial Biopsy - CPT: 13723-[id number] Biopsy ([id number])
== END 2024-04-07 14:13 | disposition home or self-care (01) ==
LOC: HO.HWS 13:50
PROVIDERS: PCP Internal Medicine; Visit Provider Obstetrics & Gynecology
DX: N95.0 Postmenopausal bleeding (principal)
CPT/HCPCS: 58100

== ENCOUNTER 2024-04-30 11:00 | Outpatient (AMB) | payer OTHER, SELFPAY ==
--- NOTE | 2024-04-30 11:00 | MHC.OFFVIS ---
Intake Visit Reasons: TV EMB Results/OK Per Zoey Allergies No Known Allergies Allergy (Verified 04/07/24 13:56) HPI Comments Details: The patient scheduled a telehealth visit after endometrial biopsy. The patient has no complaints, no vaginal bleeding, no feverishness chills or abdominal pain. The endometrial biopsy pathology report showed the following: Benign endometrium with inactive glands and focal decidual stromal change consistent with progestin effect, reactive and surface metaplastic changes, and fragment of reactive stroma with focal hemosiderin and calcifications; no atypia or carcinoma Last ultrasound 03/30 showed bilateral simple ovarian cyst. [facility] Medical History Pain of both breasts Leg pain, bilateral Pelvic cramping Hair loss Radicular pain of lumbosacral region PMB (postmenopausal bleeding) Personal history of nicotine dependence History of cervical cancer Frequency of micturition Overweight (BMI 25.0-29.9) Rib pain Hot flashes due to menopause Pleurisy Bilateral lower extremity edema Right hand paresthesia Paresthesia of bilateral legs Hematuria Pelvic pain Generalized anxiety disorder Uterine fibroid Tinnitus LFT elevation Internal and external hemorrhoids without complication COVID-19 virus infection Finger dislocation Migraine Iron deficiency anemia Insomnia Major depressive disorder GERD (gastroesophageal reflux disease) Alcohol abuse Asthma Menorrhagia Vitamin D deficiency Hypercholesteremia 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 Son No problems noted. Son No problems noted. Son No problems noted. Daughter No problems noted. Brother No problems noted. Brother No problems noted. Social History Housing: Apartment Alcohol intake: current Alcohol intake frequency: holidays/special occasions only Alcohol type: wine Comment: once a week wine 3 glasses Patient Tobacco Use Status: Former Tobacco user Tobacco use type: Cigarette Years Smoked: former smoker - onset 17yo, 1ppd x 37yrs, 35pyh - quit 2019 e-Cigarette/Vaping Use: Never Used Second Hand Smoke Exposure: No Substance Use Type: Marijuana service: No Current occupational status: unemployed Sexual orientation: Straight/Heterosexual Gender identity: Female Cognitive needs: No Hearing needs: No Vision needs: Yes Female Reproductive History Menstrual Age of Menarche: 14 Review of Systems Const All systems reviewed & are unremarkable except as noted in HPI and below Reports as per HPI and Reports no additional complaints GI Reports no additional complaints Reports no additional complaints Telehealth Telehealth Telehealth Platform: Telephone Location of provider rendering services: practice address Location of patient: address on file Patient Identification confirmed using: Name, : Yes Telehealth method: voice only Patient verbally consented to treatment: Yes Patient verbally consented to billing insurance company: Yes Patient informed of any privacy concerns related to visit: Yes Assessment & Plan Assessment & Plan (1) PMB (postmenopausal bleeding): Comment: On Mirena IUD EMB 09/2022 and 12/28-proliferative endometrium. 02/27 Mirena IUD inserted 03/30 benign endometrium with focal secretory, 05/30 progesterone effect, 11/28 inactive benign endometrial, 04/30 inactive endometrium Code(s): N95.0 - Postmenopausal bleeding Category: Medical Plan: Discussed with the patient the results the biopsy, the patient was reassured. Instructions given the patient to call in case of recurrence of her vaginal bleeding then will proceed with endometrial sampling to rule out endometrial pathology. All questions answered, the patient verbalized understanding. (2) Ovarian cyst: Code(s): N83.209 - Unspecified ovarian cyst, unspecified side Category: Medical Plan: Pelvic ultrasound ordered for follow-up regarding previous bilateral simple ovarian cysts. Instructions given the patient to schedule an ultrasound follow-up appointment within 2 weeks. All questions answered, the patient verbalized understanding. I spent a total of 20 minutes reviewing the chart, talking to the patient via phone and documenting in the medical record. Orders: Orders US pelvic and transvaginal Today N83.209 - Unspecified ovarian cyst, unspecified side Coding Level of Care Code Tele Est Pt Level 1 (30854) Diagnoses PMB (postmenopausal bleeding) N95.0 Ovarian cyst N83.209
== END 2024-04-30 12:51 | disposition home or self-care (01) ==
LOC: HO.HWS 11:00
PROVIDERS: PCP Internal Medicine; Visit Provider Obstetrics & Gynecology
DX: N95.0 Postmenopausal bleeding (principal); N83.209 Unspecified ovarian cyst, unspecified side
CPT/HCPCS: 99211

== ENCOUNTER → 2024-04-30 11:00 | Outpatient (BNVA) | payer OTHER, SELFPAY | PROVIDERS: PCP Internal Medicine; Visit Provider Obstetrics & Gynecology ==

== ENCOUNTER 2024-05-06 10:54 | Outpatient (REF) | payer OTHER, SELFPAY | END 2024-05-06 10:55 | disposition home or self-care (01) | LOC: HO.US 10:54 | PROVIDERS: PCP Internal Medicine; Visit Provider Obstetrics & Gynecology | DX: N83.209 Unspecified ovarian cyst, unspecified side (principal) | CPT/HCPCS: 76830; 76856 ==

== ENCOUNTER 2024-05-11 11:05 | Outpatient (REF) | payer OTHER, SELFPAY | END 2024-05-11 11:06 | disposition home or self-care (01) | LOC: HO.CT 11:05 | PROVIDERS: PCP Internal Medicine; Visit Provider Physician Assistant Medical | DX: Z12.2 Encounter for screening for malignant neoplasm of respiratory organs (principal); Z87.891 Personal history of nicotine dependence | CPT/HCPCS: 71271 ==

== ENCOUNTER 2024-05-18 13:44 | Outpatient (AMB) | payer OTHER, SELFPAY ==
--- NOTE | 2024-05-18 13:45 | A.OFFVIS_ITS ---
Intake Visit Reasons: EMB results Allergies No Known Allergies Allergy (Verified 04/07/24 13:56) HPI Comments Details: The patient scheduled a telehealth visit to discuss the results of the pelvic ultrasound regarding a previously seen simple ovarian cyst on ultrasound in 03/30. No complaint No official report available yet [facility] Medical History Pain of both breasts Leg pain, bilateral Pelvic cramping Hair loss Radicular pain of lumbosacral region PMB (postmenopausal bleeding) Personal history of nicotine dependence History of cervical cancer Frequency of micturition Overweight (BMI 25.0-29.9) Rib pain Hot flashes due to menopause Pleurisy Bilateral lower extremity edema Right hand paresthesia Paresthesia of bilateral legs Hematuria Pelvic pain Generalized anxiety disorder Uterine fibroid Tinnitus LFT elevation Internal and external hemorrhoids without complication COVID-19 virus infection Finger dislocation Migraine Iron deficiency anemia Insomnia Major depressive disorder GERD (gastroesophageal reflux disease) Alcohol abuse Asthma Menorrhagia Vitamin D deficiency Hypercholesteremia 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 Son No problems noted. Son No problems noted. Son No problems noted. Daughter No problems noted. Brother No problems noted. Brother No problems noted. Social History Housing: Apartment Alcohol intake: current Alcohol intake frequency: holidays/special occasions only Alcohol type: wine Comment: once a week wine 3 glasses Patient Tobacco Use Status: Former Tobacco user Tobacco use type: Cigarette Years Smoked: former smoker - onset 17yo, 1ppd x 37yrs, 35pyh - quit 2020 e-Cigarette/Vaping Use: Never Used Second Hand Smoke Exposure: No Substance Use Type: Marijuana service: No Current occupational status: unemployed Sexual orientation: Straight/Heterosexual Gender identity: Female Cognitive needs: No Hearing needs: No Vision needs: Yes Female Reproductive History Menstrual Age of Menarche: 14 Review of Systems Const All systems reviewed & are unremarkable except as noted in HPI and below Reports as per HPI and Reports no additional complaints GI Reports no additional complaints Reports no additional complaints Telehealth Telehealth Telehealth Platform: Telephone Location of provider rendering services: practice address Location of patient: address on file Patient Identification confirmed using: Name, : Yes Telehealth method: voice only Patient verbally consented to treatment: Yes Patient verbally consented to billing insurance company: Yes Patient informed of any privacy concerns related to visit: Yes Assessment & Plan Assessment & Plan (1) Ovarian cyst: Code(s): N83.209 - Unspecified ovarian cyst, unspecified side Category: Medical Plan: Explained to the patient the official report of the pelvic ultrasound has not been available yet , instructions were given the patient to call to follow-up regarding pelvic ultrasound. All questions answered, the patient verbalized understanding I spent a total of 20 minutes reviewing the chart, talking to the patient via phone and documenting in the medical record. Coding Level of Care Code Est Pt Level 1 (95517) Diagnoses Ovarian cyst N83.209
== END 2024-05-18 16:18 | disposition home or self-care (01) ==
LOC: HO.HWS 13:44
PROVIDERS: PCP Internal Medicine; Visit Provider Obstetrics & Gynecology
DX: N83.209 Unspecified ovarian cyst, unspecified side (principal)

== ENCOUNTER → 2024-05-18 13:44 | Outpatient (BNVA) | payer OTHER, SELFPAY | PROVIDERS: PCP Internal Medicine; Visit Provider Obstetrics & Gynecology | DX: N83.209 Unspecified ovarian cyst, unspecified side (principal) | CPT/HCPCS: 99211 ==

== ENCOUNTER 2024-08-05 10:50 | Outpatient (REF) | payer OTHER, SELFPAY ==
--- OUTSIDE RECORDS SUMMARY | 2024-08-05 12:57 | XMS_ITS | Encounter Summary ---
Author Organization [employer] Address [address] [place] [address] Care Team Providers Care Front Clerk Name Role Phone Unavailable Primary Care Provider Unavailabl e Encounter Details Date Type Department Care Team (Latest Contact Info) Description 11/13/2021 Abstract [facility] CONVERSIONS Dental, Provider, DDS Social History Tobacco Use Types Packs/Day Years Used Date Smoking Tobacco: Never Assessed Comments Unknown Sex and Gender Information Value Date Recorded Sex Assigned at Female 05/07/2022 10:16 AM EDT Legal Sex Female 10:16 AM EDT Gender Identity Female 05/07/2022 10:16 AM EDT Sexual Orientation Straight 05/07/2022 10 :16 AM EDT documented as of this encounter Plan of Treatment Not on file documented as of this encounter Visit Diagnoses Not on filedocumented in this encounter
--- OUTSIDE RECORDS SUMMARY | 2024-08-05 12:57 | XMS_ITS | Patient Health Record ---
Author Organization [facility] Address [address] [place] [address] Care Team Providers Care Inspector Fabric Name Role Phone Jace Laughlin MD Primary Care Provider Conner Verduzco Jr Unavailable ALLERGIES No Known Allergies REASON FOR REFERRAL No Information MEDICATIONS Medication SIG (Take, Route, Frequency, Duration) Notes Start Date End Date Status Ferrous Sulfate Acti ve Vitamin D (Ergocalciferol) Active Naproxen 500 MG TAKE 1 TABLET BY ABDON TH EVERY 12 HOURS WITH FOOD OR MILK NEEDED FOR 30 DAYS Oral for 30 Active Omeprazole 40 MG TAKE 1 CAPSULE BY MO UTH 30 MINUTES BEFORE MORNING MEAL ONCE A DAY for 90 Active Vitamin C Active Simvastatin Active Amitriptyline HCl 25 MG TAKE 1 TABLET BY MOUTH EVERY DAY AT BEDTIME FOR 30 DAYS Oral for 90 Active Pregabalin 50 MG TAKE 1 CAPSULE BY MO UTH TWICE A DAY FOR PAIN FOR 30 DAYS Oral for 30 Active IMMUNIZATIONS Vaccine Route Administration Date Status Comme nts Influenza Unknown 03/08/2020 Administered SOCIAL HISTORY Tobacco Use: Social History Observation Description Date Details (start date - stop date) Former Smoker NA - NA Sex Assigned At : Social History Observation Description Sex Assigned At Unknown Tobacco Use/Smoking Question Answer Notes Patient is a former smoker How long has it been since you last smoked? 6-12 months Alcohol Screen Question Answer Notes Did you have a drink contain ing alcohol in the past year? Yes How often did you have a dri nk containing alcohol in the past year? Monthly or less (1 point) How many drinks did you have on a typical day when you were drinking in the past year? 1 or 2 drinks (0 point) How often did you have 6 or more drinks on one occasion in the past year? Never (0 point) Points 1 Interpretation Negative PROBLEMS Problem Type ICD Code Onset Dates Problem Status W/U Status Risk SNOMED Code Notes Problem Iron deficiency anemia due to chronic blood loss (D50.0) Active confirmed 716261447 Problem Gastroesophageal reflux disease, esophagitis presence not specified (K21.9) Active confirmed 710727102 Problem Colon cancer screening (Z12.11) Active confirmed 094168709 Problem Gastroesophageal reflux disease, unspecified whether esophagitis present (K21.9) Active confirmed 048283380 Problem Gastroesophageal reflux disease without esophagitis (K21.9) Active confirmed [id number] PLAN OF TREATMENT Future Test Test Name Order Date UPPER GI ENDOSCOPY 01/30/2018 COLONOSCOPY 01/30/2018 Insurance Providers Payer Name Payer Address Payer Phone Subscriber Number Group Number Insured Name Patient Relationship to Insured Coverage Start Date Coverage End Date [address] [address] [id number] PATRICIA FLORES Self - patient is the insured MEDICAL (GENERAL) HISTORY Medical History History ICD Code iron deficiency anemia post covid symptoms gastroesophageal reflux disease colonoscopy colonoscopy 03/19/18, karl heller followup type II diabetes Surgical History Surgery Date(Month/Year) tubal ligation uterus fibroids 05/2021
--- OUTSIDE RECORDS SUMMARY | 2024-08-05 12:58 | XMS_ITS | Clinical Summary ---
Author Organization [employer] Address [address] [place] [address] [address] [place] [address] Care Team Providers Care Vice President Sales Name Role Phone Unavailable Primary Care Provider Unavailabl e Allergies No known active allergies Medications atorvastatin (Lipitor) 40 MG tablet Take 40 mg by mouth in the morning. 4 Active cyclobenzaprine (Flexeril) 10 MG tablet TAKE 1 TABLET ORALLY BEDTIME NEEDED FOR MUSCLE SPASM 3 Active ferrous sulfate 325 (65 Fe) MG tablet Take 1 tablet by mouth at bed time. Active ibuprofen 800 MG tablet Take 800 mg by mouth every 8 (eight) hours if needed. 3 Active ketoconazole (NIZOral) 2 % shampoo APPLY TOPICALLY TO THE AFFECTED AREA 2 TIMES A WEEK 3 Active metFORMIN (Glucophage) 500 MG tablet Take 500 mg by mouth with breakfast and with evening meal. 4 Active omeprazole (PriLOSEC) [address] capsule Take 20 mg by mouth in the morning. 3 Active rOPINIRole XL (Requip XL) 2 MG 24 hr tablet Take 2 mg by mouth at bedtime. 3 Active cholecalciferol (Vitamin D-3) 25 MCG (1000 UT) tablet Active ascorbic acid (Vitamin C) 500 MG tablet Active Active Problems Problem Noted Date Diagnosed Date Tipped teeth 07/30/2023 Dental calculus 07/30/2023 Periodontal disease 07/30/2023 Localized gingival recession 07/30/2023 Social History Tobacco Use Types Packs/Day Years Used Date Smoking Tobacco: Former Cigarettes Smokeless Tobacco: Never Tobacco Cessation:Counseling Given: Not Answered Comments Unknown Sex and Gender Information Value Date Recorded Sex Assigned at Female 05/07/2022 10:16 AM EDT Legal Sex Female 10:16 AM EDT Gender Identity Female 05/07/2022 10:16 AM EDT Sexual Orientation Straight 05/07/2022 10 :16 AM EDT Last Filed Vital Signs Vital Sign Reading Time Taken Comments Blood Pressure 130/74 10/02/2023 2:08 PM EDT Pulse 68 10/02/2023 2:08 PM EDT Temperature - - Respiratory Rate - - Oxygen Saturation - - Inhaled Oxygen Concentration - - Weight - - Height - - Body Mass Index - - Plan of Treatment Health Maintenance Due Date Last Done Comments CT Colonography 1967 Colonoscopy 1967 Colorectal Cancer Screening 1967 Depression Screening 1967 FIT DNA/Cologuard 1967 FIT 1967 FOBT 1967 HIV Screening 1967 SDOH Screening 1967 Sigmoidoscopy 1967 Alcohol/Substance Use Screening 1979 Hepatitis C Screening 12/25/1985 DTaP/Tdap/Td Vaccines (1 - Tdap) 12/25/1986 Hepatitis B Vaccines (1 of 3 - 19+ 3-dose series) 12/25/1986 Pap Smear 12/25/1988 Cervical Cancer Screening 12/25/1997 HPV/Cotest 12/25/1997 Mammogram 2007 Dental Oral Exam 01/29/2024 07/30/2023, 09/2021, 11/13/2021, Additional history exists Dental Prophylaxis 01/29/2024 07/30/2023, 1 , 11/13/2021, Additional history exists COVID-19 Vaccine ( season) 2024 04/23/2023, 06/27/2022, 06/25/2021, Additional history exists Influenza Vaccine (#1) 2024 , 05/07/2022, 05/11/2021, Additional history exists Dental X-Ray: Bitewings 07/31/2024 07/30/19 24, 11/13/2021, 09/26/2020, Additional history exists Tobacco Screening 10/01/2024 10/02/2023 Dental X-Ray: Full Mouth 07/31/2026 07/30/2023, 03/10 RSV Patients and Patients Aged 60 years or older (1 - 1-dose 75+ series) 12/25/2042 Pneumococcal Vaccine: Pediatrics (0 to 5 Years) and At-Risk Patients (6 to 49) Years) Aged Out 09/19/2016 No longer eligible based on patient's age to complete this topic Zoster Vaccines Completed 09/04/2023, 06/24/2023 HIB Vaccines Aged Out No longer eligi ble based on patient's age to complete this topic HPV Vaccines Aged Out No longer eligi ble based on patient's age to complete this topic Hepatitis A Vaccines Aged Out No long er eligible based on patient's age to complete this topic IPV Vaccines Aged Out No longer eligi ble based on patient's age to complete this topic Meningococcal Vaccine Aged Out No dung kavin eligible based on patient's age to complete this topic RSV under 20 months Aged Out No longe r eligible based on patient's age to complete this topic Rotavirus Vaccines Aged Out No longer eligible based on patient's age to complete this topic Procedures Procedure Name Priority Date/Time Associated Diagnosis Comments PROPHYLAXIS - ADULT Routine 07/30/2023 1 1:00 AM EST Dental calculus Periodontal disease Localized gingival recession DIAGNOSTIC - DIAGNOSTIC IMAGING - INTRAORAL - COMPREHENSIVE SERIES OF RADIOGRAPHIC IMAGES Routine 07/30/2023 11:00 AM EST Tipped teeth Dental calculus Periodontal disease Localized gingival recession PERIODIC ORAL EVALUATION - ESTABLISHED PATIENT Routine 07/30/2023 11:00 AM EST from Last 3 Months or Most Recently [place] [phone] DENTAL - HSN PARTIAL (MEDICAID)
--- OUTSIDE RECORDS SUMMARY | 2024-08-05 12:58 | XMS_ITS | Encounter Summary ---
Author Organization [employer] Address [address] [facility] [address] [place] [address] Care Team Providers Care Strap Maker Name Role Phone Unavailable Primary Care Provider Unavailabl e Encounter Details Date Type Department Care Team (Latest Contact Info) Description 09/26/2020 Abstract [facility] CONVERSIONS Dental, Provider, DDS Social History Tobacco [...]
--- OUTSIDE RECORDS SUMMARY | 2024-08-05 12:58 | XMS_ITS | Clinical Summary ---
Author Organization [employer] [facility] Address [address] [place] [address] Care Team Providers Care Backroom Associate Name Role Phone Jace Laughlin MD Primary Care Provider [phone] Surgical History Surgery Date Site/Laterality Comments TUBAL LIGATION N/A PROCEDURE: HISTORICAL TUBAL LIGATION SECTION N/A PROCEDURE: HISTORICAL DELIVERY OTHER SURGICAL HISTORY 05/2021 PROCEDURE: UTERINE FIBROID EMBOLIZATION PERQ W/RAD GID; COMMENT: Menorrhagia Medical History Medical History Date Comments Abnormal uterine bleeding (AUB) DX:Abnormal uterine bleeding (AUB) Alcohol abuse DX:Alcohol abuse Anxiety disorder DX:Anxiety diso rder Asthma DX:Asthma Bilateral lower extremity edema DX:Bilateral lower extremity edema Cervical cancer (CMS/HCC) DX:Cer vical cancer (HCC) Complex ovarian cyst DX:Complex ovarian cyst Fibroadenoma of left breast DX:F ibroadenoma of left breast GERD (gastroesophageal reflux disease) DX:GERD (gastroesophageal reflux disease) Hematuria DX:Hematuria Hypercholesteremia DX:Hyperchole steremia Insomnia DX:Insomnia Internal and external hemorr hoids without complication DX:Internal and external hem orrhoids without complication Low back pain DX:Low back pain Major depressive disorder, single episode DX:Major depressive disorder, single episode Migraine DX:Migraine Paresthesia of bilateral legs DX :Paresthesia of bilateral legs Pelvic pain DX:Pelvic pain Pleurisy DX:Pleurisy Right hand paresthesia DX:Right hand paresthesia Skin swelling DX:Skin swelling Uterine fibroid DX:Uterine fibro id Vitamin D deficiency DX:Vitamin D deficiency Family History Medical History Relation Name Comments Other cancer Maternal Grandmother Other: Other Mother Stroke Mother Relation Name Status Comments Father Maternal Grandmother Mother Social History Tobacco Use Types Packs/Day Years Used Date Smoking Tobacco: Former Smokeless Tobacco: Former Alcohol Use Standard Drinks/Week Comments Yes 0 (1 standard drink = 0.6 oz pur e alcohol) Sex and Gender Information Value Date Recorded Sex Assigned at Not on file Gender Identity Not on file Sexual Orientation Not on file Obstetrics History Last Filed Vital Signs Vital Sign Reading Time Taken Comments Blood Pressure - - Pulse - - Temperature - - Respiratory Rate - - Oxygen Saturation - - Inhaled Oxygen Concentration - - Weight 59 kg (130 lb) 07/13/2022 9:17 AM EST Height 152.4 cm (5') 07/13/2022 9:17 AM EST Body Mass Index 25.39 07/13/2022 9:17 AM EST Plan of Treatment Health Maintenance Due Date Last Done Comments Breast Cancer Screening 1967 DTaP,Tdap,and Td Vaccines (1 - Tdap) 12/25/1986 Hepatitis B Vaccines (1 of 3 - 19+ 3-dose series) 12/25/1986 Cervical Cancer Screening: P ap Smear 12/25/1988 Zoster Vaccines (1 of 2) 12/25/2017 Colorectal Cancer Screening: Colonoscopy 06/10/2022 Depression Screening 06/10/2022 HIV Screening 06/10/2022 Hepatitis C Screening 06/10/2022 Social Influencers of Health Screening 06/10/2022 COVID-19 Vaccine (4 - 2023-2 5 season) 2024 06/25/2021, 10/14/2020, 09/16/2020 Influenza Vaccine (#1) 2024 2, 05/11/2021 Pneumococcal Vaccine: Pediatrics (0 to 5 Years) and At-Risk Patients (6 to 64 Years) Aged Out 09/19/2016 No longer eligible b ased on patient's age to complete this topic HIB Vaccines Aged Out No longer eligi [...] on patient's age to complete this topic MMR Vaccines Aged Out No longer eligi ble based on patient's age to complete this topic Meningococcal ACWY Vaccine Aged Out N o longer eligible based on patient's age to complete this topic RSV Immunization Patients Under 20 months Aged Out No longer eligible b ased on patient's age to complete this topic Varicella Vaccines Aged Out No longer eligible based on patient's age to complete this topic Care Teams Backroom Associate Relationship Specialty Start Date End Date Jace Laughlin MD [address] [place] [address] [address] [facility] [place] [address] PCP - General 06/25/22
--- OUTSIDE RECORDS SUMMARY | 2024-08-05 12:58 | XMS_ITS | Encounter Summary ---
Author Organization [employer] Address [address] [facility] [facility] [address] [place] [address] Care Team Providers Care Quilting Machine Operator Name Role Phone Unavailable Primary Care Provider Unavailabl e Encounter Details Date Type Department Care Team (Latest Contact Info) Description 04/06/2019 Abstract [facility] CONVERSIONS Dental, Provider, DDS Social History [...]
== END 2024-08-05 10:51 | disposition home or self-care (01) ==
LOC: HO.MAMMO 10:50
PROVIDERS: PCP Internal Medicine; Visit Provider Internal Medicine
DX: Z12.31 Encounter for screening mammogram for malignant neoplasm of breast (principal)
CPT/HCPCS: 77063; 77067

== ENCOUNTER → 2024-08-05 11:00 | Outpatient (BNV) | payer OTHER, SELFPAY | PROVIDERS: PCP Internal Medicine; Visit Provider Internal Medicine | DX: Z12.31 Encounter for screening mammogram for malignant neoplasm of breast (principal) | CPT/HCPCS: 77063; 77067 ==

== ENCOUNTER 2024-09-03 10:59 | Outpatient (AMB) | payer OTHER, SELFPAY ==
[2024-09-03 11:08] VITALS: BP 162/98; PULSE 76; O2SAT 98; BMI 25.6
--- NOTE | 2024-09-03 11:08 | A.OFFPC_ITS ---
Vital Signs 09/03/24 11:08 Height 5 ft Weight 131 lb BMI 25.6 BP 162/98 H Blood Pressure Location Lt brachial Position Sitting Pulse 76 Pulse Source Pulse Oximeter Pulse Oximetry (%) 98 Oxygen Delivery Method Room Air Intake Visit Reasons: Headache issue Allergies No Known Allergies Allergy (Verified 09/03/24 11:08) Tobacco use date assessed: 09/03/24 Dental Screening Dental Screen Date: 09/03/24 Did you have a dental visit in the last 12 months?: Yes Did you have a dental problem in the last 6 months where you did not have access to dental care?: No Was dental information given to patient?: Patient has dentist HPI Headache issue HPI Details BP at home is good. bilateral plantar pain 2 months PFSH Medical History (Updated 09/03/24 @ 12:32 by Jace Laughlin MD) Iron deficiency anemia Pain of both breasts Leg pain, bilateral Pelvic cramping Hair loss Radicular pain of lumbosacral region PMB (postmenopausal bleeding) Personal history of nicotine dependence History of cervical cancer Frequency of micturition Overweight (BMI 25.0-29.9) Rib pain Hot flashes due to menopause Pleurisy Bilateral lower extremity edema Right hand paresthesia Paresthesia of bilateral legs Hematuria Pelvic pain Generalized anxiety disorder Uterine fibroid Tinnitus LFT elevation Internal and external hemorrhoids without complication COVID-19 virus infection Finger dislocation Migraine Insomnia Major depressive disorder GERD (gastroesophageal reflux disease) Alcohol abuse Asthma Menorrhagia Vitamin D deficiency Hypercholesteremia 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 Son No problems noted. Son No problems noted. Son No problems noted. Daughter No problems noted. Brother No problems noted. Brother No problems noted. Social History Housing: Apartment Alcohol intake: current Alcohol intake frequency: holidays/special occasions only Alcohol type: wine Comment: once a week wine 3 glasses Patient Tobacco Use Status: Former Tobacco user Tobacco use type: Cigarette Years Smoked: former smoker - onset 17yo, 1ppd x 37yrs, 35pyh - quit 2020 e-Cigarette/Vaping Use: Never Used Second Hand Smoke Exposure: No Substance Use Type: Marijuana service: No Current occupational status: unemployed Sexual orientation: Straight/Heterosexual Gender identity: Female Cognitive needs: No Hearing needs: No Vision needs: Yes Female Reproductive History Menstrual Age of Menarche: 14 Questionnaire PHQ-9 Over the last 2 weeks, how often have you been bothered by any of the following problems? 1. Little interest or pleasure in doing things: several days 2. Feeling down, depressed, or hopeless: more than half the days 3. Trouble falling or staying asleep, or sleeping too much: more than half the days 4. Feeling tired or having little energy: not at all 5. Poor appetite or overeating: not at all 6. Feeling bad about yourself - or that you are a failure or have let yourself or your family down: not at all 7. Trouble concentrating on things, such as reading the newspaper or watching television: not at all 8. Moving or speaking so slowly that other people could have noticed. Or the opposite - being so fidgety or restless that you have been moving around a lot more than usual: not at all 9. Thoughts that you would be better off or of hurting yourself in some way: not at all Total score: 5 Depression Screening Interpretation: Negative Depression Screening Done: Yes Source: Developed by Drs. Mark Norman, Kelsey Amin, Dean Ziegler and colleagues, with an educational kael from [employer]. Thrive Questionnaire Date Thrive assessed: 09/03/24 I am a: Patient What is your living situation today?: I have a steady place to live Within the past 12 months, did the food you bought not last and you didn't have the money to get more?: Never true Within the past 12 months, did you worry whether your food would run out before you got money to buy more?: Never true Do you have trouble paying for medicines?: No Do you have trouble getting transportation to medical appointments?: No Do you have trouble paying your heating and electricity bill?: No Do you have trouble taking care of your child, family member or friend?: No Do you have trouble with day-to-day activities such as bathing, preparing meals, shopping, managing finances, etc.?: No Are you currently unemployed and looking for a job?: Yes Are you interested in more education?: No Currently or been in a relationship where the following occur: No concerns reported THRIVE Score: 0 AUDIT C Alcohol Use Questionnaire (AUDIT-C) 1. How often do you have a drink containing alcohol?: Monthly or less 2. How many drinks containing alcohol do you have on a typical day when you are drinking?: 1 or 2 3. How often do you have six or more drinks on one occasion?: Never Total Score: 1 Score Reviewed/Action Taken: No DANNY-7 AMB Questionnaire DANNY-7 Date DANNY - 7 assessed: 09/03/24 Feeling nervous, anxious, or on edge: 0 = Not at all Not being able to stop or control worryin = Not at all Worrying too much about different things: 0 = Not at all Trouble relaxin = Not at all Being so restless that it is hard to sit still: 0 = Not at all Becoming easily annoyed or irritable: 0 = Not at all Feeling afraid as if something awful might happen: 0 = Not at all Total DANNY-7 score (0-4 normal; 5-9 mild; 10-14 moderate; 15-21 severe): 0 Source: Developed by Drs. Mark Norman, Kelsey Amni, Dean Ziegler and colleagues, with an educational kael from [employer]. Physical exam (Primary Care) Vital Signs: Last Vital Signs Pulse 76 09/03/24 11:08 BP 162/98 H 09/03/24 11:08 Pulse Ox 98 09/03/24 11:08 Oxygen Delivery Method Room Air 09/03/24 11:08 BMI result Body Mass Index 25.6 Tobacco/Smoking Status: Tobacco use Status Tobacco use date assessed 09/03/24 09/03/24 11:10 Patient Tobacco Use Status Former Tobacco user 09/03/24 11:10 Tobacco use type Cigarette 09/03/24 11:10 e-Cigarette/Vaping Use Never Used 09/03/24 11:10 PHQ-9: PHQ-9 Score PHQ-9: Total score 5 09/03/24 13:06 Depression Screening Interpretation: Negative Thrive Assessment: Date of Thrive Assessment Date Thrive assessed 09/03/24 09/03/24 11:10 Currently or been in a relationship where the following occur: No concerns reported Const General: alert; No acute distress Eyes Conjunctivae: conjunctivae normal Resp Auscultation: clear to auscultation bilaterally Cardio Rate: regular rate Rhythm: regular rhythm GI Inspection: Yes normal to inspection Extrem General: Yes normal to inspection and No edema Results AMB Hemoglobin A1c AMB Hemoglobin A1c 6.1 % Last Edit by Ruby Jenkins CMA on 09/03/24 11 :51 AMB Urinalysis Dipstick UR Leukocytes Large Last Edit by JORGE Valerio on 09/03/24 13:08 UR Nitrite Negative Last Edit by JORGE Valerio on 09/03/24 13:08 UR Urobilinogen Normal Last Edit by JORGE Valerio on 09/03/24 13:08 UR Protein Trace Last Edit by JORGE Valerio on 09/03/24 13:08 UR Ph 5.0 Last Edit by JORGE Valerio on 09/03/24 13:08 UR Blood Negative Last Edit by JORGE Valerio on 09/03/24 13:08 UR Specific [place] 1.030 Last Edit by JORGE Valerio on 09/03/24 13:08 UR Ketone Negative Last Edit by JORGE Valerio on 09/03/24 13:08 UR Bilirubin Negative Last Edit by JORGE Valerio on 09/03/24 13:08 UR Glucose Negative Last Edit by JORGE Valerio on 09/03/24 13:08 Results Reviewed Results Reviewed: Laboratory Last Values Hgb A1c (Clinic) 6.1 % (4.0-6.0) H 09/03/24 11:08 Urine pH (Clinic) 5.0 09/03/24 13:07 Specific [place] (Clinic) 1.030 09/03/24 13:07 Ur Protein (Clinic) Trace 09/03/24 13:07 Ur Ketones (Clinic) Negative 09/03/24 13:07 Urine Blood (Clinic) Negative 09/03/24 13:07 Urine Nitrite Negative 09/03/24 13:07 Urine Bilirubin (Clinic) Negative 09/03/24 13:07 Urobilinogen (Clinic) Normal 09/03/24 13:07 Leukocyte Esterase (Clinic) Large 09/03/24 13:07 Urine Glucose (Clinic) Negative 09/03/24 13:07 Coding Level of Care Code Est Pt Level 4 (83082) Complex EM visit Add On G2211 Diagnoses Type 2 diabetes mellitus with hyperglycemia, without long-term current use of insulin E11.65 Diabetes mellitus group home insulin use: without longitudinal float operator use Hypercholesteremia E78.00 Mild intermittent asthma without complication J45.20 Asthma complication type: uncomplicated Asthma persistence: intermittent Asthma severity: mild Gastroesophageal reflux disease without esophagitis K21.9 Esophagitis presence: without esophagitis Varicose veins of right lower extremity with inflammation I83.11 Foul smelling urine R82.90 Bilateral hand numbness R20.0 Plantar fasciitis, bilateral M72.2 Assessment & Plan Assessment & Plan (1) Type 2 diabetes mellitus with hyperglycemia: Comment: A1c at 5.8% on 01/2024 Code(s): E11.65 - Type 2 diabetes mellitus with hyperglycemia Category: Medical Qualifiers: Diabetes mellitus group home insulin use: without group home use Qualified Code(s): E11.65 - Type 2 diabetes mellitus with hyperglycemia Plan: Decrease the amount of carbohydrate intake, pasta, bread, rice and potatoes are all sugar and that is aside from all the sweet stuff, remember that fruits are good but they are Sweet also. Hemoglobin A1c goal of less than 6.5 patient on metformin 500 mg twice a day (2) Hypercholesteremia: Code(s): E78.00 - Pure hypercholesterolemia, unspecified Category: Medical Plan: Avoid fried foods, chicken skin, eggs, butter margarine, pastries and meat. Be it pork or beef they have a lot of cholesterol Laurie blood work LDL goal of less than 100 and triglyceride of less than 150 on atorvastatin 40 mg once a day (3) Asthma: Code(s): J45.909 - Unspecified asthma, uncomplicated Category: Medical Qualifiers: Asthma complication type: uncomplicated Asthma persistence: intermittent Asthma severity: mild Qualified Code(s): J45.20 - Mild intermittent asthma, uncomplicated Plan: Patient has been stable (4) GERD (gastroesophageal reflux disease): Code(s): K21.9 - Gastro-esophageal reflux disease without esophagitis Category: Medical Qualifiers: Esophagitis presence: without esophagitis Qualified Code(s): K21.9 - Gastro-esophageal reflux disease without esophagitis Plan: Avoid the foods that causes that usually spicy foods, tomato products, juices, coffee, soda and foods that your sensitive to. After eating do not lie down, allow 3-4 hours before in lie down. And keep the head of bed above 30 degrees to avoid the acid from going up. (5) Varicose veins of right lower extremity with inflammation: Code(s): I83.11 - Varicose veins of right lower extremity with inflammation Category: Medical Plan: When sitting down elevate the legs, exercise, and support stockings (6) Foul smelling urine: Code(s): R82.90 - Unspecified abnormal findings in urine Category: Medical (7) Bilateral hand numbness: Code(s): R20.0 - Anesthesia of skin Category: Medical (8) Plantar fasciitis, bilateral: Code(s): M72.2 - Plantar fascial fibromatosis Category: Medical Plan: information given Plan History of Present Illness The patient is a 58-year-old female presenting with a follow-up for multiple chronic conditions and issues related to plantar fasciitis, insomnia, and management of varicose veins. She reports bilateral plantar fasciitis with greater pain in the left foot persisting for several months. Identified interventions involve non-pharmacological measures such as exercises and gel inserts for symptomatic relief. Regarding her insomnia, initial challenges with trazodone leading to nightmares and incomplete sleep were addressed with advice on medication dose adjustments. Concurrent emotional symptoms include daily tears and anxiety, for which trazodone is also prescribed. She reports hair thinning linked to stress, with routine thyroid function tests previously showing no abnormalities. Blurred vision and floaters persist, with an appointment for ophthalmology evaluation pending. The patient's history also reveals a past incidence of upper respiratory infection with cleared chest X-ray findings. Additionally, cardiovascular monitoring under existing conditions highlights successful cholesterol management with atorvastatin. Evaluation of varicose veins with a venous reflux study has confirmed varicose veins on the right calf, leading to advice for compression therapy. Health Maintenance - Mammogram current as of July 2024 - Colonoscopy last performed in 2018 - Internal monitoring of hemoglobin A1c with noted level at 6.1 - Lipid management shows LDL of 78, aligned with goal markers - Surveillance of renal function and electrolytes maintained within normal limits - Regular blood counts displaying no signs of anemia - Thyroid function tests normal as of January 2024 - Cardiology assessment performed in April 2024 Social History - Previous smoking history ceased in 2019 - History of alcohol misuse acknowledged - High activity level, employed in a standing role contributing to plantar fasciitis onset - Recent stressors contributing to telogen effluvium and related emotional fluctuations Review of Systems - Dermatological: Reports hair thinning. - Ophthalmological: Reports blurry vision and floaters; denies photophobia and reported advanced night blindness. - Psychological: Reports insomnia with nightmares; daily emotional distress. - Musculoskeletal: Reports bilateral heel pain. - Vascular: Reports pain associated with varicose veins. - Pulmonary: Denies acute shortness of breath beyond known emphysema diagnosis. Physical Exam - Musculoskeletal- Tenderness and visible varicose veins observed on right calf. Results - Labs: Renal function normal, electrolytes within normal range, hemoglobin A1c at 6.1, LDL at 78 as of recent tests. - Imaging: Chest CAT scan from May 2024 showing mild emphysema. Plan Management of the patient's multiple chronic conditions remains stable with diabetes and hypercholesterolemia effectively controlled under current treatment regimens. Initial conservative management of plantar fasciitis is underway while monitoring for future intervention needs. Insomnia continues to be addressed by adjusting existing trazodone therapy, being mindful of reported nightmares and sleep disturbances. A comprehensive management plan for varicose veins emphasizes compression therapy post-positive venous reflux study. Blurred vision's follow-up with ophthalmology is recommended, particularly considering reported floaters. Exploration of biotin supplementation for hair religious is discussed as a potential non-pharmacologic treatment option to mitigate stress- exacerbated hair thinning. Patient was informed and verbally consented to the use of an ambient scribe for clinic note documentation during this visit. Discussion Notes During this visit, discussions highlighted the effective management of diabetes and hypercholesterolemia noted under prescribed medications with current monitoring through laboratory values. The patient's plantar fasciitis management involves initial conservative measures, with counselor/art therapist extended on exercises and gel inserts as practical interventions. Insomnia management encapsulated in incremental trazodone dosage discussions, alongside the acknowledgment of its dual role in addressing anxiety symptoms prevalent in the patient's daily life. Varicose vein management reaffirms compression stocking use post-venous reflux positive studies. Further evaluation for blurry vision, particularly floaters, was recommended under future ophthalmology review. Stress-related telogen effluvium was discussed with biotin use suggested to promote hair growth and mitigate thinning concerns. Patient Instructions - Continue current medications for diabetes and hypercholesterolemia as prescribed. - Implement recommended exercises and consider soft gel insoles for plantar fasciitis. - Monitor response to trazodone for insomnia and anxiety; report any continued adverse effects. - Use compression stockings as instructed for varicose veins management. - Schedule ophthalmology examination for blurry vision assessment. - Consider [id number] biotin supplementation if desired. - Monitor for any new or worsening symptoms and report promptly. Orders: Orders AMB Hemoglobin A1c Today Z13.9 - Encounter for screening, unspecified NE electromyogram (EMG) Today R20.0 - Anesthesia of skin AMB Urinalysis Automated Today R82.90 - Unspecified abnormal findings in urine, Z13.9 - Encounter for screening, unspecified NE nerve conduction velocity Today R20.0 - Anesthesia of skin AMB Urinalysis Dipstick Today R30.0 - Dysuria Medications: Discontinued meloxicam Discontinued Reason: Doctor's Order 15 mg PO DAILY 14 tabs 0RF M47.816 - Spondylosis without myelopathy or radiculopathy, lumbar region trazodone Discontinued Reason: Doctor's Order 50 mg PO BEDTIME PRN 90 tabs 2RF sleep G47.00 - Insomnia, unspecified
--- OUTSIDE RECORDS SUMMARY | 2024-09-03 13:08 | XMS_ITS | Encounter Summary ---
Author Organization [employer] Address [address] [place] [address] Care Team Providers Care Lath Tier Name Role Phone Unavailable Primary Care Provider Unavailabl e Encounter Details Date Type Department Care Team (Latest Contact Info) Description 04/06/2019 Abstract [facility] CONVERSIONS Dental, Provider, DDS Social History Tobacco [...]
--- OUTSIDE RECORDS SUMMARY | 2024-09-03 13:08 | XMS_ITS | Encounter Summary ---
Author Organization [employer] Address [address] [address] [place] [address] Care Team Providers Care Events Solutions Consultant Name Role Phone Unavailable Primary Care Provider Unavailabl e Encounter Details Date Type Department Care Team (Latest Contact Info) Description 11/13/2021 Abstract [facility] CONVERSIONS Dental, Provider, DDS Social History [...]
--- OUTSIDE RECORDS SUMMARY | 2024-09-03 13:08 | XMS_ITS | Clinical Summary ---
Author Organization [facility] Address [address] [place] [address] Care Team Providers Care Terminal Supervisor Name Role Phone Jace Laughlin MD Primary Care Provider [phone] Surgical History Surgery Date Site/Laterality Comments TUBAL [...] drink = 0.6 oz pur e alcohol) Comments Unknown Sex and Gender Information Value Date Recorded Sex Assigned at Not on file Legal Sex Female 5:37 AM EST Gender Identity Not on file Sexual Orientation [...] Cervical Cancer Screening: P ap Smear 12/25/1988 Pneumococcal Vaccine: 50+ Years (2 of 2 - PCV) 12/25/2017 09/19/2016 Zoster Vaccines (1 of 2) 12/25/2017 Colorectal [...] patient's age to complete this topic Meningococcal B Vacine Aged Out No lo nger eligible based on patient's age to complete this topic RSV Immunization Patients Under 20 months Aged Out No longer eligible b ased on patient's age to complete this topic Varicella Vaccines Aged Out No longer eligible based on patient's age to complete this topic Care Teams Terminal Supervisor Relationship Specialty Start Date End Date Jace Laughlin MD [address] [place] [address] [address] [facility] [place] [address] PCP - General 06/25/22
--- OUTSIDE RECORDS SUMMARY | 2024-09-03 13:08 | XMS_ITS | Encounter Summary ---
Author Organization [employer] Address [address] [place] [address] Care Team Providers Care It Operations Manager Name Role Phone Unavailable Primary Care Provider Unavailabl e Encounter Details Date Type Department Care Team (Latest Contact Info) Description 09/26/2020 Abstract [facility] CONVERSIONS Dental, Provider, DDS Social History Tobacco [...]
--- OUTSIDE RECORDS SUMMARY | 2024-09-03 13:08 | XMS_ITS | Patient Health Record ---
Author Organization [facility] Address [address] [place] [address] Care Team Providers Care Egg Pasteurizer Name Role Phone Jace Laughlin MD Primary [...] W/U Status Risk SNOMED Code Notes Problem Colon cancer screening (Z12.11) Active confirmed 043131100 Problem Gastroesophageal reflux disease without esophagitis (K21.9) Active confirmed 066135813 Problem Gastroesophageal reflux disease, esophagitis presence not specified (K21.9) Active confirmed 431928150 Problem Iron deficiency anemia due to chronic blood loss (D50.0) Active confirmed 140044542 Problem Gastroesophageal reflux disease, unspecified whether esophagitis present (K21.9) Active confirmed 606201421 PLAN OF TREATMENT Future Test Test Name Order Date UPPER GI ENDOSCOPY 01/30/2018 COLONOSCOPY 01/30/2018 Insurance Providers Payer Name Payer Address Payer Phone Subscriber Number Group Number Insured Name Patient Relationship to Insured Coverage Start Date Coverage End Date [address] [address] [id number] PATRICIA FLORES Self - patient is the insured MEDICAL (GENERAL) HISTORY Medical History History ICD Code iron deficiency anemia post covid symptoms gastroesophageal reflux disease colonoscopy colonoscopy 03/19/18, karl heller followup type II diabetes Surgical History Surgery Date(Month/Year) tubal ligation uterus fibroids 05/2021
--- OUTSIDE RECORDS SUMMARY | 2024-09-03 13:08 | XMS_ITS | Clinical Summary ---
Author Organization [employer] Address [address] [place] [address] [address] [place] [address] Care Team Providers Care Supervisor Machining Name Role Phone Unavailable Primary Care Provider [...] Cancer Screening 12/25/1997 HPV/Cotest 12/25/1997 Mammogram 2007 Pneumococcal Vaccine: 50+ Years (2 of 2 - PCV) 12/25/2017 09/19/2016 Dental Oral Exam 01/29/2024 07/30/2023, 09/2021, 11/13/2021, Additional history exists Dental Prophylaxis 01/29/2024 07/30/2023, 1 , 11/13/2021, Additional history exists COVID-19 Vaccine (2023- season) 2024 04/23/2023, 06/27/2022, 06/25/2021, Additional history [...] Dental calculus Periodontal disease Localized gingival recession INTRAORAL - COMPLETE SERIES OF RADIOGRAPHIC IMAGES Routine 07/30/2023 11:00 AM EST Tipped teeth Dental calculus Periodontal disease Localized gingival recession PERIODIC ORAL EVALUATION - ESTABLISHED PATIENT Routine 07/30/2023 11:00 AM EST from Last 3 Months or Most Recently Relevant to Health Maintenance Insurance DENTAL - HSN PARTIAL (MEDICAID)
== END 2024-09-03 12:45 | disposition home or self-care (01) ==
PROVIDERS: PCP Internal Medicine; Visit Provider Internal Medicine
DX: E11.65 Type 2 diabetes mellitus with hyperglycemia (principal); E78.00 Pure hypercholesterolemia, unspecified; J45.20 Mild intermittent asthma, uncomplicated; K21.9 Gastro-esophageal reflux disease without esophagitis; I83.11 Varicose veins of right lower extremity with inflammation; R82.90 Unspecified abnormal findings in urine; R20.0 Anesthesia of skin; M72.2 Plantar fascial fibromatosis; R30.0 Dysuria; Z13.9 Encounter for screening, unspecified

== ENCOUNTER → 2024-09-03 10:59 | Outpatient (BNVA) | payer OTHER, SELFPAY | PROVIDERS: PCP Internal Medicine; Visit Provider Internal Medicine | DX: E11.65 Type 2 diabetes mellitus with hyperglycemia (principal); E78.00 Pure hypercholesterolemia, unspecified; J45.20 Mild intermittent asthma, uncomplicated; K21.9 Gastro-esophageal reflux disease without esophagitis; I83.11 Varicose veins of right lower extremity with inflammation; R82.90 Unspecified abnormal findings in urine; R20.0 Anesthesia of skin; M72.2 Plantar fascial fibromatosis | CPT/HCPCS: 81002; 83036; 99212 ==

== ENCOUNTER 2024-10-21 10:02 | Outpatient (REF) | payer OTHER, SELFPAY ==
--- NOTE | 2024-10-21 10:09 | EMG_ITS ---
Chief complaint: Nighttime hand numbness, left worse than right, complaining left shoulder pain, denies neck pain, history of diabetes Reason for referral: Evaluate for Carpal Tunnel Syndrome Referred by: Dr. Laughlin Procedure done: Bilateral upper extremities NCS/EMG Precautions and/or limitations: None The limb temperature was monitored continuously and remained between 32-36 degrees C during the performance of the NCS. Nerve Conduction Studies Anti Sensory Summary Table ?Stim Site NR Onset (ms) Norm Onset (ms) Peak (ms) Norm Peak (ms) O-P Amp (?V) Norm O-P Amp Site1 Site2 Delta-0 (ms) Dist (cm) Pedro (m/s) Norm Pedro (m/s) Left Median Anti Sensory (2nd Digit) Wrist ? 2.3 3.1 <3.6 65.2 >10 Wrist 2nd Digit 2.3 14.0 61 Right Median Anti Sensory (2nd Digit) Wrist ? 2.6 3.3 <3.6 16.7 >10 Wrist 2nd Digit 2.6 14.0 54 Left Ulnar Anti Sensory (5th Digit) Wrist ? 2.1 2.8 <3.7 49.7 >15.0 Wrist 5th Digit 2.1 14.0 67 Right Ulnar Anti Sensory (5th Digit) Wrist ? 2.2 3.0 <3.7 32.7 >15.0 Wrist 5th Digit 2.2 14.0 64 Motor Summary Table ?Stim Site NR Onset (ms) Norm Onset (ms) O-P Amp (mV) Norm O-P Amp iAmp (mV) Amp (1st) (%) Site1 Site2 Delta-0 (ms) Dist (cm) Pedro (m/s) Norm Pedro (m/s) Left Median Motor (Abd Poll Brev) Wrist ? 3.1 <3.9 8.8 >4.5 10.0 100.0 Elbow Wrist 3.1 16.0 52 >45 Elbow ? 6.2 7.3 8.4 83.0 Right Median Motor (Abd Poll Brev) Wrist ? 3.4 <3.9 5.8 >4.5 7.2 100.0 Elbow Wrist 2.2 16.0 73 >45 Elbow ? 5.6 5.3 6.9 91.4 Left Ulnar Motor (Abd Dig Minimi) Wrist ? 2.7 <3.0 8.4 >5 9.5 100.0 B Elbow Wrist 2.5 14.5 58 >45 B Elbow ? 5.2 8.4 9.6 100.0 A Elbow B Elbow 1.4 10.0 71 >45 A Elbow ? 6.6 8.2 9.4 97.6 Right Ulnar Motor (Abd Dig Minimi) Wrist ? 2.8 <3.0 11.5 >5 12.6 100.0 B Elbow Wrist 2.7 15.0 56 >45 B Elbow ? 5.5 10.9 12.1 94.8 A Elbow B Elbow 1.4 10.0 71 >45 A Elbow ? 6.9 10.5 11.6 91.3 Comparison Summary Table ?Stim Site NR Peak (ms) Norm Peak (ms) P-T Amp (?V) Site1 Site2 Delta-P (ms) Norm Delta (ms) Left Median/Radial Dig I Comparison (Digit 1 - 10cm) Median ? 2.8 <2.9 83.0 Median Radial 0.0 Radial ? 2.8 <2.8 52.6 EMG ?Side Muscle Nerve Root Ins Act Fibs Psw Amp Dur Poly Recrt Int Pat Comment Right 1stDorInt Ulnar C8-T1 Nml Nml Nml Nml Nml 0 Nml Complete Right FlexCarRad Median C6-7 Nml Nml Nml Nml Nml 0 Nml Complete Right Biceps Musculocut C5-6 Nml Nml Nml Nml Nml 0 Nml Complete Right Triceps Radial C6-7-8 Nml Nml Nml Nml Nml 0 Nml Complete Right Deltoid Axillary C5-6 Nml Nml Nml Nml Nml 0 Nml Complete Left 1stDorInt Ulnar C8-T1 Nml Nml Nml Nml Nml 0 Nml Complete Left FlexCarRad Median C6-7 Nml Nml Nml Nml Nml 0 Nml Complete Left Biceps Musculocut C5-6 Nml Nml Nml Nml Nml 0 Nml Complete Left Triceps Radial C6-7-8 Nml Nml Nml Nml Nml 0 Nml Complete Left Deltoid Axillary C5-6 Nml Nml Nml Nml Nml 0 Nml Complete FINDINGS: All motor and sensory nerves tested showed normal latencies, amplitudes and conduction velocities. Concentric needle EMG was performed in selected muscles of the bilateral upper extremities. Study did not reveal signs of electric abnormalities as shown in the table above. IMPRESSION: 1. This is a normal study. 2. There is no electrodiagnostic evidence for median neuropathy, ulnar neuropathy, brachial plexopathy, or cervical radiculopathy. Thank you for your kind referral. Shabana Alanis MD, ADDIE Board Certified, [place] Board of Physical Medicine and Rehabilitation (ABPMR) Board Certified, [place] Board of Electrodiagnostic Medicine (ABEM) CODIN [phone] x 2 MTDD
--- OUTSIDE RECORDS SUMMARY | 2024-10-21 11:33 | XMS_ITS | Encounter Summary ---
Author Organization [employer] Address [address] [facility] [address] [place] [address] Care Team Providers Care Hand Reamer Name Role Phone Unavailable Primary Care Provider Unavailabl e Encounter Details Date Type Department Care Team (Latest Contact Info) Description 04/06/2019 Abstract [facility] CONVERSIONS Dental, Provider, DDS Social History Tobacco Use Types Packs/Day Years Used Date Smoking Tobacco: Never Assessed Comments Unknown Sex and Gender Information Value Date Recorded Sex Assigned at Female 05/07/2022 10:16 AM EDT Legal Sex Female 10:16 AM EDT Gender Identity Female 05/07/2022 10:16 AM EDT Sexual Orientation Straight 05/07/2022 10 :16 AM EDT documented as of this encounter Plan of Treatment Upcoming Encounters Date Type Department Care Team (Late st Contact Info) Description 02/26/2025 8:00 AM EDT Office Visit [facility] ADULT DENTAL [address] [place] [address] Luciana Menon [address] [place] [address] documented as of this encounter Visit Diagnoses Not on filedocumented in this encounter
--- OUTSIDE RECORDS SUMMARY | 2024-10-21 11:33 | XMS_ITS | Clinical Summary ---
Author Organization [facility] [employer] [facility] Address [address] [place] [address] Care Team Providers Care Clothing Man Name Role Phone Jace Laughlin MD Primary Care Provider [phone] Surgical History Surgery Date Site/Laterality Comments TUBAL [...] edema DX:Bilateral lower extremity edema Cervical cancer (CMS/HCC V24, CMS/HCC V28) DX:Cervical cancer (HCC) Complex ovarian cyst DX:Complex ovarian [...] [employer]ers of Health Screening 06/10/2022 COVID-19 Vaccine ( - 2023-2 5 season) 2024 06/25/2021, 10/14/2020, 09/16/2020 Influenza Vaccine (Season Ended) 2025 05/07/2022, 05/11/2021 Pneumococcal Vaccine: Pediatrics (0 to 5 [...] age to complete this topic Meningococcal B Vaccine Aged Out No l onger eligible based on patient's age to complete this topic RSV Immunization Patients Under 20 months Aged Out No longer eligible b ased on patient's age to complete this topic Varicella Vaccines Aged Out No longer eligible based on patient's age to complete this topic Care Teams Clothing Man Relationship Specialty Start Date End Date Jace Laughlin MD [address] [place] [address] [address] [facility] [place] [address] PCP - General 06/25/22
--- OUTSIDE RECORDS SUMMARY | 2024-10-21 11:33 | XMS_ITS | Clinical Summary ---
Author Organization [employer] Address [address] [place] [address] [address] [place] [address] Care Team Providers Care Wire Mill Rover Name Role Phone Unavailable Primary Care Provider [...] Mass Index - - Plan of Treatment Upcoming Encounters Date Type Department Care Team (Late st Contact Info) Description 02/26/2025 8:00 AM EDT Office Visit [facility] ADULT DENTAL [address] [place] [address] Sinan, Luciana [address] [place] [address] Health Maintenance Due Date Last Done Comments CT Colonography 1967 Colonoscopy 1967 Colorectal Cancer Screening 1967 Depression Screening 1967 FIT DNA/Cologuard 1967 FIT 1967 FOBT 1967 HIV Screening 1967 SDOH Screening 1967 Sigmoidoscopy 1967 Alcohol/Substance Use Screening 1979 Hepatitis C Screening 12/25/1985 Hepatitis B Vaccines (1 of 3 - 19+ 3-dose series) 12/25/1986 Pap Smear 12/25/1988 Cervical Cancer Screening 12/25/1997 HPV/Cotest 12/25/1997 Mammogram 2007 Pneumococcal Vaccine: 50+ Years (2 of 2 - PCV) 12/25/2017 09/19/2016 Dental Oral Exam 01/29/2024 07/30/2023, 09/2021, 11/13/2021, Additional history exists Dental Prophylaxis 01/29/2024 07/30/2023, 1 , 11/13/2021, Additional history exists Dental X-Ray: Bitewings 07/31/2024 07/30/19, 11/13/2021, 09/26/2020, Additional history exists Tobacco Screening 10/01/2024 10/02/2023 Dental X-Ray: Full Mouth 07/31/2026 07/30/2023, 03/10 DTaP/Tdap/Td Vaccines (2 - Td or Tdap) 09/07/2034 09/07/2024 RSV Patients and Patients Aged 60 years or older (1 - 1-dose 75+ series) 12/25/2042 Zoster Vaccines Completed 09/04/2023, 06/24/2023 Influenza Vaccine Completed 04/08/2024, , 05/07/2022, Additional history exists COVID-19 Vaccine Completed 09/07/2024, , 06/27/2022, Additional history exists HIB Vaccines Aged Out No longer eligi [...]
--- OUTSIDE RECORDS SUMMARY | 2024-10-21 11:33 | XMS_ITS | Encounter Summary ---
Author Organization [employer] Address [address] [facility] [address] [place] [address] Care Team Providers Care Solid Fiber Paster Operator Name Role Phone Unavailable Primary Care Provider Unavailabl e Encounter Details Date Type Department Care Team (Latest Contact Info) Description 09/26/2020 Abstract [facility] CONVERSIONS Dental, Provider, DDS Social [...] Upcoming Encounters Date Type Department Care Team ( st Contact Info) Description 02/26/2025 8:00 AM EDT Office Visit [facility] ADULT DENTAL [address] [place] [address] Jaylon Menonaris [address] [place] [address] documented as of this encounter Visit Diagnoses Not on filedocumented in this encounter
--- OUTSIDE RECORDS SUMMARY | 2024-10-21 11:33 | XMS_ITS | Encounter Summary ---
Author Organization [employer] Address [address] [facility] [address] [place] [address] Care Team Providers Care Manager Photography Name Role Phone Unavailable Primary Care Provider Unavailabl e Encounter Details Date Type Department Care Team (Latest Contact Info) Description 11/13/2021 Abstract [facility] CONVERSIONS Dental, [...] Description 02/26/2025 8:00 AM EDT Office Visit [facility] ADULT DENTAL [address] [place] [address] Jaylon Menonaris [address] [place] [address] documented as of this encounter Visit Diagnoses Not on filedocumented in this encounter
== END 2024-10-21 10:03 | disposition home or self-care (01) ==
LOC: HO.NEURO 10:02
PROVIDERS: PCP Internal Medicine; Visit Provider Internal Medicine
DX: R20.0 Anesthesia of skin (principal)
CPT/HCPCS: 95860; 95886; 95911

== ENCOUNTER → 2024-10-21 10:09 | Outpatient (BNV) | payer OTHER, SELFPAY | PROVIDERS: PCP Internal Medicine; Visit Provider Physical Medicine & Rehabilitation | DX: R20.0 Anesthesia of skin (principal); R20.2 Paresthesia of skin; M25.512 Pain in left shoulder | CPT/HCPCS: 95886; 95911 ==

== ENCOUNTER 2024-10-29 09:12 | Outpatient (AMB) | payer OTHER, SELFPAY ==
--- NOTE | 2024-10-29 09:21 | A.OFFVIS_ITS ---
Intake Visit Reasons: US follow up Automatic Folder Seamer: Automatic Folder Seamer Present (Stephanie) Accompanied by: Self / Same As Patient Allergies No Known Allergies Allergy (Verified 10/29/24 09:21) HPI Comments Details: Presenting for ultrasound follow-up no complaints no vaginal bleeding or any other concerns. Pelvic ultrasound done in 04/30 showed the following: Uterus: The uterus is anteverted and measures 8.4 x 4.4 x 5.7 cm. The double wall endometrial thickness is 3 mm. The uterus is smooth in contour and has normal myometrial echogenicity. Tiny subcentimeter fibroid is seen, unchanged. And IUD is present within the endometrial cavity good position. A small amount of fluid is seen in the endometrial canal Adnexa: Both ovaries are visualized. There is normal color flow to the adnexa. There is no ovarian torsion. There is no pelvic ascites or fluid collection. Right ovary measures 2.7 x 1.0 x 2.5 cm. Left ovary measures 2.5 x 1.0 x 2.2 cm. Previously seen benign simple 1.3 cm left ovarian cyst (which need no follow-up) is no longer seen. [facility] Medical History (Updated 09/03/24 @ 12:32 by Jace Laughlin MD) Iron deficiency anemia Pain of both breasts Leg pain, bilateral Pelvic cramping Hair loss Radicular pain of lumbosacral region PMB (postmenopausal bleeding) Personal history of nicotine dependence History of cervical cancer Frequency of micturition Overweight (BMI 25.0-29.9) Rib pain Hot flashes due to menopause Pleurisy Bilateral lower extremity edema Right hand paresthesia Paresthesia of bilateral legs Hematuria Pelvic pain Generalized anxiety disorder Uterine fibroid Tinnitus LFT elevation Internal and external hemorrhoids without complication COVID-19 virus infection Finger dislocation Migraine Insomnia Major depressive disorder GERD (gastroesophageal reflux disease) Alcohol abuse Asthma Menorrhagia Vitamin D deficiency Hypercholesteremia 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 Son No problems noted. Son No problems noted. Son No problems noted. Daughter No problems noted. Brother No problems noted. Brother No problems noted. Social History Housing: Apartment Alcohol intake: current Alcohol intake frequency: holidays/special occasions only Alcohol type: wine Comment: once a week wine 3 glasses Patient Tobacco Use Status: Former Tobacco user Tobacco use type: Cigarette Years Smoked: former smoker - onset 17yo, 1ppd x 37yrs, 35pyh - quit 2020 e-Cigarette/Vaping Use: Never Used Second Hand Smoke Exposure: No Substance Use Type: Marijuana service: No Current occupational status: unemployed Sexual orientation: Straight/Heterosexual Gender identity: Female Cognitive needs: No Hearing needs: No Vision needs: Yes Female Reproductive History Menstrual Age of Menarche: 14 Review of Systems Const All systems reviewed & are unremarkable except as noted in HPI and below Reports as per HPI and Reports no additional complaints GI Reports no additional complaints Reports no additional complaints Assessment & Plan Assessment & Plan (1) Ovarian cyst: Code(s): N83.209 - Unspecified ovarian cyst, unspecified side Category: Medical Plan: Discussed with the patient ultrasound findings showing the previously identified ovarian cyst has resolved. The patient was instructed to call if vaginal bleeding occurs will proceed with endometrial biopsy to rule out endometrial pathology including endometrial hyperplasia and/or malignancy All questions were answered the patient verbalized understanding. Coding Level of Care Code Est Pt Level 3 (81905) Diagnoses Ovarian cyst N83.209
--- OUTSIDE RECORDS SUMMARY | 2024-10-29 09:59 | XMS_ITS | Clinical Summary ---
Author Organization [employer] [facility] Address [address] [place] [address] Care Team Providers Care Storage Wharfage Clerk Name Role Phone Jace Laughlin MD Primary Care Provider [phone] Surgical History Surgery Date Site/Laterality Comments TUBAL [...] age to complete this topic Care Teams Storage Wharfage Clerk Relationship Specialty Start Date End Date Jace Laughlin MD [address] [place] [address] [address] [facility] [place] [address] PCP - General 06/25/22
== END 2024-10-29 09:28 | disposition home or self-care (01) ==
LOC: HO.HWS 09:12
PROVIDERS: PCP Internal Medicine; Visit Provider Obstetrics & Gynecology
DX: N83.209 Unspecified ovarian cyst, unspecified side (principal)
CPT/HCPCS: 99213

== ENCOUNTER → 2024-10-29 09:12 | Outpatient (BNVA) | payer OTHER, SELFPAY | PROVIDERS: PCP Internal Medicine; Visit Provider Obstetrics & Gynecology | DX: N83.209 Unspecified ovarian cyst, unspecified side (principal) | CPT/HCPCS: 99212 ==

== ENCOUNTER 2024-12-08 10:14 | Outpatient (AMB) | payer OTHER, SELFPAY ==
[2024-12-08 10:17] VITALS: BP 140/76; PULSE 71; O2SAT 99; BMI 26.4
--- NOTE | 2024-12-08 10:17 | MHC.PC.OV ---
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 Required: No Accompanied by: Self / Same As Patient Allergies No Known Allergies Allergy (Verified 12/08/24 10:17) Medication List - Last Reconciled 12/08/24 by Jace Laughlin MD alpha lipoic acid 600 mg PO DAILY 30 days atorvastatin 40 mg PO DAILY cholecalciferol (vitamin D3) (Vitamin D3) 125 mcg PO DAILY comp.stocking,knee,long,medium As directed cyclobenzaprine 5 mg PO TID PRN 30 days diclofenac sodium 1% (Voltaren Arthritis Pain) 4 grams topical QID ferrous sulfate 325 mg PO DAILY ketoconazole 2% 1 appl topical 2XW levonorgestrel (Mirena) intrauterine lidocaine 5% 1 patch topical DAILY lisinopril 5 mg PO DAILY metformin 500 mg PO BID omeprazole 20 mg PO DAILY 90 days Tobacco use date assessed: 12/08/24 Dental Screening Dental Screen Date: 12/08/24 Did you have a dental visit in the last 12 months?: No Did you have a dental problem in the last 6 months where you did not have access to dental care?: No Was dental information given to patient?: Patient has dentist [facility] Medical History (Updated 12/08/24 @ 11:10 by Jace Laughlin MD) Iron deficiency anemia Pain of both breasts Leg pain, bilateral Pelvic cramping Hair loss Radicular pain of lumbosacral region PMB (postmenopausal bleeding) Personal history of nicotine dependence History of cervical cancer Frequency of micturition Overweight (BMI 25.0-29.9) Rib pain Hot flashes due to menopause Pleurisy Bilateral lower extremity edema Right hand paresthesia Paresthesia of bilateral legs Hematuria Pelvic pain Generalized anxiety disorder Uterine fibroid Tinnitus LFT elevation Internal and external hemorrhoids without complication COVID-19 virus infection Finger dislocation Migraine Insomnia Major depressive disorder GERD (gastroesophageal reflux disease) Alcohol abuse Asthma Menorrhagia Vitamin D deficiency Hypercholesteremia 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 Son No problems noted. Son No problems noted. Son No problems noted. Daughter No problems noted. Brother No problems noted. Brother No problems noted. Social History (Updated 12/08/24 @ 10:56 by Jace Laughlin MD) Housing: Apartment Alcohol intake: current Alcohol intake frequency: holidays/special occasions only Alcohol type: wine Comment: once a week wine 4 glasses Patient Tobacco Use Status: Former Tobacco user Tobacco use type: Cigarette Years Smoked: former smoker - onset 17yo, 1ppd x 37yrs, 35pyh - quit 2020 e-Cigarette/Vaping Use: Never Used Second Hand Smoke Exposure: No Substance Use Type: Marijuana service: No Current occupational status: unemployed Sexual orientation: Straight/Heterosexual Gender identity: Female Cognitive needs: No Hearing needs: No Vision needs: Yes Female Reproductive History Menstrual Age of Menarche: 14 Questionnaire PHQ-9 Over the last 2 weeks, how often have you been bothered by any of the following problems? 1. Little interest or pleasure in doing things: not at all 2. Feeling down, depressed, or hopeless: not at all 3. Trouble falling or staying asleep, or sleeping too much: nearly every day 4. Feeling tired or having little energy: several days 5. Poor appetite or overeating: not at all 6. Feeling bad about yourself - or that you are a failure or have let yourself or your family down: not at all 7. Trouble concentrating on things, such as reading the newspaper or watching television: not at all 8. Moving or speaking so slowly that other people could have noticed. Or the opposite - being so fidgety or restless that you have been moving around a lot more than usual: not at all 9. Thoughts that you would be better off or of hurting yourself in some way: not at all Total score: 4 Source: Developed by Drs. Mark Norman, Kelsey Amin, Dean Ziegler and colleagues, with an educational kael from [employer]. Thrive Questionnaire Date Thrive assessed: 12/08/24 I am a: Patient What is your living situation today?: I have a steady place to live Within the past 12 months, did the food you bought not last and you didn't have the money to get more?: Often true Within the past 12 months, did you worry whether your food would run out before you got money to buy more?: Never true Do you have trouble paying for medicines?: No Do you have trouble getting transportation to medical appointments?: No Do you have trouble paying your heating and electricity bill?: No Do you have trouble taking care of your child, family member or friend?: No Do you have trouble with day-to-day activities such as bathing, preparing meals, shopping, managing finances, etc.?: No Are you currently unemployed and looking for a job?: No Are you interested in more education?: No Please select the resources that you would like help with: None Currently or been in a relationship where the following occur: No concerns reported THRIVE Score: 1 AUDIT C Alcohol Use Questionnaire (AUDIT-C) 1. How often do you have a drink containing alcohol?: 2-4 times a month 2. How many drinks containing alcohol do you have on a typical day when you are drinking?: 3 or 4 3. How often do you have six or more drinks on one occasion?: Less than monthly Total Score: 4 DANNY-7 AMB Questionnaire DANNY-7 Date DANNY - 7 assessed: 12/08/24 Feeling nervous, anxious, or on edge: 1 = Several days Not being able to stop or control worryin = Several days Worrying too much about different things: 1 = Several days Trouble relaxin = Several days Being so restless that it is hard to sit still: 1 = Several days Becoming easily annoyed or irritable: 1 = Several days Feeling afraid as if something awful might happen: 0 = Not at all Total DANNY-7 score (0-4 normal; 5-9 mild; 10-14 moderate; 15-21 severe): 6 Source: Developed by Drs. Mark Norman, Dean Yehnke and colleagues, with an educational kael from [employer]. Review of Systems Const Denies poor appetite and Denies weakness Eyes Denies no additional complaints ENT Reports Normal hearing present, Denies dizziness, Denies nasal congestion, Denies tinnitus and Denies sore throat Card Denies chest pain, Denies syncope, Denies rapid heart rate and Denies dyspnea Resp Denies cough and Denies dyspnea GI Denies change in stool character, Reports constipation, Denies diarrhea, Denies nausea and Denies vomiting Denies urinary frequency, Denies difficulty voiding and Denies dysuria Neuro Reports Normal hearing present, Denies confusion, Denies dizziness, Denies syncope and Denies weakness Psych Denies confusion Physical exam (Primary Care) Vital Signs: Last Vital Signs Pulse 71 12/08/24 10:17 BP 144/70 H 12/08/24 10:49 Pulse Ox 99 12/08/24 10:17 Oxygen Delivery Method Room Air 12/08/24 10:17 BMI result Body Mass Index 26.4 Tobacco/Smoking Status: Tobacco use Status Tobacco use date assessed 12/08/24 12/08/24 10:24 Patient Tobacco Use Status Former Tobacco user 12/08/24 10:56 Tobacco use type Cigarette 12/08/24 10:56 e-Cigarette/Vaping Use Never Used 12/08/24 10:56 PHQ-9: PHQ-9 Score PHQ-9: Total score 4 12/08/24 10:49 Thrive Assessment: Date of Thrive Assessment Date Thrive assessed 12/08/24 12/08/24 10:24 Currently or been in a relationship where the following occur: No concerns reported Const General: No confusion Orientation/consciousness: No confusion HENMT Head: Yes normocephalic Ears: external ears normal and TM's normal bilaterally Face and sinus: Yes normal facial exam Mouth: moist mucous membranes Throat: Yes tonsils normal Eyes Conjunctivae: conjunctivae normal Pupils: Equal, round and reactive pupils present and Pupil accommodation reflex normal Direct Ophthalmoscopy: normal light reflex Neck Neck: No lymphadenopathy Thyroid: Thyroid normal Chest Chest palpation & inspection: normal inspection of the chest Resp Effort & Inspection: normal respiratory effort and no audible wheezes Auscultation: clear to auscultation bilaterally, no crackles, no wheezes and lung sounds not diminished Cardio Rate: regular rate Rhythm: regular rhythm Peripheral pulses: radial pulses present and dorsalis pedis present GI Other: guaiac stools negative pedal puylse and pin prick good Palpation (GI): no masses Auscultation: normal bowel sounds and normoactive bowel sounds Skin General skin exam: no rashes or lesions noted Rashes: no rashes Neuro General: No confusion Cranial nerves: Yes Equal, round and reactive pupils present and Yes Normal hearing present Cognition (Neuro): normal cognition Gait exam (Neuro): Normal gait present Motor exam (neuro): 5/5 motor strength present throughout Deep tendon reflexes (DTR's): Right brachioradialis reflex intensity grade: 2+, Left brachioradialis reflex intensity grade: 2+, Right patellar reflex intensity grade: 2+ and Left patellar reflex intensity grade: 2+ Extrem General: No edema Results AMB Hemoglobin A1c AMB Hemoglobin A1c 6.0 % Last Edit by OLIVIA Hou on 12/08/24 10:29 Results Reviewed Results Reviewed: Laboratory Last Values Hgb A1c (Clinic) 6.0 % (4.0-6.0) 12/08/24 10:17 Coding Level of Care Code Est Pt Prev Care 40-64y(89133) Diagnoses Annual physical exam Z00.00 Type 2 diabetes mellitus with hyperglycemia, without long-term current use of insulin E11.65 Diabetes mellitus group home insulin use: without group home use Hypercholesteremia E78.00 Generalized anxiety disorder F41.1 Gastroesophageal reflux disease without esophagitis K21.9 Esophagitis presence: without esophagitis Lumbar degenerative disc disease M51.36 Alcohol abuse F10.10 Hypertension I10 Personal history of nicotine dependence Z87.891 Hemorrhoids K64.9 Assessment & Plan Assessment & Plan (1) Annual physical exam: Code(s): Z00.00 - Encounter for general adult medical examination without abnormal findings Category: Medical Plan: Patient is advised to eat healthy, keep well hydrated, keep active and have adequate sleep. (2) Type 2 diabetes mellitus with hyperglycemia: Comment: A1c at 5.8% on 01/2024 Code(s): E11.65 - Type 2 diabetes mellitus with hyperglycemia Category: Medical Qualifiers: Diabetes mellitus intermission coordinator insulin use: without intermission coordinator use Qualified Code(s): E11.65 - Type 2 diabetes mellitus with hyperglycemia Plan: Decrease the amount of carbohydrate intake, pasta, bread, rice and potatoes are all sugar and that is aside from all the sweet stuff, remember that fruits are good but they are Sweet also. Hemoglobin A1c goal of less than 6.5 (3) Hypercholesteremia: Code(s): E78.00 - Pure hypercholesterolemia, unspecified Category: Medical Plan: Avoid fried foods, chicken skin, eggs, butter margarine, pastries and meat. Be it pork or beef they have a lot of cholesterol LDL goal of less than 100 and triglyceride of less than 150. Will need blood work (4) Generalized anxiety disorder: Code(s): F41.1 - Generalized anxiety disorder Category: Medical Plan: Stable (5) GERD (gastroesophageal reflux disease): Code(s): K21.9 - Gastro-esophageal reflux disease without esophagitis Category: Medical Qualifiers: Esophagitis presence: without esophagitis Qualified Code(s): K21.9 - Gastro-esophageal reflux disease without esophagitis Plan: Avoid the foods that causes that usually spicy foods, tomato products, juices, coffee, soda and foods that your sensitive to. After eating do not lie down, allow 3-4 hours before in lie down. And keep the head of bed above 30 degrees to avoid the acid from going up. (6) Lumbar degenerative disc disease: Comment: 06/28 MRI At L4-L5, a central disc protrusion with annular fissure narrows the subarticular zones with likely compression of the traversing L5 nerve roots and mild spinal canal stenosis. Code(s): M51.36 - Other intervertebral disc degeneration, lumbar region Category: Medical Plan: Continue being active (7) Alcohol abuse: Code(s): F10.10 - Alcohol abuse, uncomplicated Category: Social Hx (8) Hypertension: Code(s): I10 - Essential (primary) hypertension Category: Medical (9) Personal history of nicotine dependence: Comment: (former smoker - onset 17yo, 1ppd x 37yrs, 35pyh - quit 2019) CT lung 05/2024 Code(s): Z87.891 - Personal history of nicotine dependence Category: Medical (10) Hemorrhoids: Code(s): K64.9 - Unspecified hemorrhoids Category: Medical Plan History of Present Illness The patient is a 58-year-old female presenting with an annual physical examination. She has a history of gastroesophageal reflux disease (GERD), type 2 diabetes mellitus, asthma, hypercholesterolemia, and generalized anxiety disorder. Her history of tobacco abuse and lumbar spondylosis was also noted. The patient's previous mammogram was performed in July 2024 and the most recent colonoscopy in 2018 was normal. She follows up with gynecology concerning an ovarian cyst, which has since resolved. Recently, the patient also reported numbness in her hands, for which a nerve conduction test was conducted, yielding normal results. As of January 2024, her blood work showed a normal blood count, but her hemoglobin A1c was recorded as 6.0, indicating adequate control of her diabetes. Health Maintenance - Tetanus vaccination up to date. - Shingles vaccination completed. - Pneumonia vaccination completed. - Mammogram done in July 2024. - Scheduled colonoscopy every 10 years, with the last one in 2017. - Regular monitoring of Hemoglobin A1c, with current levels at 6.0. - Blood work scheduled for next month. Social History - Overweight. - History of tobacco use. Review of Systems - General: Reports feeling good. - Vaccinations: Reports tetanus, shingles, and pneumonia vaccinations are up to date. Physical Exam General: Cooperative, healthy appearing, comfortable, no acute distress and well developed Orientation: Patient oriented x3 Limitations: No limitations Head: Normal to inspection Ears: Hearing grossly normal bilaterally Nose: Normal external nose present Face and sinus: Normal facial exam Eyes: Appearance normal, both eyes and all related structures Neck: Normal visual inspection and Yes full ROM Respiratory: Normal respiratory effort and able to speak in complete sentences. Clear to auscultation bilaterally Cardiovascular: Regular rate and rhythm. Normal S1 and S2 GI: Normal to inspection. Soft to palpation and nontender Skin: No rashes or lesions noted Neuro: Patient oriented x3 Extremities: Normal to inspection Results - Labs: Hemoglobin A1c is 6.0. - Tests and diagnostics: Nerves conduction test normal. Previous colonoscopy was normal. Plan 1. 5 and maintain lipid levels targeted for hypercholesterolemia. Blood work scheduled for the next month will help evaluate her overall health and decide on the necessity of the hepatitis B vaccine. The follow-up will include reviewing her diabetes and cholesterol management plans, ensuring adherence to therapeutic goals. Medication prescriptions will continue as per her current regimen, with adjustments as necessary based on ongoing evaluations and consultations.: Patient was informed and verbally consented to the use of an ambient scribe for clinic note documentation during this visit. Discussion Notes During our discussion, I emphasized the importance of maintaining her current management plan for her reflux disease and diabetes. The target for her Hemoglobin A1c should remain below 6.5%, with lipid levels also being closely monitored. We discussed potential continuation of her asthma medication regimen. Regarding cholesterol, we aim for an LDL below 100 mg/dL and triglycerides under 150 mg/dL. Her vaccination status was reviewed, and she is up to date except for hepatitis B, which will be evaluated next month. I communicated the necessity of following up next month for blood work and reviewing long-term management plans. Patient Instructions - Continue current treatment plan for GERD and avoid triggers. - Maintain an active lifestyle and monitor blood sugar levels regularly. - Aim for scheduled blood work next month. - Follow dietary recommendations to manage cholesterol and diabetes. - Prepare to discuss hepatitis B vaccination at the next visit. - Contact the office if experiencing any new or worsening symptoms. Orders: Orders Hepatitis B,C Profile 4 Weeks E11. - Type 2 diabetes mellitus with hyperglycemia, R79.89 - Other specified abnormal findings of blood chemistry Comprehensive Met. Panel 4 Weeks . - Type 2 diabetes mellitus with hyperglycemia Free T4 (Free Thyroxine) 4 Weeks E11. - Type 2 diabetes mellitus with hyperglycemia Hemoglobin A1c 4 Weeks E11. - Type 2 diabetes mellitus with hyperglycemia Lipid Panel 4 Weeks E11. - Type 2 diabetes mellitus with hyperglycemia, E78.00 - Pure hypercholesterolemia, unspecified Microalbumin, Random (w Creat) 4 Weeks . - Type 2 diabetes mellitus with hyperglycemia Thyroid Stimulating Hormone 4 Weeks . - Type 2 diabetes mellitus with hyperglycemia Vitamin B12 and Folate 4 Weeks E11. - Type 2 diabetes mellitus with hyperglycemia Vitamin D 25-OH Total 4 Weeks E11. - Type 2 diabetes mellitus with hyperglycemia AMB Hemoglobin A1c Today Z13.9 - Encounter for screening, unspecified Complete Blood Count Auto Diff 4 Weeks E11. - Type 2 diabetes mellitus with hyperglycemia Creatinine Urine 4 Weeks E11. - Type 2 diabetes mellitus with hyperglycemia Medications: New lisinopril 5 mg PO DAILY 30 tabs 4RF I10 - Essential (primary) hypertension hydrocortisone 2.5% (Proctozone-HC) 1 appl CO BID-QID PRN 30 grams 1RF hemorrhoids K64.9 - Unspecified hemorrhoids Refilled diclofenac sodium 1% (Voltaren Arthritis Pain) apply to single knee, ankle, foot; for foot includes sole/toes/top of foot 4 grams topical QID 200 grams 4RF M25.511 - Pain in right shoulder trazodone 50 mg PO BEDTIME PRN 90 tabs 2RF sleep G47.00 - Insomnia, unspecified omeprazole 20 mg PO DAILY 90 caps 2RF 90 days K21.9 - Gastro-esophageal reflux disease without esophagitis
[2024-12-08 10:49] VITALS: BP 144/70
--- OUTSIDE RECORDS SUMMARY | 2024-12-08 11:46 | XMS_ITS | Encounter Summary ---
Author Organization [employer] Address [address] [place] [address] Care Team Providers Care 3Rd Pressman Name Role Phone Unavailable Primary Care Provider Unavailabl e Encounter Details Date Type Department Care Team (Latest Contact Info) Description 11/13/2021 Abstract [facility] CONVERSIONS Dental, Provider, DDS Social History [...] Description 02/26/2025 8:00 AM EDT Office Visit [facility] ADULT DENTAL [address] [place] [address] Jaylon Menonaris [address] [place] [address] documented as of this encounter Visit Diagnoses Not on filedocumented in this encounter
== END 2024-12-08 11:20 | disposition home or self-care (01) ==
LOC: HO.HMCH 10:14
PROVIDERS: PCP Internal Medicine; Visit Provider Internal Medicine
DX: Z00.00 Encounter for general adult medical examination without abnormal findings (principal); E11.65 Type 2 diabetes mellitus with hyperglycemia; E78.00 Pure hypercholesterolemia, unspecified; F41.1 Generalized anxiety disorder; K21.9 Gastro-esophageal reflux disease without esophagitis; M51.369 Other intervertebral disc degeneration, lumbar region without mention of lumbar back pain or lower extremity pain; F10.10 Alcohol abuse, uncomplicated; I10 Essential (primary) hypertension; Z87.891 Personal history of nicotine dependence; K64.9 Unspecified hemorrhoids; Z13.9 Encounter for screening, unspecified

== ENCOUNTER → 2024-12-08 10:14 | Outpatient (BNVA) | payer OTHER, SELFPAY | PROVIDERS: PCP Internal Medicine; Visit Provider Internal Medicine | DX: Z00.00 Encounter for general adult medical examination without abnormal findings (principal); E11.65 Type 2 diabetes mellitus with hyperglycemia; E78.00 Pure hypercholesterolemia, unspecified; F41.1 Generalized anxiety disorder; K21.9 Gastro-esophageal reflux disease without esophagitis; M51.360 Other intervertebral disc degeneration, lumbar region with discogenic back pain only; F10.10 Alcohol abuse, uncomplicated; I10 Essential (primary) hypertension; K64.9 Unspecified hemorrhoids; R79.89 Other specified abnormal findings of blood chemistry; M25.511 Pain in right shoulder; G47.00 Insomnia, unspecified; Z87.891 Personal history of nicotine dependence | CPT/HCPCS: 83036; 99396 ==

== ENCOUNTER 2025-01-11 09:14 | Outpatient (REF) | payer OTHER, SELFPAY ==
--- OUTSIDE RECORDS SUMMARY | 2025-01-11 09:41 | XMS_ITS | Encounter Summary ---
Author Organization [employer] Address [address] [facility] [address] [address] [place] [address] Care Team Providers Care Automatic Lathe Setter Name Role Phone Unavailable Primary Care Provider Unavailabl e Encounter Details Date Type Department Care Team (Latest Contact Info) Description 11/13/2021 Abstract [facility] CONVERSIONS Dental, Provider, DDS Social History Tobacco [...] Description 02/26/2025 8:00 AM EDT Office Visit [facility] ADULT DENTAL [address] [place] [address] Jaylon Menonaris [address] [place] [address] documented as of this encounter Visit Diagnoses Not on filedocumented in this encounter
--- OUTSIDE RECORDS SUMMARY | 2025-01-11 09:41 | XMS_ITS | Clinical Summary ---
Author Organization [facility] Address [address] [place] [address] Care Team Providers Care Bath Tester Name Role Phone Jace Laughlin MD Primary Care Provider [phone] Surgical History Surgery Date Site/Laterality Comments TUBAL [...] Influencers of Health Screening 06/10/2022 COVID-19 Vaccine (2023-2 5 season) 2024 06/25/2021, 10/14/2020, 09/16/2020 Influenza Vaccine (#1) 2025 2, 05/11/2021 Pneumococcal Vaccine: Pediatrics (0 to [...] age to complete this topic Care Teams Bath Tester Relationship Specialty Start Date End Date Jace Laughlin MD [address] [place] [address] [address] [facility] [place] [address] PCP - General 06/25/22
[2025-01-11 09:59] LABS: Hematocrit 38.5 % (37.0-47.0); Hemoglobin 12.8 g/dl (12.0-16.0); Imm Gran Abs Auto 0.01 X10*3/uL (0.00-0.03); Imm Gran Pct Auto 0.2 % (0.0-0.4); Lymphocytes Absolute Auto 1.2 X10*3/uL (1.2-4.9); MANUAL DIFF FLAG NO; Mean Corpuscular HGB Conc 33.2 g/dl (31.0-35.0); Mean Corpuscular Hemoglobin 29.9 pg (27.0-33.0); Mean Corpuscular Volume 90.0 fL (80.0-98.0); NRBC Abs Auto 0.000 X10*3/uL (0.0-0.012); NRBC Pct Auto 0.0 /100WBC (0.0-0.2); Platelet Count 283 X10*3/uL (160-400); Red Blood Count 4.28 X10*6/uL (4.20-5.50); White Blood Count 5.6 X10*3/uL (4.8-10.8)
[2025-01-11 10:08] LABS: Hemoglobin A1C 145.4532 umol/L; Total Hemoglobin (HGBA1C) 3371.1835 umol/L
[2025-01-11 10:54] LABS: Alanine Aminotransferase 52 U/L (0-31); Albumin Level 4.5 g/dL (3.5-5.0); Alkaline Phosphatase 102 U/L (39-117); Anion Gap 12 (12-20); Aspartate Amino Transferase 34 U/L (5-31); Blood Urea Nitrogen 14 mg/dL (9-16); Calcium 9.0 mg/dL (8.4-10.2); Carbon Dioxide 25 mmol/L (22-29); Chloride 109 mmol/L (96-108); Cholesterol 102 mg/dL (<200); Estimated Glomerular Filt Rate > 60; HDL Cholesterol 31 mg/dL (>40); Potassium 3.8 mmol/L (3.3-5.1); Sodium 142 mmol/L (135-145); Total Protein 6.7 g/dL (6.5-8.0); Triglycerides 64 mg/dL (<150)
[2025-01-11 10:58] LABS: Appearance Urine Clear; Glucose Urine UA Negative (Negative); PH 5.5 (5.0-9.0); Specific Gravity - Urine 1.020 (1.005-1.025); UMIC TRIGGER UACC YES
[2025-01-11 11:16] LABS: Folate 12.2 ng/mL (> or = 4.0); Vitamin B12 431 pg/mL (200-900)
[2025-01-11 11:19] LABS: Free T4 (Free Thyroxine) 0.92 ng/dL (0.71-1.85); Thyroid Stimulating Hormone 0.92 uIU/mL (0.32-4.0)
[2025-01-11 12:15] LABS: Microalbum/Creatinine Ratio Ur 9.4 ug/mg cr (<30)
[2025-01-12 08:30] LABS: HBS Num1 0.10 mIU/mL (0-7.99); HBc Num1 0.06 S/CO (0.00-0.79); HBsAGNum1 0.33 S/CO (0.00-0.99); Hepatitis B Surface Antigen Negative (Negative); ~HepC Num1 0.09 S/CO (0.00-0.79); ~Hepatitis B Surface Antibody NONREACTIVE (Nonreactive); ~Hepatitis C Antibody Nonreactive (Nonreactive)
== END 2025-01-11 09:15 | disposition home or self-care (01) ==
LOC: HO.LAB 09:14
PROVIDERS: PCP Internal Medicine; Visit Provider Internal Medicine
DX: E11.65 Type 2 diabetes mellitus with hyperglycemia (principal); E78.00 Pure hypercholesterolemia, unspecified; R30.0 Dysuria; R79.89 Other specified abnormal findings of blood chemistry
CPT/HCPCS: 36415; 80053; 80061; 81001; 82043; 82306; 82570; 82607; 82746; 83036; 84439; 84443; 85025; 86704; 86706; 86803; 87340

== ENCOUNTER 2025-01-26 10:56 | Outpatient (AMB) | payer OTHER, SELFPAY ==
--- NOTE | 2025-01-26 11:08 | AM.OFFVISNUR ---
Intake Visit Reasons: Hep B vaccine first dose Allergies No Known Allergies Allergy (Verified 12/08/24 10:17) Immunizations Recombivax HB (PF) 10 mcg/mL intramuscular suspension Performing Provider: Jace Laughlin MD [facility] Administered by: Estefany Morris LPN on 01/26/25 11:11 Dose Route Admin Location Dispensed Lot Number Expiration Date [facility] Loading Shovel Oiler 1 mL IM Left Deltoid 1 mL [id number] 02/02/27 [id number] [employer] Total Dispensed Waste 1 mL 0 % VIS Given Date VIS Provided VIS Publication Date 01/26/25 Single Vaccine 22 Eligibility Eligibility Date Funding Source Not [facility] Eligible 01/26/25 Private Assessment & Plan Assessment & Plan Orders: Orders Hepatitis B Adult Immunization Today Z23 - Encounter for immunization Coding
--- OUTSIDE RECORDS SUMMARY | 2025-01-26 12:11 | XMS_ITS | Encounter Summary ---
Author Organization [employer] Address [address] [facility] [address] [place] [address] Care Team Providers Care Production Metal Sprayer Name Role Phone Unavailable Primary Care Provider Unavailabl e Encounter Details Date Type Department Care Team (Latest Contact Info) Description 11/13/2021 Abstract [facility] CONVERSIONS Dental, Provider, DDS Social [...] Description 02/26/2025 8:00 AM EDT Office Visit [facility] ADULT DENTAL [address] [place] [address] Jaylon Menonaris [address] [place] [address] documented as of this encounter Visit Diagnoses Not on filedocumented in this encounter
--- OUTSIDE RECORDS SUMMARY | 2025-01-26 12:11 | XMS_ITS | Clinical Summary ---
Author Organization [facility] Address [address] [place] [address] Care Team Providers Care Machine Ii Cutter Name Role Phone Jace Laughlin MD Primary Care Provider [phone] Surgical History Surgery Date Site/Laterality Comments TUBAL [...] 2) 12/25/2017 Colorectal Cancer Screening: Colonoscopy 06/10/2022 HIV Screening 06/10/2022 Hepatitis C Screening 06/10/2022 Social Influencers of Health Screening 06/10/2022 COVID-19 Vaccine (4 - 2023-2 5 season) 2024 06/25/2021, 10/14/2020, 09/16/2020 Depression Screening 07/08/2024 Influenza Vaccine (#1) 2025 2, 05/11/2021 HIB Vaccines Aged Out No longer eligi [...] age to complete this topic Care Teams Machine Ii Cutter Relationship Specialty Start Date End Date Jace Laughlin MD [address] [place] [address] [address] [facility] [place] [address] PCP - General 06/25/22
== END 2025-01-26 11:12 | disposition home or self-care (01) ==
LOC: HO.HMCH 10:57
PROVIDERS: PCP Internal Medicine; Visit Provider Internal Medicine
DX: Z23 Encounter for immunization (principal)

== ENCOUNTER → 2025-01-26 10:56 | Outpatient (BNVA) | payer OTHER, SELFPAY | PROVIDERS: PCP Internal Medicine; Visit Provider Internal Medicine | DX: Z23 Encounter for immunization (principal) | CPT/HCPCS: 90471; 90746 ==

== ENCOUNTER → 2025-01-27 10:15 | Outpatient (BNVA) | payer OTHER, SELFPAY | PROVIDERS: PCP Internal Medicine; Visit Provider Internal Medicine | DX: E11.65 Type 2 diabetes mellitus with hyperglycemia (principal); E78.00 Pure hypercholesterolemia, unspecified; I10 Essential (primary) hypertension; K21.9 Gastro-esophageal reflux disease without esophagitis; B35.4 Tinea corporis; Z87.891 Personal history of nicotine dependence | CPT/HCPCS: 99212 ==

== ENCOUNTER 2025-01-27 10:20 | Outpatient (AMB) | payer OTHER, SELFPAY ==
[2025-01-27 10:17] VITALS: BP 152/86; PULSE 76; O2SAT 98; BMI 26.2
--- NOTE | 2025-01-27 10:17 | MHC.PC.OV ---
Vital Signs 01/27/25 10:17 Height 5 ft Weight 134 lb BMI 26.2 BP 152/86 H Blood Pressure Location Lt brachial Position Sitting Pulse 76 Pulse Source Pulse Oximeter Pulse Oximetry (%) 98 Oxygen Delivery Method Room Air Intake Visit Reasons: yeast infection? 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 Accompanied by: Self / Same As Patient Allergies No Known Allergies Allergy (Verified 01/27/25 10:18) Medication List - Last Reconciled 01/27/25 by Jace Laughlin MD alpha lipoic acid 600 mg PO DAILY 30 days atorvastatin 40 mg PO DAILY cholecalciferol (vitamin D3) (Vitamin D3) 125 mcg PO DAILY comp.stocking,knee,long,medium As directed cyclobenzaprine 5 mg PO TID PRN 30 days diclofenac sodium 1% (Voltaren Arthritis Pain) 4 grams topical QID ferrous sulfate 325 mg PO DAILY hydrocortisone 2.5% (Proctozone-HC) 1 appl [place] BID-QID PRN ketoconazole 2% 1 appl topical 2XW levonorgestrel (Mirena) intrauterine lidocaine 5% 1 patch topical DAILY lisinopril 5 mg PO DAILY metformin 500 mg PO BID omeprazole 20 mg PO DAILY 90 days trazodone 50 mg PO BEDTIME PRN Tobacco use date assessed: 12/08/24 Dental Screening Dental Screen Date: 12/08/24 [facility] Medical History (Updated 01/27/25 @ 10:59 by Jace Laughlin MD) Iron deficiency anemia Pain of both breasts Leg pain, bilateral Pelvic cramping Hair loss Radicular pain of lumbosacral region PMB (postmenopausal bleeding) Personal history of nicotine dependence History of cervical cancer Frequency of micturition Overweight (BMI 25.0-29.9) Rib pain Hot flashes due to menopause Pleurisy Bilateral lower extremity edema Right hand paresthesia Paresthesia of bilateral legs Hematuria Pelvic pain Generalized anxiety disorder Uterine fibroid Tinnitus LFT elevation Internal and external hemorrhoids without complication COVID-19 virus infection Finger dislocation Migraine Insomnia Major depressive disorder GERD (gastroesophageal reflux disease) Alcohol abuse Asthma Menorrhagia Vitamin D deficiency Hypercholesteremia 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 Son No problems noted. Son No problems noted. Son No problems noted. Daughter No problems noted. Brother No problems noted. Brother No problems noted. Social History Housing: Apartment Alcohol intake: current Alcohol intake frequency: holidays/special occasions only Alcohol type: wine Comment: once a week wine 4 glasses Patient Tobacco Use Status: Former Tobacco user Tobacco use type: Cigarette Years Smoked: former smoker - onset 17yo, 1ppd x 37yrs, 35pyh - quit 2020 e-Cigarette/Vaping Use: Never Used Second Hand Smoke Exposure: No Substance Use Type: Marijuana service: No Current occupational status: unemployed Sexual orientation: Straight/Heterosexual Gender identity: Female Cognitive needs: No Hearing needs: No Vision needs: Yes Female Reproductive History Menstrual Age of Menarche: 14 Questionnaire Thrive Questionnaire Date Thrive assessed: 12/08/24 I am a: Patient What is your living situation today?: I have a steady place to live Within the past 12 months, did the food you bought not last and you didn't have the money to get more?: Often true Within the past 12 months, did you worry whether your food would run out before you got money to buy more?: Never true Do you have trouble paying for medicines?: No Do you have trouble getting transportation to medical appointments?: No Do you have trouble paying your heating and electricity bill?: No Do you have trouble taking care of your child, family member or friend?: No Do you have trouble with day-to-day activities such as bathing, preparing meals, shopping, managing finances, etc.?: No Are you currently unemployed and looking for a job?: No Are you interested in more education?: No Please select the resources that you would like help with: None Currently or been in a relationship where the following occur: No concerns reported THRIVE Score: 1 DANNY-7 AMB Questionnaire DANNY-7 Date DANNY - 7 assessed: 12/08/24 Source: Developed by Drs. Mark Norman, Kelsey Amin, Dean Ziegler and colleagues, with an educational keal from [employer]. Physical exam (Primary Care) Vital Signs: Last Vital Signs Pulse 76 01/27/25 10:17 BP 152/86 H 01/27/25 10:17 Pulse Ox 98 01/27/25 10:17 Oxygen Delivery Method Room Air 01/27/25 10:17 BMI result Body Mass Index 26.2 Tobacco/Smoking Status: Tobacco use Status Tobacco use date assessed 12/08/24 01/27/25 10:20 Patient Tobacco Use Status Former Tobacco user 01/27/25 10:20 Tobacco use type Cigarette 01/27/25 10:20 e-Cigarette/Vaping Use Never Used 01/27/25 10:20 Thrive Assessment: Date of Thrive Assessment Date Thrive assessed 12/08/24 01/27/25 10:20 Currently or been in a relationship where the following occur: No concerns reported Const General: alert; No acute distress Eyes Conjunctivae: conjunctivae normal Resp Auscultation: clear to auscultation bilaterally Cardio Rate: regular rate Rhythm: regular rhythm GI Inspection: Yes normal to inspection Abdomen image:  1. 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 Hypercholesteremia E78.00 Hypertension I10 Gastroesophageal reflux disease without esophagitis K21.9 Esophagitis presence: without esophagitis Personal history of nicotine dependence Z87.891 Tinea corporis B35.4 Assessment & Plan Assessment & Plan (1) Type 2 diabetes mellitus with hyperglycemia: Comment: A1c at 5.8% on 01/2024 Code(s): E11.65 - Type 2 diabetes mellitus with hyperglycemia Category: Medical Qualifiers: Diabetes mellitus 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 Patient on metformin 500 mg twice a day hemoglobin A1c goal of less than 6.5 (2) Hypercholesteremia: Code(s): E78.00 - Pure hypercholesterolemia, unspecified Category: Medical Plan: Avoid fried foods, chicken skin, eggs, butter margarine, pastries and meat. Be it pork or beef they have a lot of cholesterol LDL goal of less than 100 and triglyceride of less than 150 on atorvastatin 40 mg once a day (3) Hypertension: Code(s): I10 - Essential (primary) hypertension Category: Medical Plan: Pressure plan patient is on lisinopril 5 mg once a day (4) GERD (gastroesophageal reflux disease): Code(s): K21.9 - Gastro-esophageal reflux disease without esophagitis Category: Medical Qualifiers: Esophagitis presence: without esophagitis Qualified Code(s): K21.9 - Gastro-esophageal reflux disease without esophagitis Plan: Avoid the foods that causes that usually spicy foods, tomato products, juices, coffee, soda and foods that your sensitive to. After eating do not lie down, allow 3-4 hours before in lie down. And keep the head of bed above 30 degrees to avoid the acid from going up. (5) Personal history of nicotine dependence: Comment: (former smoker - onset 17yo, 1ppd x 37yrs, 35pyh - quit 2019) CT lung 05/2024 Code(s): Z87.891 - Personal history of nicotine dependence Category: Medical Plan: Patient on the lung cancer screening program and last CAT scan was May 2024 (6) Tinea corporis: Code(s): B35.4 - Tinea corporis Category: Medical Plan History of Present Illness The patient is a 59-year-old female presenting for a follow-up visit. She has a history of diabetes mellitus, with a recent hemoglobin A1c of 6.1, indicating good control without the need for additional medication. The patient is currently on metformin 500 mg twice a day, with a goal to maintain hemoglobin A1c below 6.5. The patient has hypercholesterolemia and is on atorvastatin 40 mg once a day, with an LDL goal of less than 100 mg/dL. Her recent LDL was 59 mg/dL, which is within the target range. The patient has hypertension and is currently on lisinopril 5 mg once a day. Her blood pressure was noted to be slightly elevated, and the plan is to increase lisinopril to 10 mg daily to achieve a target of 120/80 mmHg. The patient has a history of hepatic steatosis, confirmed by an abdominal ultrasound in 2020. Her liver function tests have been persistently elevated, which is consistent with her known condition. The patient reports a skin fungal infection at the site of a previous surgical scar, which has been present for two weeks. She describes symptoms of itching and burning, and a topical antifungal cream has been prescribed for treatment. Health Maintenance - Mammogram up to date as of July 2024 - Colonoscopy last performed in 2017 - Lung cancer screening program with last CT scan in May 2024 Social History - History of smoking - History of alcohol abuse Review of Systems - Integumentary: Reports itching and burning at the site of a previous surgical scar - Cardiovascular: Denies chest pain or palpitations - Neurological: Reports headaches associated with poor sleep Physical Exam Results - Labs: Hemoglobin A1c 6.1, LDL 59 mg/dL, normal thyroid function, normal urine test - Imaging: Abdominal ultrasound in 2020 showing hepatic steatosis Plan For diabetes management, the patient will continue on metformin 500 mg twice daily, with a goal to maintain hemoglobin A1c below 6.5. For hypercholesterolemia, the patient will continue atorvastatin 40 mg daily, aiming to keep LDL below 100 mg/dL, with current levels well within target. Hypertension management includes increasing lisinopril from 5 mg to 10 mg daily to achieve a blood pressure target of 120/80 mmHg. The patient is advised to monitor blood pressure regularly and report any significant changes. For hepatic steatosis, lifestyle modifications including diet and exercise are recommended to manage liver health. Regular monitoring of liver function tests will continue. The skin fungal infection will be treated with a topical antifungal cream applied twice daily for one month, followed by an antifungal powder for prevention. The patient is advised to keep the area dry and monitor for any signs of worsening. Patient was informed and verbally consented to the use of an ambient scribe for clinic note documentation during this visit. Discussion Notes I discussed with the patient the management of her diabetes, emphasizing the importance of maintaining her hemoglobin A1c below 6.5 and continuing metformin therapy. We reviewed her cholesterol management, confirming that her LDL levels are well controlled with atorvastatin. For hypertension, I explained the need to increase lisinopril to better control her blood pressure and advised regular monitoring. We also discussed the ongoing management of hepatic steatosis through lifestyle changes and the importance of regular liver function tests. Regarding her skin fungal infection, I prescribed a topical antifungal cream and discussed the use of antifungal powder for prevention. I reassured her that the infection is not serious but advised keeping the area dry and monitoring for any changes. Patient Instructions - Continue taking metformin 500 mg twice daily. - Continue atorvastatin 40 mg daily. - Increase lisinopril to 10 mg daily and monitor blood pressure regularly. - Apply antifungal cream twice daily for one month, then use antifungal powder for prevention. - Maintain a healthy diet and exercise regularly to manage liver health. - Keep the affected skin area dry and monitor for any changes. Medications: New clotrimazole 1% 1 appl topical BID 45 grams 0RF 4 weeks B35.4 - Tinea corporis miconazole nitrate 2% (Zeasorb AF) 1 appl topical BID 85 grams 0RF B35.4 - Tinea corporis Changed From lisinopril 5 mg PO DAILY 30 tabs 4RF I10 - Essential (primary) hypertension To lisinopril 10 mg PO DAILY 30 tabs 4RF I10 - Essential (primary) hypertension
--- OUTSIDE RECORDS SUMMARY | 2025-01-27 11:14 | XMS_ITS | Clinical Summary ---
Author Organization [facility] [facility] Address [address] [place] [address] Care Team Providers Care Director Supply Name Role Phone Jace Laughlin MD Primary Care Provider [phone] Surgical History Surgery Date Site/Laterality Comments TUBAL [...] age to complete this topic Care Teams Director Supply Relationship Specialty Start Date End Date Jace Laughlin MD [address] [place] [address] [address] [facility] [place] [address] PCP - General 06/25/22
== END 2025-01-27 11:07 | disposition home or self-care (01) ==
PROVIDERS: PCP Internal Medicine; Visit Provider Internal Medicine
DX: E11.65 Type 2 diabetes mellitus with hyperglycemia (principal); E78.00 Pure hypercholesterolemia, unspecified; I10 Essential (primary) hypertension; K21.9 Gastro-esophageal reflux disease without esophagitis; Z87.891 Personal history of nicotine dependence; B35.4 Tinea corporis

== ENCOUNTER 2025-03-01 10:54 | Outpatient (AMB) | payer OTHER, SELFPAY ==
--- NOTE | 2025-03-01 11:12 | AM.OFFVISNUR ---
Intake Visit Reasons: Hep B vaccine Second Dose Allergies No Known Allergies Allergy (Verified 01/27/25 10:18) Immunizations Recombivax HB (PF) 10 mcg/mL intramuscular suspension Performing Provider: Jace Laughlin MD [facility] Administered by: Estefany Morris LPN on 03/01/25 11:12 Dose Route Admin Location Dispensed Lot Number Expiration Date [facility] Medical Insurance Coding Specialist 1 mL IM Left Deltoid 1 mL [id number] 02/02/27 02030-670-54 [employer] Total Dispensed Waste 1 mL 0 % VIS Given Date VIS Provided VIS Publication Date 03/01/25 Single Vaccine 22 Eligibility Eligibility Date Funding Source Not [facility] Eligible 03/01/25 Private Assessment & Plan Assessment & Plan Orders: Orders Hepatitis B Adult Immunization Today Z23 - Encounter for immunization Coding
--- OUTSIDE RECORDS SUMMARY | 2025-03-01 12:13 | XMS_ITS | Clinical Summary ---
Author Organization [facility] [employer] [facility] Address [address] [place] [address] Care Team Providers Care Recycling Tech Name Role Phone Jace Laughlin MD Primary Care Provider [phone] Surgical History Surgery Date Site/Laterality Comments TUBAL [...] age to complete this topic Care Teams Recycling Tech Relationship Specialty Start Date End Date Jace Laughlin MD [address] [place] [address] [address] [facility] [place] [address] PCP - General 06/25/22
--- OUTSIDE RECORDS SUMMARY | 2025-03-01 12:13 | XMS_ITS | Encounter Summary ---
Author Organization [employer] Address [address] [facility] [address] [place] [address] Care Team Providers Care Arts Manager Name Role Phone Unavailable Primary Care Provider Unavailabl e Encounter Details Date Type Department Care Team (Latest Contact Info) Description 11/13/2021 Abstract [facility] CONVERSIONS Dental, Provider, DDS Social [...] Care Team ( st Contact Info) Description 09/02/2025 10:00 AM EST Office Visit [facility] ADULT DENTAL [address] [place] [address] Jaylon Menonaris [address] [place] [address] documented as of this encounter Visit Diagnoses Not on filedocumented in this encounter
== END 2025-03-01 11:12 | disposition home or self-care (01) ==
LOC: HO.HMCH 10:55
PROVIDERS: PCP Internal Medicine; Visit Provider Internal Medicine
DX: Z23 Encounter for immunization (principal)

== ENCOUNTER → 2025-03-01 10:54 | Outpatient (BNVA) | payer OTHER, SELFPAY | PROVIDERS: PCP Internal Medicine; Visit Provider Internal Medicine | DX: Z23 Encounter for immunization (principal) | CPT/HCPCS: 90471; 90746 ==

== ENCOUNTER 2025-03-22 14:14 | Outpatient (AMB) | payer OTHER, SELFPAY ==
--- NOTE | 2025-03-22 14:33 | A.OFFPC_ITS ---
Vital Signs 03/22/25 14:34 Height 5 ft Weight 134 lb BMI 26.2 BP 132/82 Blood Pressure Location Lt brachial Position Sitting Pulse 72 Pulse Source Pulse Oximeter Pulse Oximetry (%) 98 Oxygen Delivery Method Room Air Intake Visit Reasons: 3 mo follow up DM Allergies No Known Allergies Allergy (Verified 03/22/25 14:34) Medication List - Last Reconciled 03/22/25 by Jace Laughlin MD alpha lipoic acid 600 mg PO DAILY 30 days atorvastatin 40 mg PO DAILY cholecalciferol (vitamin D3) (Vitamin D3) 125 mcg PO DAILY clotrimazole 1% 1 appl topical BID 4 weeks comp.stocking,knee,long,medium As directed cyclobenzaprine 5 mg PO TID PRN 30 days diclofenac sodium 1% (Voltaren Arthritis Pain) 4 grams topical QID ferrous sulfate 325 mg PO DAILY hydrocortisone 2.5% (Proctozone-HC) 1 appl LA BID-QID PRN ibuprofen 800 mg PO Q8H PRN ketoconazole 2% 1 appl topical 2XW levonorgestrel (Mirena) intrauterine lidocaine 5% 1 patch topical DAILY lisinopril 10 mg PO DAILY melatonin 10 mg PO BEDTIME PRN metformin 500 mg PO BID miconazole nitrate 2% (Zeasorb AF) 1 appl topical BID omeprazole 20 mg PO DAILY 90 days trazodone 50 mg PO BEDTIME PRN Tobacco use date assessed: 12/08/24 Dental Screening Dental Screen Date: 12/08/24 [facility] Medical History (Updated 03/22/25 @ 14:59 by Jace Laughlin MD) Iron deficiency anemia Pain of both breasts Leg pain, bilateral Pelvic cramping Hair loss Radicular pain of lumbosacral region PMB (postmenopausal bleeding) Personal history of nicotine dependence History of cervical cancer Frequency of micturition Overweight (BMI 25.0-29.9) Rib pain Hot flashes due to menopause Pleurisy Bilateral lower extremity edema Right hand paresthesia Paresthesia of bilateral legs Hematuria Pelvic pain Generalized anxiety disorder Uterine fibroid Tinnitus LFT elevation Internal and external hemorrhoids without complication COVID-19 virus infection Finger dislocation Migraine Insomnia Major depressive disorder GERD (gastroesophageal reflux disease) Alcohol abuse Asthma Menorrhagia Vitamin D deficiency Hypercholesteremia 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 Son No problems noted. Son No problems noted. Son No problems noted. Daughter No problems noted. Brother No problems noted. Brother No problems noted. Social History Housing: Apartment Alcohol intake: current Alcohol intake frequency: holidays/special occasions only Alcohol type: wine Comment: once a week wine 4 glasses Patient Tobacco Use Status: Former Tobacco user Tobacco use type: Cigarette Years Smoked: former smoker - onset 17yo, 1ppd x 37yrs, 35pyh - quit 2020 e-Cigarette/Vaping Use: Never Used Second Hand Smoke Exposure: No Substance Use Type: Marijuana service: No Current occupational status: unemployed Sexual orientation: Straight/Heterosexual Gender identity: Female Cognitive needs: No Hearing needs: No Vision needs: Yes Female Reproductive History Menstrual Age of Menarche: 14 Questionnaire Thrive Questionnaire Date Thrive assessed: 12/08/24 I am a: Patient What is your living situation today?: I have a steady place to live Within the past 12 months, did the food you bought not last and you didn't have the money to get more?: Often true Within the past 12 months, did you worry whether your food would run out before you got money to buy more?: Never true Do you have trouble paying for medicines?: No Do you have trouble getting transportation to medical appointments?: No Do you have trouble paying your heating and electricity bill?: No Do you have trouble taking care of your child, family member or friend?: No Do you have trouble with day-to-day activities such as bathing, preparing meals, shopping, managing finances, etc.?: No Are you currently unemployed and looking for a job?: No Are you interested in more education?: No Please select the resources that you would like help with: None Currently or been in a relationship where the following occur: No concerns reported THRIVE Score: 1 DANNY-7 AMB Questionnaire DANNY-7 Date DANNY - 7 assessed: 12/08/24 Source: Developed by Drs. Mark Norman, Kelsey Amin, Dean Ziegler and colleagues, with an educational kael from [employer]. Physical exam (Primary Care) Vital Signs: Last Vital Signs Pulse 72 03/22/25 14:34 BP 132/82 03/22/25 14:34 Pulse Ox 98 03/22/25 14:34 Oxygen Delivery Method Room Air 03/22/25 14:34 BMI result Body Mass Index 26.2 Tobacco/Smoking Status: Tobacco use Status Tobacco use date assessed 12/08/24 03/22/25 14:35 Patient Tobacco Use Status Former Tobacco user 03/22/25 14:35 Tobacco use type Cigarette 03/22/25 14:35 e-Cigarette/Vaping Use Never Used 03/22/25 14:35 Thrive Assessment: Date of Thrive Assessment Date Thrive assessed 12/08/24 03/22/25 14:35 Currently or been in a relationship where the following occur: No concerns reported Const General: alert; No acute distress Eyes Conjunctivae: conjunctivae normal Resp Auscultation: clear to auscultation bilaterally Cardio Rate: regular rate Rhythm: regular rhythm GI Inspection: Yes normal to inspection Extrem General: Yes normal to inspection and No edema Coding Level of Care Code Est Pt Level 4 (48907) Complex EM visit Add On G2211 Diagnoses Type 2 diabetes mellitus with hyperglycemia, without long-term current use of insulin E11.65 Diabetes mellitus prison insulin use: without terminal operator use Hypertension I10 Hypercholesteremia E78.00 Peripheral vascular disease I73.9 Generalized anxiety disorder F41.1 Gastroesophageal reflux disease without esophagitis K21.9 Esophagitis presence: without esophagitis Mild intermittent asthma without complication J45.20 Asthma complication type: uncomplicated Asthma persistence: intermittent Asthma severity: mild Personal history of nicotine dependence Z87.891 Assessment & Plan Assessment & Plan (1) Type 2 diabetes mellitus with hyperglycemia: Comment: A1c at 5.8% on 01/2024, [facility] Code(s): E11.65 - Type 2 diabetes mellitus with hyperglycemia Category: Medical Qualifiers: Diabetes mellitus terminal operator insulin use: without terminal operator use Qualified Code(s): E11.65 - Type 2 diabetes mellitus with hyperglycemia Plan: Decrease the amount of carbohydrate intake, pasta, bread, rice and potatoes are all sugar and that is aside from all the sweet stuff, remember that fruits are good but they are Sweet also. Hemoglobin A1c goal of less than 6.5. Patient on metformin 500 mg twice a day (2) Hypertension: Code(s): I10 - Essential (primary) hypertension Category: Medical Plan: Continue with blood pressure medication. Decrease salt intake and exercise takes lisinopril 10 mg once a day (3) Hypercholesteremia: Code(s): E78.00 - Pure hypercholesterolemia, unspecified Category: Medical Plan: Avoid fried foods, chicken skin, eggs, butter margarine, pastries and meat. Be it pork or beef they have a lot of cholesterol January 2025 last blood work LDL goal of less than 100 (4) Peripheral vascular disease: Code(s): I73.9 - Peripheral vascular disease, unspecified Category: Medical Plan: When sitting down elevate the legs, exercise, and support stockings (5) Generalized anxiety disorder: Code(s): F41.1 - Generalized anxiety disorder Category: Medical Plan: Continue with present therapy trazodone (6) GERD (gastroesophageal reflux disease): Code(s): K21.9 - Gastro-esophageal reflux disease without esophagitis Category: Medical Qualifiers: Esophagitis presence: without esophagitis Qualified Code(s): K21.9 - Gastro-esophageal reflux disease without esophagitis Plan: Avoid the foods that causes that usually spicy foods, tomato products, juices, coffee, soda and foods that your sensitive to. After eating do not lie down, allow 3-4 hours before in lie down. And keep the head of bed above 30 degrees to avoid the acid from going up. (7) Asthma: Code(s): J45.909 - Unspecified asthma, uncomplicated Category: Medical Qualifiers: Asthma complication type: uncomplicated Asthma persistence: intermittent Asthma severity: mild Qualified Code(s): J45.20 - Mild intermittent asthma, uncomplicated Plan: Stable (8) Personal history of nicotine dependence: Comment: (former smoker - onset 17yo, 1ppd x 37yrs, 35pyh - quit 2019) CT lung 05/2024 Code(s): Z87.891 - Personal history of nicotine dependence Category: Medical Plan: May [address] scan[address] Cancer screening program Plan History of Present Illness The patient is a 59-year-old female presenting for a follow-up visit for chronic conditions management and preventative care. The patient has a history of Gastroesophageal Reflux Disease (GERD), which has been stable with current management. She has been diagnosed with Diabetes Mellitus, with a recent Hemoglobin A1c of 6.1, indicating good control. She is currently on Metformin 500 mg twice daily. The patient has Hypercholesterolemia, with an LDL cholesterol level of 59 mg/dL, which is well within the target range. She aims to maintain an LDL goal of less than 100 mg/dL. The patient has a history of Anxiety Disorder and is currently taking Trazodone for sleep disturbances related to anxiety. She has a history of Asthma, which was not discussed in detail during this visit. The patient has Lumbar Degenerative Disc Disease, which was mentioned but not elaborated upon in this visit. Hypertension is part of her medical history, and she is currently on Lisinopril 10 mg daily. The patient has been evaluated for Varicose Veins and was advised to use compression stockings and alpha-lipoic acid. A venous insufficiency duplex showed no dysfunction in the veins of the right leg. She has a history of Fatty Liver Disease, with recent liver function tests showing mild elevation. Preventative care measures include up-to-date mammogram and colonoscopy, as well as vaccinations for flu, shingles, tetanus, pneumonia, and hepatitis. Health Maintenance - Mammogram up to date as of July 2024 - Colonoscopy performed in 2017 - Vaccinations: Flu shot received recently, shingles, tetanus, pneumonia, and hepatitis vaccinations are up to date Social History - Quit smoking in 2019 - Reports stress and sleep disturbances, uses Trazodone and melatonin for sleep Review of Systems - Gastrointestinal: Reports stable GERD, denies diarrhea or constipation - Endocrine: Reports well-controlled diabetes, denies symptoms of hyperglycemia - Cardiovascular: Denies chest pain or palpitations - Respiratory: Denies dyspnea or wheezing - Neurological: Reports headaches related to sleep disturbances, denies dizziness or syncope - Musculoskeletal: Denies joint pain or stiffness - Psychiatric: Reports anxiety, denies depression Physical Exam Results - Labs: Hemoglobin A1c 6.1, LDL cholesterol 59 mg/dL, normal blood count, normal electrolytes, elevated liver function tests - Imaging: CT of the lung in May 2024 - Procedures: Venous insufficiency duplex showed no dysfunction in the right leg Plan Patient was informed and verbally consented to the use of an ambient scribe for clinic note documentation during this visit. 1. Gastroesophageal Reflux Disease (Gerd) The patient's GERD is stable with current management, and no changes to the treatment plan were discussed. 2. Diabetes Mellitus The patient is maintaining good glycemic control with a Hemoglobin A1c of 6.1 and continues on Metformin 500 mg twice daily. 3. Hypercholesterolemia The patient's LDL cholesterol is well controlled at 59 mg/dL, with a goal to maintain it below 100 mg/dL. 4. Anxiety Disorder The patient is managing anxiety with Trazodone and melatonin for sleep disturbances. 5. Hypertension The patient is on Lisinopril 10 mg daily for hypertension management, with no changes to the regimen discussed. 6. Varicose Veins The patient continues with compression stockings and alpha-lipoic acid for varicose veins, with no significant venous dysfunction noted in the right leg. 7. Fatty Liver Disease The patient has a history of fatty liver disease with mildly elevated liver function tests, and no specific changes to management were discussed. Discussion Notes During the visit, we discussed the patient's current management plans for her chronic conditions, including GERD, diabetes, hypercholesterolemia, and hypertension. We reviewed her recent lab results, which indicate good control of her diabetes and cholesterol levels. The patient was advised to continue her current medications and lifestyle modifications. We also discussed her preventative care measures, including her recent vaccinations and screenings, which are up to date. The patient was reminded of the importance of maintaining these preventative measures to manage her overall health. Patient Instructions - Continue taking Metformin 500 mg twice daily for diabetes management. - Maintain current lifestyle modifications to support cholesterol and blood pressure control. - Use compression stockings and alpha-lipoic acid as advised for varicose veins. - Ensure vaccinations are up to date, including flu, shingles, tetanus, pneumonia, and hepatitis. - Schedule follow-up appointment in six months. Medications: New melatonin 10 mg PO BEDTIME PRN 30 caps 0RF sleep Refilled ibuprofen 800 mg PO Q8H PRN 30 tabs 0RF pain M47.816 - Spondylosis without myelopathy or radiculopathy, lumbar region
[2025-03-22 14:34] VITALS: BP 132/82; PULSE 72; O2SAT 98; BMI 26.2
--- OUTSIDE RECORDS SUMMARY | 2025-03-22 19:34 | XMS_ITS | Encounter Summary ---
Author Organization [employer] Address [address] [facility] 7 [place] [address] Care Team Providers Care Registered Representative Name Role Phone Unavailable Primary Care Provider Unavailabl e Encounter Details Date Type Department Care Team (Latest Contact Info) Description 04/06/2019 Abstract [facility] CONVERSIONS Dental, Provider, DDS Social History [...] Care Team (Late st Contact Info) Description 09/02/2025 10:00 AM EST Office Visit [facility]ULT [facility] [address] [place] [address] Luciana Menon [address] [place] [address] documented as of this encounter Visit Diagnoses Not on filedocumented in this encounter
--- OUTSIDE RECORDS SUMMARY | 2025-03-22 19:34 | XMS_ITS | Clinical Summary ---
Author Organization [facility] Address [address] [place] [address] Care Team Providers Care Melting Supervisor Name Role Phone Jace Laughlin MD Primary Care Provider [phone] Surgical History Surgery Date Site/Laterality Comments TUBAL [...] 06/10/2022 Social Influencers of Health Screening 06/10/2022 Depression Screening 07/08/2024 COVID-19 Vaccine ( - 2024-2 6 season) 2025 06/25/2021, 10/14/2020, 09/16/2020 Influenza Vaccine (#1) 2025 2, 05/11/2021 HIB [...] age to complete this topic Care Teams Melting Supervisor Relationship Specialty Start Date End Date Jace Laughlin MD [address] [place] [address] [address] [facility] [place] [address] PCP - General 06/25/22
--- OUTSIDE RECORDS SUMMARY | 2025-03-22 19:34 | XMS_ITS | Encounter Summary ---
Author Organization [employer] Address [address] [facility] [address] [place] [address] Care Team Providers Care Technical Manager [employer] Name Role Phone Unavailable Primary Care Provider Unavailabl e Encounter Details Date Type Department Care Team (Latest Contact Info) Description 09/26/2020 Abstract [facility] CONVERSIONS Dental, Provider, DDS Social History [...] Description 09/02/2025 10:00 AM EST Office Visit [facility] ADULT DENT[facility] [address] [place] [address] Jaylon Menonaris [address] [place] [address] documented as of this encounter Visit Diagnoses Not on filedocumented in this encounter
--- OUTSIDE RECORDS SUMMARY | 2025-03-22 19:34 | XMS_ITS | Encounter Summary ---
Author Organization [employer] Address [address] [facility] [address] [place] [address] Care Team Providers Care Automatic Fabric Cutter Name Role Phone Unavailable Primary Care Provider Unavailabl e Encounter Details Date Type Department Care Team (Latest Contact Info) Description 11/13/2021 Abstract [facility] CONVERSIONS Dental, Provider, DDS Social History Tobacco [...] Description 09/02/2025 10:00 AM EST Office Visit [facility] [address] [place] [address] Jaylon Menonaris [address] [place] [address] documented as of this encounter Visit Diagnoses Not on filedocumented in this encounter
--- OUTSIDE RECORDS SUMMARY | 2025-03-22 19:35 | XMS_ITS | Clinical Summary ---
Author Organization [employer] Address [address] [place] [address] [address] [place] [address] Care Team Providers Care Forex Trader Name Role Phone Unavailable Primary Care Provider [...] acid (Vitamin C) 500 MG tablet Active lisinopril 10 MG tablet Take 10 mg by mouth. 5 Active Alpha-Lipoic Acid 600 MG capsule Take 1 capsule by mouth Once per day. 5 Active Active Problems Problem Noted Date Diagnosed Date Localized adult periodontitis 02/26/2025 Malocclusion 02/26/2025 Tipped teeth 07/30/2023 Dental calculus 07/30/2023 Periodontal disease 07/30/2023 Localized gingival recession 07/30/2023 Encounters Date Type Department Care Team Description 02/26/2025 8:00 AM EDT Office Visit [facility] [address] [place] [address] Luciana Menon Malocclusion (Primary Dx); Localized gingival recession; Dental calculus; Localized adult periodontitis from Last 3 Months Social History Tobacco Use Types Packs/Day Years [...] Sign Reading Time Taken Comments Blood Pressure 124/76 02/26/2025 8:04 AM EDT Pulse 68 10/02/2023 2:08 PM EDT Temperature - - Respiratory Rate - - Oxygen Saturation - - Inhaled Oxygen Concentration - - Weight - - Height - - Body Mass Index - - Plan of Treatment Upcoming Encounters Date Type Department Care Team (Late st Contact Info) Description 09/02/2025 10:00 AM EST Office Visit [facility] [address] [place] [address] Luciana Menon [address] [place] [address] Health Maintenance Due Date Last Done Comments CT Colonography 1967 Colonoscopy 1967 Colorectal Cancer Screening 1967 Depression Screening 1967 FIT DNA/Cologuard 1967 FIT 1967 FOBT 1967 HIV Screening 1967 SDOH Screening 1967 Sigmoidoscopy 1967 Disability Screening 1967 Alcohol/Substance Use Screening 1979 Hepatitis C Screening 12/25/1985 Pap Smear 12/25/1988 Cervical Cancer Screening 12/25/1997 HPV/Cotest 12/25/1997 Mammogram 2007 Pneumococcal Vaccine: 50+ Years (2 of 2 - PCV) 12/25/2017 09/19/2016 Hepatitis B Vaccines (2 of 3 - 19+ 3-dose series) 02/23/2025 01/26/2025 Influenza Vaccine (#1) 2025 , 03/05/2023, 05/07/2022, Additional history exists Dental Oral Exam 08/30/2025 02/26/2025, , 04/09/2022, Additional history exists Dental Prophylaxis 08/30/2025 02/26/2025, 0 07/30/2023, 04/09/2022, Additional history exists Tobacco Screening 02/26/2026 02/26/2025 Dental X-Ray: Bitewings 02/27/2026 02/27/20, 07/30/2023, 11/13/2021, Additional history exists Dental X-Ray: Full Mouth 07/31/2026 07/30/2023, 03/10 DTaP/Tdap/Td Vaccines (2 - Td or Tdap) 09/07/2034 09/07/2024 RSV Patients and Patients Aged 60 years or older (1 - 1-dose 75+ series) 12/25/2042 Zoster Vaccines Completed 09/04/2023, 06/24/2023 COVID-19 Vaccine Completed 09/07/2024, , 06/27/2022, Additional [...] Procedure Name Priority Date/Time Associated Diagnosis Comments PERIODIC ORAL EVALUATION - ESTABLISHED PATIENT Routine 02/26/2025 8:00 AM EDT ORAL HYGIENE INSTRUCTIONS Routine 02/26/2025 8:00 AM EDT Malocclusion Localized gingival recession Dental calculus Localized adult periodontitis PROPHYLAXIS - ADULT Routine 02/26/2025 8 :00 AM EDT Malocclusion Localized gingival recession Dental calculus Localized adult periodontitis CASE PRESENTATION, DETAILED AND EXTENSIVE TREATMENT PLANNING Routine 02/26/2025 8:00 AM EDT Malocclusion Localized gingival recession Dental calculus Localized adult periodontitis INTRAORAL - PERIAPICAL EACH ADDITIONAL RADIOGRAPHIC IMAGE Routine 02/26/2025 8:00 AM EDT Malocclusion Localized gingival recession Dental calculus Localized adult periodontitis INTRAORAL - PERIAPICAL FIRST RADIOGRAPHIC IMAGE Routine 02/26/2025 8:00 AM EDT Malocclusion Localized gingival recession Dental calculus Localized adult periodontitis BITEWINGS - 4 RADIOGRAPHIC IMAGES Routine 02/26/2025 8:00 AM EDT Malocclusion Localized gingival recession Dental calculus Localized adult periodontitis INTRAORAL - COMPLETE SERIES OF RADIOGRAPHIC IMAGES Routine 07/30/2023 11:00 AM EST Tipped teeth Dental calculus Periodontal disease Localized gingival recession from Last 3 Months or Most Recently Relevant to Health Maintenance Insurance DENTAL - HSN PARTIAL (MEDICAID)
== END 2025-03-22 15:07 | disposition home or self-care (01) ==
LOC: HO.HMCH 14:15
PROVIDERS: PCP Internal Medicine; Visit Provider Internal Medicine
DX: E11.65 Type 2 diabetes mellitus with hyperglycemia (principal); I10 Essential (primary) hypertension; E78.00 Pure hypercholesterolemia, unspecified; I73.9 Peripheral vascular disease, unspecified; F41.1 Generalized anxiety disorder; K21.9 Gastro-esophageal reflux disease without esophagitis; J45.20 Mild intermittent asthma, uncomplicated; Z87.891 Personal history of nicotine dependence

== ENCOUNTER → 2025-03-22 14:14 | Outpatient (BNVA) | payer OTHER, SELFPAY | PROVIDERS: PCP Internal Medicine; Visit Provider Internal Medicine | DX: E11.65 Type 2 diabetes mellitus with hyperglycemia (principal); E11.51 Type 2 diabetes mellitus with diabetic peripheral angiopathy without gangrene; I10 Essential (primary) hypertension; E78.00 Pure hypercholesterolemia, unspecified; F41.1 Generalized anxiety disorder; K21.9 Gastro-esophageal reflux disease without esophagitis; I83.91 Asymptomatic varicose veins of right lower extremity; J45.20 Mild intermittent asthma, uncomplicated; M47.816 Spondylosis without myelopathy or radiculopathy, lumbar region; Z79.84 Long term (current) use of oral hypoglycemic drugs; Z87.891 Personal history of nicotine dependence | CPT/HCPCS: 99212 ==

== ENCOUNTER 2025-06-10 13:17 | Outpatient (REF) | payer OTHER, SELFPAY | END 2025-06-10 13:18 | disposition home or self-care (01) | LOC: HO.LNP 13:17 | PROVIDERS: PCP Internal Medicine; Visit Provider Obstetrics & Gynecology | DX: N95.0 Postmenopausal bleeding (principal); R31.29 Other microscopic hematuria | CPT/HCPCS: 87086; 88305 ==

== ENCOUNTER 2025-06-10 13:17 | Outpatient (AMB) | payer OTHER, SELFPAY ==
--- NOTE | 2025-06-10 13:24 | A.OFFVIS_ITS ---
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 02/27 Mirena IUD inserted 03/30 benign endometrium with focal secretory 05/30 progesterone effect, 11/28 inactive benign endometrial 04/30 inactive endometrium PFSH Medical History Iron deficiency anemia Pain of both breasts Leg pain, bilateral Pelvic cramping Hair loss Radicular pain of lumbosacral region PMB (postmenopausal bleeding) Personal history of nicotine dependence History of cervical cancer Frequency of micturition Overweight (BMI 25.0-29.9) Rib pain Hot flashes due to menopause Pleurisy Bilateral lower extremity edema Right hand paresthesia Paresthesia of bilateral legs Hematuria Pelvic pain Generalized anxiety disorder Uterine fibroid Tinnitus LFT elevation Internal and external hemorrhoids without complication COVID-19 virus infection Finger dislocation Migraine Insomnia Major depressive disorder GERD (gastroesophageal reflux disease) Alcohol abuse Asthma Menorrhagia Vitamin D deficiency Hypercholesteremia 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 Son No problems noted. Son No problems noted. Son No problems noted. Daughter No problems noted. Brother No problems noted. Brother No problems noted. Social History Housing: Apartment Alcohol intake: current Alcohol intake frequency: holidays/special occasions on ly Alcohol type: wine Comment: once a week wine 4 glasses Patient Tobacco Use Status: Former Tobacco user Tobacco use type: Cigarette Years Smoked: former smoker - onset 17yo, 1ppd x 37yrs, 35pyh - quit 2020 e-Cigarette/Vaping Use: Never Used Second Hand Smoke Exposure: No Substance Use Type: Marijuana service: No Current occupational status: unemployed Sexual orientation: Straight/Heterosexual Gender identity: Female Cognitive needs: No Hearing needs: No Vision needs: Yes Female Reproductive History Menstrual Age of Menarche: 14 Review of Systems Const All systems reviewed & are unremarkable except as noted in HPI and below Physical Exam Vital Signs: BMI result Body Mass Index 26.4 General: Yes no CVA tenderness External Female Exam: normal external appearance and normal appearance of the urethra Speculum Exam - Vagina: normal appearance of the vagina, normal palpation, no lesions and no masses Speculum Exam - Cervix: normal appearance of the cervix, normal palpation, no lesions, no masses, nontender and Other cervical findings present (IUD string in place) Bimanual exam- vagina & uterus: normal bimanual exam, normal palpation, uterine size normal, normal palpation, uterine shape normal, No Cervical tenderness present and non-tender Bimanual Exam- Adnexa, other: normal adnexae Back/Spine/Pelvis Back: no CVA tenderness Office Procedures Endometrial Biopsy Details: The patient was counseled regarding the indication and benefits of endometrial sampling to rule out endometrial pathology including not limited to endometrial hyperplasia or endometrial cancer and others; The alternatives (Either do nothing vs. hysteroscopy D&C) & the risks were discussed with the patient including but not limited: pain, uterine perforation, bleeding, infection, possible injury to bladder, bowel, ureter, possible need for blood transfusion with all its possible risks. The patient verbalized understanding all questions answered and signed consent. The patient was placed into the dorsal lithotomy position; a speculum was inserted in the vagina. Using aseptic technique for the procedure, the cervix was cleansed with Betadine. The anterior lip of the cervix was grasped with a single tooth tenaculum. The uterus was sounded to 7 cm with a 4 mm Pipelle was used. Tissues samples were obtained and placed in formalin, in a patient labeled container and sent to the pathology department. At the end of the procedure, there was minimal bleeding noted The patient tolerated the procedure well and was discharged in good condition with the following instructions: Nothing in the vagina until the bleeding stops. No sex until the bleeding stops, to call if any of the following occurs: fever (>100.4), flu-like symptoms, abdominal pain, heavy bleeding, four smelling vaginal discharge. The patient was instructed to schedule a Follow up appointment in 2 weeks to discuss pathology results of the biopsy and treatment options. This note was generated with a voice recognition program. Some errors may have been overlooked during the review of this note. Sometimes these errors may affect the content or meaning of a given sentence. [id number] Biopsy Assessment & Plan Assessment & Plan (1) PMB (postmenopausal bleeding): Comment: On Mirena IUD EMB 09/2022 and 12/28-proliferative endometrium. 02/27 Mirena IUD inserted 03/30 benign endometrium with focal secretory, 05/30 progesterone effect, 11/28 inactive benign endometrial, 04/30 inactive endometrium Code(s): N95.0 - Postmenopausal bleeding Category: Medical Plan: Pelvic ultrasound ordered, EMB done, see procedure note Discussed with the patient the differential diagnosis of post menopausal bleeding with normal pelvic exam including but not limited to, endometrial hyperplasia, cancer, polyps and other causes; recommended ultrasound Instructed the patient to schedule an ultrasound with a follow-up appointment in 2 weeks. All questions answered, the patient verbalized understanding and agreed with the plan. This note was generated with a voice recognition program. Some errors may have been overlooked during the review of this note. Sometimes these errors may affect the content or meaning of a given sentence. (2) Microscopic hematuria: Code(s): R31.29 - Other microscopic hematuria Category: Medical Plan: Urine dip showed microscopic hematuria, urine culture sent. Will repeat urine dip in 2 weeks. Discussed with the patient the possible causes of microscopic hematuria including but not limited to: interstitial cystitis, polyps, stones, masses, urethral inflammatory processes and others. If Urine Culture is negative and repeat urine dip in 2 weeks shows persistent microscopic hematuria, will proceed with CT abdomen/pelvis and urology referral. Instructions given the patient to schedule a 2 week urine dip follow-up appointment. All questions answered and the patient verbalized understanding. Orders: Orders AMB Endometrial Biopsy Today N95.0 - Postmenopausal bleeding Coding Level of Care Code Est Pt Level 3 (89126) Procedure Only Diagnoses PMB (postmenopausal bleeding) N95.0 Microscopic hematuria R31.29 CPT Codes Endometrial Biopsy - CPT: 16719-[id number] Biopsy ([id number])
[2025-06-10 13:26] VITALS: BP 130/84; BMI 26.4
== END 2025-06-10 13:50 | disposition home or self-care (01) ==
LOC: HO.HWS 13:18
PROVIDERS: PCP Internal Medicine; Visit Provider Obstetrics & Gynecology
DX: N95.0 Postmenopausal bleeding (principal); R31.29 Other microscopic hematuria
CPT/HCPCS: 58100; 99213

== ENCOUNTER 2025-06-17 11:22 | Outpatient (AMB) | payer OTHER, SELFPAY ==
--- NOTE | 2025-06-17 11:49 | A.OFFVIS_ITS ---
Vital Signs 06/17/25 11:50 Height 5 ft Weight 135 lb BMI 26.4 Intake Visit Reasons: repeat emb Mig Tig Welder Required: No Information Interpreted: non-clinical & clinical Allergies No Known Allergies Allergy (Verified 06/17/25 11:51) HPI Comments Details: The patient is presenting after endometrial biopsy. The patient has no complaints, no vaginal bleeding, no feverishness chills or abdominal pain. The endometrial biopsy pathology report showed the following: Endometrium, biopsy: Fragments of superficial inactive endometrium with breakdown and pseudodecidual change, consistent with exogenous progestin; no atypia or hyperplasia identified. See comment. Comment: The endometrium is sparse; consider repeat sampling, as clinically appropriate [facility] Medical History Iron deficiency anemia Pain of both breasts Leg pain, bilateral Pelvic cramping Hair loss Radicular pain of lumbosacral region PMB (postmenopausal bleeding) Personal history of nicotine dependence History of cervical cancer Frequency of micturition Overweight (BMI 25.0-29.9) Rib pain Hot flashes due to menopause Pleurisy Bilateral lower extremity edema Right hand paresthesia Paresthesia of bilateral legs Hematuria Pelvic pain Generalized anxiety disorder Uterine fibroid Tinnitus LFT elevation Internal and external hemorrhoids without complication COVID-19 virus infection Finger dislocation Migraine Insomnia Major depressive disorder GERD (gastroesophageal reflux disease) Alcohol abuse Asthma Menorrhagia Vitamin D deficiency Hypercholesteremia 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 Son No problems noted. Son No problems noted. Son No problems noted. Daughter No problems noted. Brother No problems noted. Brother No problems noted. Social History Housing: Apartment Alcohol intake: current Alcohol intake frequency: holidays/special occasions only Alcohol type: wine Comment: once a week wine 4 glasses Patient Tobacco Use Status: Former Tobacco user Tobacco use type: Cigarette Years Smoked: former smoker - onset 17yo, 1ppd x 37yrs, 35pyh - quit 2019 e-Cigarette/Vaping Use: Never Used Second Hand Smoke Exposure: No Substance Use Type: Marijuana service: No Current occupational status: unemployed Sexual orientation: Straight/Heterosexual Gender identity: Female Cognitive needs: No Hearing needs: No Vision needs: Yes Female Reproductive History Menstrual Age of Menarche: 14 Review of Systems Const All systems reviewed & are unremarkable except as noted in HPI and below Reports as per HPI and Reports no additional complaints GI Reports no additional complaints Reports no additional complaints Physical Exam Vital Signs: BMI result Body Mass Index 26.4 Assessment & Plan Assessment & Plan (1) PMB (postmenopausal bleeding): Comment: On Mirena IUD EMB 09/2022 and 12/28-proliferative endometrium. 02/27 Mirena IUD inserted 03/30 benign endometrium with focal secretory, 05/30 progesterone effect, 11/28 inactive benign endometrial, 04/30 inactive endometrium Code(s): N95.0 - Postmenopausal bleeding Category: Medical Plan: Discussed with the patient the results of the EMB pathology. Recommended to the patient that the next step is an endometrial sampling via hysteroscopy D&C possible polypectomy versus endometrial biopsy to r/o endometrial pathology including hyperplasia or cancer. The patient is interested in definitive surgical management because of the recurrent postmenopausal bleeding over the last 2+ years. Discussed with the patient the different types of hysterectomies including, vaginal, laparoscopic assisted vaginal, robotic assisted laparoscopic,& abdominal with BSO. All pros, cons, r/b of each approach were discussed the patient including evidence that morbidity is less and recovery is shorter with minimally invasive approaches to hysterectomy. Discussed with the patient the lack of availability of the robot DaVinci robot and/or minimally invasive environmental health officer specialist at [facility]. Will refer to [facility] minimally invasive mopper surgery. Instructed the patient to call our office back in case a referral appointment is not scheduled, missed or canceled so that we will assist on rescheduling another appointment, the patient verbalized understanding agreed with the plan. Coding Level of Care Code Est Pt Level 3 (91098) Diagnoses PMB (postmenopausal bleeding) N95.0
[2025-06-17 11:50] VITALS: BMI 26.4
== END 2025-06-17 13:21 | disposition home or self-care (01) ==
LOC: HO.HWS 11:23
PROVIDERS: PCP Internal Medicine; Visit Provider Obstetrics & Gynecology
DX: N95.0 Postmenopausal bleeding (principal)
CPT/HCPCS: 99213

== ENCOUNTER 2025-06-17 12:04 | Outpatient (REF) | payer OTHER, SELFPAY ==
--- NOTE | ~2025-06-17 | CT_ITS ---
EXAMINATION: CT LUNG SCREENING HISTORY: Z87.891 - Personal history of nicotine dependence TECHNIQUE: Low dose axial images were obtained from the sternal notch to upper abdomen without IV contrast per standard departmental protocol. Sagittal and coronal reformatted images were also obtained and reviewed. One or more of the following techniques was used for dose reduction: Automated exposure control, adjustment of the mA and/or kV according to patient size, use of iterative reconstruction technique. DLP: 40 mGy-cm COMPARISON: Comparison is made with the prior examination dated 05/11/2024. FINDINGS: Lung nodules: Again seen is a calcified granuloma in the right middle lobe (series 5, image 80). No new or suspicious pulmonary nodules are identified. Emphysema: none Coronary Calcification: none Aortic Arch Calcification: none Potentially Significant Incidentals : none Additional Chest Findings: There is no pleural or pericardial effusion. No mediastinal or axillary lymphadenopathy is identified. Visualized upper abdomen: The visualized portions of the liver, spleen, and adrenals have an unremarkable unenhanced appearance. CT/CT lung screening IMPRESSION: No suspicious pulmonary nodules are identified. LUNG-RADS ASSESSMENT: Lung-RADS 2: Benign MANAGEMENT: Continue annual screening with LDCT in 12 months Category S: N/A Electronically signed by: Mark Reis MD 06/17/2025 01:36 PM [facility] [place] [place]
--- OUTSIDE RECORDS SUMMARY | 2025-06-17 18:26 | XMS_ITS | Encounter Summary ---
Author Organization [employer] Address [address] [facility] [address] [place] [address] Care Team Providers Care Welt Insole Channeler Name Role Phone Unavailable Primary Care Provider Unavailabl e Encounter Details Date Type Department Care Team (Latest Contact Info) Description 09/26/2020 Abstract [facility] CONVERSIONS Dental, Provider, DDS Social History [...] Team (Late st Contact Info) Description 09/02/2025 10:15 AM EST Office Visit [facility] ADULT DENTAL [address] [place] [address] Jaylon Menonaris [address] [place] [address] documented as of this encounter Visit Diagnoses Not on filedocumented in this encounter
--- OUTSIDE RECORDS SUMMARY | 2025-06-17 18:26 | XMS_ITS | Encounter Summary ---
Author Organization [employer] Address [address] [facility] [address] [place] [address] Care Team Providers Care Manager Night Name Role Phone Unavailable Primary Care Provider Unavailabl e Encounter Details Date Type Department Care Team (Latest Contact Info) Description 11/13/2021 Abstract [facility] CONVERSIONS Dental, Provider, DDS Social [...] Description 09/02/2025 10:15 AM EST Office Visit [facility] ADULT DENTAL [address] [place] [address] Jaylon Menonaris [address] [place] [address] documented as of this encounter Visit Diagnoses Not on filedocumented in this encounter
--- OUTSIDE RECORDS SUMMARY | 2025-06-17 18:26 | XMS_ITS | Encounter Summary ---
Author Organization [employer] Address [address] [facility] [address] [place] [address] Care Team Providers Care Sales Representative Electric Service Name Role Phone Unavailable Primary Care Provider Unavailabl e Encounter Details Date Type Department Care Team (Latest Contact Info) Description 04/06/2019 Abstract [facility] CONVERSIONS Dental, Provider, DDS Social [...] Description 09/02/2025 10:15 AM EST Office Visit [facility] ADULT DENTAL [address] [place] [address] Luciana Menon [address] [place] [address] documented as of this encounter Visit Diagnoses Not on filedocumented in this encounter
--- OUTSIDE RECORDS SUMMARY | 2025-06-17 18:27 | XMS_ITS | Clinical Summary ---
Author Organization [facility] Address [address] [place] [address] Care Team Providers Care Tuft Machine Operator Name Role Phone Jace Laughlin MD Primary Care Provider [phone] Surgical History Surgery Date Site/Laterality Comments TUBAL [...] on file Sexual Orientation Not on file Last Filed Vital Signs Vital Sign Reading [...] Last Done Comments Breast Cancer Screening 1967 Colorectal Cancer Screening: Colonoscopy 1967 DTaP,Tdap,and Td Vaccines (1 - Tdap) 12/25/1986 Hepatitis B Vaccines (1 of 3 - 19+ 3-dose series) 12/25/1986 Cervical Cancer Screening: P ap Smear 12/25/1988 Pneumococcal Vaccine: 50+ Years (2 of 2 - PCV) 12/25/2017 09/19/2016 Zoster Vaccines (1 of 2) 12/25/2017 HIV Screening 06/10/2022 Hepatitis C Screening 06/10/2022 Social Influencers of Health Screening 06/10/2022 Depression Screening 07/08/2024 COVID-19 Vaccine (4 - 2024-2 6 season) 2025 06/25/2021, 10/14/2020, 09/16/2020 Influenza Vaccine (#1) 2025 2, 05/11/2021 RSV Immunization Adult Patients (1 - 1-dose 75+ series) 12/25/2042 HIB Vaccines Aged Out No longer eligi [...] age to complete this topic Care Teams Tuft Machine Operator Relationship Specialty Start Date End Date Jace Laughlin MD [address] [place] [address] [address] [facility] [place] [address] PCP - General 06/25/22
--- OUTSIDE RECORDS SUMMARY | 2025-06-17 18:27 | XMS_ITS | Clinical Summary ---
Author Organization [employer] Address [address] [place] [address] [address] [place] [address] Care Team Providers Care Product Safety Lead Name Role Phone Unavailable Primary Care Provider [...] Description 09/02/2025 10:15 AM EST Office Visit [facility] ADULT DENTAL [address] [place] [address] Sinan, Luciana [address] [place] [address] Health Maintenance Due Date Last Done Comments [...] 3 - 19+ 3-dose series) 02/23/2025 01/26/2025 COVID-19 Vaccine ( season) 2025 09/07/2024, 04/23/2023, 06/27/2022, Additional history exists Influenza Vaccine (#1) 2025 , 03/05/2023, 05/07/2022, Additional history exists Dental Oral Exam 08/30/2025 02/26/2025, , 04/09/2022, Additional history exists Dental Prophylaxis 08/30/2025 02/26/2025, 0 07/30/2023, 04/09/2022, Additional history exists Tobacco Screening 02/26/2026 02/26/2025 Dental X-Ray: Bitewings 02/27/2026 02/27/20 25, 07/30/2023, 11/13/2021, Additional history exists Dental X-Ray: Full Mouth 07/31/2026 07/30/2023, 03/10 DTaP/Tdap/Td Vaccines (2 - Td or Tdap) 09/07/2034 09/07/2024 RSV Patients and Patients Aged 60 years or older (1 - 1-dose 75+ series) 12/25/2042 Zoster Vaccines Completed 09/04/2023, 06/24/2023 HIB Vaccines [...] Associated Diagnosis Comments PROPHYLAXIS - ADULT Routine 02/26/2025 8 :00 AM EDT Malocclusion Localized gingival recession Dental calculus Localized adult periodontitis BITEWINGS - 4 RADIOGRAPHIC IMAGES Routine 02/26/2025 8:00 AM EDT Malocclusion Localized gingival recession Dental calculus Localized adult periodontitis PERIODIC ORAL EVALUATION - ESTABLISHED PATIENT Routine 02/26/2025 8:00 AM EDT INTRAORAL - COMPLETE SERIES OF RADIOGRAPHIC IMAGES Routine 07/30/2023 11:00 AM EST Tipped teeth Dental calculus Periodontal disease Localized gingival recession from Last 3 Months or Most Recently Relevant to Health Maintenance Insurance DENTAL - [place] PARTIAL ([place]) [place] [phone]
== END 2025-06-17 12:05 | disposition home or self-care (01) ==
LOC: HO.CT 12:04
PROVIDERS: PCP Internal Medicine; Visit Provider Physician Assistant Medical
DX: N95.0 Postmenopausal bleeding (principal); Z87.891 Personal history of nicotine dependence
CPT/HCPCS: 71271; 99212

== ENCOUNTER → 2025-06-17 12:06 | Outpatient (BNV) | payer OTHER, SELFPAY | PROVIDERS: PCP Internal Medicine; Visit Provider Radiology Diagnostic Radiology | DX: Z12.2 Encounter for screening for malignant neoplasm of respiratory organs (principal); Z87.891 Personal history of nicotine dependence | CPT/HCPCS: 71271 ==